=== PATIENT | male | born 1925 | race Caucasian/White ===

== ENCOUNTER → 2016-08-23 | Outpatient (CLI) | payer MEDICARE, OTHER ==
[2016-08-23 08:40] LABS: ALANINE AMINOTRANSFERASE 31 U/L (21-72); ALBUMIN 3.7 g/dL (3.5-5.0); ALKALINE PHOSPHATASE 69 U/L (38-126); ANION GAP 7 (5-19); ASPARTATE AMINO TRANSFERASE 27 U/L (17-59); BILIRUBIN,TOTAL 1.1 mg/dL (0.2-1.3); BLOOD UREA NITROGEN 24 mg/dL (7-20); CARBON DIOXIDE 32 mmol/L (22-30); CHLORIDE 104 mmol/L (98-107); CHOLESTEROL 92.83 mg/dL (0-200); CREATININE RESULT 0.92 mg/dL (0.52-1.25); Direct HDL 42 mg/dL (>40); GLUCOSE 95 mg/dL (75-110); POTASSIUM 4.2 mmol/L (3.6-5.0); SODIUM 142.5 mmol/L (137-145); TOTAL PROTEIN 6.2 g/dL (6.3-8.2); TRIGLYCERIDES 58 mg/dL (<150)
[2016-08-23 08:52] LABS: DIRECT LDL 38 mg/dL (<100)
== END ==
LOC: OD 07:49
PROVIDERS: ATTEND Internal Medicine
DX: I48.2 Chronic atrial fibrillation (principal); I50.33 Acute on chronic diastolic (congestive) heart failure; Z98.61 Coronary angioplasty status; I34.0 Nonrheumatic mitral (valve) insufficiency; E78.4 Other hyperlipidemia; I10 Essential (primary) hypertension; I35.1 Nonrheumatic aortic (valve) insufficiency; I36.1 Nonrheumatic tricuspid (valve) insufficiency; I47.2 Ventricular tachycardia; R00.1 Bradycardia, unspecified; I73.9 Peripheral vascular disease, unspecified; R01.1 Cardiac murmur, unspecified; M19.90 Unspecified osteoarthritis, unspecified site; R09.89 Other specified symptoms and signs involving the circulatory and respiratory systems; I25.10 Atherosclerotic heart disease of native coronary artery without angina pectoris; I95.1 Orthostatic hypotension; Z79.899 Other long term (current) drug therapy
CPT/HCPCS: 36415; 80053; 80061; 83880

== ENCOUNTER → 2016-09-24 | Outpatient (CLI) | payer MEDICARE, OTHER | LOC: OD 09:49 | PROVIDERS: ATTEND Urology | DX: R97.20 Elevated prostate specific antigen [PSA] (principal) | CPT/HCPCS: 36415; 84153 ==

== ENCOUNTER → 2016-11-15 | Outpatient (CLI) | payer MEDICARE, OTHER ==
[2016-11-15 10:00] LABS: ALANINE AMINOTRANSFERASE 27 U/L (21-72); ALBUMIN 3.7 g/dL (3.5-5.0); ALKALINE PHOSPHATASE 79 U/L (38-126); ANION GAP 11 (5-19); ASPARTATE AMINO TRANSFERASE 24 U/L (17-59); BILIRUBIN,DIRECT 0.3 mg/dL (0.0-0.4); BILIRUBIN,TOTAL 1.3 mg/dL (0.2-1.3); BLOOD UREA NITROGEN 26 mg/dL (7-20); CALCIUM 8.8 mg/dL (8.4-10.2); CARBON DIOXIDE 27 mmol/L (22-30); CHLORIDE 101 mmol/L (98-107); CREATININE RESULT 0.92 mg/dL (0.52-1.25); GLUCOSE 99 mg/dL (75-110); POTASSIUM 3.8 mmol/L (3.6-5.0); SODIUM 139.4 mmol/L (137-145); TOTAL PROTEIN 6.2 g/dL (6.3-8.2)
[2016-11-15 10:19] LABS: FREE T3 2.76 pg/mL (2.77-5.27)
[2016-11-15 10:23] LABS: BLOOD UREA NITROGEN 26 mg/dL (7-20); CREATININE RESULT 0.92 mg/dL (0.52-1.25)
[2016-11-15 10:24] LABS: ANION GAP 11 (5-19); CARBON DIOXIDE 27 mmol/L (22-30); CHLORIDE 101 mmol/L (98-107); POTASSIUM 3.8 mmol/L (3.6-5.0); SODIUM 139.4 mmol/L (137-145)
[2016-11-15 10:33] LABS: THYROID STIMULATING HORMONE 2.35 uIU/mL (0.47-4.68)
== END ==
LOC: OD 07:41
PROVIDERS: ATTEND Internal Medicine
DX: E03.9 Hypothyroidism, unspecified (principal); I25.10 Atherosclerotic heart disease of native coronary artery without angina pectoris
CPT/HCPCS: 36415; 80051; 80053; 82565; 84439; 84443; 84481; 84520

== ENCOUNTER 2017-02-03 18:50 | Emergency (ER) | payer MEDICARE, OTHER ==
--- NOTE | 2017-02-03 18:55 | ER Document Report ---
ED Cardiac - General Information source: Patient TRAVEL OUTSIDE OF THE U.[place]. IN LAST 30 DAYS: No <JIN BARROS - Last Filed: 02/03/17 21:09> <CECE KELLY - Last Filed: 02/03/17 23:01> - General Stated Complaint: CHEST PAIN Time Seen by Provider: 02/03/17 18:54 Notes: Patient is an 89 year old male who presents to the ED with complaints of dizziness that caused the patient to fall while he was at home injuring his right hip. EMS was called. Patient's pain is reported to be controlled as long as he has no movement. Patient was having runs of v-tach on the way to the ED and was feeling dizzy during those runs. 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 Patient states he has had similar symptoms a few times in the past. Patient is currently being treated for pneumonia . No other concerns or complaints at this time. Patient is on blood thinning medication. (JIN BARROS) - Related Data Allergies/Adverse Reactions: No Known Allergies Allergy (Verified 02/03/17 19:01) Past Medical History - General Information source: Patient - Social History Smoking Status: Unknown if Ever Smoked Family History: Reviewed & Not Pertinent, CAD, Other - Past Medical History Cardiac Medical History: Reports: Hx Atrial Fibrillation, Hx Congestive Heart Failure, Hx Coronary Artery Disease, Hx DVT, Hx Heart Attack, Hx Hypercholesterolemia, Hx Hypertension, Hx Pulmonary Embolism Pulmonary Medical History: Reports: Hx COPD Renal/ Medical History: Reports: Hx Kidney Stones GI Medical History: Reports: Hx Gastroesophageal Reflux Disease Musculoskeltal Medical History: Reports Hx Arthritis Psychiatric Medical History: Denies: Hx Bipolar Disorder, Hx Depression, Hx Schizoaffective Disorder Past Surgical History: Reports: Hx Appendectomy, Hx Cardiac Catheterization, Hx Cholecystectomy, Hx Coronary Stent - X2 in 2001, Hx Orthopedic Surgery - Bilateral knee replacements - Immunizations Hx Diphtheria, Pertussis, Tetanus Vaccination: Yes <JIN BARROS - Last Filed: 02/03/17 21:09> Review of Systems - Review of Systems Constitutional: No symptoms reported EENT: No symptoms reported Cardiovascular: See HPI, Palpitations, Dizziness Respiratory: No symptoms reported Gastrointestinal: No symptoms reported Genitourinary: No symptoms reported Male Genitourinary: No symptoms reported Musculoskeletal: See HPI, Joint pain - right hip Skin: No symptoms reported Hematologic/Lymphatic: No symptoms reported Neurological/Psychological: No symptoms reported <JIN BARROS - Last Filed: 02/03/17 21:09> Course - Laboratory Result Diagrams: 02/03/17 19:05 02/03/17 19:05 - Consults [facility] Transfer Line Time consulted: 20:23 Dr. Tamez Time consulted: 20:28 Dr. Núñez Time consulted: 20:26 <JIN BARROS - Last Filed: 02/03/17 21:09> - Laboratory Result Diagrams: 02/03/17 19:05 02/03/17 19:05 <CECE KELLY - Last Filed: 02/03/17 23:01> - Re-evaluation Re-evalutation: 02/03/17 22:50 Patient is an 89-year-old male who has had dizziness for the last 2 days. Patient had a fall at home. Was picked up by EMS, patient was having runs of V. tach per EMS. Rhythm strip unfortunately is not available. Patient has a proximal femur fracture that is displaced. Discussed with family. Patient would like to have surgery on his hip. Due to ventricular tachycardia, discussed with cardiology. Anesthesia here will not operate on this patient. This necessitates transfer patient. Patient was discussed with Dr. Tamez at [facility] to accept patient for transfer. Of note, there has not been any ventricular tachycardia here that I have seen. No acute findings on blood work except for equivocal troponin of 0.082. Patient has been splinted and attempted traction. Patient was discussed with family about his advanced directives. Patient and family have never had any discussion about advanced directives and he is to be a full code. When transport arrived, it was found that the patient had a DNR directive which the family did not know about. Patient apparently did not know about that either. It has just been revoked. Patient remains a full code at this time. Stable for transfer. (CECE KELLY) - Vital Signs Vital signs: Temp Pulse Resp BP Pulse Ox 99.7 F 87 27 H 128/69 H 94 02/03/17 21:46 02/03/17 18:50 02/03/17 21:46 02/03/17 21:46 02/03/17 21:46 - Laboratory Laboratory results interpreted by me: 02/03/17 02/03/17 02/03/17 19:05 19:05 19:05 RBC 3.87 L Hgb 12.1 L Hct 37.1 L RDW 17.2 H Plt Count 120 L Seg Neutrophils % 78.6 H PT 15.5 H Sodium 135.8 L Direct Bilirubin 0.5 H Creatine Kinase 28 L Albumin 3.3 L - Consults [facility] Transfer Line Reason for consultation: 02/03/17 20:23 Patient was discussed with transfer line, waiting for physician timber poisoner to return the call (JIN BARROS) Dr. Tamez Reason for consultation: 02/03/17 20:[address] Tamez, patient is accepted for transfer. (JIN BARROS) Dr. Núñez Reason for consultation: 02/03/17 20:26 Patient was discussed with Dr. Núñez who requested the EKG strips and patient be transferred (JIN BARROS) Critical Care Note - Critical Care Note Total time excluding time spent on procedures (mins): 90 - Evaluation and management of arrhythmia, management of femur fracture, coordination with specialist, coordination of transfer, counseling of patient and family <CECE KELLY - Last Filed: 02/03/17 23:01> Discharge <JIN BARROS - Last Filed: 02/03/17 21:09> <CECE KELLY - Last Filed: 02/03/17 23:01> - Discharge Clinical Impression: Ventricular tachycardia Femur fracture, right Qualifiers: Encounter type: initial encounter Femur location: shaft Fracture type: closed Fracture morphology: unspecified fracture morphology Qualified Code(s): S72.301A - Unspecified fracture of shaft of right femur, initial encounter for closed fracture Condition: Stable Disposition: [facility] Scribe Attestation: 02/03/17 23:01 I personally performed the services described in the documentation, reviewed and edited the documentation which was dictated to the scribe in my presence, and it accurately records my words and actions. (CECE KELLY) Scribe Documentation - Scribe Written by Scribe:: guicho Osorio, 02/03/2017, 1917 acting as scribe for :: Nena <JIN BARROS - Last Filed: 02/03/17 21:09>
[2017-02-03] MEDS ORDERED: AMIODARONE HCL INJ 150 MG/3 ML VIAL IV ONE (18:59)
[2017-02-03 19:25] LABS: VENOUS BLOOD BASE EXCESS 4.9 mmol/L; VENOUS BLOOD HCO3 31.2 mmol/L (20-32); VENOUS BLOOD PCO2 54.4 mmHg (35-63); VENOUS BLOOD PH 7.38 (7.30-7.42)
[2017-02-03 19:31] LABS: ABSOLUTE EOSINOPHILS # (AUTO) 0.1 10^3/uL (0.0-0.6); ABSOLUTE MONOCYTES (AUTO) 0.5 10^3/uL (0.1-1.4); ABSOLUTE NEUT (AUTO) 5.8 10^3/uL (1.7-8.2); BASOPHILS % (AUTO) 0.2 % (0-2); EOSINOPHILS % (AUTO) 1.1 % (0-6); HEMATOCRIT 37.1 % (37.9-51.0); HEMOGLOBIN 12.1 g/dL (13.5-17.0); HGB HCT DIFFERENCE -0.8; LYMPHOCYTES % (AUTO) 13.2 % (13-45); MEAN CORPUSCULAR HEMOGLOBIN 31.1 pg (27.0-33.4); MEAN CORPUSCULAR HGB CONC 32.5 g/dL (32.0-36.0); MEAN CORPUSCULAR VOLUME 96 fl (80-97); MONOCYTES % (AUTO) 6.9 % (3-13); RED BLOOD COUNT 3.87 10^6/uL (4.35-5.55); RED CELL DISTRIBUTION WIDTH 17.2 % (11.5-14.0); SEGMENTED NEUTROPHILS % (AUTO) 78.6 % (42-78); WHITE BLOOD COUNT 7.4 10^3/uL (4.0-10.5)
[2017-02-03 19:32] LABS: PROTHROMBIN TIME 15.5 SEC (11.4-15.4)
[2017-02-03 19:39] LABS: ALANINE AMINOTRANSFERASE 37 U/L (21-72); ALBUMIN 3.3 g/dL (3.5-5.0); ALKALINE PHOSPHATASE 105 U/L (38-126); ANION GAP 10 (5-19); ASPARTATE AMINO TRANSFERASE 24 U/L (17-59); BILIRUBIN,DIRECT 0.5 mg/dL (0.0-0.4); BILIRUBIN,TOTAL 1.3 mg/dL (0.2-1.3); BLOOD UREA NITROGEN 16 mg/dL (7-20); CALCIUM 8.5 mg/dL (8.4-10.2); CARBON DIOXIDE 27 mmol/L (22-30); CHLORIDE 99 mmol/L (98-107); CREATINE KINASE 28 U/L (55-170); CREATININE RESULT 0.73 mg/dL (0.52-1.25); GLUCOSE 94 mg/dL (75-110); SODIUM 135.8 mmol/L (137-145); TOTAL PROTEIN 6.5 g/dL (6.3-8.2)
--- NOTE | 2017-02-03 19:46 | RADIOLOGY REPORT (SQ) ---
EXAM DESCRIPTION: CHEST SINGLE VIEW COMPLETED DATE/TIME: 02/03/2017 7:17 pm REASON FOR STUDY: CP COMPARISON: 06/07/2016 EXAM PARAMETERS: NUMBER OF VIEWS: One view. TECHNIQUE: Single frontal radiographic view of the chest acquired. RADIATION DOSE: NA LIMITATIONS: None. FINDINGS: LUNGS AND PLEURA: Similar interstitial changes bilaterally with mild low lung volumes. No consolidation. Small right pleural effusion. MEDIASTINUM AND HILAR STRUCTURES: Stable. HEART AND VASCULAR STRUCTURES: Stable. BONES: No acute findings. HARDWARE: None in the chest. OTHER: No other significant finding. IMPRESSION: Similar interstitial changes bilaterally with mild low lung volumes. No consolidation. Small right pleural effusion. TECHNICAL DOCUMENTATION: JOB ID: [id number]
--- NOTE | 2017-02-03 19:48 | RADIOLOGY REPORT (SQ) ---
EXAM DESCRIPTION: PELVIS AP COMPLETED DATE/TIME: 02/03/2017 7:17 pm REASON FOR STUDY: fall, injury COMPARISON: None. NUMBER OF VIEWS: One view TECHNIQUE: AP Pelvis LIMITATIONS: None. FINDINGS: MINERALIZATION: Normal. HIPS: Proximal right femoral metaphyseal fracture which involves the lower trochanteric region, there is 3.9 cm of medial displacement as well as 6 cm of impaction. No hip joint Dislocation. No worriso me bone lesions. PELVIS AND SACRUM: No fracture identified. PUBIS AND ISCHIUM: No fracture identified. LOWER LUMBAR SPINE: No significant findings as visualized. SOFT TISSUES: No findings. OTHER: No other significant finding. IMPRESSION: Proximal right femoral metaphyseal fracture which involves the lower trochanteric region , there is 3.9 cm of medial displacement as well as 6 cm of impaction. TECHNICAL DOCUMENTATION: JOB ID: [id number] [employer]- All Rights Reserved
[2017-02-03 19:51] LABS: CREATINE KINASE MB 0.57 ng/mL (<4.55)
[2017-02-03 20:02] LABS: TROPONIN I 0.082 ng/mL
[2017-02-03] MEDS ORDERED: FENTANYL CITRATE INJ/PF 100 MCG/2 ML AMPUL IV ONE ×2 (20:48→23:00)
--- NOTE | 2017-02-03 21:07 | EKG REPORT ---
SEVERITY:- ABNORMAL ECG - ATRIAL FIBRILLATION, V-RATE 79-124 ABERRANT COMPLEX, POSSIBLY SUPRAVENTRICULAR BORDERLINE PROLONGED QT INTERVAL : Confirmed by: Ernie Zaman MD 03-Feb-2017 21:06:10
--- NOTE | 2017-02-03 21:40 | RADIOLOGY REPORT (SQ) ---
EXAM DESCRIPTION: CT HEAD WITHOUT COMPLETED DATE/TIME: 02/03/2017 9:19 pm REASON FOR STUDY: fall, dizziness COMPARISON: 07/21/2010 TECHNIQUE: Axial images acquired through the brain without intravenous contrast. Images reviewed wi th bone, brain and subdural windows. Images stored on PACS. All CT scanners at this facility use dose modulation, iterative reconstruction, and/or weight based d osing when appropriate to reduce radiation dose to as low as reasonably achievable (ALARA). [facility]: Dose Right [facility]: CareDose [facility]: Dose Right [facility]: Teradose 4D [facility]: Smart [employer] RADIATION DOSE: Up-to-date CT equipment and radiation dose reduction techniques were employed. CTDIv ol: 64.6 mGy. DLP: 1163 mGy-cm. mGy. LIMITATIONS: None. FINDINGS: VENTRICLES: Age-appropriate. CEREBRUM: No masses. No hemorrhage. No midline shift. Areas of low density in the white matter mos t likely due to chronic micro-vascular ischemic change. No evidence for acute infarction. CEREBELLUM: No masses. No hemorrhage. No alteration of density. No evidence for acute infarction. EXTRAAXIAL SPACES: Mild age-related involutional change. No fluid collections. No masses. ORBITS AND GLOBE: No intra- or extraconal masses. Normal contour of globe without masses. CALVARIUM: No fracture. PARANASAL SINUSES: Right maxillary sinus mucosal thickening. SOFT TISSUES: No mass or hematoma. OTHER: No other significant finding. IMPRESSION: MILD CHRONIC CHANGES OF ATROPHY AND MICROVASCULAR ISCHEMIA. No acute intracranial findi ngs. TECHNICAL DOCUMENTATION: JOB ID: [id number] Quality ID # [id number]: Final reports with documentation of one or more dose reduction techniques (e.g., Au tomated exposure control, adjustment of the mA and/or kV according to patient size, use of iterative reconstruction technique) 2010 [employer]- All Rights Reserved
[2017-02-03 22:01] VITALS: BP 128/69
--- NOTE | 2017-02-03 22:16 | RADIOLOGY REPORT (SQ) ---
EXAM DESCRIPTION: HIP RIGHT AP/LATERAL COMPLETED DATE/TIME: 02/03/2017 9:34 pm REASON FOR STUDY: post reduction portable COMPARISON: Earlier exam same date NUMBER OF VIEWS: Two views. TECHNIQUE: AP pelvis and additional frog-leg view of the right hip. LIMITATIONS: None. FINDINGS: Similar appearance of the proximal right femoral metaphyseal fracture. OTHER: No other significant finding. IMPRESSION: Similar appearance of the proximal right femoral metaphyseal fracture. TECHNICAL DOCUMENTATION: JOB ID: [id number] [employer]- All Rights Reserved
--- NOTE | 2017-02-03 23:13 | RADIOLOGY REPORT (SQ) ---
EXAM DESCRIPTION: HIP UNILATERAL-1 VIEW COMPLETED DATE/TIME: 02/03/2017 10:16 pm REASON FOR STUDY: R hip deformity COMPARISON: Earlier exam same date NUMBER OF VIEWS: One view. TECHNIQUE: AP view of the right hip. LIMITATIONS: None. FINDINGS: Again noted is the right proximal femoral metaphyseal fracture with 3.5 cm of medial displ acement, the impaction appears to have been reduced by traction device. OTHER: No other significant finding. IMPRESSION: Again noted is the right proximal femoral metaphyseal fracture with 3.5 cm of medial dis placement, the previously seen impaction appears to have been reduced by traction device. TECHNICAL DOCUMENTATION: JOB ID: [id number] [employer]- All Rights Reserved
[2017-02-04] MEDS: FENTANYL CITRATE INJ/PF 100 MCG/2 ML AMPUL ONE (00:01)
== END 2017-02-03 22:03 | disposition short-term general hospital (02) ==
LOC: ER 18:50
DX: S72.301A Unspecified fracture of shaft of right femur, initial encounter for closed fracture (principal); W19.XXXA Unspecified fall, initial encounter; Y92.009 Unspecified place in unspecified non-institutional (private) residence as the place of occurrence of the external cause; I47.2 Ventricular tachycardia; R42 Dizziness and giddiness; J18.9 Pneumonia, unspecified organism; I25.10 Atherosclerotic heart disease of native coronary artery without angina pectoris; I10 Essential (primary) hypertension; J44.9 Chronic obstructive pulmonary disease, unspecified; Z98.61 Coronary angioplasty status; Z79.01 Long term (current) use of anticoagulants; Z86.711 Personal history of pulmonary embolism; Z86.718 Personal history of other venous thrombosis and embolism
CPT/HCPCS: 93005; 96376; 99291; 99292; 96374; 36415; 87040; 82553; 82962; 82550; 85025; 85610; 80053; 84484; 82803; 83605; 73501; 71010; 73502; 72170; 70450; 93010; 29505; J3010

== ENCOUNTER 2017-03-09 08:43 | Inpatient (IN) | payer MEDICARE, OTHER ==
--- NOTE | 2017-03-09 09:32 | ER Document Report ---
ED Fall - General Chief Complaint: Fall Stated Complaint: FALL/BACK PAIN Time Seen by Provider: 03/09/17 09:32 TRAVEL OUTSIDE OF THE [place] IN LAST 30 DAYS: No - HPI Patient complains to provider of: fall Notes: 89-year-old male presents with a fall risk [facility]/rehabilitation center. Patient is 1 month postop from a right hip replacement. Patient is not supposed to be weightbearing on that hip. Patient got out of his bed this morning and could not could not stand secondary pain. Patient fell onto his side is endorsing pain in his right hip right ribs and lower back. Pain is 8/ 10 sharp in nature without radiation nothing is made the pain better or worse. Endorses he is having increasing weakness and productive cough of yellow sputum although he denies fever. Patient denies any dysuria diarrhea or abdominal pain. Tachypnea as well orthopnea. - Related data Allergies/Adverse Reactions: No Known Allergies Allergy (Verified 03/09/17 08:57) Home Medications: Current Home Medications Alfuzosin HCl [Uroxatral] 10 mg PO DAILY 03/09/17 [History] Digoxin [Lanoxin 0.25 mg Tablet] 0.25 mg PO DAILY 03/09/17 [History] Docusate Sodium 100 mg PO DAILY 03/09/17 [History] Ezetimibe 10 mg PO DAILY 03/09/17 [History] Levothyroxine Sodium [Synthroid 50 Mcg Tablet] 50 mcg PO DAILY 03/09/17 [History ] Naproxen 220 mg PO Q12H PRN 03/09/17 [History] Oxycodone HCl 10 mg PO Q6H PRN 03/09/17 [History] Psyllium Husk [Metamucil] 0.52 gm PO DAILY 03/09/17 [History] Spironolactone 25 mg PO DAILY 03/09/17 [History] Tramadol HCl [Ultram 50 mg Tablet] 50 mg PO BID PRN 03/09/17 [History] Venlafaxine HCl ER [Effexor Xr 37.5 mg Cap.sr] 37.5 mg PO DAILY 03/09/17 [ History] Vit A/Vit C/Vit E/Zinc/Copper [Preservision Areds Softgel] 1 each PO DAILY 03/09 [History] Past Medical History - Social History Smoking Status: Former Smoker Chew tobacco use (# tins/day): No Frequency of alcohol use: None Drug Abuse: None Family History: Reviewed & Not Pertinent, CAD, Other Patient has suicidal ideation: No Patient has homicidal ideation: No - Past Medical History Cardiac Medical History: Reports: Hx Atrial Fibrillation, Hx Congestive Heart Failure, Hx Coronary Artery Disease, Hx DVT, Hx Heart Attack, Hx Hypercholesterolemia, Hx Hypertension, Hx Pulmonary Embolism Pulmonary Medical History: Reports: Hx COPD Renal/ Medical History: Reports: Hx Kidney Stones. Denies: Hx Peritoneal Dialysis GI Medical History: Reports: Hx Gastroesophageal Reflux Disease Musculoskeltal Medical History: Reports Hx Arthritis Psychiatric Medical History: Denies: Hx Bipolar Disorder, Hx Depression, Hx Schizoaffective Disorder Past Surgical History: Reports: Hx Appendectomy, Hx Cardiac Catheterization, Hx Cholecystectomy, Hx Coronary Stent - X2 in 2001, Hx Orthopedic Surgery - Bilateral knee replacements - Immunizations Hx Diphtheria, Pertussis, Tetanus Vaccination: Yes Review of Systems - Review of Systems Constitutional: No symptoms reported, Weakness EENT: No symptoms reported Cardiovascular: No symptoms reported. denies: Chest pain, Palpitations, Heart racing Respiratory: Cough Gastrointestinal: No symptoms reported Genitourinary: No symptoms reported Male Genitourinary: No symptoms reported Musculoskeletal: Back pain, Joint pain Skin: No symptoms reported Hematologic/Lymphatic: No symptoms reported Neurological/Psychological: No symptoms reported Physical Exam - Vital signs Vitals: Temp Pulse Resp BP Pulse Ox 97.9 F 109 H 24 H 161/94 H 85 L 03/09/17 08:53 03/09/17 08:53 03/09/17 08:53 03/09/17 08:53 03/09/17 08:53 Interpretation: Normal - General General appearance: Appears well, Alert In distress: Mild - HEENT Head: Normocephalic, Atraumatic Eyes: Normal Pupils: PERRL - Respiratory Respiratory status: Respiratory distress Chest status: Nontender Breath sounds: Decreased air movement, Wheezing Chest palpation: Normal - Cardiovascular Rhythm: Regular Heart sounds: Normal auscultation Murmur: No - Abdominal Inspection: Normal Distension: No distension Bowel sounds: Normal Tenderness: Nontender Organomegaly: No organomegaly - Back Back: Normal, Tender, Other - tender l4 - Extremities General upper extremity: Normal inspection, Nontender, Normal color, Normal ROM , Normal temperature General lower extremity: Normal inspection, Nontender, Normal color, Normal ROM , Normal temperature, Normal weight bearing. No: Ananda's sign - Neurological Neuro grossly intact: Yes Cognition: Normal Orientation: AAOx4 [place] Coma Scale Eye Opening: Spontaneous Maggie Coma Scale Verbal: Oriented Maggie Coma Scale Motor: Obeys Commands [place] Coma Scale Total: 15 Speech: Normal Motor strength normal: LUE, RUE, LLE, RLE Sensory: Normal - Psychological Associated symptoms: Normal affect, Normal mood - Skin Skin Temperature: Warm Skin Moisture: Dry Skin Color: Normal Course - Re-evaluation Re-evalutation: 03/09/17 09:44 Elderly man presents from [facility] with fall. Patient has some right hip pain and back pain. General patient is also has some wheezing and a new oxygen demand. States that the fci he began having to use oxygen to maintain oxygen saturations approximately 2 weeks ago. Patient currently on 4 L nasal cannula oxygen saturations 85%. 03/09/17 11:51 Patient with lengthy history of CHF found to have very large pleural effusions on his left and small on the right. Happily patient's trauma scans were negative for his head neck and hip. Patient's extensive lab workup shows multiple abnormalities including his CHF. Patient required a great deal of oxygen at this time to above his baseline. Patient will be admitted to the hospital for further management diuresis started in the emergency room. At this time patient is satting well. - Vital Signs Vital signs: Temp Pulse Resp BP Pulse Ox 97.9 F 109 H 26 H 136/71 H 95 03/09/17 08:53 03/09/17 08:53 03/09/17 11:25 03/09/17 11:25 03/09/17 11:25 - Laboratory Result Diagrams: 03/09/17 09:16 03/09/17 09:16 Laboratory results interpreted by me: 03/09/17 03/09/17 03/09/17 09:16 09:16 09:16 RBC 3.70 L Hgb 12.2 L Hct 36.7 L MCV 99 H RDW 20.9 H Plt Count 135 L Seg Neutrophils % 85.3 H Lymphocytes % 10.0 L Carbonic Acid ABG pCO2 ABG pO2 ABG HCO3 ABG Total CO2 ABG O2 Saturation Sodium 135.5 L Carbon Dioxide 32 H Glucose 114 H Calcium 8.2 L NT-Pro-B Natriuret Pep 59227 H 03/09/17 11:17 RBC Hgb Hct MCV RDW Plt Count Seg Neutrophils % Lymphocytes % Carbonic Acid 1.60 H ABG pCO2 53.3 H ABG pO2 57.2 L ABG HCO3 30.1 H ABG Total CO2 31.7 H ABG O2 Saturation 88.5 L Sodium Carbon Dioxide Glucose Calcium NT-Pro-B Natriuret Pep - EKG Interpretation by Me Additional EKG results interpreted by me: 03/09/17 11:43 Paced rhythm atrial fib patient on Eliquis. Rate 96 bpm QTc 460, no ST elevations or depressions. Critical Care Note - Critical Care Note Total time excluding time spent on procedures (mins): 38 Comments: Critical care time exclusive of any procedures. This will include consultation and arranging transfer patient Discharge - Discharge Clinical Impression: Hypoxia Acute on chronic congestive heart failure Qualifiers: Congestive heart failure type: diastolic Qualified Code(s): I50.33 - Acute on chronic diastolic (congestive) heart failure Atrial fibrillation Qualifiers: Atrial fibrillation type: chronic Qualified Code(s): I48.2 - Chronic atrial fibrillation Respiratory failure Qualifiers: Chronicity: acute Respiratory failure complication: unspecified whether with hypoxia or hypercapnia Qualified Code(s): J96.00 - Acute respiratory failure, unspecified whether with hypoxia or hypercapnia Condition: Serious Disposition: ADMITTED INPATIENT Admitting Provider: Hospitalist Unit Admitted: IMCU Referrals: MARCIE URIAS MD [Primary Care Provider] - Follow up as needed
[2017-03-09] MEDS ORDERED: IPRATROPIUM/ALBUTEROL 0.5-2.5 MG/3 ML AMPUL NEB ONE (09:40)
[2017-03-09 09:54] LABS: ABSOLUTE LYMPHOCYTES (AUTO) 0.7 10^3/uL (0.5-4.7); ABSOLUTE MONOCYTES (AUTO) 0.3 10^3/uL (0.1-1.4); ABSOLUTE NEUT (AUTO) 5.9 10^3/uL (1.7-8.2); BASOPHILS % (AUTO) 0.4 % (0-2); EOSINOPHILS % (AUTO) 0.4 % (0-6); HEMATOCRIT 36.7 % (37.9-51.0); HEMOGLOBIN 12.2 g/dL (13.5-17.0); HGB HCT DIFFERENCE -0.1; MEAN CORPUSCULAR HGB CONC 33.3 g/dL (32.0-36.0); MEAN CORPUSCULAR VOLUME 99 fl (80-97); MONOCYTES % (AUTO) 3.9 % (3-13); RED CELL DISTRIBUTION WIDTH 20.9 % (11.5-14.0); SEGMENTED NEUTROPHILS % (AUTO) 85.3 % (42-78)
--- NOTE | 2017-03-09 09:55 | RADIOLOGY REPORT (SQ) ---
EXAM DESCRIPTION: RIBS LEFT W/PA CHEST COMPLETED DATE/TIME: 03/09/2017 9:37 am REASON FOR STUDY: bed3 s/p fall with severe left rib pain COMPARISON: None. TECHNIQUE: Frontal view of the chest and additional views of the left ribs acquired. NUMBER OF VIEWS: Four views LIMITATIONS: None. FINDINGS: FRONTAL CXR: No pneumothorax. No pleural effusion. Bilateral pleural effusions are ident ified with pulmonary vascular congestion and interstitial changes suggesting interstitial edema RIBS: No displaced rib fractures. No lytic or blastic bony lesions. OTHER: No other significant finding. IMPRESSION: NO PNEUMOTHORAX. NO DISPLACED RIB FRACTURES. Congestive failure pattern as noted above . COMMENT: SITE OF TRAUMA/COMPLAINT MARKED/STAMP COMPLETED: No TECHNICAL DOCUMENTATION: JOB ID: [id number] [employer]- All Rights Reserved
[2017-03-09 10:00] LABS: ANION GAP 6 (5-19); BLOOD UREA NITROGEN 14 mg/dL (7-20); CALCIUM 8.2 mg/dL (8.4-10.2); CARBON DIOXIDE 32 mmol/L (22-30); CHLORIDE 98 mmol/L (98-107); CREATININE RESULT 0.65 mg/dL (0.52-1.25); GLUCOSE 114 mg/dL (75-110); MAGNESIUM 1.7 mg/dL (1.6-2.3); POTASSIUM 4.8 mmol/L (3.6-5.0); SODIUM 135.5 mmol/L (137-145)
--- NOTE | 2017-03-09 11:12 | RADIOLOGY REPORT (SQ) ---
EXAM DESCRIPTION: CT HEAD WITHOUT COMPLETED DATE/TIME: 03/09/2017 10:57 am REASON FOR STUDY: fall COMPARISON: 02/03/2017 TECHNIQUE: Axial images acquired through the brain without intravenous contrast. Images reviewed wi th bone, brain and subdural windows. Images stored on PACS. All CT scanners at this facility use dose modulation, iterative reconstruction, and/or weight based d osing when appropriate to reduce radiation dose to as low as reasonably achievable (ALARA). [facility]: Dose Right [facility]: CareDose [facility]: Dose Right [facility]: Teradose 4D [facility]: [employer] RADIATION DOSE: Up-to-date CT equipment and radiation dose reduction techniques were employed. CTDIv ol: 64.6 mGy. DLP: 2172 mGy-cm. mGy. LIMITATIONS: None. FINDINGS: VENTRICLES: Prominent. CEREBRUM: No masses. No hemorrhage. No midline shift. Areas of low density in the white matter mos t likely due to chronic micro-vascular ischemic change. No evidence for acute infarction. CEREBELLUM: No masses. No hemorrhage. No alteration of density. No evidence for acute infarction. EXTRAAXIAL SPACES: Mild age-related involutional change. No fluid collections. No masses. ORBITS AND GLOBE: No intra- or extraconal masses. Normal contour of globe without masses. CALVARIUM: No fracture. PARANASAL SINUSES: Mucosal thickening is again identified in the right maxillary antra SOFT TISSUES: No mass or hematoma. OTHER: No other significant finding. IMPRESSION: MILD CHRONIC CHANGES OF ATROPHY AND MICROVASCULAR ISCHEMIA. NO ACUTE PROCESS. TECHNICAL DOCUMENTATION: JOB ID: [id number] Quality ID # [id number]: Final reports with documentation of one or more dose reduction techniques (e.g., Au tomated exposure control, adjustment of the mA and/or kV according to patient size, use of iterative reconstruction technique) 2010 [employer]- All Rights Reserved
--- NOTE | 2017-03-09 11:14 | RADIOLOGY REPORT (SQ) ---
EXAM DESCRIPTION: CT CERVICAL SPINE WITHOUT COMPLETED DATE/TIME: 03/09/2017 10:57 am REASON FOR STUDY: fall COMPARISON: None. TECHNIQUE: Axial images acquired through the cervical spine without intravenous contrast. Images re viewed with lung, soft tissue and bone windows. Reconstructed coronal and sagittal MPR images review ed. Images stored on PACS. All CT scanners at this facility use dose modulation, iterative reconstruction, and/or weight based d osing when appropriate to reduce radiation dose to as low as reasonably achievable (ALARA). [facility]: Dose Right [facility]: CareDose [facility]: Dose Right [facility]: Teradose 4D [facility]: Smart [employer] RADIATION DOSE: Up-to-date CT equipment and radiation dose reduction techniques were employed. CTDIv ol: 22.9 mGy. DLP: 475 mGy-cm. mGy. LIMITATIONS: None. FINDINGS: ALIGNMENT: Anatomic. MINERALIZATION: Normal. VERTEBRAL BODIES: No fractures or dislocation. DISCS: No significant disc space reduction is seen. Anterior osteophytic lipping is identified at mu ltiple levels FACETS, LATERAL MASSES, POSTERIOR ELEMENTS: No fractures. No dislocation. No acute findings. HARDWARE: None in the spine. VISUALIZED RIBS: No fractures. LUNG APICES AND SOFT TISSUES: No significant or acute findings. OTHER: No other significant finding. IMPRESSION: Degenerative changes without evidence for fracture. TECHNICAL DOCUMENTATION: JOB ID: [id number] Quality ID # [id number]: Final reports with documentation of one or more dose reduction techniques (e.g., Au tomated exposure control, adjustment of the mA and/or kV according to patient size, use of iterative reconstruction technique) 2010 [email or web address]- All Rights Reserved
--- NOTE | 2017-03-09 11:18 | RADIOLOGY REPORT (SQ) ---
EXAM DESCRIPTION: CT CHEST WITHOUT COMPLETED DATE/TIME: 03/09/2017 10:57 am REASON FOR STUDY: sob, cough COMPARISON: None. TECHNIQUE: CT scan performed of the chest without intravenous contrast. Images reviewed with lung, soft tissue and bone windows. Reconstructed coronal and sagittal MPR images reviewed. All images st ored on PACS. All CT scanners at this facility use dose modulation, iterative reconstruction, and/or weight based d osing when appropriate to reduce radiation dose to as low as reasonably achievable (ALARA). [facility]: Dose Right [facility]: CareDose [facility]: Dose Right [facility]: Teradose 4D [facility]: [employer] RADIATION DOSE: Up-to-date CT equipment and radiation dose reduction techniques were employed. CTDIv ol: 14.4 mGy. DLP: 545 mGy-cm. mGy. LIMITATIONS: No technical limitations. FINDINGS: LUNGS AND PLEURA: A large left pleural effusion and small right pleural effusions are iden tified. There is airspace consolidation in the lung bases left greater than right most consistent wi th atelectatic changes although I cannot exclude pneumonic consolidations. There is interstitial pro minence and mild ground-glass opacities in the remainder of the lung huertas most consistent with eduar a. HILAR AND MEDIASTINAL STRUCTURES: No identified masses or abnormal nodes. No obvious aneurysm. HEART AND VASCULAR STRUCTURES: No aneurysm. No pericardial effusion. UPPER ABDOMEN: No significant findings. Limited exam. THYROID AND OTHER SOFT TISSUES: No masses. No adenopathy. BONES: Bony structures are osteopenic with a slightly exaggerated thoracic kyphosis and degenerative changes in the thoracic spine HARDWARE: None in the chest. OTHER: No other significant findings. IMPRESSION: Congestive failure pattern as noted above. Other findings as noted above. TECHNICAL DOCUMENTATION: JOB ID: [id number] Quality ID # [id number]: Final reports with documentation of one or more dose reduction techniques (e.g., Au tomated exposure control, adjustment of the mA and/or kV according to patient size, use of iterative reconstruction technique) 2010 [employer]- All Rights Reserved
--- NOTE | 2017-03-09 11:20 | RADIOLOGY REPORT (SQ) ---
EXAM DESCRIPTION: HIP RIGHT AP/LATERAL COMPLETED DATE/TIME: 03/09/2017 11:05 am REASON FOR STUDY: fall COMPARISON: 02/03/2017 NUMBER OF VIEWS: Two views. TECHNIQUE: AP pelvis and additional frog-leg view of the right hip. LIMITATIONS: None. FINDINGS: MINERALIZATION: Normal. RIGHT HIP: Patient is status post right hip pinning of the previously described fracture of the proxi mal femur. Orthopedic nail and intramedullary ivy are identified in position. No definite acute fra cture is identified. LEFT HIP: No fracture or dislocation. No worrisome bone lesions. PUBIS AND ISCHIUM: No fracture. PELVIS: No fracture. SACRUM: No fracture or dislocation. No worrisome bone lesions. LOWER LUMBAR SPINE: No fracture or dislocation. No worrisome bone lesions. No significant disc disea se. SOFT TISSUES: No findings. OTHER: There is some bony deformity of the distal right femur presumably related to previous trauma. IMPRESSION: Status post right hip pinning. No acute changes are identified. TECHNICAL DOCUMENTATION: JOB ID: [id number] [employer] All Rights Reserved
--- NOTE | 2017-03-09 11:23 | RADIOLOGY REPORT (SQ) ---
EXAM DESCRIPTION: L SPINE WHOLE COMPLETED DATE/TIME: 03/09/2017 11:05 am REASON FOR STUDY: fall COMPARISON: None. NUMBER OF VIEWS: Five views including obliques. TECHNIQUE: AP, lateral, oblique, and sacral radiographic images acquired of the lumbar spine. LIMITATIONS: None. FINDINGS: MINERALIZATION: Normal. SEGMENTATION: Normal. No transitional anatomy. ALIGNMENT: Normal. VERTEBRAE: Maintained height. No fracture or worrisome bone lesion. DISCS: Multilevel disc space narrowing with osteophytes. POSTERIOR ELEMENTS: Pedicles and facets are intact. There appears to be unilateral pars defect at th e L3 level on the right. Facet arthropathy is present. HARDWARE: None in the spine. PARASPINAL SOFT TISSUES: Normal. PELVIS: Intact as visualized. No fractures or worrisome bone lesions. SI joints intact. OTHER: Vascular calcifications are identified in the abdominal aorta and I cannot exclude a small abd ominal aortic aneurysm. IMPRESSION: SPONDYLOSIS WITHOUT BONE LESION OR FRACTURE. Other findings as noted above TECHNICAL DOCUMENTATION: JOB ID: [id number] [employer]- All Rights Reserved
[2017-03-09 11:26] LABS: TROPONIN I 0.154 ng/mL
[2017-03-09 11:34] LABS: ARTERIAL BLOOD BASE EXCESS 3.7 mmol/L; ARTERIAL BLOOD O2 SATURATION 88.5 % (94-98)
[2017-03-09] MEDS ORDERED: FUROSEMIDE INJ/PF 40 MG/4 ML SDV IV ONE (11:42)
[2017-03-09] MEDS ORDERED: ACETAMINOPHEN 325 MG TABLET PO PRN (12:09)
[2017-03-09] MEDS ORDERED: MAGNESIUM HYDROXIDE SUSP 30 ML UDCUP PO PRN (12:09)
[2017-03-09] MEDS ORDERED: ONDANSETRON HCL INJ/PF 4 MG/2 ML SDV IV PRN (12:09)
[2017-03-09 12:15] LABS: APPEARANCE,URINE CLEAR; BILIRUBIN,URINE NEGATIVE (NEGATIVE); CALCIUM OXALATE CRYSTALS,URINE FEW /HPF; GLUCOSE, URINE NEGATIVE (NEGATIVE); KETONES,URINE TRACE mg/dL (NEGATIVE); LEUKOCYTE ESTERASE,URINE NEGATIVE (NEGATIVE); NITRITE,URINE NEGATIVE (NEGATIVE); PROTEIN,URINE NEGATIVE (NEGATIVE); URINE SPECIFIC GRAVITY 1.013
[2017-03-09 12:33] LABS: PROTHROMBIN TIME 16.4 SEC (11.4-15.4)
[2017-03-09 12:34] LABS: PARTIAL THROMBOPLASTIN TIME 40.3 SEC (23.5-35.8)
[2017-03-09] MEDS ORDERED: METOPROLOL TARTRATE 25 MG TABLET PO ONE ×2 (13:00→15:00)
[2017-03-09] MEDS ORDERED: NITROGLYCERIN 2.5 MG (0.1 MG/HR) PATCH.TD24 TD ONE (13:00)
[2017-03-09] MEDS ORDERED: ALBUTEROL SULFATE 0.083% NEB 2.5 MG/3 ML AMPUL NEB PRN (13:49)
--- NOTE | 2017-03-09 13:52 | PDOC H&P ---
History of Present Illness Admission Date/PCP: 03/09/17 11:57 MARCIE URIAS, Patient complains of: weakness and fall History of Present Illness: AMINATA ROSENBAUM is a 89 year old male currently rehab at [facility] after fall and broken femur 02/03/17 with surgical repair, presents to ED after another fall when trying to transition from bfast table to chair. He reports progressive weakness and shortness of breath since his ortho surgery but over the last 24 hours started feeling a heaviness in his left chest with sharp pains on deep inspiration and cough. He denies productive cough, wheezing, fevers/chills, CRONIN , vision changes, difficulty swallowing, unilateral weakness, slurred speech, numb/tingling. eval in ED shows hypoxia requiring 15L/min by NRB with acute heart failure and large left pleural effusion and pulmonary edema and mildly elevated troponin 0.154 but his troponins haven't been normal since 2014. he has chronic afib and his rate is barely controlled but he hasn't received his meds yet this morning. Review of the record shows last echo 2015 with grade 2 diastolic dysfxn, mod LVH and mod LAE without any significant valvular abnl's. we were asked to admit for further eval and management. Past Medical History Cardiac Medical History: Reports: Atrial Fibrillation, Congestive Heart Failure , Coronary Artery Disease, DVT, Myocardial Infarction, Hyperlipidema, Hypertension, Pulmonary Embolism Pulmonary Medical History: Reports: Chronic Obstructive Pulmonary Disease (COPD) GI Medical History: Reports: Gastroesophageal Reflux Disease Musculoskeltal Medical History: Reports: Arthritis Psychiatric Medical History: Denies: Bipolar Disorder, Depression, Schizoaffective Disorder Hematology: Denies: Anemia Past Surgical History Past Surgical History: Reports: Appendectomy, Cardiac Catheterization, Cholecystectomy, Coronary Stent - X2 in 2001, Orthopedic Surgery - Bilateral knee replacements Social History Information Source: Patient Smoking Status: Former Smoker Cigarettes Packs Per Day: 1 Number of Years Smokin Last Time Smoked: 47 years ago Frequency of Alcohol Use: Rare Hx Recreational Drug Use: No Hx Prescription Drug Abuse: No - Advance Directive Resuscitation Status: Full Code - confirmed by patient and son at the bedside Family History Family History: Reviewed & Not Pertinent, CAD, Other Parental Family History Reviewed: Yes Children Family History Reviewed: Yes Sibling(s) Family History Reviewed.: Yes Medication/Allergy Home Medications: Finasteride [Proscar 5 mg Tablet] 5 mg PO DAILY 09/02/13 Metoprolol Tartrate [Lopressor 25 mg Tablet] 12.5 mg PO DAILY 09/02/13 Nitroglycerin [Nitrostat 0.4 mg (1/150 Gr) Tabs 25/Bottle] 0.4 mg SL Q5MP PRN Omeprazole [Prilosec] 40 mg PO DAILY 09/02/13 Simvastatin [Zocor 80 mg Tablet] 80 mg PO QHS 09/02/13 Apixaban [Eliquis] 1 tab PO Q12 04/09/16 Cetirizine HCl [Zyrtec 10 mg Tablet] 10 mg PO DAILY 04/09/16 Dorzolamide HCl/Timolol Maleat [Dorzolamide-Timolol Eye Drops] 1 drop OS Q12 07/13 Alfuzosin HCl [Uroxatral] 10 mg PO DAILY 03/09/17 Digoxin [Lanoxin 0.25 mg Tablet] 0.25 mg PO DAILY 03/09/17 Docusate Sodium 100 mg PO Q12 03/09/17 Ezetimibe 10 mg PO DAILY 03/09/17 Levothyroxine Sodium [Synthroid 50 Mcg Tablet] 50 mcg PO DAILY 03/09/17 Naproxen 220 mg PO Q12HP PRN 03/09/17 Oxycodone HCl 10 mg PO Q6HP PRN 03/09/17 Psyllium Husk [Metamucil] 0.52 gm PO DAILY 03/09/17 Spironolactone 25 mg PO DAILY 03/09/17 Tramadol HCl [Ultram 50 mg Tablet] 50 mg PO Q12HP PRN 03/09/17 Venlafaxine HCl ER [Effexor Xr 37.5 mg Cap.sr] 37.5 mg PO DAILY 03/09/17 Vit A/Vit C/Vit E/Zinc/Copper [Preservision Areds Softgel] 1 each PO DAILY 03/09 Allergies/Adverse Reactions: No Known Allergies Allergy (Verified 03/09/17 08:57) Review of Systems All systems: reviewed and no additional remarkable complaints except as stated - all systems reviewed, see HPI, remaining systems negative Physical Exam Vital Signs: Temp Pulse Resp BP Pulse Ox 98.2 F 96 24 H 133/59 H 100 03/09/17 12:50 03/09/17 12:50 03/09/17 12:50 03/09/17 12:50 03/09/17 12:50 General appearance: PRESENT: no acute distress, well-developed, well-nourished Head exam: PRESENT: atraumatic, normocephalic Eye exam: PRESENT: EOMI. ABSENT: conjunctival injection, scleral icterus Mouth exam: PRESENT: moist Neck exam: PRESENT: JVD. ABSENT: carotid bruit, lymphadenopathy, tenderness, thyromegaly Respiratory exam: PRESENT: accessory muscle use, chest wall tenderness - along sternal border, crackles, decreased breath sounds - absent BSs at left base, rales, tachypnea Cardiovascular exam: PRESENT: irregular rhythm. ABSENT: systolic murmur - distant heart sounds Pulses: PRESENT: normal radial pulses, normal dorsalis pedis pul GI/Abdominal exam: PRESENT: normal bowel sounds, soft. ABSENT: tenderness Gentrourinary exam: ABSENT: scrotal swelling Extremities exam: PRESENT: +2 edema - R>L. ABSENT: calf tenderness Musculoskeletal exam: PRESENT: full ROM, tenderness - Rt lateral thigh has long surgical scar that is well approximated without erythema Neurological exam: PRESENT: alert, awake, oriented to person, oriented to place , oriented to time, oriented to situation Psychiatric exam: PRESENT: appropriate affect, normal mood Skin exam: PRESENT: warm - and moist but not weeping Results Laboratory Results: 03/09/17 09:16 03/09/17 09:16 MCV 99 fl (80-97) H 03/09/17 09:16 MCH 33.0 pg (27.0-33.4) 03/09/17 09:16 MCHC 33.3 g/dL (32.0-36.0) 03/09/17 09:16 RDW 20.9 % (11.5-14.0) H 03/09/17 09:16 Seg Neutrophils % 85.3 % (42-78) H 03/09/17 09:16 Lymphocytes % 10.0 % (13-45) L 03/09/17 09:16 Monocytes % 3.9 % (3-13) 03/09/17 09:16 Eosinophils % 0.4 % (0-6) 03/09/17 09:16 Basophils % 0.4 % (0-2) 03/09/17 09:16 Absolute Neutrophils 5.9 10^3/uL (1.7-8.2) 03/09/17 09:16 Absolute Lymphocytes 0.7 10^3/uL (0.5-4.7) 03/09/17 09:16 Absolute Monocytes 0.3 10^3/uL (0.1-1.4) 03/09/17 09:16 Absolute Eosinophils 0.0 10^3/uL (0.0-0.6) 03/09/17 09:16 Absolute Basophils 0.0 10^3/uL (0.0-0.2) 03/09/17 09:16 Carbonic Acid 1.60 mmol/L (1.05-1.35) H 03/09/17 11:17 HCO3/H2CO3 Ratio 18:1 03/09/17 11:17 ABG pH 7.37 (7.35-7.45) 03/09/17 11:17 ABG pCO2 53.3 mmHg (35-45) H 03/09/17 11:17 ABG pO2 57.2 mmHg (80-100) L 03/09/17 11:17 ABG HCO3 30.1 mmol/L (20-26) H 03/09/17 11:17 ABG O2 Saturation 88.5 % (94-98) L 03/09/17 11:17 ABG Base Excess 3.7 mmol/L 03/09/17 11:17 FiO2 15 LPM 03/09/17 11:17 Chloride 98 mmol/L (98-107) 03/09/17 09:16 Carbon Dioxide 32 mmol/L (22-30) H 03/09/17 09:16 Anion Gap 6 (5-19) 03/09/17 09:16 Est GFR ( Amer) > 60 (>60) 03/09/17 09:16 Est GFR (Non-Af Amer) > 60 (>60) 03/09/17 09:16 Glucose 114 mg/dL (75-110) H 03/09/17 09:16 Calcium 8.2 mg/dL (8.4-10.2) L 03/09/17 09:16 Magnesium 1.7 mg/dL (1.6-2.3) 03/09/17 09:16 Urine Color YELLOW 03/09/17 11:55 Urine Appearance CLEAR 03/09/17 11:55 Urine pH 5.0 (5.0-9.0) 03/09/17 11:55 Ur Specific [place] 1.013 03/09/17 11:55 Urine Protein NEGATIVE mg/dL (NEGATIVE) 03/09/17 11:55 Urine Glucose (UA) NEGATIVE mg/dL (NEGATIVE) 03/09/17 11:55 Urine Ketones TRACE mg/dL (NEGATIVE) H 03/09/17 11:55 Urine Blood NEGATIVE (NEGATIVE) 03/09/17 11:55 Urine Nitrite NEGATIVE (NEGATIVE) 03/09/17 11:55 Ur Leukocyte Esterase NEGATIVE (NEGATIVE) 03/09/17 11:55 Urine WBC (Auto) 2 /HPF 03/09/17 11:55 Urine RBC (Auto) 2 /HPF 03/09/17 11:55 03/09/17 09:16 Troponin I 0.154 NT-Pro-B Natriuret Pep 99532 H EKG Comments: afib with borderline rapid response Impressions: Ribs w/Chest X-Ray 03/09/17 00:00 IMPRESSION: NO PNEUMOTHORAX. NO DISPLACED RIB FRACTURES. Congestive failure pattern as noted above. Cervical Spine CT 03/09/17 09:38 IMPRESSION: Degenerative changes without evidence for fracture. Chest CT 03/09/17 09:38 IMPRESSION: Congestive failure pattern as noted above. Other findings as noted above. Head CT 03/09/17 09:38 IMPRESSION: MILD CHRONIC CHANGES OF ATROPHY AND MICROVASCULAR ISCHEMIA. NO ACUTE PROCESS. Hip/Pelvis X-Ray 03/09/17 09:38 IMPRESSION: Status post right hip pinning. No acute changes are identified. Lumbar Spine X-Ray 03/09/17 09:38 IMPRESSION: SPONDYLOSIS WITHOUT BONE LESION OR FRACTURE. Other findings as noted above Status: Image reviewed by me Assessment & Plan - Diagnosis (1) Pleural effusion Is this a current diagnosis for this admission?: YesPlan: attemp to diurese but may need thoracentesis, unfortunately he is on eliquis making the risk for bleeding outweigh the benefit at this point. (2) Acute on chronic diastolic (congestive) heart failure Is this a current diagnosis for this admission?: YesPlan: I suspect this is principle diagnosis and will focus much of our attention here with IV diuretics, campbell for strict I/O's, daily weights, fluid restrict, topical NTG, toprol, aldactone. trend BNP. cardio consult (3) Pneumonia Qualifiers: Pneumonia type: due to unspecified organism Laterality: left Lung location: unspecified part of lung Qualified Code(s): J18.9 - Pneumonia, unspecified organism Is this a current diagnosis for this admission?: YesPlan: difficult to say with certainty whether this is pathologic or not but he clearly has consolidation of this left lower lobe and scattered airspace in all remaining lungs. will treat empirically with cefepime and vanc for nosocomial pathogens while we try to diuresis off the fluid in his lungs. send blood cultures and sputum if he is able to expectorate an adequate sample. (4) Elevated troponin I level Is this a current diagnosis for this admission?: YesPlan: unclear significance but likely troponin leak due to stress of hypoxia and heart failure. trend and consult cardio for further recs (5) Acute respiratory failure with hypoxia Is this a current diagnosis for this admission?: YesPlan: as needed BiPAP and intubate for mechanical ventilation if he doesn't improve. attempt to diurese and start abx as noted above. (6) Atrial fibrillation Qualifiers: Atrial fibrillation type: chronic Qualified Code(s): I48.2 - Chronic atrial fibrillation (7) Chest pain in adult Is this a current diagnosis for this admission?: YesPlan: likely pleuritic due to large effusion; trend troponins, further recs per cardio consult (8) COPD (chronic obstructive pulmonary disease) Qualifiers: COPD type: unspecified COPD Qualified Code(s): J44.9 - Chronic obstructive pulmonary disease, unspecified Is this a current diagnosis for this admission?: Yes - Time Time Spent: Greater than 70 Minutes Medications reviewed and adjusted accordingly: Yes Anticipated discharge: SNF Within: within 72 hours - Inpatient Certification Based on my medical assessment, after consideration of the patient's comorbidities, presenting symptoms, or acuity I expect that the services needed warrant INPATIENT care.: Yes I certify that my determination is in accordance with my understanding of Medicare's requirements for reasonable and necessary INPATIENT services [42 CFR 412.3e].: Yes Medical Necessity: Significant Comorbidiites Make Outpatient Treatment Too Risky , Need Close Monitoring Due to Risk of Patient Decompensation, Need For Continuous Telemetry Monitoring, Need for IV Antibiotics, Risk of Complication if Not Cared For in Hospital
[2017-03-09] MEDS ORDERED: OXYCODONE HCL IR 5 MG TABLET PO PRN (13:58)
[2017-03-09] MEDS ORDERED: FUROSEMIDE INJ/PF 40 MG/4 ML SDV IV SCH (14:00)
[2017-03-09] MEDS ORDERED: VANCOMYCIN HCL 0 MG in DEXTROSE 5%-WATER 250 ML IV NR (14:00)
[2017-03-09] MEDS: ALBUTEROL SULFATE 0.083% NEB 2.5 MG/3 ML AMPUL NEB SCH ×2 (14:50→19:51)
[2017-03-09] MEDS ORDERED: FINASTERIDE 5 MG TABLET PO ONE (15:00)
[2017-03-09] MEDS ORDERED: LANSOPRAZOLE 30 MG TAB.RAP.DR PO ONE (15:00)
[2017-03-09] MEDS ORDERED: TAMSULOSIN HCL 0.4 MG CAP.SR.24H PO ONE (15:00)
[2017-03-09] MEDS ORDERED: SPIRONOLACTONE 25 MG TABLET PO ONE (15:00)
[2017-03-09] MEDS ORDERED: VENLAFAXINE HCL 37.5 MG CAP.SR.24H PO ONE (15:00)
[2017-03-09] MEDS ORDERED: LEVOTHYROXINE SODIUM 0.05 MG TABLET PO ONE (15:00)
[2017-03-09] MEDS ORDERED: PSYLLIUM SEED-SF 5.85 GM PACKET PO ONE ×2 (15:00)
[2017-03-09] MEDS ORDERED: DIGOXIN 0.25 MG TABLET PO ONE (15:00)
[2017-03-09] MEDS ORDERED: CEFEPIME 2 GM/D5W RTU 2 GM/50 ML RTUPB IV ONE (15:30)
[2017-03-09 16:02] LABS: CREATINE KINASE MB 3.49 ng/mL (<4.55)
[2017-03-09 16:07] LABS: TROPONIN I 0.193 ng/mL
--- NOTE | 2017-03-09 16:36 | EKG REPORT ---
SEVERITY:- ABNORMAL ECG - ATRIAL FIBRILLATION, V-RATE 71-119 PAIRED VENTRICULAR PREMATURE COMPLEXES INCOMPLETE LEFT BUNDLE BRANCH BLOCK PROBABLE INFERIOR INFARCT, AGE INDETERMINATE : Confirmed by: Susi Sin 09-Mar-2017 16:35:05
[2017-03-09] MEDS: TAMSULOSIN HCL 0.4 MG CAP.SR.24H PO SCH (17:36)
[2017-03-09] MEDS: VANCOMYCIN HCL 1,000 MG in DEXTROSE 5%-WATER 250 ML IV SCH (17:37)
[2017-03-09] MEDS: POTASSIUM CHLORIDE 10 MEQ TABLET.SA PO SCH (21:33)
[2017-03-09] MEDS: DOCUSATE SODIUM 100 MG CAPSULE PO SCH (21:34)
[2017-03-09] MEDS: APIXABAN 2.5 MG TABLET PO SCH (21:34)
[2017-03-09] MEDS: DORZOLAMIDE HCL 2%/TIMOLOL MALEAT 0.5% OPH SOLN 10 ML OS SCH (21:36)
[2017-03-09] MEDS: FUROSEMIDE INJ/PF 40 MG/4 ML SDV IV SCH (21:39)
[2017-03-09 21:48] LABS: CREATINE KINASE MB 3.13 ng/mL (<4.55)
[2017-03-09 21:55] LABS: TROPONIN I 0.201 ng/mL
[2017-03-09] MEDS ORDERED: METOPROLOL TARTRATE 25 MG TABLET PO SCH (22:00)
--- NOTE | 2017-03-09 23:53 | EKG REPORT ---
SEVERITY:- ABNORMAL ECG - ATRIAL FIBRILLATION, V-RATE 50-106 INCOMPLETE LEFT BUNDLE BRANCH BLOCK LVH WITH SECONDARY REPOLARIZATION ABNORMALITY PROBABLE INFERIOR INFARCT, AGE INDETERMINATE ANTERIOR INFARCT, AGE INDETERMINATE : Confirmed by: Susi Sin 09-Mar-2017 23:52:48
[2017-03-10 03:52] LABS: ABSOLUTE EOSINOPHILS # (AUTO) 0.1 10^3/uL (0.0-0.6); ABSOLUTE LYMPHOCYTES (AUTO) 0.6 10^3/uL (0.5-4.7); ABSOLUTE MONOCYTES (AUTO) 0.4 10^3/uL (0.1-1.4); ABSOLUTE NEUT (AUTO) 6.3 10^3/uL (1.7-8.2); BASOPHILS % (AUTO) 0.2 % (0-2); EOSINOPHILS % (AUTO) 0.8 % (0-6); HEMATOCRIT 32.1 % (37.9-51.0); HEMOGLOBIN 10.7 g/dL (13.5-17.0); LYMPHOCYTES % (AUTO) 8.3 % (13-45); MEAN CORPUSCULAR HEMOGLOBIN 32.8 pg (27.0-33.4); MEAN CORPUSCULAR HGB CONC 33.3 g/dL (32.0-36.0); MEAN CORPUSCULAR VOLUME 99 fl (80-97); MONOCYTES % (AUTO) 5.3 % (3-13); RED BLOOD COUNT 3.25 10^6/uL (4.35-5.55); RED CELL DISTRIBUTION WIDTH 20.7 % (11.5-14.0); SEGMENTED NEUTROPHILS % (AUTO) 85.4 % (42-78); WHITE BLOOD COUNT 7.4 10^3/uL (4.0-10.5)
[2017-03-10 04:02] LABS: ANION GAP 6 (5-19); BLOOD UREA NITROGEN 18 mg/dL (7-20); CALCIUM 8.3 mg/dL (8.4-10.2); CARBON DIOXIDE 32 mmol/L (22-30); CHLORIDE 97 mmol/L (98-107); CHOLESTEROL 57.32 mg/dL (0-200); CREATININE RESULT 0.72 mg/dL (0.52-1.25); Direct HDL 27 mg/dL (>40); GLUCOSE 83 mg/dL (75-110); MAGNESIUM 1.6 mg/dL (1.6-2.3); POTASSIUM 4.3 mmol/L (3.6-5.0); SODIUM 134.5 mmol/L (137-145); TRIGLYCERIDES 60 mg/dL (<150)
[2017-03-10 04:15] LABS: DIRECT LDL < 30 mg/dL (<100)
[2017-03-10 04:16] LABS: TROPONIN I 0.233 ng/mL
[2017-03-10] MEDS: CEFEPIME 2 GM/D5W RTU 2 GM/50 ML RTUPB IV SCH ×2 (05:23→21:41)
[2017-03-10] MEDS: VANCOMYCIN HCL 1,000 MG in DEXTROSE 5%-WATER 250 ML IV SCH ×2 (06:06→17:22)
[2017-03-10] MEDS: FUROSEMIDE INJ/PF 40 MG/4 ML SDV IV SCH ×3 (07:15→21:44)
[2017-03-10] MEDS: ALBUTEROL SULFATE 0.083% NEB 2.5 MG/3 ML AMPUL NEB SCH ×3 (08:12→19:42)
[2017-03-10] MEDS ORDERED: TAMSULOSIN HCL 0.4 MG CAP.SR.24H PO SCH (10:00)
[2017-03-10] MEDS ORDERED: (PENDING PHARMACY ID) (Omeprazole [Prilosec] 40 MG) PO SCH (10:00)
[2017-03-10] MEDS ORDERED: (PENDING PHARMACY ID) (Psyllium Husk [Metamucil] 0.52 GM) PO SCH (10:00)
[2017-03-10] MEDS ORDERED: NITROGLYCERIN 2.5 MG (0.1 MG/HR) PATCH.TD24 TD SCH (10:00)
[2017-03-10] MEDS ORDERED: METOPROLOL TARTRATE 25 MG TABLET PO SCH ×2 (10:00)
[2017-03-10] MEDS ORDERED: SPIRONOLACTONE 25 MG TABLET PO SCH (10:00)
[2017-03-10] MEDS: LEVOTHYROXINE SODIUM 0.05 MG TABLET PO SCH (10:30)
[2017-03-10] MEDS: FINASTERIDE 5 MG TABLET PO SCH (10:30)
[2017-03-10] MEDS: SPIRONOLACTONE 25 MG TABLET PO SCH (10:30)
[2017-03-10] MEDS: LANSOPRAZOLE 30 MG TAB.RAP.DR PO SCH (10:31)
[2017-03-10] MEDS: DIGOXIN 0.25 MG TABLET PO SCH (10:31)
[2017-03-10] MEDS: APIXABAN 2.5 MG TABLET PO SCH ×2 (10:31→21:43)
[2017-03-10] MEDS: DOCUSATE SODIUM 100 MG CAPSULE PO SCH ×2 (10:32→21:44)
[2017-03-10] MEDS: POTASSIUM CHLORIDE 10 MEQ TABLET.SA PO SCH ×2 (10:32→21:42)
[2017-03-10] MEDS: VENLAFAXINE HCL 37.5 MG CAP.SR.24H PO SCH (10:32)
[2017-03-10] MEDS: DORZOLAMIDE HCL 2%/TIMOLOL MALEAT 0.5% OPH SOLN 10 ML OS SCH ×2 (10:33→21:44)
[2017-03-10] MEDS: PSYLLIUM SEED-SF 5.85 GM PACKET PO SCH ×2 (10:33)
--- NOTE | 2017-03-10 11:08 | PDOC PROGRESS REPORT ---
Subjective Progress Note for:: 03/10/17 Subjective:: reason for visit: f/u heart failure, hypoxic resp failure hospital course: AMINATA ROSENBAUM is a 89 year old male currently rehab at [facility] after fall and broken femur 02/03/17 with surgical repair, presents to ED after another fall when trying to transition from bfast table to chair. He reports progressive weakness and shortness of breath since his ortho surgery but over the last 24 hours started feeling a heaviness in his left chest with sharp pains on deep inspiration and cough. He denies productive cough, wheezing , fevers/chills, CRONIN, vision changes, difficulty swallowing, unilateral weakness , slurred speech, numb/tingling. eval in ED shows hypoxia requiring 15L/min by NRB with acute heart failure and large left pleural effusion and pulmonary edema and mildly elevated troponin 0.154 but his troponins haven't been normal since 2013. he has chronic afib and his rate is barely controlled but he hasn't received his meds yet this morning. Review of the record shows last echo 2015 with grade 2 diastolic dysfxn, mod LVH and mod LAE without any significant valvular abnl's. we were asked to admit for further eval and management. Overnight he became even more short of air but fortunately responded to BiPAP and has since weaned off to 5L/min via NC. His BPs dropped and antiHTN's required holding parameters including diuretics for one dose which has delayed his improvement. ROS: he is still c/o sharp, stabbing, grabbing left chest pain on inspiration with asct'd heaviness in his chest otherwise he thinks he is breathing easier and in general feels better this morning; all systems reviewed, see above, remaining systems negative. Physical Exam Vital Signs: Temp Pulse Resp BP Pulse Ox 98.6 F 73 27 H 120/46 L 95 03/10/17 07:22 03/10/17 07:22 03/10/17 07:22 03/10/17 06:01 03/10/17 07:22 Intake & Output 03/09/17 03/10/17 03/11/17 06:59 06:59 06:59 Intake Total 689 Output Total 1275 Balance -586 Weight 75.8 kg General appearance: PRESENT: no acute distress, well-developed, well-nourished Head exam: PRESENT: atraumatic, normocephalic Eye exam: PRESENT: EOMI. ABSENT: conjunctival injection, scleral icterus Mouth exam: PRESENT: moist Neck exam: PRESENT: JVD. ABSENT: carotid bruit, lymphadenopathy, tenderness, thyromegaly Respiratory exam: PRESENT: crackles, decreased breath sounds - absent BSs at left base, rales, tachypnea Cardiovascular exam: PRESENT: irregular rhythm, afib on monitor. ABSENT: systolic murmur - distant heart sounds Pulses: PRESENT: normal radial pulses, normal dorsalis pedis pul GI/Abdominal exam: PRESENT: normal bowel sounds, soft. ABSENT: tenderness Gentrourinary exam: ABSENT: scrotal swelling Extremities exam: PRESENT: +2 edema - R>L. ABSENT: calf tenderness Musculoskeletal exam: PRESENT: full ROM, tenderness - Rt lateral thigh has long surgical scar that is well approximated without erythema Neurological exam: PRESENT: alert, awake, oriented to person, oriented to place , oriented to time, oriented to situation Psychiatric exam: PRESENT: appropriate affect, normal mood Skin exam: PRESENT: warm - and moist but not weeping Results Laboratory Results: 03/10/17 03:01 03/10/17 03:01 03/10/17 03/10/17 03:01 03:01 WBC 7.4 RBC 3.25 L Hgb 10.7 L Hct 32.1 L MCV 99 H MCH 32.8 MCHC 33.3 RDW 20.7 H Plt Count 96 L Seg Neutrophils % 85.4 H Lymphocytes % 8.3 L Monocytes % 5.3 Eosinophils % 0.8 Basophils % 0.2 Absolute Neutrophils 6.3 Absolute Lymphocytes 0.6 Absolute Monocytes 0.4 Absolute Eosinophils 0.1 Absolute Basophils 0.0 Sodium 134.5 L Potassium 4.3 Chloride 97 L Carbon Dioxide 32 H Anion Gap 6 BUN 18 Creatinine 0.72 Est GFR ( Amer) > 60 Est GFR (Non-Af Amer) > 60 Glucose 83 Calcium 8.3 L Magnesium 1.6 Triglycerides 60 Cholesterol 57.32 LDL Cholesterol Direct < 30 VLDL Cholesterol 12.0 HDL Cholesterol 27 L 03/09/17 03/09/17 03/09/17 15:17 15:17 21:14 Creatine Kinase 31 L 32 L CK-MB (CK-2) 3.49 Troponin I 0.193 NT-Pro-B Natriuret Pep 03/09/17 03/10/17 21:14 03:01 Creatine Kinase CK-MB (CK-2) 3.13 Troponin I 0.201 0.233 NT-Pro-B Natriuret Pep 39139 H Assessment & Plan - Diagnosis (1) Acute on chronic diastolic (congestive) heart failure Is this a current diagnosis for this admission?: YesPlan: I suspect this is principle diagnosis and will continue to focus much of our attention here with IV diuretics, campbell for strict I/O's, daily weights, fluid restrict; continue topical NTG, toprol, aldactone as his BP will allow. trend BNP. awaiting cardio consult (2) Pleural effusion Is this a current diagnosis for this admission?: YesPlan: attemp to diurese but ultimately may need thoracentesis, unfortunately he is on eliquis making the risk for bleeding outweigh the benefit at this point and that medication will need to be held 24hrs if decision made to pursue invasive intervention. (3) Pneumonia Qualifiers: Pneumonia type: due to unspecified organism Laterality: left Lung location: unspecified part of lung Qualified Code(s): J18.9 - Pneumonia, unspecified organism Is this a current diagnosis for this admission?: YesPlan: difficult to say with certainty whether this is pathologic or not but he clearly has consolidation of his left lower lobe and scattered airspace disease in all remaining lungs. continue treat empirically with cefepime and vanc for nosocomial pathogens while we try to diuresis off the fluid in his lungs. send blood cultures and sputum if he is able to expectorate an adequate sample. (4) Elevated troponin I level Is this a current diagnosis for this admission?: YesPlan: unclear significance but likely troponin leak due to stress of hypoxia and heart failure. trend and consult cardio for further recs (5) Acute respiratory failure with hypoxia Is this a current diagnosis for this admission?: YesPlan: improved but not back to baseline: as needed BiPAP and intubate for mechanical ventilation if he doesn't improve. attempt to diurese and start abx as noted above. (6) Atrial fibrillation Qualifiers: Atrial fibrillation type: chronic Qualified Code(s): I48.2 - Chronic atrial fibrillation Plan: stable; rate controlled at present and on anticoagulation. digoxin level is therapeutic (7) Chest pain in adult Is this a current diagnosis for this admission?: YesPlan: stable but not resolved; likely pleuritic due to large effusion; trend troponins, further recs per cardio consult (8) COPD (chronic obstructive pulmonary disease) Qualifiers: COPD type: unspecified COPD Qualified Code(s): J44.9 - Chronic obstructive pulmonary disease, unspecified Is this a current diagnosis for this admission?: Yes - Time Time Spent with patient: 35 or more minutes Medications reviewed and adjusted accordingly: Yes
[2017-03-10] MEDS: TAMSULOSIN HCL 0.4 MG CAP.SR.24H PO SCH (17:21)
[2017-03-10] MEDS: TRAMADOL HCL 50 MG TABLET PO PRN (21:43)
[2017-03-10] MEDS: METOPROLOL TARTRATE 25 MG TABLET PO SCH (21:53)
[2017-03-11] MEDS: CEFEPIME 2 GM/D5W RTU 2 GM/50 ML RTUPB IV SCH (06:12)
[2017-03-11] MEDS: FUROSEMIDE INJ/PF 40 MG/4 ML SDV IV SCH ×2 (06:14→18:37)
[2017-03-11] MEDS: VANCOMYCIN HCL 1,000 MG in DEXTROSE 5%-WATER 250 ML IV SCH (07:23)
[2017-03-11 07:42] LABS: ABSOLUTE EOSINOPHILS # (AUTO) 0.2 10^3/uL (0.0-0.6); ABSOLUTE LYMPHOCYTES (AUTO) 0.6 10^3/uL (0.5-4.7); ABSOLUTE MONOCYTES (AUTO) 0.5 10^3/uL (0.1-1.4); ABSOLUTE NEUT (AUTO) 5.4 10^3/uL (1.7-8.2); BASOPHILS % (AUTO) 0.2 % (0-2); EOSINOPHILS % (AUTO) 2.4 % (0-6); HEMATOCRIT 32.8 % (37.9-51.0); HEMOGLOBIN 11.1 g/dL (13.5-17.0); HGB HCT DIFFERENCE 0.5; MEAN CORPUSCULAR HEMOGLOBIN 32.8 pg (27.0-33.4); MEAN CORPUSCULAR HGB CONC 33.9 g/dL (32.0-36.0); MEAN CORPUSCULAR VOLUME 97 fl (80-97); MONOCYTES % (AUTO) 7.6 % (3-13); RED BLOOD COUNT 3.39 10^6/uL (4.35-5.55); RED CELL DISTRIBUTION WIDTH 20.3 % (11.5-14.0); SEGMENTED NEUTROPHILS % (AUTO) 80.8 % (42-78); WHITE BLOOD COUNT 6.7 10^3/uL (4.0-10.5)
[2017-03-11 07:55] LABS: BLOOD UREA NITROGEN 16 mg/dL (7-20); CHLORIDE 87 mmol/L (98-107); CREATININE RESULT 0.77 mg/dL (0.52-1.25); GLUCOSE 117 mg/dL (75-110); POTASSIUM 3.8 mmol/L (3.6-5.0); SODIUM 132.3 mmol/L (137-145)
[2017-03-11 08:05] LABS: TROPONIN I 0.188 ng/mL
[2017-03-11 08:07] LABS: CARBON DIOXIDE 42 mmol/L (22-30)
--- NOTE | 2017-03-11 08:15 | CONSULTATION REPORT E ---
Consultation Report NAME: AMINATA ROSENBAUM : 1925 AGE: 89Y DATE: 308 A TO: KIRSTIN ROSARIO M.D. REASON FOR CONSULTATION: Elevated troponin I and congestive heart failure, and atrial fibrillation with rapid ventricular response. Congestive heart failure with hypoxemia. HISTORY: The patient is an 89-year-old male who sustained a fracture about a month ago for which he had surgery in and is now having rehabilitation in [facility]. He has progressive weakness and shortness of breath since his orthopedic surgery and also had a fall. He was also short of breath. He was having dry cough without any sputum production. He has also been having heaviness in the left chest with also sharp pains, both of which increase with taking a deep breath. When he came in, the patient was in atrial fibrillation with rapid ventricular response and clearly in congestive heart failure with hypoxemia requiring oxygen of 50 L per minute by nonrebreather. He is now much improved with treatment. At present, he denies any chest pain or discomfort. There is no PND, there is orthopnea present, there is no leg edema. There is no TIA or CVA symptoms. There is no bleeding on other places. PAST MEDICAL HISTORY: History of chronic atrial fibrillation, history of congestive heart failure thought to be secondary to LV diastolic heart failure. He also has a history of coronary artery disease, remote history of MT, no recent anginal symptoms, although the patient complains of left-sided chest heaviness and sharp pains which both increase with breathing. Hence, clearly not anginal. He, also, when he came in, had congestive heart failure. He has a history of hypertension, dyslipidemia/hyperlipidemia, and history of mycoardial infarction. The patient has a past history of DVT and pulmonary embolism. He also has a history of COPD. He also has a history of GERD and arthritis. There is no history of diabetes mellitus or thyroid disease. The patient denies any history of chronic kidney disease. There is no history of TIA or CVA. There is no history of anxiety or depression. PAST SURGICAL HISTORY: Positive for appendectomy, cardiac catheterization, cholecystectomy, coronary stent x2 in 2001, orthopedic surgery, bilateral knee replacements. SOCIAL HISTORY: The patient is a smoker, quit smoking about 47 years ago. There is no history of ETOH abuse. The patient is a full code by his and son. FAMILY HISTORY: Negative for coronary artery disease. Father is ; he at the age of 65 with a stroke. ALLERGIES: The patient has no known allergies. MEDICATIONS: 1. Tylenol 650 mg p.o. q. 4 hours p.r.n. 2. Albuterol nebulizer treatment 2.5 mg respiratory treatment q. 6 hours while awake. 3. Eliquis 2.5 mg p.o. q. 12 hours 4. Cefepime 2 g/150 mL IV now. 5. He is on digoxin 0.25 mg p.o. daily 6. Colace 100 mg p.o. q. 12 hours. 7. He is on Cosopt 1 drop q. 12 hours. 8. He is on Proscar 5 mg p.o. daily. 9. He is on Lasix 40 mg IV q. 8 hours. 10. He is on Cefepime 2 g IV piggyback q. 12 hours. 11. He is on Prevacid 30 mg p.o. daily. 12. He is on levothyroxine 0.05 mg p.o. q. a.m. 13. He is on magnesium hydroxide 30 mL p.o. at bed time p.r.n. 14. He is on metoprolol tartrate 12.5 mg p.o. daily. 15. He is on nitroglycerin 1 tablet sublingual p.r.n. 16. He is on Nitro-Dur patch 0.1 mg per hour to the chest wall daily. 17. He is on Zofran 4 mg every q. 6 hours p.r.n. 18. He is on oxycodone 10 mg p.o. q. 6 hours p.r.n. 19. He is on potassium chloride 20 mg p.o. q. 12 hours. 20. He is on Metamucil one packet p.o. daily. 21. He is on spironolactone 25 mg p.o. daily. 22. He is on Tamsulosin 0.4 mg p.o. p.c. supper. 23. He is on tramadol 50 mg p.o. q. 12 hours. 24. He is on vancomycin 1 g IV piggyback q. 12 hours. 25. He is on Effexor 37.5 mg p.o. daily. REVIEW OF SYSTEMS: CONSTITUTIONAL: Generally denies any fevers, chills or rigors, complains of generalized fatigue and generalized weakness. And a history of falls. HEAD: Denies headaches or head injury. There is occasional dizziness. EYES: No . No history of hearing loss. No history of tinnitus. No history of recurrent urinary infections. NOSE: No history of hay fever. No history of nosebleeds. No history of nasal polyps. MOUTH: No altered taste sensation. No ulcers in the mouth. No bleeding from the gums. THROAT: No odynophagia or dysphagia. No recurrent sore throat. SKIN: There is an abrasion on the upper back. There is no history of skin cancer or psoriasis. No history of pruritus. No history of allergy or skin discoloration of skin. NECK: No swellings in the neck. No neck pain. No goitre. LUNGS: History of COPD present. There are some symptoms of dry cough and also symptoms suggestive of chest pains which increase with deep breathing. Past history of pulmonary embolism without any recurrence. No hemoptysis. No wheezing. No sputum production. No chest wall tenderness that the patient felt but there are no rib fractures. CARDIAC: History of cardiac atrial fibrillation, on anticoagulation. History of hypertension. History of dyslipidemia with a low HDL. History of [id number]-fe-[id number] diastolic heart failure at present. The patient denies any PND, orthopnea or leg edema, does have palpitations. There is no syncope. GI: History of GERD present. No history of GI bleed. No history of food intolerance. No history of jaundice. No history of abdominal pain. No history of sclerosis. No history of hepatitis. ENDOCRINE: History of hypothyroidism present on replacement. No history of diabetes mellitus. No history of polydipsia or polyuria. No history of heat or cold intolerance. No history of chronic kidney disease, and does have enlarged prostate controlled with medication. No history of chronic kidney disease. No history of hematuria, pyuria, dysuria. MUSCULOSKELETAL: History of arthritis present. No history of collagen vascular disease. 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 No history of headaches, migraines or seizures. PSYCHIATRIC: History of depression, well controlled with medication. No history of suicidal ideation. No history of homicidal ideation. VASCULAR: Past history of DVT present with no recurrence. No history of calf or buttock claudication. HEMATOLOGICAL: No history of bleeding diathesis, no history of clotting disorders. PHYSICAL EXAMINATION: The patient is afebrile with a temperature of 98.3 degrees Fahrenheit, pulse is 53 beats per minute, blood pressure is 120/46, respirations are 20 per minute, O2 sat 100% on 4 liters nasal cannula. Head is atraumatic, normocephalic. EYES: Pupils are equal, round, regular and reactive light and accommodation. Extraocular movements are normal. There is no conjunctival pallor. There is no scleral icterus. EARS: Tympanic membranes are intact. External auditory canals are clear. NOSE: There is no deviated nasal septum. There is no inflammation of the nasal mucous membrane. MOUTH: Mucous membranes of the mouth are moist. There is no ulcer. There is no bleeding from the gums. THROAT: There is no redness to oropharynx. There is no exudate. SKIN: There are no skin lesions. There is no petechial ecchymosis. There is no skin rashes. There is an abrasion in the upper back to the left of the midline. NECK: Supple. There is no JVD. CARDIAC: There is no bruits. There is no goitre. There is no lymphedema. Trachea is central. LUNGS: Absent breath sounds at the bases with on the left side there being bronchial breath sounds with scattered dry crackles present and also CHF. There is no chest wall tenderness. In the left chest there is diminished air entry around expiration, also there is hyperresonance on palpation except the area with dullness in the bases. There is absolute no other dullness on percussion. S1 and S2 heard. S1 is stable in intensity. There is no S3 gallop. There is no systolic murmur. In the left sternal border in the apex, there is no rub. ABDOMEN: Soft and nontender. There is no hepatosplenomegaly. Bowel sounds are well heard. There is no tender area or masses. EXTREMITIES: Femorals are diminished. There is no femoral bruits. Leg pulses are diminished. There is no pedal edema. There is no DVT or phlebitis. There is no calf tenderness. 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 PSYCHIATRIC: The patient's judgement and insight are intact. His affect is normal. The patient's 24-hour intake has been 689 mL, output of 1275 mL. The patient's chest x-ray shows evidence of congestive heart failure. There is no rib fracture. The patient's chest CT shows large left pleural effusion and a small right pleural effusion defined. The x-rays consolidation in the lung bases, the left greater than right, consistent with atelectasis, although pneumonic consolidations cannot be excluded. There is evidence of congestive heart failure. There is no pericardial effusion. The patient's hip and pelvis x-ray shows status post right hip no acute changes identified. The patient's head CT shows mild chronic changes of atrophy and . The patient's lumbar spine x-ray shows spondylosis without bone lesion or fracture. The patient's initial electrocardiogram shows atrial fibrillation with a ventricular response of 96 beats per minute. There is indefinite. 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 The patient's laboratory data shows sodium of 134.5, potassium 4.3, chloride 97, CO2 is 32. The patient's BUN is 18, creatinine 0.72, GFR is greater than 60, glucose of 83. The hemoglobin A1c is 4.6, calcium was 8.3 is 1.6. The patient's cardiac enzymes show a negative . The initial troponin I was 0.154 and subsequently went up to 0.193, 0.201 and 0.233. The patients NT-proBNP is 18,200. The patient's triglycerides are 60. His LDL cholesterol is less than 30. His HDL is 27. The patient's white count was 7400, hemoglobin 7.7, hematocrit is 32.1, platelet count is 96,000. The patient's ABGs done on the 03/09 showed pH of 7.37, pCO2 is 53.3, PO2 57.2, O2 sats are 88.5% on 15 liter per minute, oxygen by nonrebreather. IMPRESSION: 1. Elevated troponin I, no evidence of non-ST elevation MT, most likely secondary to hypoxemia and congestive heart failure and pneumonia. 2. Congestive heart failure with hypoxemia. 3. Atrial fibrillation with rapid ventricular response on admission, now controlled. The patient continues to be in chronic atrial fibrillation. 4. Bibasilar pneumonia. 5. Large left pleural effusion. 6. Vufge-ix-lcqshrd LV diastolic dysfunction. 7. Respiratory failure, seems to be acute with hypoxemia and hypercapnia. 8. CVA with history of MT many years ago, no anginal symptoms. 9. History of stents, need to find out what exact stent were placed. 10. Hypertension, blood pressure fairly well controlled. 11. Dyslipidemia. 12. History of pulmonary embolism. 13. History of DVT. 14. COPD. 15. GERD. RECOMMENDATION: Continue the patient on digoxin. Continue antibiotics. Continue Eliquis. Continue metoprolol, we will increase the patient's metoprolol to 12.5 mg p.o. q. 12 hours and increase as tolerated by heart rate and blood pressure. Also continue thyroid hormones replacement. Note that the patient was seen at 11 a.m., 40 minutes have been dedicated to the patient care. The patient's medications were reviewed and adjusted. Also discussed with the patient and patient's granddaughter the clinical findings of this admission including lab tests. We will check an echo in the a.m. I discussed with hospital strictly about the care of the patient. This case involves highly complex medical decision making in view of the patient's multiple comorbid conditions. FROM: ALE DUMONT M.D. Requesting Physician DICTATING PHYSICIAN: KIRSTIN ROSARIO M.D. [id number] PHY#: [id number] ID: [id number] JOB#: [id number] ACCT: [id number] cc:KIRSTIN ROSARIO M.D. >
[2017-03-11 08:16] LABS: ANION GAP 3 (5-19)
[2017-03-11] MEDS: ALBUTEROL SULFATE 0.083% NEB 2.5 MG/3 ML AMPUL NEB SCH ×3 (08:19→20:31)
[2017-03-11] MEDS: LEVOTHYROXINE SODIUM 0.05 MG TABLET PO SCH (08:22)
[2017-03-11] MEDS ORDERED: ONDANSETRON HCL INJ/PF 4 MG/2 ML SDV IV PRN (09:18)
[2017-03-11] MEDS ORDERED: MAGNESIUM HYDROXIDE SUSP 30 ML UDCUP PO PRN (09:19)
--- NOTE | 2017-03-11 09:21 | PDOC PROGRESS REPORT ---
Subjective Progress Note for:: 03/11/17 Subjective:: The patient appears to be slightly better. He denies any shortness of breath. He is still having rib cage pain on the left side. Physical Exam Vital Signs: Temp Pulse Resp BP Pulse Ox 97.7 F 67 20 107/48 L 100 03/11/17 08:00 03/11/17 08:00 03/11/17 08:00 03/11/17 08:00 03/11/17 08:00 Intake & Output 03/10/17 03/11/17 03/12/17 06:59 06:59 06:59 Intake Total 689 1328 Output Total 1275 7560 Balance -618 -8782 Weight 75.8 kg 75.6 kg General appearance: PRESENT: mild distress Head exam: PRESENT: normocephalic Eye exam: PRESENT: conjunctiva pink Neck exam: PRESENT: tenderness Respiratory exam: PRESENT: rales Cardiovascular exam: PRESENT: +S1, +S2 Pulses: PRESENT: +1 pedal pulses bilateral GI/Abdominal exam: PRESENT: normal bowel sounds, soft Extremities exam: PRESENT: tenderness Musculoskeletal exam: PRESENT: tenderness Neurological exam: PRESENT: alert, awake Results Laboratory Results: 03/11/17 07:15 03/11/17 07:15 03/11/17 03/11/17 07:15 07:15 WBC 6.7 RBC 3.39 L Hgb 11.1 L Hct 32.8 L MCV 97 MCH 32.8 MCHC 33.9 RDW 20.3 H Plt Count 101 L Seg Neutrophils % 80.8 H Lymphocytes % 9.0 L Monocytes % 7.6 Eosinophils % 2.4 Basophils % 0.2 Absolute Neutrophils 5.4 Absolute Lymphocytes 0.6 Absolute Monocytes 0.5 Absolute Eosinophils 0.2 Absolute Basophils 0.0 Sodium 132.3 L Potassium 3.8 Chloride 87 L Carbon Dioxide 42 H* Anion Gap 3 L BUN 16 Creatinine 0.77 Est GFR ( Amer) > 60 Est GFR (Non-Af Amer) > 60 Glucose 117 H Calcium 8.0 L 03/09/17 03/09/17 03/09/17 15:17 15:17 21:14 Creatine Kinase 31 L 32 L CK-MB (CK-2) 3.49 Troponin I 0.193 NT-Pro-B Natriuret Pep 03/09/17 03/10/17 03/11/17 21:14 03:01 07:15 Creatine Kinase CK-MB (CK-2) 3.13 Troponin I 0.201 0.233 0.188 NT-Pro-B Natriuret Pep 01843 H 88134 H Impressions: Ribs w/Chest X-Ray 03/09/17 00:00 IMPRESSION: NO PNEUMOTHORAX. NO DISPLACED RIB FRACTURES. Congestive failure pattern as noted above. Cervical Spine CT 03/09/17 09:38 IMPRESSION: Degenerative changes without evidence for fracture. Chest CT 03/09/17 09:38 IMPRESSION: Congestive failure pattern as noted above. Other findings as noted above. Head CT 03/09/17 09:38 IMPRESSION: MILD CHRONIC CHANGES OF ATROPHY AND MICROVASCULAR ISCHEMIA. NO ACUTE PROCESS. Hip/Pelvis X-Ray 03/09/17 09:38 IMPRESSION: Status post right hip pinning. No acute changes are identified. Lumbar Spine X-Ray 03/09/17 09:38 IMPRESSION: SPONDYLOSIS WITHOUT BONE LESION OR FRACTURE. Other findings as noted above Assessment & Plan - Diagnosis (1) Acute on chronic congestive heart failure Qualifiers: Congestive heart failure type: diastolic Qualified Code(s): I50.33 - Acute on chronic diastolic (congestive) heart failure Is this a current diagnosis for this admission?: YesPlan: We will continue strict KRISTIN's and diuretics. (2) Acute respiratory failure with hypoxia Is this a current diagnosis for this admission?: YesPlan: We will continue incentive spirometry diuretics and antibiotics (3) Chest pain in adult Is this a current diagnosis for this admission?: YesPlan: We will continue with pain management most probably chest contusion traumatic after a fall at the rehab (4) Atrial fibrillation Qualifiers: Atrial fibrillation type: chronic Qualified Code(s): I48.2 - Chronic atrial fibrillation Is this a current diagnosis for this admission?: YesPlan: Rate control with medication (5) Coronary artery disease Qualifiers: Coronary Disease-Associated Artery/Lesion type: [place] artery [place] vs. transplanted heart: sioux heart Associated angina: angina presence unspecified Qualified Code(s): I25.10 - Atherosclerotic heart disease of si[place] coronary artery without angina pectoris Is this a current diagnosis for this admission?: YesPlan: Stable awaiting echo and cardiology follow-up (6) COPD (chronic obstructive pulmonary disease) Qualifiers: COPD type: unspecified COPD Qualified Code(s): J44.9 - Chronic obstructive pulmonary disease, unspecified Is this a current diagnosis for this admission?: Yes (7) Pneumonia Qualifiers: Pneumonia type: due to unspecified organism Laterality: left Lung location: unspecified part of lung Qualified Code(s): J18.9 - Pneumonia, unspecified organism Is this a current diagnosis for this admission?: YesPlan: We will start Rocephin and Levaquin. The patient is being hospitalized from a [facility] rehab after a fall
[2017-03-11] MEDS: CEFTRIAXONE 1 GM/D5W RTU 50 ML IV SCH (10:20)
[2017-03-11] MEDS: DIGOXIN 0.25 MG TABLET PO SCH (10:21)
[2017-03-11] MEDS: LANSOPRAZOLE 30 MG TAB.RAP.DR PO SCH (10:22)
[2017-03-11] MEDS: DOCUSATE SODIUM 100 MG CAPSULE PO SCH ×2 (10:22→21:55)
[2017-03-11] MEDS: POTASSIUM CHLORIDE 10 MEQ TABLET.SA PO SCH ×2 (10:22→21:56)
[2017-03-11] MEDS: LEVOFLOXACIN 500 MG TABLET PO SCH (10:23)
[2017-03-11] MEDS: FINASTERIDE 5 MG TABLET PO SCH (10:23)
[2017-03-11] MEDS: APIXABAN 2.5 MG TABLET PO SCH ×2 (10:23→21:55)
[2017-03-11] MEDS: DORZOLAMIDE HCL 2%/TIMOLOL MALEAT 0.5% OPH SOLN 10 ML OS SCH ×2 (10:24→21:56)
[2017-03-11] MEDS: NITROGLYCERIN 2.5 MG (0.1 MG/HR) PATCH.TD24 TD SCH (10:25)
[2017-03-11] MEDS: VENLAFAXINE HCL 37.5 MG CAP.SR.24H PO SCH (10:25)
[2017-03-11] MEDS: SPIRONOLACTONE 25 MG TABLET PO SCH (10:27)
[2017-03-11] MEDS: METOPROLOL TARTRATE 25 MG TABLET PO SCH ×2 (10:27→22:12)
[2017-03-11] MEDS: PSYLLIUM SEED-SF 5.85 GM PACKET PO SCH ×2 (10:27)
--- NOTE | 2017-03-11 17:41 | XCELERA REPORT ---
[address] [address] Transthoracic Echocardiogram Report Name: AMINATA ROSENBAUM Age: 89 yrs Gender: Male : 1925 Patient Status: Inpatient Patient Location: [id number] Study Date: 03/11/2017 09:42 AM Height: 69 in Weight: 160 lb BSA: 1.9 m2 Procedure: A two-dimensional transthoracic echocardiogram with color flow and Doppler was performed. Images were not obtained from all of the standard acoustic windows due to the limited scope of the study. Reason For Study: CHF History: CHF. Ordering Physician: ALE DUMNOT Performed By: Silvia Trevizo Interpretation Summary The left ventricle is normal in size. Mild to moderate concentricLVH. LV EF is 55% Left ventricular systolic function is low normal. Doppler measurements suggest normal left ventricular diastolic function The left ventricular wall motion is normal. There is no thrombus. The left atrial size is normal. There is no evidence of mitral valve prolapse. There is no mitral valve stenosis. There is a mild amount of mitral regurgitation There is no aortic valve stenosis There is no LVOT obstruction. There is a mild amount of aortic regurgitation There is no tricuspid stenosis. There is a mild to moderate amount of tricuspid regurgitation There is moderate pulmonary hypertension by echo RVSP is 58 mm of Hg , with RA mean of 15. There is no pulmonic valvular stenosis. There is a moderate amount of pulmonic regurgitation There is no pericardial effusion. Large left pleural effusion. Images were not obtained from all of the standard acoustic windows due to the limited scope of the study. MMode/2D Measurements \T\ Calculations RVDd: 3.2 cm LVIDd: 4.0 cm FS: 30.5 % Ao root diam: 3.3 cm IVSd: 1.4 cm LVIDs: 2.7 cm EDV(Teich): 68.2 ml LVPWd: 1.4 cm ESV(Teich): 28.2 ml Ao root area: 8.7 cm2 EF(Teich): 58.6 % Doppler Measurements \T\ Calculations MV E max theresa: MV dec slope: Ao V2 max: AI max theresa: 102.7 cm/sec 101.9 cm/sec 382.0 cm/sec MV A max theresa: 628.2 cm/sec2 Ao max PG: AI max P.1 cm/sec MV dec time: 4.2 mmHg 58.4 mmHg MV E/A: 4.4 0.16 sec AI dec slope: 107.7 cm/sec2 AI P1/2t: 1039 msec LV V1 max PG: PA V2 max: PI end-d theresa: TR max theresa: 3.8 mmHg 87.9 cm/sec 150.2 cm/sec 310.8 cm/sec LV V1 max: PA max P.1 mmHg TR max P.9 cm/sec 38.9 mmHg Left Ventricle The left ventricle is normal in size. Mild to moderate concentricLVH. LV EF is 55%. Left ventricular systolic function is low normal. Doppler measurements suggest normal left ventricular diastolic function. The left ventricular wall motion is normal. There is no thrombus. Right Ventricle The right ventricle is grossly normal size. The right ventricle is not well visualized secondary to technical limitations. Atria The right atrium is normal. The left atrial size is normal. Mitral Valve There is mild mitral leaflet calcification. There is no evidence of mitral valve prolapse. There is no vegetation seen on the mitral valve. There is no mitral valve stenosis. There is a mild amount of mitral regurgitation. Aortic Valve The aortic valve is trileaflet. The aortic valve opens well. There is no aortic valvular vegetation. There is no aortic valve stenosis. There is no LVOT obstruction. There is a mild amount of aortic regurgitation. Tricuspid Valve There is no tricuspid stenosis. There is a mild to moderate amount of tricuspid regurgitation. There is moderate pulmonary hypertension by echo. RVSP is 58 mm of Hg , with RA mean of 15. Pulmonic Valve There is no pulmonic valvular stenosis. There is a moderate amount of pulmonic regurgitation. Great Vessels The aortic root is normal size. Effusions There is no pericardial effusion. Large left pleural effusion. : ALE DUMONT > Natalie Jj
[2017-03-11] MEDS: TAMSULOSIN HCL 0.4 MG CAP.SR.24H PO SCH (18:37)
[2017-03-11 20:43] LABS: MAGNESIUM 1.4 mg/dL (1.6-2.3)
[2017-03-11] MEDS: TRAMADOL HCL 50 MG TABLET PO PRN (21:55)
--- NOTE | 2017-03-11 22:27 | PROGRESS NOTE E ---
Progress Note NAME: AMINATA ROSENBAUM : 1925 AGE: 89Y DATE: 03/11/2017 ROOM: 308 SUBJECTIVE: The patient seems to be slightly confused and he continues to be short of breath with orthopnea. He states that he continues to have discomfort on the left side when he takes a deep breath. There is no clear-cut anginal symptoms. OBJECTIVE: GENERAL: On examination, the patient is of frail build and appears to be chronically ill. VITAL SIGNS: He is afebrile with a temperature of 97.4 degrees Fahrenheit. Pulse is 64 beats per minute, blood pressure is 106/48, respirations are 20 per minute and O2 saturations are 100% on 2L nasal cannula. HEAD: Atraumatic, normocephalic. EYES: Pupils are equal, round, regular, reactive to light and accommodation. Extraocular movements are normal. There is no conjunctival pallor. There is no scleral icterus. EARS: Tympanic membranes are intact. External auditory canals are clear. NOSE: There is no deviated nasal septum. There is no inflammation of the nasal mucous membranes. MOUTH: Mucous membranes of the mouth are moist. There are no ulcers. There is no bleeding from the gums. THROAT: There is no redness of the oropharynx. There are no exudates. NECK: Supple. There is no JVD. Carotids are equal. There is no bruit. There is no goiter. There is no lymphadenopathy. Trachea is central. LUNGS: Absent breath sounds in the bases, especially on the left side with bronchial breath sounds with scattered dry crackles present and also a few rales and CHF. There is no chest wall tenderness. In the left chest, there is diminished air entry and prolonged expiration with hyperresonance on percussion, except for area of dullness in the bases. HEART: S1, S2 is heard. S1 is of variable intensity. There is no S3 gallop. There is a systolic murmur in the left sternal border in the apex. There is no rub. ABDOMEN: Soft, nontender. There is no hepatosplenomegaly. Bowel sounds are well heard. There are no tenderness areas or masses. EXTREMITIES: Femorals are diminished. There are no femoral bruits. Leg pulses are diminished. There is no pedal edema. There is no DVT or cellulitis. There is no calf tenderness. CENTRAL NERVOUS SYSTEM: The patient is conscious, awake, slightly confused with no focal deficits. PSYCHIATRIC: The patient at present seems to be slightly confused. He is not agitated. The patient's affect is normal. The patient's left ventricle is normal in size. There is [id number] concentric LVH and the ejection fraction is 55%. Apparently the systolic function is low normal. There is no evidence of mitral valve prolapse. There is no *------*. There is a mild amount of mitral regurgitation. There is *------* stenosis. There is mild amount of aortic regurgitation. There is no tricuspid stenosis. There is mild amount of tricuspid regurgitation. There is moderate pulmonary hypertension by echocardiogram. The right ventricular systolic pressure is 58 mmHg with RA mean of 15. There is moderate amount of pulmonary regurgitation. There is no pericardial effusion. There is a large left pleural effusion. The patient's 24 hour intake reveals 1320 mL and output is 4900 mL. The patient's white count is 6700, hemoglobin 11.1, hematocrit is 32.8, platelet count 101,000. The patient's sodium 132, potassium 3.8, chloride 87, CO2 is 42. The patient's BUN is 16, creatinine 0.77. GFR is greater than 60. His glucose is 117. His calcium is 8.0. His NT-proBNP is 16,400. His troponin has come down to 0.188. IMPRESSION: 1. ELEVATED TROPONIN, NO EVIDENCE OF NON ST-ELEVATION NH, MOST LIKELY SECONDARY TO HYPOXEMIA, CONGESTIVE HEART FAILURE, AND PNEUMONIA. 2. CONGESTIVE HEART FAILURE WITH HYPOXEMIA, IMPROVING. 3. ATRIAL FIBRILLATION WITH RAPID VENTRICULAR RESPONSE ON ADMISSION, NOW CONTROLLED. THE PATIENT CONTINUES TO BE IN CHRONIC ATRIAL FIBRILLATION. 4. BIBASILAR PNEUMONIA. 5. LARGE LEFT PLEURAL EFFUSION. 6. [id number] LV DIASTOLIC DYSFUNCTION. 7. RESPIRATORY FAILURE, SEEMS TO BE ACUTE WITH HYPOXEMIA AND HYPERCAPNIA, IMPROVING. 8. HISTORY OF CAD WITH HISTORY OF NH MANY YEARS AGO, NO ANGINAL SYMPTOMS. 9. HISTORY OF STENTS. THE LOCATION IS NOT KNOWN. 10. HYPERTENSION, BLOOD PRESSURE IS LOW NORMAL. 11. DYSLIPIDEMIA. 12. HISTORY OF PULMONARY EMBOLISM. 13. HISTORY OF DVT. 14. COPD. 15. GERD. Continue the patient on digoxin. Continue antibiotics. Continue Eliquis. Continue metoprolol. Note that the patient's metoprolol has been increased to 12.5 mg p.o. q.12 h. Continue thyroid replacement. Note 30 minutes spent on the patient with more than 50% of the time spent on direct patient care. Medications were reviewed. Echocardiogram was discussed with the patient. Would strongly recommend that the patient have a left thoracentesis. Dr. Ballesteros will cover the patient. I discussed the case with other caregiving providers on the case. DICTATING PHYSICIAN: KIRSTIN ROSARIO M.D. [id number] ALIZA#: [id number] ID: [id number] JOB#: [id number] ACCT: [id number] cc: >
[2017-03-12 04:57] LABS: ABSOLUTE EOSINOPHILS # (AUTO) 0.1 10^3/uL (0.0-0.6); ABSOLUTE LYMPHOCYTES (AUTO) 0.7 10^3/uL (0.5-4.7); ABSOLUTE MONOCYTES (AUTO) 0.5 10^3/uL (0.1-1.4); ABSOLUTE NEUT (AUTO) 4.2 10^3/uL (1.7-8.2); BASOPHILS % (AUTO) 0.4 % (0-2); EOSINOPHILS % (AUTO) 2.2 % (0-6); HEMATOCRIT 31.1 % (37.9-51.0); HEMOGLOBIN 10.4 g/dL (13.5-17.0); HGB HCT DIFFERENCE 0.1; LYMPHOCYTES % (AUTO) 13.4 % (13-45); MEAN CORPUSCULAR HEMOGLOBIN 32.5 pg (27.0-33.4); MEAN CORPUSCULAR HGB CONC 33.3 g/dL (32.0-36.0); MEAN CORPUSCULAR VOLUME 98 fl (80-97); MONOCYTES % (AUTO) 9.2 % (3-13); RED BLOOD COUNT 3.19 10^6/uL (4.35-5.55); RED CELL DISTRIBUTION WIDTH 19.8 % (11.5-14.0); SEGMENTED NEUTROPHILS % (AUTO) 74.8 % (42-78); WHITE BLOOD COUNT 5.6 10^3/uL (4.0-10.5)
[2017-03-12 05:14] LABS: BLOOD UREA NITROGEN 16 mg/dL (7-20); CALCIUM 8.1 mg/dL (8.4-10.2); CHLORIDE 86 mmol/L (98-107); GLUCOSE 101 mg/dL (75-110); MAGNESIUM 1.4 mg/dL (1.6-2.3)
[2017-03-12 05:38] LABS: SODIUM 133.1 mmol/L (137-145)
[2017-03-12] MEDS: FUROSEMIDE INJ/PF 40 MG/4 ML SDV IV SCH ×2 (05:50→18:36)
[2017-03-12 05:52] LABS: ANION GAP 4 (5-19); CARBON DIOXIDE 43 mmol/L (22-30)
[2017-03-12] MEDS: ALBUTEROL SULFATE 0.083% NEB 2.5 MG/3 ML AMPUL NEB SCH ×3 (07:46→19:41)
[2017-03-12] MEDS: LEVOTHYROXINE SODIUM 0.05 MG TABLET PO SCH (08:53)
--- NOTE | 2017-03-12 10:46 | PDOC PROGRESS REPORT ---
Subjective Progress Note for:: 03/12/17 Subjective:: Patient seems to be doing better with gradual improvement. Pt is denying any chest arm or neck discomfort. Patient denying any PND, orthopnea. Patient denied any sustained palpitations, dizziness, syncope, near syncope. Patient denying any fever chills. Patient denying any other significant discomfort. Patient is maintaining atrial fibrillation rhythm with controlled ventricular response. Review of systems: Rest review of systems negative. Medications: Medications have been reviewed. Physical Exam Vital Signs: Temp Pulse Resp BP Pulse Ox 97.5 F 105 H 23 H 114/47 L 100 03/12/17 07:55 03/12/17 07:55 03/12/17 07:55 03/12/17 07:55 03/12/17 07:55 Intake & Output 03/11/17 03/12/17 03/13/17 06:59 06:59 06:59 Intake Total 1328 50 Output Total 4900 2350 Balance -3572 -2300 Weight 75.6 kg 75.9 kg Exam: GENERAL: well-nourished and in no acute distress. Alert and oriented x3 HEAD: Atraumatic, normocephalic. EYES: Pupils equal round and reactive to light, extraocular movements intact, sclera anicteric, conjunctiva are normal. ENT: TMs normal, nares patent, oropharynx clear without exudates. Moist mucous membranes. No oral ulcerations or bleeding gums noted NECK: supple without lymphadenopathy. Trachea is central. No cervical or axillary lymphadenopathy noted. Carotids are 2+, JVD WNL LUNGS: Respiration seems nonlabored, no significant accessory muscle action noted. Bibasilar fine crackles noted. Diminished breath sounds noted both bases left more than right. Dullness noted both bases left more than right. CHEST: Palpation of the chest wall shows no significant chest wall tenderness. No other significant abnormalities noted. HEART: [place] [employer], No PSH, 1/6 XOCHILT aortic area, 1/6 jane systolic murmur mitral area, no rubs, no gallops. ABDOMEN: Soft, no significant tenderness appreciated, normoactive bowel sounds. No guarding, no rebound. No rigidity noted . No masses appreciated. EXTREMITIES: Pedal pulses are 1-2+, no calf tenderness noted. No clubbing or cyanosis.trace to 1+ pedal edema noted NEUROLOGICAL: Focused neurological exam showed no significant neurologic deficit. Normal speech, no focal weakness appreciated. PSYCH: Normal mood, normal affect. Judgment and insight within normal limits. SKIN: No significant ecchymosis, rash, ulcerations or signs of pruritus noted. MUSCULOSKELETAL EXAM: No significant joint swelling noted. Results Laboratory Results: 03/12/17 04:31 03/12/17 04:31 03/11/17 03/12/17 03/12/17 20:15 04:31 04:31 WBC 5.6 RBC 3.19 L Hgb 10.4 L Hct 31.1 L MCV 98 H MCH 32.5 MCHC 33.3 RDW 19.8 H Plt Count 96 L Seg Neutrophils % 74.8 Lymphocytes % 13.4 Monocytes % 9.2 Eosinophils % 2.2 Basophils % 0.4 Absolute Neutrophils 4.2 Absolute Lymphocytes 0.7 Absolute Monocytes 0.5 Absolute Eosinophils 0.1 Absolute Basophils 0.0 Sodium 133.1 L Potassium 4.0 4.0 Chloride 86 L Carbon Dioxide 43 H* Anion Gap 4 L BUN 16 Creatinine 0.80 Est GFR ( Amer) > 60 Est GFR (Non-Af Amer) > 60 Glucose 101 Calcium 8.1 L Magnesium 1.4 L 1.4 L 03/09/17 03/09/17 03/09/17 15:17 15:17 21:14 Creatine Kinase 31 L 32 L CK-MB (CK-2) 3.49 Troponin I 0.193 NT-Pro-B Natriuret Pep 03/09/17 03/10/17 03/11/17 21:14 03:01 07:15 Creatine Kinase CK-MB (CK-2) 3.13 Troponin I 0.201 0.233 0.188 NT-Pro-B Natriuret Pep 91462 H 18461 H 03/12/17 04:31 Creatine Kinase CK-MB (CK-2) Troponin I NT-Pro-B Natriuret Pep 93234 H EKG Comments: Telemetry strips shows atrial fibrillation with controlled ventricular response Impressions: Ribs w/Chest X-Ray 03/09/17 00:00 IMPRESSION: NO PNEUMOTHORAX. NO DISPLACED RIB FRACTURES. Congestive failure pattern as noted above. Cervical Spine CT 03/09/17 09:38 IMPRESSION: Degenerative changes without evidence for fracture. Chest CT 03/09/17 09:38 IMPRESSION: Congestive failure pattern as noted above. Other findings as noted above. Head CT 03/09/17 09:38 IMPRESSION: MILD CHRONIC CHANGES OF ATROPHY AND MICROVASCULAR ISCHEMIA. NO ACUTE PROCESS. Hip/Pelvis X-Ray 03/09/17 09:38 IMPRESSION: Status post right hip pinning. No acute changes are identified. Lumbar Spine X-Ray 03/09/17 09:38 IMPRESSION: SPONDYLOSIS WITHOUT BONE LESION OR FRACTURE. Other findings as noted above Assessment & Plan - Diagnosis (1) Acute on chronic congestive heart failure Qualifiers: Congestive heart failure type: diastolic Qualified Code(s): I50.33 - Acute on chronic diastolic (congestive) heart failure Is this a current diagnosis for this admission?: Yes (2) Atrial fibrillation Qualifiers: Atrial fibrillation type: chronic Qualified Code(s): I48.2 - Chronic atrial fibrillation Is this a current diagnosis for this admission?: Yes (3) Elevated troponin I level Is this a current diagnosis for this admission?: Yes (4) Pleural effusion Is this a current diagnosis for this admission?: Yes (5) COPD (chronic obstructive pulmonary disease) Qualifiers: COPD type: unspecified COPD Qualified Code(s): J44.9 - Chronic obstructive pulmonary disease, unspecified Is this a current diagnosis for this admission?: Yes (6) Coronary artery disease Qualifiers: Coronary Disease-Associated Artery/Lesion type: [place] artery [place] vs. transplanted heart: [place] heart Associated angina: angina presence unspecified Qualified Code(s): I25.10 - Atherosclerotic heart disease of [place] coronary artery without angina pectoris Is this a current diagnosis for this admission?: Yes (7) Hypertension Qualifiers: Hypertension type: essential hypertension Qualified Code(s): I10 - Essential (primary) hypertension Is this a current diagnosis for this admission?: Yes - Notes Notes: Acute on chronic congestive heart failure: Continue baseline diuretic therapy. Optimize therapy for CHF gradually. Patient should continue with salt and fluid restriction. Atrial fibrillation: Chronic currently on rate control and chronic anticoagulation. Troponin I elevation: Most likely related to CHF, hypoxemia, atrial fibrillation with RVR. Do not feel patient will be a candidate for ischemia evaluation. Pleural effusion: Continue to monitor. If symptomatic dyspnea then may need to consider thoracentesis. COPD: Continue current management plans. Hypertension: Currently stable blood pressure. Avoid any hypotension or severe hypertension. - Time Time with patient: 15-25 minutes - CODE STATUS was discussed, patient remains full code. Surrogate decision-maker unchanged. Multiple medical problems were addressed. More than 50% of the time spent coordinating care, discussing management plans with involved caregivers. Management plans discussed with involved personnels. Medical decision making was of moderate to high complexity , patient's has multiple comorbidities.
[2017-03-12] MEDS: DORZOLAMIDE HCL 2%/TIMOLOL MALEAT 0.5% OPH SOLN 10 ML OS SCH ×2 (10:51→21:29)
[2017-03-12] MEDS: DOCUSATE SODIUM 100 MG CAPSULE PO SCH ×2 (10:52→21:28)
[2017-03-12] MEDS: MAGNESIUM OXIDE 400 MG TABLET PO SCH ×2 (10:52→18:35)
[2017-03-12] MEDS: VENLAFAXINE HCL 37.5 MG CAP.SR.24H PO SCH (10:53)
[2017-03-12] MEDS: LEVOFLOXACIN 500 MG TABLET PO SCH (10:53)
[2017-03-12] MEDS: POTASSIUM CHLORIDE 10 MEQ TABLET.SA PO SCH ×2 (10:54→21:28)
[2017-03-12] MEDS: FINASTERIDE 5 MG TABLET PO SCH (10:54)
[2017-03-12] MEDS: LANSOPRAZOLE 30 MG TAB.RAP.DR PO SCH (10:54)
[2017-03-12] MEDS: SPIRONOLACTONE 25 MG TABLET PO SCH (10:56)
[2017-03-12] MEDS: DIGOXIN 0.25 MG TABLET PO SCH (10:57)
[2017-03-12] MEDS: NITROGLYCERIN 2.5 MG (0.1 MG/HR) PATCH.TD24 TD SCH (10:57)
[2017-03-12] MEDS: CEFTRIAXONE 1 GM/D5W RTU 50 ML IV SCH (10:58)
[2017-03-12] MEDS: PSYLLIUM SEED-SF 5.85 GM PACKET PO SCH ×2 (10:59)
[2017-03-12] MEDS: APIXABAN 2.5 MG TABLET PO SCH ×2 (10:59→21:28)
[2017-03-12] MEDS: METOPROLOL TARTRATE 25 MG TABLET PO SCH ×2 (11:27→21:36)
--- NOTE | 2017-03-12 11:28 | PDOC PROGRESS REPORT ---
Subjective Progress Note for:: 03/12/17 Subjective:: The patient states to feel better. He is more alert. He is less short of breath. He had a significant amount of diureses. His ins and outs are -5 L Physical Exam Vital Signs: Temp Pulse Resp BP Pulse Ox 97.5 F 105 H 23 H 114/47 L 100 03/12/17 07:55 03/12/17 07:55 03/12/17 07:55 03/12/17 07:55 03/12/17 07:55 Intake & Output 03/11/17 03/12/17 03/13/17 06:59 06:59 06:59 Intake Total 1328 50 Output Total 4900 2350 Balance -3572 -2300 Weight 75.6 kg 75.9 kg General appearance: PRESENT: no acute distress Head exam: PRESENT: atraumatic Eye exam: PRESENT: conjunctiva pink Respiratory exam: PRESENT: crackles Cardiovascular exam: PRESENT: +S1, +S2 Pulses: PRESENT: +1 pedal pulses bilateral GI/Abdominal exam: PRESENT: normal bowel sounds, soft Extremities exam: PRESENT: tenderness Neurological exam: PRESENT: alert, awake Results Laboratory Results: 03/12/17 04:31 03/12/17 04:31 03/11/17 03/12/17 03/12/17 20:15 04:31 04:31 WBC 5.6 RBC 3.19 L Hgb 10.4 L Hct 31.1 L MCV 98 H MCH 32.5 MCHC 33.3 RDW 19.8 H Plt Count 96 L Seg Neutrophils % 74.8 Lymphocytes % 13.4 Monocytes % 9.2 Eosinophils % 2.2 Basophils % 0.4 Absolute Neutrophils 4.2 Absolute Lymphocytes 0.7 Absolute Monocytes 0.5 Absolute Eosinophils 0.1 Absolute Basophils 0.0 Sodium 133.1 L Potassium 4.0 4.0 Chloride 86 L Carbon Dioxide 43 H* Anion Gap 4 L BUN 16 Creatinine 0.80 Est GFR ( Amer) > 60 Est GFR (Non-Af Amer) > 60 Glucose 101 Calcium 8.1 L Magnesium 1.4 L 1.4 L 03/09/17 03/09/17 03/09/17 15:17 15:17 21:14 Creatine Kinase 31 L 32 L CK-MB (CK-2) 3.49 Troponin I 0.193 NT-Pro-B Natriuret Pep 03/09/17 03/10/17 03/11/17 21:14 03:01 07:15 Creatine Kinase CK-MB (CK-2) 3.13 Troponin I 0.201 0.233 0.188 NT-Pro-B Natriuret Pep 74579 H 55034 H 03/12/17 04:31 Creatine Kinase CK-MB (CK-2) Troponin I NT-Pro-B Natriuret Pep 75417 H Impressions: Ribs w/Chest X-Ray 03/09/17 00:00 IMPRESSION: NO PNEUMOTHORAX. NO DISPLACED RIB FRACTURES. Congestive failure pattern as noted above. Cervical Spine CT 03/09/17 09:38 IMPRESSION: Degenerative changes without evidence for fracture. Chest CT 03/09/17 09:38 IMPRESSION: Congestive failure pattern as noted above. Other findings as noted above. Head CT 03/09/17 09:38 IMPRESSION: MILD CHRONIC CHANGES OF ATROPHY AND MICROVASCULAR ISCHEMIA. NO ACUTE PROCESS. Hip/Pelvis X-Ray 03/09/17 09:38 IMPRESSION: Status post right hip pinning. No acute changes are identified. Lumbar Spine X-Ray 03/09/17 09:38 IMPRESSION: SPONDYLOSIS WITHOUT BONE LESION OR FRACTURE. Other findings as noted above Assessment & Plan - Diagnosis (1) Acute on chronic congestive heart failure Qualifiers: Congestive heart failure type: diastolic Qualified Code(s): I50.33 - Acute on chronic diastolic (congestive) heart failure Is this a current diagnosis for this admission?: YesPlan: We will continue strict KRISTIN's and diuretics. (2) Acute respiratory failure with hypoxia Is this a current diagnosis for this admission?: Yes (3) Chest pain in adult Is this a current diagnosis for this admission?: YesPlan: We will continue with pain management most probably chest contusion traumatic after a fall at the rehab (4) Atrial fibrillation Qualifiers: Atrial fibrillation type: chronic Qualified Code(s): I48.2 - Chronic atrial fibrillation Is this a current diagnosis for this admission?: YesPlan: Rate control with medication (5) Coronary artery disease Qualifiers: Coronary Disease-Associated Artery/Lesion type: [place] artery [place] vs. transplanted heart: [place] heart Associated angina: angina presence unspecified Qualified Code(s): I25.10 - Atherosclerotic heart disease of [place] coronary artery without angina pectoris Is this a current diagnosis for this admission?: YesPlan: Stable awaiting echo and cardiology follow-up (6) COPD (chronic obstructive pulmonary disease) Qualifiers: COPD type: unspecified COPD Qualified Code(s): J44.9 - Chronic obstructive pulmonary disease, unspecified Is this a current diagnosis for this admission?: YesPlan: Continue with nebulization treatments and incentive spirometry. Will repeat chest x-ray (7) Pneumonia Qualifiers: Pneumonia type: due to unspecified organism Laterality: left Lung location: unspecified part of lung Qualified Code(s): J18.9 - Pneumonia, unspecified organism Is this a current diagnosis for this admission?: Yes
[2017-03-12] MEDS: TAMSULOSIN HCL 0.4 MG CAP.SR.24H PO SCH (18:35)
[2017-03-12] MEDS: TRAMADOL HCL 50 MG TABLET PO PRN (21:28)
[2017-03-13] MEDS: FUROSEMIDE INJ/PF 40 MG/4 ML SDV IV SCH (05:46)
[2017-03-13 07:47] LABS: ABSOLUTE LYMPHOCYTES (AUTO) 0.8 10^3/uL (0.5-4.7); ABSOLUTE MONOCYTES (AUTO) 0.4 10^3/uL (0.1-1.4); ABSOLUTE NEUT (AUTO) 4.3 10^3/uL (1.7-8.2); BASOPHILS % (AUTO) 0.3 % (0-2); EOSINOPHILS % (AUTO) 0.6 % (0-6); HEMOGLOBIN 11.2 g/dL (13.5-17.0); HGB HCT DIFFERENCE 0.6; LYMPHOCYTES % (AUTO) 14.8 % (13-45); MEAN CORPUSCULAR HEMOGLOBIN 32.7 pg (27.0-33.4); MEAN CORPUSCULAR HGB CONC 33.8 g/dL (32.0-36.0); MEAN CORPUSCULAR VOLUME 97 fl (80-97); MONOCYTES % (AUTO) 7.9 % (3-13); RED BLOOD COUNT 3.41 10^6/uL (4.35-5.55); RED CELL DISTRIBUTION WIDTH 19.8 % (11.5-14.0); SEGMENTED NEUTROPHILS % (AUTO) 76.4 % (42-78); WHITE BLOOD COUNT 5.7 10^3/uL (4.0-10.5)
[2017-03-13] MEDS: LEVOTHYROXINE SODIUM 0.05 MG TABLET PO SCH (07:55)
[2017-03-13 07:58] LABS: CHLORIDE 83 mmol/L (98-107); POTASSIUM 4.2 mmol/L (3.6-5.0); SODIUM 130.4 mmol/L (137-145)
[2017-03-13] MEDS: ALBUTEROL SULFATE 0.083% NEB 2.5 MG/3 ML AMPUL NEB SCH ×3 (08:06→19:48)
[2017-03-13 08:28] LABS: BLOOD UREA NITROGEN 18 mg/dL (7-20); CALCIUM 8.2 mg/dL (8.4-10.2); CREATININE RESULT 0.81 mg/dL (0.52-1.25); GLUCOSE 106 mg/dL (75-110)
[2017-03-13 08:29] LABS: ANION GAP 3 (5-19); CARBON DIOXIDE 44 mmol/L (22-30); MAGNESIUM 1.5 mg/dL (1.6-2.3)
--- NOTE | 2017-03-13 08:45 | PDOC PROGRESS REPORT ---
Subjective Progress Note for:: 03/13/17 Subjective:: The patient appears to be slightly more confused this morning. He is very hard of hearing but does not wear his hearing aids. He has received some IV fluids this morning. Physical Exam Vital Signs: Temp Pulse Resp BP Pulse Ox 97.6 F 107 H 16 101/58 L 97 03/13/17 03:50 03/13/17 08:06 03/13/17 08:06 03/13/17 03:50 03/13/17 08:06 Intake & Output 03/12/17 03/13/17 03/14/17 06:59 06:59 06:59 Intake Total 50 618 Output Total 2350 2400 Balance -2300 -1782 Weight 75.9 kg 74 kg General appearance: PRESENT: mild distress Head exam: PRESENT: atraumatic Eye exam: PRESENT: conjunctiva pink Neck exam: ABSENT: JVD Respiratory exam: PRESENT: crackles Cardiovascular exam: PRESENT: irregular rhythm Pulses: PRESENT: +1 pedal pulses bilateral Vascular exam: PRESENT: pallor GI/Abdominal exam: PRESENT: soft Extremities exam: PRESENT: tenderness Musculoskeletal exam: PRESENT: tenderness Neurological exam: PRESENT: awake Psychiatric exam: PRESENT: anxious Results Laboratory Results: 03/13/17 04:16 03/13/17 04:16 Sodium 130.4 L Potassium 4.2 Chloride 83 L Carbon Dioxide 44 H* Anion Gap 3 L BUN 18 Creatinine 0.81 Est GFR ( Amer) > 60 Est GFR (Non-Af Amer) > 60 Glucose 106 Calcium 8.2 L Magnesium 1.5 L 03/09/17 03/09/17 03/09/17 15:17 15:17 21:14 Creatine Kinase 31 L 32 L CK-MB (CK-2) 3.49 Troponin I 0.193 NT-Pro-B Natriuret Pep 03/09/17 03/10/17 03/11/17 21:14 03:01 07:15 Creatine Kinase CK-MB (CK-2) 3.13 Troponin I 0.201 0.233 0.188 NT-Pro-B Natriuret Pep 16972 H 14910 H 03/12/17 04:31 Creatine Kinase CK-MB (CK-2) Troponin I NT-Pro-B Natriuret Pep 03238 H Impressions: Ribs w/Chest X-Ray 03/09/17 00:00 IMPRESSION: NO PNEUMOTHORAX. NO DISPLACED RIB FRACTURES. Congestive failure pattern as noted above. Cervical Spine CT 03/09/17 09:38 IMPRESSION: Degenerative changes without evidence for fracture. Chest CT 03/09/17 09:38 IMPRESSION: Congestive failure pattern as noted above. Other findings as noted above. Head CT 03/09/17 09:38 IMPRESSION: MILD CHRONIC CHANGES OF ATROPHY AND MICROVASCULAR ISCHEMIA. NO ACUTE PROCESS. Hip/Pelvis X-Ray 03/09/17 09:38 IMPRESSION: Status post right hip pinning. No acute changes are identified. Lumbar Spine X-Ray 03/09/17 09:38 IMPRESSION: SPONDYLOSIS WITHOUT BONE LESION OR FRACTURE. Other findings as noted above Assessment & Plan - Diagnosis (1) Acute on chronic congestive heart failure Qualifiers: Congestive heart failure type: diastolic Qualified Code(s): I50.33 - Acute on chronic diastolic (congestive) heart failure Is this a current diagnosis for this admission?: Yes Plan: Significant amount of diureses. Will reduce the amount of diuretics. (2) Acute respiratory failure with hypoxia Is this a current diagnosis for this admission?: Yes Plan: Improved with some diuresis and BiPAP use (3) Chest pain in adult Is this a current diagnosis for this admission?: Yes (4) Atrial fibrillation Qualifiers: Atrial fibrillation type: chronic Qualified Code(s): I48.2 - Chronic atrial fibrillation Is this a current diagnosis for this admission?: Yes Plan: Rate control with medication (5) Coronary artery disease Qualifiers: Coronary Disease-Associated Artery/Lesion type: [place] artery [place] vs. transplanted heart: [place] heart Associated angina: angina presence unspecified Qualified Code(s): I25.10 - Atherosclerotic heart disease of [place] coronary artery without angina pectoris Is this a current diagnosis for this admission?: Yes (6) COPD (chronic obstructive pulmonary disease) Qualifiers: COPD type: unspecified COPD Qualified Code(s): J44.9 - Chronic obstructive pulmonary disease, unspecified Is this a current diagnosis for this admission?: Yes (7) Pneumonia Qualifiers: Pneumonia type: due to unspecified organism Laterality: left Lung location: unspecified part of lung Qualified Code(s): J18.9 - Pneumonia, unspecified organism Is this a current diagnosis for this admission?: Yes Plan: Continue antibiotics
[2017-03-13] MEDS ORDERED: NA PHOS,M-B/NA PHOS,DI-BA (ADULT) 133 ML ENEMA PR ONE (09:00)
[2017-03-13] MEDS ORDERED: MAGNESIUM CITRATE 296 ML BOTTLE PO ONE (09:00)
[2017-03-13] MEDS: MAGNESIUM OXIDE 400 MG TABLET PO SCH ×2 (09:06→17:45)
[2017-03-13] MEDS: DIGOXIN 0.25 MG TABLET PO SCH (09:06)
[2017-03-13] MEDS: METOPROLOL TARTRATE 25 MG TABLET PO SCH ×2 (09:06→23:01)
[2017-03-13] MEDS: DOCUSATE SODIUM 100 MG CAPSULE PO SCH ×2 (09:09→23:01)
[2017-03-13] MEDS: LANSOPRAZOLE 30 MG TAB.RAP.DR PO SCH (09:09)
[2017-03-13] MEDS: SPIRONOLACTONE 25 MG TABLET PO SCH (09:09)
[2017-03-13] MEDS: CEFTRIAXONE 1 GM/D5W RTU 50 ML IV SCH (09:10)
--- NOTE | 2017-03-13 09:10 | RADIOLOGY REPORT (SQ) ---
EXAM DESCRIPTION: CHEST PA/LAT COMPLETED DATE/TIME: 03/13/2017 8:39 am REASON FOR STUDY: pleural effusion COMPARISON: Two-view chest 06/07/2016, 04/09/2016 AP chest 02/03/2017 CT chest 03/09/2017 EXAM PARAMETERS: NUMBER OF VIEWS: two views TECHNIQUE: Digital Frontal and Lateral radiographic views of the chest acquired. RADIATION DOSE: NA LIMITATIONS: none FINDINGS: LUNGS AND PLEURA: Right lung grossly clear. Stable increased interstitial markings in the right lung compared to previous studies. On the left, there is collapse and consolidation throughout the left lower lobe. Moderate left pleur al effusion left upper lobe. Increased interstitial markings. These findings are similar compared t o CT chest 03/09/2017. MEDIASTINUM AND HILAR STRUCTURES: No masses or contour abnormalities. HEART AND VASCULAR STRUCTURES: Heart normal size. No evidence for failure. BONES: No acute findings. HARDWARE: None in the chest. OTHER: No other significant finding. IMPRESSION: Left lower lobe collapse/consolidation with left pleural effusion, similar compared to . TECHNICAL DOCUMENTATION: JOB ID: [id number] [employer]- All Rights Reserved
[2017-03-13] MEDS: LEVOFLOXACIN 500 MG TABLET PO SCH (09:11)
[2017-03-13] MEDS: APIXABAN 2.5 MG TABLET PO SCH ×2 (09:11→22:57)
[2017-03-13] MEDS: FINASTERIDE 5 MG TABLET PO SCH (09:14)
[2017-03-13] MEDS ORDERED: FUROSEMIDE 40 MG TABLET PO SCH (10:00)
[2017-03-13] MEDS ORDERED: POTASSIUM CHLORIDE 10 MEQ TABLET.SA PO SCH (10:00)
[2017-03-13] MEDS: PSYLLIUM SEED-SF 5.85 GM PACKET PO SCH ×2 (10:01)
[2017-03-13] MEDS: VENLAFAXINE HCL 37.5 MG CAP.SR.24H PO SCH (10:02)
[2017-03-13] MEDS: NITROGLYCERIN 2.5 MG (0.1 MG/HR) PATCH.TD24 TD SCH (10:03)
[2017-03-13] MEDS: DORZOLAMIDE HCL 2%/TIMOLOL MALEAT 0.5% OPH SOLN 10 ML OS SCH ×2 (10:06→23:01)
[2017-03-13 13:11] LABS: ARTERIAL BLOOD BASE EXCESS 17.1 mmol/L; ARTERIAL BLOOD O2 SATURATION 97.6 % (94-98)
--- NOTE | 2017-03-13 15:36 | PDOC CONSULTATION ---
Consultation Consult Date: 03/13/17 Attending physician:: MARCIE URIAS Consult reason:: pleural effusion History of Present Illness Admission Date/PCP: 03/09/17 12:10 MARCIE URIAS, History of Present Illness: all information from chart as patient hard of hearing and poor historian;AMINATA ROSENBAUM is a 89 year old male currently rehab at [facility] after fall and broken femur 02/03/17 with surgical repair, presents to ED after another fall when trying to transition from bfast table to chair. He reports progressive weakness and shortness of breath since his ortho surgery but over the last 24 hours started feeling a heaviness in his left chest with sharp pains on deep inspiration and cough. He denies productive cough, wheezing, fevers/chills, CRONIN , vision changes, difficulty swallowing, unilateral weakness, slurred speech, numb/tingling. At the time of presentation he displayed hypoxia requiring 15L/min and left pleural effusion and pulmonary edema and mildly elevated troponin 0.154 but his troponins haven't been normal since 2013. he has chronic afib and his rate is barely controlled but he hasn't received his meds yet this morning. Past Medical History Cardiac Medical History: Reports: Atrial Fibrillation, Congestive Heart Failure , Coronary Artery Disease, DVT, Myocardial Infarction, Hyperlipidema, Hypertension, Pulmonary Embolism Pulmonary Medical History: Reports: Chronic Obstructive Pulmonary Disease (COPD) GI Medical History: Reports: Gastroesophageal Reflux Disease Musculoskeltal Medical History: Reports: Arthritis Psychiatric Medical History: Denies: Bipolar Disorder, Depression, Schizoaffective Disorder Hematology: Denies: Anemia Past Surgical History Past Surgical History: Reports: Appendectomy, Cardiac Catheterization, Cholecystectomy, Coronary Stent - X2 in 2001, Orthopedic Surgery - Bilateral knee replacements Social History Smoking Status: Former Smoker Cigarettes Packs Per Day: 1 Number of Years Smokin Last Time Smoked: 47 years ago Frequency of Alcohol Use: Rare Hx Recreational Drug Use: No Hx Prescription Drug Abuse: No - Advance Directive Resuscitation Status: Full Code - confirmed by patient and son at the bedside Family History Family History: Reviewed & Not Pertinent, CAD, Other Parental Family History Reviewed: No Children Family History Reviewed: No Sibling(s) Family History Reviewed.: No Medication/Allergy Home Medications: Finasteride [Proscar 5 mg Tablet] 5 mg PO DAILY 09/02/13 Metoprolol Tartrate [Lopressor 25 mg Tablet] 12.5 mg PO DAILY 09/02/13 Nitroglycerin [Nitrostat 0.4 mg (1/150 Gr) Tabs 25/Bottle] 0.4 mg SL Q5MP PRN Omeprazole [Prilosec] 40 mg PO DAILY 09/02/13 Simvastatin [Zocor 80 mg Tablet] 80 mg PO QHS 09/02/13 Apixaban [Eliquis] 1 tab PO Q12 04/09/16 Cetirizine HCl [Zyrtec 10 mg Tablet] 10 mg PO DAILY 04/09/16 Dorzolamide HCl/Timolol Maleat [Dorzolamide-Timolol Eye Drops] 1 drop OS Q12 07/13 Alfuzosin HCl [Uroxatral] 10 mg PO DAILY 03/09/17 Digoxin [Lanoxin 0.25 mg Tablet] 0.25 mg PO DAILY 03/09/17 Docusate Sodium 100 mg PO Q12 03/09/17 Ezetimibe 10 mg PO DAILY 03/09/17 Levothyroxine Sodium [Synthroid 50 Mcg Tablet] 50 mcg PO DAILY 03/09/17 Naproxen 220 mg PO Q12HP PRN 03/09/17 Oxycodone HCl 10 mg PO Q6HP PRN 03/09/17 Psyllium Husk [Metamucil] 0.52 gm PO DAILY 03/09/17 Spironolactone 25 mg PO DAILY 03/09/17 Tramadol HCl [Ultram 50 mg Tablet] 50 mg PO Q12HP PRN 03/09/17 Venlafaxine HCl ER [Effexor Xr 37.5 mg Cap.sr] 37.5 mg PO DAILY 03/09/17 Vit A/Vit C/Vit E/Zinc/Copper [Preservision Areds Softgel] 1 each PO DAILY 03/09 Allergies/Adverse Reactions: No Known Allergies Allergy (Verified 03/09/17 08:57) Review of Systems ROS unobtainable: Due to mental status Physical Exam Vital Signs: Temp Pulse Resp BP Pulse Ox 97.6 F 79 16 93/46 L 100 03/13/17 11:57 03/13/17 14:20 03/13/17 14:20 03/13/17 11:57 03/13/17 11:57 Intake & Output 03/12/17 03/13/17 03/14/17 06:59 06:59 06:59 Intake Total 50 836 Output Total 2350 3700 Balance -2300 -2864 Weight 75.9 kg 74 kg General appearance: PRESENT: no acute distress, disheveled, thin, well-developed Head exam: PRESENT: atraumatic, normocephalic Eye exam: PRESENT: conjunctiva pale, EOMI Mouth exam: PRESENT: dry mucosa, neck supple, tongue midline Teeth exam: PRESENT: poor dentation Neck exam: ABSENT: carotid bruit, JVD, lymphadenopathy, thyromegaly Respiratory exam: PRESENT: decreased breath sounds - Greater at the left base, prolonged expiratory phas, rales, rhonchi, symmetrical, unlabored Cardiovascular exam: PRESENT: irregular rhythm Pulses: PRESENT: normal radial pulses GI/Abdominal exam: PRESENT: normal bowel sounds, soft. ABSENT: distended, guarding, mass, organolmegaly, rebound, tenderness Rectal exam: PRESENT: deferred Gentrourinary exam: PRESENT: indwelling catheter Musculoskeletal exam: PRESENT: normal inspection Neurological exam: PRESENT: awake Skin exam: PRESENT: dry, warm Results Laboratory Results: 03/13/17 04:16 03/13/17 04:16 03/13/17 03/13/17 03/13/17 04:16 04:16 09:47 WBC 5.7 RBC 3.41 L Hgb 11.2 L Hct 33.0 L MCV 97 MCH 32.7 MCHC 33.8 RDW 19.8 H Plt Count 111 L Seg Neutrophils % 76.4 Lymphocytes % 14.8 Monocytes % 7.9 Eosinophils % 0.6 Basophils % 0.3 Absolute Neutrophils 4.3 Absolute Lymphocytes 0.8 Absolute Monocytes 0.4 Absolute Eosinophils 0.0 Absolute Basophils 0.0 Carbonic Acid 1.85 H HCO3/H2CO3 Ratio 23:1 ABG pH 7.47 H ABG pCO2 61.3 H ABG pO2 98.6 ABG HCO3 43.6 H ABG O2 Saturation 97.6 ABG Base Excess 17.1 FiO2 3LPM Sodium 130.4 L Potassium 4.2 Chloride 83 L Carbon Dioxide 44 H* Anion Gap 3 L BUN 18 Creatinine 0.81 Est GFR ( Amer) > 60 Est GFR (Non-Af Amer) > 60 Glucose 106 Calcium 8.2 L Magnesium 1.5 L 03/09/17 03/09/17 03/09/17 15:17 15:17 21:14 Creatine Kinase 31 L 32 L CK-MB (CK-2) 3.49 Troponin I 0.193 NT-Pro-B Natriuret Pep 03/09/17 03/10/17 03/11/17 21:14 03:01 07:15 Creatine Kinase CK-MB (CK-2) 3.13 Troponin I 0.201 0.233 0.188 NT-Pro-B Natriuret Pep 02160 H 23702 H 03/12/17 04:31 Creatine Kinase CK-MB (CK-2) Troponin I NT-Pro-B Natriuret Pep 14219 H Impressions: Ribs w/Chest X-Ray 03/09/17 00:00 IMPRESSION: NO PNEUMOTHORAX. NO DISPLACED RIB FRACTURES. Congestive failure pattern as noted above. Cervical Spine CT 03/09/17 09:38 IMPRESSION: Degenerative changes without evidence for fracture. Chest CT 03/09/17 09:38 IMPRESSION: Congestive failure pattern as noted above. Other findings as noted above. Head CT 03/09/17 09:38 IMPRESSION: MILD CHRONIC CHANGES OF ATROPHY AND MICROVASCULAR ISCHEMIA. NO ACUTE PROCESS. Hip/Pelvis X-Ray 03/09/17 09:38 IMPRESSION: Status post right hip pinning. No acute changes are identified. Lumbar Spine X-Ray 03/09/17 09:38 IMPRESSION: SPONDYLOSIS WITHOUT BONE LESION OR FRACTURE. Other findings as noted above Chest X-Ray 03/13/17 00:00 IMPRESSION: Left lower lobe collapse/consolidation with left pleural effusion, similar compared to 03/09/2017. Assessment & Plan - Diagnosis (1) Acute respiratory failure with hypoxia Is this a current diagnosis for this admission?: Yes Plan: Part due to pleural effusion also congestive heart failure (2) Atrial fibrillation Qualifiers: Atrial fibrillation type: chronic Qualified Code(s): I48.2 - Chronic atrial fibrillation Is this a current diagnosis for this admission?: Yes Plan: Ventricular response stable at this time (3) Pleural effusion Is this a current diagnosis for this admission?: Yes Plan: No leukocytosis no left shift no fever no purulent sputum all probability effusion is transudate if reviewed the patient's fragile condition will continue to observe this time
[2017-03-13] MEDS: CLINDAMYCIN 600 MG/D5W RTU 600 MG/50 ML RTUPB IV SCH (17:40)
[2017-03-13] MEDS: TAMSULOSIN HCL 0.4 MG CAP.SR.24H PO SCH (17:46)
[2017-03-13] MEDS ORDERED: NORMAL SALINE 1000 ML 500 ML IV PRN (20:52)
[2017-03-13 21:34] LABS: ARTERIAL BLOOD BASE EXCESS 17.2 mmol/L; ARTERIAL BLOOD O2 SATURATION 97.4 % (94-98)
[2017-03-13] MEDS ORDERED: NORMAL SALINE 1000 ML 1,000 ML IV ONE (22:26)
[2017-03-14] MEDS: CLINDAMYCIN 600 MG/D5W RTU 600 MG/50 ML RTUPB IV SCH ×3 (01:39→18:03)
[2017-03-14] MEDS: ALBUTEROL SULFATE 0.083% NEB 2.5 MG/3 ML AMPUL NEB SCH ×3 (08:14→20:30)
[2017-03-14] MEDS ORDERED: OXYCODONE HCL IR 5 MG TABLET PO PRN (08:28)
--- NOTE | 2017-03-14 08:41 | PDOC PROGRESS REPORT ---
Subjective Progress Note for:: 03/14/17 Subjective:: more awake. good BM Physical Exam Vital Signs: Temp Pulse Resp BP Pulse Ox 98.5 F 72 14 104/50 L 96 03/14/17 04:21 03/14/17 08:14 03/14/17 08:14 03/14/17 04:21 03/14/17 08:14 Intake & Output 03/13/17 03/14/17 03/15/17 06:59 06:59 06:59 Intake Total 836 1744 Output Total 3700 375 Balance -2864 1369 Weight 74 kg 73.2 kg General appearance: PRESENT: mild distress Head exam: PRESENT: atraumatic Eye exam: PRESENT: conjunctiva pink Neck exam: ABSENT: carotid bruit Respiratory exam: PRESENT: crackles, rhonchi Cardiovascular exam: PRESENT: irregular rhythm, +S1, +S2 Pulses: PRESENT: +1 pedal pulses bilateral GI/Abdominal exam: PRESENT: normal bowel sounds, soft Extremities exam: PRESENT: tenderness Musculoskeletal exam: PRESENT: tenderness Neurological exam: PRESENT: alert, awake Results Laboratory Results: 03/13/17 04:16 03/13/17 03/13/17 09:47 21:20 Carbonic Acid 1.85 H 1.72 H HCO3/H2CO3 Ratio 23:1 25:1 ABG pH 7.47 H 7.50 H ABG pCO2 61.3 H 57.2 H ABG pO2 98.6 92.0 ABG HCO3 43.6 H 43.1 H ABG O2 Saturation 97.6 97.4 ABG Base Excess 17.1 17.2 FiO2 3LPM 3L 03/09/17 03/09/17 03/09/17 15:17 15:17 21:14 Creatine Kinase 31 L 32 L CK-MB (CK-2) 3.49 Troponin I 0.193 NT-Pro-B Natriuret Pep 03/09/17 03/10/17 03/11/17 21:14 03:01 07:15 Creatine Kinase CK-MB (CK-2) 3.13 Troponin I 0.201 0.233 0.188 NT-Pro-B Natriuret Pep 49931 H 44893 H 03/12/17 04:31 Creatine Kinase CK-MB (CK-2) Troponin I NT-Pro-B Natriuret Pep 93279 H Impressions: Ribs w/Chest X-Ray 08/12/17 00:00 IMPRESSION: NO PNEUMOTHORAX. NO DISPLACED RIB FRACTURES. Congestive failure pattern as noted above. Cervical Spine CT 03/09/17 09:38 IMPRESSION: Degenerative changes without evidence for fracture. Chest CT 03/09/17 09:38 IMPRESSION: Congestive failure pattern as noted above. Other findings as noted above. Head CT 03/09/17 09:38 IMPRESSION: MILD CHRONIC CHANGES OF ATROPHY AND MICROVASCULAR ISCHEMIA. NO ACUTE PROCESS. Hip/Pelvis X-Ray 03/09/17 09:38 IMPRESSION: Status post right hip pinning. No acute changes are identified. Lumbar Spine X-Ray 03/09/17 09:38 IMPRESSION: SPONDYLOSIS WITHOUT BONE LESION OR FRACTURE. Other findings as noted above Chest X-Ray 03/13/17 00:00 IMPRESSION: Left lower lobe collapse/consolidation with left pleural effusion, similar compared to 03/09/2017. Assessment & Plan - Diagnosis (1) Acute on chronic congestive heart failure Qualifiers: Congestive heart failure type: diastolic Qualified Code(s): I50.33 - Acute on chronic diastolic (congestive) heart failure Is this a current diagnosis for this admission?: Yes Plan: Significant amount of diureses. Will reduce the amount of diuretics. (2) Acute respiratory failure with hypoxia Is this a current diagnosis for this admission?: Yes Plan: Improved with some diuresis and BiPAP use (3) Chest pain in adult Is this a current diagnosis for this admission?: Yes (4) Atrial fibrillation Qualifiers: Atrial fibrillation type: chronic Qualified Code(s): I48.2 - Chronic atrial fibrillation Is this a current diagnosis for this admission?: Yes Plan: Rate control with medication (5) Coronary artery disease Qualifiers: Coronary Disease-Associated Artery/Lesion type: [place] artery [place] vs. transplanted heart: [place] heart Associated angina: angina presence unspecified Qualified Code(s): I25.10 - Atherosclerotic heart disease of [place] coronary artery without angina pectoris Is this a current diagnosis for this admission?: Yes (6) COPD (chronic obstructive pulmonary disease) Qualifiers: COPD type: unspecified COPD Qualified Code(s): J44.9 - Chronic obstructive pulmonary disease, unspecified Is this a current diagnosis for this admission?: Yes Plan: Continue with nebulization treatments and incentive spirometry. Will repeat chest x-ray (7) Pneumonia Qualifiers: Pneumonia type: due to unspecified organism Laterality: left Lung location: unspecified part of lung Qualified Code(s): J18.9 - Pneumonia, unspecified organism Is this a current diagnosis for this admission?: Yes (10) Uncompensated respiratory acidosis Is this a current diagnosis for this admission?: Yes Plan: ivf
[2017-03-14 08:43] LABS: ALANINE AMINOTRANSFERASE 26 U/L (21-72); ALBUMIN 2.5 g/dL (3.5-5.0); ALKALINE PHOSPHATASE 109 U/L (38-126); ASPARTATE AMINO TRANSFERASE 28 U/L (17-59); BILIRUBIN,DIRECT 0.6 mg/dL (0.0-0.4); BILIRUBIN,TOTAL 1.2 mg/dL (0.2-1.3); BLOOD UREA NITROGEN 21 mg/dL (7-20); CALCIUM 8.3 mg/dL (8.4-10.2); CHLORIDE 86 mmol/L (98-107); GLUCOSE 93 mg/dL (75-110); POTASSIUM 4.1 mmol/L (3.6-5.0); SODIUM 131.3 mmol/L (137-145); TOTAL PROTEIN 5.4 g/dL (6.3-8.2)
[2017-03-14 08:45] LABS: ANION GAP 5 (5-19)
[2017-03-14 09:03] LABS: CARBON DIOXIDE 40 mmol/L (22-30)
[2017-03-14] MEDS: DORZOLAMIDE HCL 2%/TIMOLOL MALEAT 0.5% OPH SOLN 10 ML OS SCH ×2 (11:08→21:52)
[2017-03-14] MEDS: LEVOTHYROXINE SODIUM 0.05 MG TABLET PO SCH (11:09)
[2017-03-14] MEDS: LANSOPRAZOLE 30 MG TAB.RAP.DR PO SCH (11:09)
[2017-03-14] MEDS: FINASTERIDE 5 MG TABLET PO SCH (11:10)
[2017-03-14] MEDS: MAGNESIUM OXIDE 400 MG TABLET PO SCH ×2 (11:11→18:04)
[2017-03-14] MEDS: DIGOXIN 0.25 MG TABLET PO SCH (11:12)
[2017-03-14] MEDS: METOPROLOL TARTRATE 25 MG TABLET PO SCH ×2 (11:13→21:42)
[2017-03-14] MEDS: APIXABAN 2.5 MG TABLET PO SCH ×2 (11:18→21:42)
[2017-03-14] MEDS: DOCUSATE SODIUM 100 MG CAPSULE PO SCH ×2 (11:18→21:42)
[2017-03-14] MEDS: VENLAFAXINE HCL 37.5 MG CAP.SR.24H PO SCH (11:19)
[2017-03-14] MEDS: NITROGLYCERIN 2.5 MG (0.1 MG/HR) PATCH.TD24 TD SCH (11:20)
[2017-03-14] MEDS: CEFTRIAXONE 1 GM/D5W RTU 50 ML IV SCH (11:21)
--- NOTE | 2017-03-14 12:00 | PDOC PROGRESS REPORT ---
Subjective Progress Note for:: 03/13/17 Subjective:: Patient seems to be doing better with gradual improvement. Pt is denying any chest arm or neck discomfort. Patient denying any PND, orthopnea. Patient denied any sustained palpitations, dizziness, syncope, near syncope. Patient denying any fever chills. Patient denying any other significant discomfort. Patient is maintaining atrial fibrillation rhythm with controlled ventricular response. NSVT noted. Patient is hard of hearing and also been noted to be intermittently confused. Review of systems: Rest review of systems negative. Medications: Medications have been reviewed. Physical Exam Vital Signs: Temp Pulse Resp BP Pulse Ox 97.6 F 79 16 93/46 L 100 03/13/17 11:57 03/13/17 14:20 03/13/17 14:20 03/13/17 11:57 03/13/17 11:57 Intake & Output 03/12/17 03/13/17 03/14/17 06:59 06:59 06:59 Intake Total 50 836 Output Total 2350 3700 Balance -2300 -2864 Weight 75.9 kg 74 kg Exam: GENERAL: well-nourished and in no acute distress. Patient is alert and is very hard of hearing therefore difficult to assess orientation. HEAD: Atraumatic, normocephalic. EYES: Pupils equal round and reactive to light, extraocular movements intact, sclera anicteric, conjunctiva are normal. ENT: TMs normal, nares patent, oropharynx clear without exudates. Moist mucous membranes. No oral ulcerations or bleeding gums noted NECK: supple without lymphadenopathy or JVD. Trachea is central. No cervical or axillary lymphadenopathy noted. Carotids are 2+ LUNGS: Breath sounds bibasilar fine crackles at bases. Diminished breath sounds noted left base with mild dullness. CHEST: Palpation of chest wall shows no significant chest wall tenderness. HEART: [place] [employer], No PSH, 2/6 XOCHILT aortic area, 1/6 jane systolic murmur mitral area, rubs or gallops. ABDOMEN: Soft, no significant tenderness appreciated, normoactive bowel sounds. No guarding, no rebound. No rigidity noted . No masses appreciated. EXTREMITIES: Pedal pulses are 1-2+, no calf tenderness noted, Trace + pedal edema noted. No clubbing or cyanosis. NEUROLOGICAL: Patient is alert, not able to cooperate with the full neurological exam because of patient being hard of hearing and intermittently confused. PSYCH: Patient cannot participate in a full neurologic and psych exam because of the patient's current mental status SKIN: No significant ecchymosis, rash, ulcerations or signs of pruritus noted. MUSCULOSKELETAL EXAM: No significant joint swelling noted. Results Laboratory Results: 03/13/17 04:16 03/13/17 04:16 03/13/17 03/13/17 03/13/17 04:16 04:16 09:47 WBC 5.7 RBC 3.41 L Hgb 11.2 L Hct 33.0 L MCV 97 MCH 32.7 MCHC 33.8 RDW 19.8 H Plt Count 111 L Seg Neutrophils % 76.4 Lymphocytes % 14.8 Monocytes % 7.9 Eosinophils % 0.6 Basophils % 0.3 Absolute Neutrophils 4.3 Absolute Lymphocytes 0.8 Absolute Monocytes 0.4 Absolute Eosinophils 0.0 Absolute Basophils 0.0 Carbonic Acid 1.85 H HCO3/H2CO3 Ratio 23:1 ABG pH 7.47 H ABG pCO2 61.3 H ABG pO2 98.6 ABG HCO3 43.6 H ABG O2 Saturation 97.6 ABG Base Excess 17.1 FiO2 3LPM Sodium 130.4 L Potassium 4.2 Chloride 83 L Carbon Dioxide 44 H* Anion Gap 3 L BUN 18 Creatinine 0.81 Est GFR ( Amer) > 60 Est GFR (Non-Af Amer) > 60 Glucose 106 Calcium 8.2 L Magnesium 1.5 L 03/09/17 03/09/17 03/09/17 15:17 15:17 21:14 Creatine Kinase 31 L 32 L CK-MB (CK-2) 3.49 Troponin I 0.193 NT-Pro-B Natriuret Pep 03/09/17 03/10/17 03/11/17 21:14 03:01 07:15 Creatine Kinase CK-MB (CK-2) 3.13 Troponin I 0.201 0.233 0.188 NT-Pro-B Natriuret Pep 32700 H 26755 H 03/12/17 04:31 Creatine Kinase CK-MB (CK-2) Troponin I NT-Pro-B Natriuret Pep 80800 H Impressions: Ribs w/Chest X-Ray 03/09/17 00:00 IMPRESSION: NO PNEUMOTHORAX. NO DISPLACED RIB FRACTURES. Congestive failure pattern as noted above. Cervical Spine CT 03/09/17 09:38 IMPRESSION: Degenerative changes without evidence for fracture. Chest CT 03/09/17 09:38 IMPRESSION: Congestive failure pattern as noted above. Other findings as noted above. Head CT 03/09/17 09:38 IMPRESSION: MILD CHRONIC CHANGES OF ATROPHY AND MICROVASCULAR ISCHEMIA. NO ACUTE PROCESS. Hip/Pelvis X-Ray 03/09/17 09:38 IMPRESSION: Status post right hip pinning. No acute changes are identified. Lumbar Spine X-Ray 03/09/17 09:38 IMPRESSION: SPONDYLOSIS WITHOUT BONE LESION OR FRACTURE. Other findings as noted above Chest X-Ray 03/13/17 00:00 IMPRESSION: Left lower lobe collapse/consolidation with left pleural effusion, similar compared to 03/09/2017. Assessment & Plan - Diagnosis (1) Acute on chronic congestive heart failure Qualifiers: Congestive heart failure type: diastolic Qualified Code(s): I50.33 - Acute on chronic diastolic (congestive) heart failure Is this a current diagnosis for this admission?: Yes (2) Atrial fibrillation Qualifiers: Atrial fibrillation type: chronic Qualified Code(s): I48.2 - Chronic atrial fibrillation Is this a current diagnosis for this admission?: Yes (3) Elevated troponin I level Is this a current diagnosis for this admission?: Yes (4) Pleural effusion Is this a current diagnosis for this admission?: Yes (5) COPD (chronic obstructive pulmonary disease) Qualifiers: COPD type: unspecified COPD Qualified Code(s): J44.9 - Chronic obstructive pulmonary disease, unspecified Is this a current diagnosis for this admission?: Yes (6) Coronary artery disease Qualifiers: Coronary Disease-Associated Artery/Lesion type: [place] artery [place] vs. transplanted heart: [place] heart Associated angina: angina presence unspecified Qualified Code(s): I25.10 - Atherosclerotic heart disease of [place] coronary artery without angina pectoris Is this a current diagnosis for this admission?: Yes (7) Hypertension Qualifiers: Hypertension type: essential hypertension Qualified Code(s): I10 - Essential (primary) hypertension Is this a current diagnosis for this admission?: Yes - Notes Notes: Acute on chronic congestive heart failure: Continue baseline diuretic therapy. Optimize therapy for CHF gradually. Patient should continue with salt and fluid restriction. Patient seems to be approaching euvolemic status. Atrial fibrillation: Chronic currently on rate control and chronic anticoagulation. Troponin I elevation: Most likely related to CHF, hypoxemia, atrial fibrillation with RVR. Do not feel patient will be a candidate for ischemia evaluation. Pleural effusion: Continue to monitor. If symptomatic dyspnea then may need to consider thoracentesis. COPD: Continue current management plans. Hypertension: Currently stable blood pressure. Avoid any hypotension or severe hypertension. - Time Time with patient: 15-25 minutes - CODE STATUS : was discussed, patient remains DO NOT RESUSCITATE. Surrogate decision-maker unchanged. Multiple medical problems were addressed. More than 50% of the time spent coordinating care, discussing management plans with involved caregivers. Management plans discussed with involved personnels. Medical decision making was of moderate to high complexity, patient's has multiple comorbidities.
[2017-03-14] MEDS: PSYLLIUM SEED-SF 5.85 GM PACKET PO SCH ×2 (12:11)
--- NOTE | 2017-03-14 12:11 | PDOC PROGRESS REPORT ---
Subjective Progress Note for:: 03/14/17 Subjective:: Patient seems to be doing better with gradual improvement. Pt is denying any chest arm or neck discomfort. Patient denying any PND, orthopnea. Patient denied any sustained palpitations, dizziness, syncope, near syncope. Patient denying any fever chills. Patient denying any other significant discomfort. Patient is maintaining atrial fibrillation rhythm with controlled ventricular response. Patient noted to have low blood pressure for which she needed some IV fluids. Review of systems: This is a difficult to obtain because of patient being intermittently confused and severely hard of hearing Medications: Medications have been reviewed. Physical Exam Vital Signs: Temp Pulse Resp BP Pulse Ox 97.3 F 72 14 104/57 L 96 03/14/17 08:00 03/14/17 08:14 03/14/17 08:14 03/14/17 08:00 03/14/17 08:14 Intake & Output 03/13/17 03/14/17 03/15/17 06:59 06:59 06:59 Intake Total 836 1744 Output Total 3700 375 Balance -2864 1369 Weight 74 kg 73.2 kg Exam: GENERAL: well-nourished and in no acute distress. Patient is alert and is very hard of hearing therefore difficult to assess orientation. HEAD: Atraumatic, normocephalic. EYES: Pupils equal round and reactive to light, extraocular movements intact, sclera anicteric, conjunctiva are normal. ENT: TMs normal, nares patent, oropharynx clear without exudates. Moist mucous membranes. No oral ulcerations or bleeding gums noted NECK: supple without lymphadenopathy or JVD. Trachea is central. No cervical or axillary lymphadenopathy noted. Carotids are 2+ LUNGS: Breath sounds bibasilar fine crackles at bases. Diminished breath sounds noted left base with mild dullness. CHEST: Palpation of chest wall shows no significant chest wall tenderness. HEART: [place] [employer], No PSH, 2/6 XOCHILT aortic area, 1/6 jane systolic murmur mitral area, rubs or gallops. ABDOMEN: Soft, no significant tenderness appreciated, normoactive bowel sounds. No guarding, no rebound. No rigidity noted . No masses appreciated. EXTREMITIES: Pedal pulses are 1-2+, no calf tenderness noted, Trace + pedal edema noted. No clubbing or cyanosis. NEUROLOGICAL: Patient is alert, not able to cooperate with the full neurological exam because of patient being hard of hearing and intermittently confused. PSYCH: Patient cannot participate in a full neurologic and psych exam because of the patient's current mental status SKIN: No significant ecchymosis, rash, ulcerations or signs of pruritus noted. MUSCULOSKELETAL EXAM: No significant joint swelling noted. Results Laboratory Results: 03/13/17 04:16 03/14/17 07:55 03/13/17 03/13/17 03/14/17 09:47 21:20 07:55 Carbonic Acid 1.85 H 1.72 H HCO3/H2CO3 Ratio 23:1 25:1 ABG pH 7.47 H 7.50 H ABG pCO2 61.3 H 57.2 H ABG pO2 98.6 92.0 ABG HCO3 43.6 H 43.1 H ABG O2 Saturation 97.6 97.4 ABG Base Excess 17.1 17.2 FiO2 3LPM 3L Sodium 131.3 L Potassium 4.1 Chloride 86 L Carbon Dioxide 40 H* Anion Gap 5 BUN 21 H Creatinine 0.70 Est GFR ( Amer) > 60 Est GFR (Non-Af Amer) > 60 Glucose 93 Calcium 8.3 L Total Bilirubin 1.2 AST 28 ALT 26 Alkaline Phosphatase 109 Total Protein 5.4 L Albumin 2.5 L 03/09/17 03/09/17 03/09/17 15:17 15:17 21:14 Creatine Kinase 31 L 32 L CK-MB (CK-2) 3.49 Troponin I 0.193 NT-Pro-B Natriuret Pep 03/09/17 03/10/17 03/11/17 21:14 03:01 07:15 Creatine Kinase CK-MB (CK-2) 3.13 Troponin I 0.201 0.233 0.188 NT-Pro-B Natriuret Pep 54505 H 35949 H 03/12/17 04:31 Creatine Kinase CK-MB (CK-2) Troponin I NT-Pro-B Natriuret Pep 94202 H Impressions: Ribs w/Chest X-Ray 03/09/17 00:00 IMPRESSION: NO PNEUMOTHORAX. NO DISPLACED RIB FRACTURES. Congestive failure pattern as noted above. Cervical Spine CT 03/09/17 09:38 IMPRESSION: Degenerative changes without evidence for fracture. Chest CT 03/09/17 09:38 IMPRESSION: Congestive failure pattern as noted above. Other findings as noted above. Head CT 03/09/17 09:38 IMPRESSION: MILD CHRONIC CHANGES OF ATROPHY AND MICROVASCULAR ISCHEMIA. NO ACUTE PROCESS. Hip/Pelvis X-Ray 03/09/17 09:38 IMPRESSION: Status post right hip pinning. No acute changes are identified. Lumbar Spine X-Ray 03/09/17 09:38 IMPRESSION: SPONDYLOSIS WITHOUT BONE LESION OR FRACTURE. Other findings as noted above Chest X-Ray 03/13/17 00:00 IMPRESSION: Left lower lobe collapse/consolidation with left pleural effusion, similar compared to 03/09/2017. Assessment & Plan - Diagnosis (1) Acute on chronic congestive heart failure Qualifiers: Congestive heart failure type: diastolic Qualified Code(s): I50.33 - Acute on chronic diastolic (congestive) heart failure Is this a current diagnosis for this admission?: Yes (2) Atrial fibrillation Qualifiers: Atrial fibrillation type: chronic Qualified Code(s): I48.2 - Chronic atrial fibrillation Is this a current diagnosis for this admission?: Yes (3) Elevated troponin I level Is this a current diagnosis for this admission?: Yes (4) Pleural effusion Is this a current diagnosis for this admission?: Yes (5) COPD (chronic obstructive pulmonary disease) Qualifiers: COPD type: unspecified COPD Qualified Code(s): J44.9 - Chronic obstructive pulmonary disease, unspecified Is this a current diagnosis for this admission?: Yes (6) Coronary artery disease Qualifiers: Coronary Disease-Associated Artery/Lesion type: [place] artery [place] vs. transplanted heart: [place] heart Associated angina: angina presence unspecified Qualified Code(s): I25.10 - Atherosclerotic heart disease of [place] coronary artery without angina pectoris Is this a current diagnosis for this admission?: Yes (7) Hypertension Qualifiers: Hypertension type: essential hypertension Qualified Code(s): I10 - Essential (primary) hypertension Is this a current diagnosis for this admission?: Yes - Notes Notes: Acute on chronic congestive heart failure: Currently euvolemic by exam. Diuretics stopped because of hypotension. Optimize therapy for CHF gradually. Patient should continue with salt and fluid restriction. We will consider restarting Lasix at a low dose.. Atrial fibrillation: Chronic currently on rate control and chronic anticoagulation. Troponin I elevation: Most likely related to CHF, hypoxemia, atrial fibrillation with RVR. Do not feel patient will be a candidate for ischemia evaluation. Pleural effusion: Continue to monitor. If symptomatic dyspnea then may need to consider thoracentesis. Currently patient without any significant symptoms and is noted to be comfortable laying flat in bed. COPD: Continue current management plans. Hypertension: Currently stable blood pressure. Avoid any hypotension or severe hypertension. Patient did have an episode of hypotension which responded to IV fluids. - Time Time with patient: 15-25 minutes - CODE STATUS : was discussed, patient remains DO NOT RESUSCITATE. Surrogate decision-maker unchanged. Multiple medical problems were addressed. More than 50% of the time spent coordinating care, discussing management plans with involved caregivers. Management plans discussed with involved personnels. Medical decision making was of moderate to high complexity, patient's has multiple comorbidities.
--- NOTE | 2017-03-14 13:49 | PDOC PROGRESS REPORT ---
Subjective Progress Note for:: 03/14/17 Subjective:: awake,pleasant Physical Exam Vital Signs: Temp Pulse Resp BP Pulse Ox 97.3 F 97 22 H 110/60 98 03/14/17 11:32 03/14/17 11:32 03/14/17 11:32 03/14/17 11:32 03/14/17 11:32 Intake & Output 03/13/17 03/14/17 03/15/17 06:59 06:59 06:59 Intake Total 836 1744 0 Output Total 3700 375 100 Balance -2864 1369 -100 Weight 74 kg 73.2 kg General appearance: PRESENT: no acute distress, disheveled, thin, well-developed Head exam: PRESENT: atraumatic, normocephalic Eye exam: PRESENT: conjunctiva pale, EOMI Mouth exam: PRESENT: dry mucosa, neck supple, tongue midline Neck exam: PRESENT: carotid bruit Respiratory exam: PRESENT: crackles, decreased breath sounds, prolonged expiratory phas, rhonchi, symmetrical, unlabored Cardiovascular exam: PRESENT: irregular rhythm, tachycardia. ABSENT: bradycardia Pulses: PRESENT: normal radial pulses GI/Abdominal exam: PRESENT: normal bowel sounds, soft. ABSENT: distended, guarding, mass, organolmegaly, rebound, tenderness Rectal exam: PRESENT: deferred Gentrourinary exam: PRESENT: indwelling catheter Musculoskeletal exam: PRESENT: normal inspection Neurological exam: PRESENT: awake Skin exam: PRESENT: dry, warm Results Laboratory Results: 03/13/17 04:16 03/14/17 07:55 03/13/17 03/14/17 21:20 07:55 Carbonic Acid 1.72 H HCO3/H2CO3 Ratio 25:1 ABG pH 7.50 H ABG pCO2 57.2 H ABG pO2 92.0 ABG HCO3 43.1 H ABG O2 Saturation 97.4 ABG Base Excess 17.2 FiO2 3L Sodium 131.3 L Potassium 4.1 Chloride 86 L Carbon Dioxide 40 H* Anion Gap 5 BUN 21 H Creatinine 0.70 Est GFR ( Amer) > 60 Est GFR (Non-Af Amer) > 60 Glucose 93 Calcium 8.3 L Total Bilirubin 1.2 AST 28 ALT 26 Alkaline Phosphatase 109 Total Protein 5.4 L Albumin 2.5 L 03/09/17 03/09/17 03/09/17 15:17 15:17 21:14 Creatine Kinase 31 L 32 L CK-MB (CK-2) 3.49 Troponin I 0.193 NT-Pro-B Natriuret Pep 03/09/17 03/10/17 03/11/17 21:14 03:01 07:15 Creatine Kinase CK-MB (CK-2) 3.13 Troponin I 0.201 0.233 0.188 NT-Pro-B Natriuret Pep 76958 H 21450 H 03/12/17 04:31 Creatine Kinase CK-MB (CK-2) Troponin I NT-Pro-B Natriuret Pep 96607 H Impressions: Ribs w/Chest X-Ray 03/09/17 00:00 IMPRESSION: NO PNEUMOTHORAX. NO DISPLACED RIB FRACTURES. Congestive failure pattern as noted above. Cervical Spine CT 03/09/17 09:38 IMPRESSION: Degenerative changes without evidence for fracture. Chest CT 03/09/17 09:38 IMPRESSION: Congestive failure pattern as noted above. Other findings as noted above. Head CT 03/09/17 09:38 IMPRESSION: MILD CHRONIC CHANGES OF ATROPHY AND MICROVASCULAR ISCHEMIA. NO ACUTE PROCESS. Hip/Pelvis X-Ray 03/09/17 09:38 IMPRESSION: Status post right hip pinning. No acute changes are identified. Lumbar Spine X-Ray 03/09/17 09:38 IMPRESSION: SPONDYLOSIS WITHOUT BONE LESION OR FRACTURE. Other findings as noted above Chest X-Ray 03/13/17 00:00 IMPRESSION: Left lower lobe collapse/consolidation with left pleural effusion, similar compared to 03/09/2017. Assessment & Plan - Diagnosis (1) Acute respiratory failure with hypoxia Is this a current diagnosis for this admission?: Yes (2) Atrial fibrillation Qualifiers: Atrial fibrillation type: chronic Qualified Code(s): I48.2 - Chronic atrial fibrillation Is this a current diagnosis for this admission?: Yes (3) Pleural effusion Is this a current diagnosis for this admission?: Yes
[2017-03-14] MEDS: TAMSULOSIN HCL 0.4 MG CAP.SR.24H PO SCH (18:04)
[2017-03-15] MEDS: CLINDAMYCIN 600 MG/D5W RTU 600 MG/50 ML RTUPB IV SCH ×3 (01:58→18:01)
[2017-03-15 05:21] LABS: ALANINE AMINOTRANSFERASE 26 U/L (21-72); ALBUMIN 2.4 g/dL (3.5-5.0); ALKALINE PHOSPHATASE 109 U/L (38-126); ASPARTATE AMINO TRANSFERASE 25 U/L (17-59); BILIRUBIN,DIRECT 0.6 mg/dL (0.0-0.4); BILIRUBIN,TOTAL 1.2 mg/dL (0.2-1.3); BLOOD UREA NITROGEN 21 mg/dL (7-20); CALCIUM 8.2 mg/dL (8.4-10.2); CHLORIDE 86 mmol/L (98-107); CREATININE RESULT 0.82 mg/dL (0.52-1.25); GLUCOSE 87 mg/dL (75-110); POTASSIUM 3.7 mmol/L (3.6-5.0); SODIUM 129.5 mmol/L (137-145); TOTAL PROTEIN 5.1 g/dL (6.3-8.2)
[2017-03-15 05:46] LABS: ANION GAP 3 (5-19)
[2017-03-15 05:50] LABS: CARBON DIOXIDE 41 mmol/L (22-30)
[2017-03-15] MEDS: ALBUTEROL SULFATE 0.083% NEB 2.5 MG/3 ML AMPUL NEB SCH ×3 (07:58→19:41)
[2017-03-15] MEDS: LEVOTHYROXINE SODIUM 0.05 MG TABLET PO SCH (08:00)
[2017-03-15] MEDS: DOCUSATE SODIUM 100 MG CAPSULE PO SCH ×2 (09:16→22:09)
[2017-03-15] MEDS: FINASTERIDE 5 MG TABLET PO SCH (09:16)
[2017-03-15] MEDS: MAGNESIUM OXIDE 400 MG TABLET PO SCH ×2 (09:16→18:02)
[2017-03-15] MEDS: LANSOPRAZOLE 30 MG TAB.RAP.DR PO SCH (09:16)
[2017-03-15] MEDS: CEFTRIAXONE 1 GM/D5W RTU 50 ML IV SCH (09:17)
[2017-03-15] MEDS: VENLAFAXINE HCL 37.5 MG CAP.SR.24H PO SCH (09:19)
[2017-03-15] MEDS: DORZOLAMIDE HCL 2%/TIMOLOL MALEAT 0.5% OPH SOLN 10 ML OS SCH ×2 (09:19→22:13)
[2017-03-15] MEDS: PSYLLIUM SEED-SF 5.85 GM PACKET PO SCH ×2 (09:19)
[2017-03-15] MEDS: DIGOXIN 0.25 MG TABLET PO SCH (09:20)
[2017-03-15] MEDS: METOPROLOL TARTRATE 25 MG TABLET PO SCH ×2 (09:20→22:13)
[2017-03-15] MEDS: NITROGLYCERIN 2.5 MG (0.1 MG/HR) PATCH.TD24 TD SCH (09:20)
[2017-03-15] MEDS ORDERED: NORMAL SALINE 1000 ML 1,000 ML IV PRN (09:46)
--- NOTE | 2017-03-15 09:53 | PDOC PROGRESS REPORT ---
Subjective Progress Note for:: 03/15/17 Subjective:: The patient appears to be slightly more lethargic but arousable this morning. He has recently received a neb treatment. Not eating well. Discussed with nursing staff about the need to improve p.o. intake. Franco need to get the patient out of bed and into a recliner. The physical therapy does not believe that the patient is safe enough to stand up. Physical Exam Vital Signs: Temp Pulse Resp BP Pulse Ox 97.5 F 78 16 121/41 L 95 03/15/17 07:54 03/15/17 07:58 03/15/17 07:58 03/15/17 07:54 03/15/17 07:58 Intake & Output 03/14/17 03/15/17 03/16/17 06:59 06:59 06:59 Intake Total 1744 270 Output Total 375 950 Balance 1369 -680 Weight 73.2 kg 73.6 kg General appearance: PRESENT: mild distress Head exam: PRESENT: atraumatic Neck exam: ABSENT: carotid bruit Respiratory exam: PRESENT: crackles, rhonchi Cardiovascular exam: PRESENT: irregular rhythm, +S1, +S2 Pulses: PRESENT: +1 pedal pulses bilateral GI/Abdominal exam: PRESENT: normal bowel sounds, soft Extremities exam: PRESENT: tenderness Musculoskeletal exam: PRESENT: tenderness Neurological exam: PRESENT: awake Psychiatric exam: PRESENT: flat affect Results Laboratory Results: 03/13/17 04:16 03/15/17 04:31 03/15/17 04:31 Sodium 129.5 L Potassium 3.7 Chloride 86 L Carbon Dioxide 41 H* Anion Gap 3 L BUN 21 H Creatinine 0.82 Est GFR ( Amer) > 60 Est GFR (Non-Af Amer) > 60 Glucose 87 Calcium 8.2 L Magnesium 2.0 Total Bilirubin 1.2 AST 25 ALT 26 Alkaline Phosphatase 109 Total Protein 5.1 L Albumin 2.4 L 03/09/17 15:17 Blood Blood Culture - Final NO GROWTH IN 5 DAYS 03/09/17 14:15 Blood Blood Culture - Final NO GROWTH IN 5 DAYS 03/09/17 03/09/17 03/09/17 15:17 15:17 21:14 Creatine Kinase 31 L 32 L CK-MB (CK-2) 3.49 Troponin I 0.193 NT-Pro-B Natriuret Pep 0803/10/17 03/11/17 21:14 03:01 07:15 Creatine Kinase CK-MB (CK-2) 3.13 Troponin I 0.201 0.233 0.188 NT-Pro-B Natriuret Pep 06729 H 86421 H 03/12/17 04:31 Creatine Kinase CK-MB (CK-2) Troponin I NT-Pro-B Natriuret Pep 16627 H Impressions: Ribs w/Chest X-Ray 03/09/17 00:00 IMPRESSION: NO PNEUMOTHORAX. NO DISPLACED RIB FRACTURES. Congestive failure pattern as noted above. Cervical Spine CT 03/09/17 09:38 IMPRESSION: Degenerative changes without evidence for fracture. Chest CT 03/09/17 09:38 IMPRESSION: Congestive failure pattern as noted above. Other findings as noted above. Head CT 03/09/17 09:38 IMPRESSION: MILD CHRONIC CHANGES OF ATROPHY AND MICROVASCULAR ISCHEMIA. NO ACUTE PROCESS. Hip/Pelvis X-Ray 03/09/17 09:38 IMPRESSION: Status post right hip pinning. No acute changes are identified. Lumbar Spine X-Ray 03/09/17 09:38 IMPRESSION: SPONDYLOSIS WITHOUT BONE LESION OR FRACTURE. Other findings as noted above Chest X-Ray 03/13/17 00:00 IMPRESSION: Left lower lobe collapse/consolidation with left pleural effusion, similar compared to 03/09/2017. Assessment & Plan - Diagnosis (1) Acute on chronic congestive heart failure Qualifiers: Congestive heart failure type: diastolic Qualified Code(s): I50.33 - Acute on chronic diastolic (congestive) heart failure Is this a current diagnosis for this admission?: Yes Plan: Difficulty diuresing patient because of hypotension and acidosis. We will continue gentle hydration and diuretics. (2) Acute respiratory failure with hypoxia Is this a current diagnosis for this admission?: Yes Plan: Improved with supplementation of O2 and some diureses (3) Chest pain in adult Is this a current diagnosis for this admission?: Yes (4) Atrial fibrillation Qualifiers: Atrial fibrillation type: chronic Qualified Code(s): I48.2 - Chronic atrial fibrillation Is this a current diagnosis for this admission?: Yes Plan: Rate control with medication (5) Coronary artery disease Qualifiers: Coronary Disease-Associated Artery/Lesion type: [place] artery [place] vs. transplanted heart: [place] heart Associated angina: angina presence unspecified Qualified Code(s): I25.10 - Atherosclerotic heart disease of [place] coronary artery without angina pectoris Is this a current diagnosis for this admission?: Yes (6) COPD (chronic obstructive pulmonary disease) Qualifiers: COPD type: unspecified COPD Qualified Code(s): J44.9 - Chronic obstructive pulmonary disease, unspecified Is this a current diagnosis for this admission?: Yes (7) Pneumonia Qualifiers: Pneumonia type: due to unspecified organism Laterality: left Lung location: unspecified part of lung Qualified Code(s): J18.9 - Pneumonia, unspecified organism Is this a current diagnosis for this admission?: Yes Plan: We will continue with double coverage of antibiotics for possible hospital- acquired versus aspiration (10) Uncompensated respiratory acidosis Is this a current diagnosis for this admission?: Yes Plan: ivf
[2017-03-15] MEDS: APIXABAN 2.5 MG TABLET PO SCH ×2 (10:00→22:06)
--- NOTE | 2017-03-15 10:05 | RADIOLOGY REPORT (SQ) ---
EXAM DESCRIPTION: CHEST PA/LAT COMPLETED DATE/TIME: 03/15/2017 9:47 am REASON FOR STUDY: pneumonia COMPARISON: Two-view chest 03/13/2017, AP chest 03/09/2017, 02/03/2017 CT chest 03/09/2017 EXAM PARAMETERS: NUMBER OF VIEWS: two views TECHNIQUE: Digital Frontal and Lateral radiographic views of the chest acquired. RADIATION DOSE: NA LIMITATIONS: none FINDINGS: LUNGS AND PLEURA: There is collapse and consolidation of the left lower lobe with adjacent pleural effusion. These findings are new compared to 02/03/2017, similar compared to 03/09/2017 and . Remainder of the lungs bilaterally demonstrate low volumes with increased interstitial markings from pulmonary fibrosis. No right pleural effusion. No right or left pneumothorax. MEDIASTINUM AND HILAR STRUCTURES: No masses or contour abnormalities. HEART AND VASCULAR STRUCTURES: Heart normal size. No evidence for failure. BONES: No acute findings. Stable T5 and T8 compression deformities HARDWARE: None in the chest. OTHER: No other significant finding. IMPRESSION: Persistent collapse and consolidation in the left lower lobe with left pleural effusion. TECHNICAL DOCUMENTATION: JOB ID: [id number] [employer]- All Rights Reserved
[2017-03-15] MEDS: TAMSULOSIN HCL 0.4 MG CAP.SR.24H PO SCH (18:02)
[2017-03-16] MEDS: CLINDAMYCIN 600 MG/D5W RTU 600 MG/50 ML RTUPB IV SCH ×3 (02:15→18:09)
[2017-03-16 06:20] LABS: BLOOD UREA NITROGEN 25 mg/dL (7-20); CARBON DIOXIDE 39 mmol/L (22-30); CREATININE RESULT 0.82 mg/dL (0.52-1.25); GLUCOSE 99 mg/dL (75-110); POTASSIUM 3.5 mmol/L (3.6-5.0)
[2017-03-16 06:22] LABS: ABSOLUTE LYMPHOCYTES (AUTO) 0.4 10^3/uL (0.5-4.7); ABSOLUTE MONOCYTES (AUTO) 0.2 10^3/uL (0.1-1.4); ABSOLUTE NEUT (AUTO) 4.2 10^3/uL (1.7-8.2); BASOPHILS % (AUTO) 0.3 % (0-2); EOSINOPHILS % (AUTO) 0.3 % (0-6); HEMATOCRIT 33.4 % (37.9-51.0); HEMOGLOBIN 11.3 g/dL (13.5-17.0); HGB HCT DIFFERENCE 0.5; LYMPHOCYTES % (AUTO) 7.9 % (13-45); MEAN CORPUSCULAR HEMOGLOBIN 32.8 pg (27.0-33.4); MEAN CORPUSCULAR HGB CONC 33.8 g/dL (32.0-36.0); MEAN CORPUSCULAR VOLUME 97 fl (80-97); MONOCYTES % (AUTO) 4.3 % (3-13); RED BLOOD COUNT 3.44 10^6/uL (4.35-5.55); RED CELL DISTRIBUTION WIDTH 19.8 % (11.5-14.0); SEGMENTED NEUTROPHILS % (AUTO) 87.2 % (42-78); WHITE BLOOD COUNT 4.9 10^3/uL (4.0-10.5)
[2017-03-16 06:28] LABS: CHLORIDE 88 mmol/L (98-107); SODIUM 129.4 mmol/L (137-145)
[2017-03-16 06:35] LABS: ANION GAP 2 (5-19)
[2017-03-16] MEDS: ALBUTEROL SULFATE 0.083% NEB 2.5 MG/3 ML AMPUL NEB SCH ×3 (08:09→20:31)
[2017-03-16] MEDS: POTASSIUM CHLORIDE 10 MEQ TABLET.SA PO SCH ×2 (09:54→22:04)
[2017-03-16] MEDS: LANSOPRAZOLE 30 MG TAB.RAP.DR PO SCH (09:55)
[2017-03-16] MEDS: MAGNESIUM OXIDE 400 MG TABLET PO SCH ×2 (09:55→18:09)
[2017-03-16] MEDS: APIXABAN 2.5 MG TABLET PO SCH ×2 (09:56→22:06)
[2017-03-16] MEDS: FINASTERIDE 5 MG TABLET PO SCH (09:56)
[2017-03-16] MEDS: CEFTRIAXONE 1 GM/D5W RTU 50 ML IV SCH (09:57)
[2017-03-16] MEDS: DOCUSATE SODIUM 100 MG CAPSULE PO SCH ×2 (09:57→22:06)
[2017-03-16] MEDS: DORZOLAMIDE HCL 2%/TIMOLOL MALEAT 0.5% OPH SOLN 10 ML OS SCH ×2 (09:58→22:10)
[2017-03-16] MEDS: NITROGLYCERIN 2.5 MG (0.1 MG/HR) PATCH.TD24 TD SCH (10:01)
[2017-03-16] MEDS: VENLAFAXINE HCL 37.5 MG CAP.SR.24H PO SCH (10:01)
[2017-03-16] MEDS: METOPROLOL TARTRATE 25 MG TABLET PO SCH ×2 (10:12→22:12)
[2017-03-16] MEDS: PSYLLIUM SEED-SF 5.85 GM PACKET PO SCH ×2 (10:12)
[2017-03-16] MEDS: DIGOXIN 0.25 MG TABLET PO SCH (10:14)
--- NOTE | 2017-03-16 11:42 | PDOC PROGRESS REPORT ---
Subjective Progress Note for:: 03/15/17 Subjective:: Patient seems to be doing better with gradual improvement. Pt is denying any chest arm or neck discomfort. Patient denying any PND, orthopnea. Patient denied any sustained palpitations, dizziness, syncope, near syncope. Patient denying any fever chills. Patient denying any other significant discomfort. Patient is maintaining atrial fibrillation rhythm with controlled ventricular response. Review of systems: Rest review of systems negative. Medications: Medications have been reviewed. Physical Exam Vital Signs: Temp Pulse Resp BP Pulse Ox 97.6 F 66 20 111/53 L 100 03/15/17 11:37 03/15/17 11:37 03/15/17 11:37 03/15/17 11:37 03/15/17 11:37 Intake & Output 03/14/17 03/15/17 03/16/17 06:59 06:59 06:59 Intake Total 1744 270 0 Output Total 375 950 150 Balance 1369 -680 -150 Weight 73.2 kg 73.6 kg Exam: GENERAL: well-nourished and in no acute distress. Patient is very hard of hearing but seems alert and oriented HEAD: Atraumatic, normocephalic. EYES: Pupils equal round and reactive to light, extraocular movements intact, sclera anicteric, conjunctiva are normal. ENT: TMs normal, nares patent, oropharynx clear without exudates. Moist mucous membranes. No oral ulcerations or bleeding gums noted. Patient is very hard of hearing. NECK: supple without lymphadenopathy. Trachea is central. No cervical or axillary lymphadenopathy noted. Carotids are 2+, JVD WNL LUNGS: Respiration seems nonlabored, no significant accessory muscle action noted. Breath sounds clear to auscultation bilaterally and equal noted. No wheezes rales or rhonchi noted. No significant dullness noted on percussion. CHEST: Palpation of the chest wall shows no significant chest wall tenderness. No other significant abnormalities noted. HEART: [employer]ER, No PSH, 1/6 XOCHILT aortic area, 1/6 jane systolic murmur mitral area, no rubs, no gallops. ABDOMEN: Soft, no significant tenderness appreciated, normoactive bowel sounds. No guarding, no rebound. No rigidity noted . No masses appreciated. EXTREMITIES: Pedal pulses are 1-2+, no calf tenderness noted. No clubbing or cyanosis.trace pedal edema noted NEUROLOGICAL: Focused neurological exam showed no significant neurologic deficit. Normal speech, no focal weakness appreciated. PSYCH: Normal mood, normal affect. Judgment and insight within normal limits. SKIN: No significant ecchymosis, rash, ulcerations or signs of pruritus noted. MUSCULOSKELETAL EXAM: No significant joint swelling noted. Results Laboratory Results: 03/13/17 04:16 03/15/17 04:31 03/15/17 04:31 Sodium 129.5 L Potassium 3.7 Chloride 86 L Carbon Dioxide 41 H* Anion Gap 3 L BUN 21 H Creatinine 0.82 Est GFR ( Amer) > 60 Est GFR (Non-Af Amer) > 60 Glucose 87 Calcium 8.2 L Magnesium 2.0 Total Bilirubin 1.2 AST 25 ALT 26 Alkaline Phosphatase 109 Total Protein 5.1 L Albumin 2.4 L 03/09/17 15:17 Blood Blood Culture - Final NO GROWTH IN 5 DAYS 03/09/17 14:15 Blood Blood Culture - Final NO GROWTH IN 5 DAYS 03/09/17 03/09/17 03/09/17 15:17 15:17 21:14 Creatine Kinase 31 L 32 L CK-MB (CK-2) 3.49 Troponin I 0.193 NT-Pro-B Natriuret Pep 03/09/17 03/10/17 03/11/17 21:14 03:01 07:15 Creatine Kinase CK-MB (CK-2) 3.13 Troponin I 0.201 0.233 0.188 NT-Pro-B Natriuret Pep 43213 H 93950 H 03/12/17 04:31 Creatine Kinase CK-MB (CK-2) Troponin I NT-Pro-B Natriuret Pep 25066 H EKG Comments: Atrial fibrillation with controlled ventricular response. Impressions: Ribs w/Chest X-Ray 03/09/17 00:00 IMPRESSION: NO PNEUMOTHORAX. NO DISPLACED RIB FRACTURES. Congestive failure pattern as noted above. Cervical Spine CT 03/09/17 09:38 IMPRESSION: Degenerative changes without evidence for fracture. Chest CT 03/09/17 09:38 IMPRESSION: Congestive failure pattern as noted above. Other findings as noted above. Head CT 03/09/17 09:38 IMPRESSION: MILD CHRONIC CHANGES OF ATROPHY AND MICROVASCULAR ISCHEMIA. NO ACUTE PROCESS. Hip/Pelvis X-Ray 03/09/17 09:38 IMPRESSION: Status post right hip pinning. No acute changes are identified. Lumbar Spine X-Ray 03/09/17 09:38 IMPRESSION: SPONDYLOSIS WITHOUT BONE LESION OR FRACTURE. Other findings as noted above Chest X-Ray 03/15/17 00:00 IMPRESSION: Persistent collapse and consolidation in the left lower lobe with left pleural effusion. Assessment & Plan - Diagnosis (1) Acute on chronic congestive heart failure Qualifiers: Congestive heart failure type: diastolic Qualified Code(s): I50.33 - Acute on chronic diastolic (congestive) heart failure Is this a current diagnosis for this admission?: Yes (2) Atrial fibrillation Qualifiers: Atrial fibrillation type: chronic Qualified Code(s): I48.2 - Chronic atrial fibrillation Is this a current diagnosis for this admission?: Yes (3) Elevated troponin I level Is this a current diagnosis for this admission?: Yes (4) Pleural effusion Is this a current diagnosis for this admission?: Yes (5) COPD (chronic obstructive pulmonary disease) Qualifiers: COPD type: unspecified COPD Qualified Code(s): J44.9 - Chronic obstructive pulmonary disease, unspecified Is this a current diagnosis for this admission?: Yes (6) Coronary artery disease Qualifiers: Coronary Disease-Associated Artery/Lesion type: [place] artery [place] vs. transplanted heart: [place] heart Associated angina: angina presence unspecified Qualified Code(s): I25.10 - Atherosclerotic heart disease of [place] coronary artery without angina pectoris Is this a current diagnosis for this admission?: Yes (7) Hypertension Qualifiers: Hypertension type: essential hypertension Qualified Code(s): I10 - Essential (primary) hypertension Is this a current diagnosis for this admission?: Yes - Notes Notes: Acute on chronic congestive heart failure: Currently euvolemic by exam. Diuretics stopped because of hypotension. Patient now being slowly hydrated. Observe for any recurrence of CHF. Atrial fibrillation: Chronic currently on rate control and chronic anticoagulation. Troponin I elevation: Most likely related to CHF, hypoxemia, atrial fibrillation with RVR. Do not feel patient will be a candidate for ischemia evaluation. Pleural effusion: Continue to monitor. If symptomatic dyspnea then may need to consider thoracentesis. Currently patient without any significant symptoms and is noted to be comfortable laying flat in bed. Continue to follow patient with periodic chest x-ray. COPD: Continue current management plans. Hypertension: Currently stable blood pressure. Avoid any hypotension or severe hypertension. - Time Time with patient: 15-25 minutes - CODE STATUS : was discussed, patient remains DO NOT RESUSCITATE. Surrogate decision-maker unchanged. Multiple medical problems were addressed. More than 50% of the time spent coordinating care, discussing management plans with involved caregivers. Management plans discussed with involved personnels. Medical decision making was of moderate to high complexity, patient's has multiple comorbidities. Medications reviewed and adjusted accordingly: Yes
--- NOTE | 2017-03-16 11:44 | PDOC PROGRESS REPORT ---
Subjective Progress Note for:: 03/16/17 Subjective:: Patient seems to be doing better with gradual improvement. Pt is denying any chest arm or neck discomfort. Patient is very hard of hearing but denied any complaints. Patient denying any PND, orthopnea. Patient denied any sustained palpitations, dizziness, syncope, near syncope. Patient denying any fever chills. Patient denying any other significant discomfort. Patient is maintaining atrial fibrillation rhythm with controlled ventricular response. Review of systems: Rest review of systems negative. Medications: Medications have been reviewed. Physical Exam Vital Signs: Temp Pulse Resp BP Pulse Ox 97.8 F 68 16 97/45 L 96 03/16/17 07:34 03/16/17 08:11 03/16/17 08:11 03/16/17 07:34 03/16/17 08:11 Intake & Output 03/15/17 03/16/17 03/17/17 06:59 06:59 06:59 Intake Total 270 1500 Output Total 950 525 Balance -680 975 Weight 73.6 kg 76.2 kg Exam: GENERAL: well-nourished and in no acute distress. Alert and oriented x2 HEAD: Atraumatic, normocephalic. EYES: Pupils equal round and reactive to light, extraocular movements intact, sclera anicteric, conjunctiva are normal. Patient very hard of hearing. ENT: TMs normal, nares patent, oropharynx clear without exudates. Moist mucous membranes. No oral ulcerations or bleeding gums noted NECK: supple without lymphadenopathy. Trachea is central. No cervical or axillary lymphadenopathy noted. Carotids are 2+, JVD WNL LUNGS: Respiration seems nonlabored, no significant accessory muscle action noted. Breath sounds clear to auscultation bilaterally and equal noted. No wheezes rales or rhonchi noted. No significant dullness noted on percussion. CHEST: Palpation of the chest wall shows no significant chest wall tenderness. No other significant abnormalities noted. HEART: [place] IMPORT COORDINATOR, No PSH, 1/6 XOCHILT aortic area, 1/6 jane systolic murmur mitral area, no rubs, no gallops. ABDOMEN: Soft, no significant tenderness appreciated, normoactive bowel sounds. No guarding, no rebound. No rigidity noted . No masses appreciated. EXTREMITIES: Pedal pulses are 1-2+, no calf tenderness noted. No clubbing or cyanosis.trace to 1+ pedal edema noted NEUROLOGICAL: Focused neurological exam showed no significant neurologic deficit. Normal speech, no focal weakness appreciated. PSYCH: Normal mood, normal affect. Judgment and insight not assessed today. SKIN: No significant ecchymosis, rash, ulcerations or signs of pruritus noted. MUSCULOSKELETAL EXAM: No significant joint swelling noted. Results Laboratory Results: 03/16/17 05:50 03/16/17 05:50 03/16/17 03/16/17 03/16/17 05:50 05:50 05:50 WBC 4.9 RBC 3.44 L Hgb 11.3 L Hct 33.4 L MCV 97 MCH 32.8 MCHC 33.8 RDW 19.8 H Plt Count 115 L Seg Neutrophils % 87.2 H Lymphocytes % 7.9 L Monocytes % 4.3 Eosinophils % 0.3 Basophils % 0.3 Absolute Neutrophils 4.2 Absolute Lymphocytes 0.4 L Absolute Monocytes 0.2 Absolute Eosinophils 0.0 Absolute Basophils 0.0 Sodium 129.4 L Potassium 3.5 L Chloride 88 L Carbon Dioxide 39 H Anion Gap 2 L BUN 25 H Creatinine 0.82 Est GFR ( Amer) > 60 Est GFR (Non-Af Amer) > 60 Glucose 99 Calcium 8.0 L TSH 3.60 03/09/17 03/09/17 03/09/17 15:17 15:17 21:14 Creatine Kinase 31 L 32 L CK-MB (CK-2) 3.49 Troponin I 0.193 NT-Pro-B Natriuret Pep 03/09/17 03/10/17 03/11/17 21:14 03:01 07:15 Creatine Kinase CK-MB (CK-2) 3.13 Troponin I 0.201 0.233 0.188 NT-Pro-B Natriuret Pep 69572 H 01261 H 03/12/17 04:31 Creatine Kinase CK-MB (CK-2) Troponin I NT-Pro-B Natriuret Pep 45519 H EKG Comments: atrial fibrillation with controlled ventricular response Impressions: Ribs w/Chest X-Ray 03/09/17 00:00 IMPRESSION: NO PNEUMOTHORAX. NO DISPLACED RIB FRACTURES. Congestive failure pattern as noted above. Cervical Spine CT 03/09/17 09:38 IMPRESSION: Degenerative changes without evidence for fracture. Chest CT 03/09/17 09:38 IMPRESSION: Congestive failure pattern as noted above. Other findings as noted above. Head CT 03/09/17 09:38 IMPRESSION: MILD CHRONIC CHANGES OF ATROPHY AND MICROVASCULAR ISCHEMIA. NO ACUTE PROCESS. Hip/Pelvis X-Ray 03/09/17 09:38 IMPRESSION: Status post right hip pinning. No acute changes are identified. Lumbar Spine X-Ray 03/09/17 09:38 IMPRESSION: SPONDYLOSIS WITHOUT BONE LESION OR FRACTURE. Other findings as noted above Chest X-Ray 03/15/17 00:00 IMPRESSION: Persistent collapse and consolidation in the left lower lobe with left pleural effusion. Assessment & Plan - Diagnosis (1) Acute on chronic congestive heart failure Qualifiers: Congestive heart failure type: diastolic Qualified Code(s): I50.33 - Acute on chronic diastolic (congestive) heart failure Is this a current diagnosis for this admission?: Yes (2) Atrial fibrillation Qualifiers: Atrial fibrillation type: chronic Qualified Code(s): I48.2 - Chronic atrial fibrillation Is this a current diagnosis for this admission?: Yes (3) Elevated troponin I level Is this a current diagnosis for this admission?: Yes (4) Pleural effusion Is this a current diagnosis for this admission?: Yes (5) COPD (chronic obstructive pulmonary disease) Qualifiers: COPD type: unspecified COPD Qualified Code(s): J44.9 - Chronic obstructive pulmonary disease, unspecified Is this a current diagnosis for this admission?: Yes (6) Coronary artery disease Qualifiers: Coronary Disease-Associated Artery/Lesion type: [place] artery [place] vs. transplanted heart: [place] heart Associated angina: angina presence unspecified Qualified Code(s): I25.10 - Atherosclerotic heart disease of [place] coronary artery without angina pectoris Is this a current diagnosis for this admission?: Yes (7) Hypertension Qualifiers: Hypertension type: essential hypertension Qualified Code(s): I10 - Essential (primary) hypertension Is this a current diagnosis for this admission?: Yes - Notes Notes: Acute on chronic congestive heart failure: Currently euvolemic by exam. Diuretics stopped because of hypotension. Patient now being slowly hydrated. Observe for any recurrence of CHF. Will repeat a chest x-ray tomorrow. Chest x -ray results from yesterday reviewed. It showed left-sided pleural effusion, left lower lobe consolidation and mild vascular congestion. Atrial fibrillation: Chronic currently on rate control and chronic anticoagulation. Troponin I elevation: Most likely related to CHF, hypoxemia, atrial fibrillation with RVR. Do not feel patient will be a candidate for ischemia evaluation. Pleural effusion: Continue to monitor. If symptomatic dyspnea then may need to consider thoracentesis. Currently patient without any significant symptoms and is noted to be comfortable laying flat in bed. Continue to follow patient with periodic chest x-ray. COPD: Continue current management plans. Hypertension: Currently stable blood pressure. Avoid any hypotension or severe hypertension. - Time Time with patient: 15-25 minutes - CODE STATUS : was discussed, patient remains DO NOT RESUSCITATE. Surrogate decision-maker unchanged. Multiple medical problems were addressed. More than 50% of the time spent coordinating care, discussing management plans with involved caregivers. Management plans discussed with involved personnels. Medical decision making was of moderate to high complexity, patient's has multiple comorbidities.
--- NOTE | 2017-03-16 11:51 | PDOC PROGRESS REPORT ---
Subjective Progress Note for:: 03/16/17 Subjective:: Patient is confused but denies any complaints. Physical Exam Vital Signs: Temp Pulse Resp BP Pulse Ox 97.8 F 68 16 97/45 L 96 03/16/17 07:34 03/16/17 08:11 03/16/17 08:11 03/16/17 07:34 03/16/17 08:11 Intake & Output 03/15/17 03/16/17 03/17/17 06:59 06:59 06:59 Intake Total 270 1500 Output Total 950 525 Balance -680 975 Weight 73.6 kg 76.2 kg General appearance: PRESENT: no acute distress Eye exam: PRESENT: conjunctiva pink. ABSENT: scleral icterus Ear exam: PRESENT: normal external ear exam Mouth exam: PRESENT: moist, tongue midline Neck exam: ABSENT: JVD Respiratory exam: PRESENT: decreased breath sounds. ABSENT: rales, rhonchi, wheezes Cardiovascular exam: PRESENT: irregular rhythm. ABSENT: diastolic murmur, rubs , systolic murmur GI/Abdominal exam: PRESENT: normal bowel sounds, soft. ABSENT: distended, guarding, mass, organolmegaly, rebound, tenderness Extremities exam: ABSENT: calf tenderness, clubbing, pedal edema Neurological exam: PRESENT: oriented to person. ABSENT: oriented to place, oriented to time, oriented to situation, motor sensory deficit Psychiatric exam: PRESENT: flat affect Skin exam: PRESENT: dry, intact, warm. ABSENT: cyanosis, rash Results Laboratory Results: 03/16/17 05:50 03/16/17 05:50 03/16/17 03/16/17 03/16/17 05:50 05:50 05:50 WBC 4.9 RBC 3.44 L Hgb 11.3 L Hct 33.4 L MCV 97 MCH 32.8 MCHC 33.8 RDW 19.8 H Plt Count 115 L Seg Neutrophils % 87.2 H Lymphocytes % 7.9 L Monocytes % 4.3 Eosinophils % 0.3 Basophils % 0.3 Absolute Neutrophils 4.2 Absolute Lymphocytes 0.4 L Absolute Monocytes 0.2 Absolute Eosinophils 0.0 Absolute Basophils 0.0 Sodium 129.4 L Potassium 3.5 L Chloride 88 L Carbon Dioxide 39 H Anion Gap 2 L BUN 25 H Creatinine 0.82 Est GFR ( Amer) > 60 Est GFR (Non-Af Amer) > 60 Glucose 99 Calcium 8.0 L TSH 3.60 03/09/17 03/09/17 03/09/17 15:17 15:17 21:14 Creatine Kinase 31 L 32 L CK-MB (CK-2) 3.49 Troponin I 0.193 NT-Pro-B Natriuret Pep 03/09/17 03/10/17 03/11/17 21:14 03:01 07:15 Creatine Kinase CK-MB (CK-2) 3.13 Troponin I 0.201 0.233 0.188 NT-Pro-B Natriuret Pep 62378 H 20349 H 03/12/17 04:31 Creatine Kinase CK-MB (CK-2) Troponin I NT-Pro-B Natriuret Pep 53186 H Impressions: Ribs w/Chest X-Ray 03/09/17 00:00 IMPRESSION: NO PNEUMOTHORAX. NO DISPLACED RIB FRACTURES. Congestive failure pattern as noted above. Cervical Spine CT 03/09/17 09:38 IMPRESSION: Degenerative changes without evidence for fracture. Chest CT 03/09/17 09:38 IMPRESSION: Congestive failure pattern as noted above. Other findings as noted above. Head CT 03/09/17 09:38 IMPRESSION: MILD CHRONIC CHANGES OF ATROPHY AND MICROVASCULAR ISCHEMIA. NO ACUTE PROCESS. Hip/Pelvis X-Ray 03/09/17 09:38 IMPRESSION: Status post right hip pinning. No acute changes are identified. Lumbar Spine X-Ray 03/09/17 09:38 IMPRESSION: SPONDYLOSIS WITHOUT BONE LESION OR FRACTURE. Other findings as noted above Chest X-Ray 03/15/17 00:00 IMPRESSION: Persistent collapse and consolidation in the left lower lobe with left pleural effusion. Assessment & Plan - Diagnosis (1) Acute respiratory failure with hypoxia Is this a current diagnosis for this admission?: Yes Plan: Most likely secondary to both congestive heart failure as well as the pneumonia. (2) Acute on chronic diastolic (congestive) heart failure Is this a current diagnosis for this admission?: Yes Plan: Patient's volume overload has resolved. (3) Pneumonia Qualifiers: Pneumonia type: due to unspecified organism Laterality: left Lung location: unspecified part of lung Qualified Code(s): J18.9 - Pneumonia, unspecified organism Is this a current diagnosis for this admission?: Yes Plan: Continue with Rocephin. (4) Atrial fibrillation Qualifiers: Atrial fibrillation type: chronic Qualified Code(s): I48.2 - Chronic atrial fibrillation Is this a current diagnosis for this admission?: Yes Plan: Patient is rate controlled. Patient is on Eliquis and metoprolol. (5) Hypertension Qualifiers: Hypertension type: essential hypertension Qualified Code(s): I10 - Essential (primary) hypertension Is this a current diagnosis for this admission?: Yes Plan: Patient's blood pressures on the low end of normal. (6) COPD (chronic obstructive pulmonary disease) Qualifiers: COPD type: unspecified COPD Qualified Code(s): J44.9 - Chronic obstructive pulmonary disease, unspecified Is this a current diagnosis for this admission?: Yes (7) Coronary artery disease Qualifiers: Coronary Disease-Associated Artery/Lesion type: [place] artery [place] vs. transplanted heart: [place] heart Associated angina: angina presence unspecified Qualified Code(s): I25.10 - Atherosclerotic heart disease of [place] coronary artery without angina pectoris Is this a current diagnosis for this admission?: Yes Plan: Denies any chest pain. (8) Hyperlipidemia Qualifiers: Hyperlipidemia type: unspecified Qualified Code(s): E78.5 - Hyperlipidemia , unspecified Is this a current diagnosis for this admission?: Yes (9) Hypothyroidism Is this a current diagnosis for this admission?: Yes Plan: Continue with Synthroid. - Time Time Spent with patient: 25-34 minutes - Inpatient Certification Medical Necessity: Need for IV Antibiotics
[2017-03-16] MEDS: LEVOTHYROXINE SODIUM 0.05 MG TABLET PO SCH (12:16)
[2017-03-16] MEDS: TAMSULOSIN HCL 0.4 MG CAP.SR.24H PO SCH (18:10)
[2017-03-17] MEDS: CLINDAMYCIN 600 MG/D5W RTU 600 MG/50 ML RTUPB IV SCH ×3 (01:18→17:27)
[2017-03-17 05:16] LABS: BLOOD UREA NITROGEN 24 mg/dL (7-20); CALCIUM 7.8 mg/dL (8.4-10.2); CARBON DIOXIDE 36 mmol/L (22-30); CHLORIDE 90 mmol/L (98-107); CREATININE RESULT 0.72 mg/dL (0.52-1.25); GLUCOSE 97 mg/dL (75-110); POTASSIUM 3.8 mmol/L (3.6-5.0)
[2017-03-17 05:27] LABS: ABSOLUTE LYMPHOCYTES (AUTO) 0.6 10^3/uL (0.5-4.7); ABSOLUTE MONOCYTES (AUTO) 0.3 10^3/uL (0.1-1.4); ABSOLUTE NEUT (AUTO) 3.2 10^3/uL (1.7-8.2); BASOPHILS % (AUTO) 0.5 % (0-2); EOSINOPHILS % (AUTO) 0.7 % (0-6); HEMATOCRIT 31.3 % (37.9-51.0); HEMOGLOBIN 10.6 g/dL (13.5-17.0); HGB HCT DIFFERENCE 0.5; LYMPHOCYTES % (AUTO) 14.9 % (13-45); MEAN CORPUSCULAR HEMOGLOBIN 32.7 pg (27.0-33.4); MEAN CORPUSCULAR HGB CONC 33.9 g/dL (32.0-36.0); MEAN CORPUSCULAR VOLUME 97 fl (80-97); MONOCYTES % (AUTO) 7.9 % (3-13); RED BLOOD COUNT 3.24 10^6/uL (4.35-5.55); RED CELL DISTRIBUTION WIDTH 20.4 % (11.5-14.0); SODIUM 128.6 mmol/L (137-145); WHITE BLOOD COUNT 4.3 10^3/uL (4.0-10.5)
[2017-03-17 05:30] LABS: ANION GAP 3 (5-19)
--- NOTE | 2017-03-17 07:48 | RADIOLOGY REPORT (SQ) ---
EXAM DESCRIPTION: CHEST SINGLE VIEW COMPLETED DATE/TIME: 03/17/2017 7:36 am REASON FOR STUDY: Repeat r/t PNA, L Pleural Effusion COMPARISON: Chest x-ray 03/15/2017. EXAM PARAMETERS: NUMBER OF VIEWS: One view. TECHNIQUE: Single frontal radiographic view of the chest acquired. RADIATION DOSE: NA LIMITATIONS: None. FINDINGS: LUNGS AND PLEURA: Small left pleural effusion with airspace opacity at the left lung base. Persistent bilateral increased interstitial markings, may represent chronic change. No pneumothora x. MEDIASTINUM AND HILAR STRUCTURES: No masses. Contour normal. HEART AND VASCULAR STRUCTURES: The heart is upper normal limit in size. No overt vascular congestion . BONES: Degenerative changes in the spine. HARDWARE: None in the chest. IMPRESSION: Small left pleural effusion with left basilar airspace opacity, may represent atelectasi s or pneumonia. TECHNICAL DOCUMENTATION: JOB ID: [id number]
[2017-03-17] MEDS: ALBUTEROL SULFATE 0.083% NEB 2.5 MG/3 ML AMPUL NEB SCH ×3 (07:53→20:06)
[2017-03-17] MEDS: LEVOTHYROXINE SODIUM 0.05 MG TABLET PO SCH (07:59)
--- NOTE | 2017-03-17 09:04 | PDOC PROGRESS REPORT ---
Subjective Progress Note for:: 03/17/17 Subjective:: Patient is confused but denies any complaints. Physical Exam Vital Signs: Temp Pulse Resp BP Pulse Ox 97.6 F 53 L 22 H 115/77 100 03/17/17 08:10 03/17/17 08:10 03/17/17 08:10 03/17/17 08:10 03/17/17 08:10 Intake & Output 03/16/17 03/17/17 03/18/17 06:59 06:59 06:59 Intake Total 1500 2026 Output Total 525 650 Balance 975 1376 Weight 76.2 kg 78.4 kg General appearance: PRESENT: no acute distress Eye exam: PRESENT: conjunctiva pink. ABSENT: scleral icterus Mouth exam: PRESENT: moist, tongue midline Neck exam: ABSENT: JVD Respiratory exam: PRESENT: clear to auscultation mary. ABSENT: rales, rhonchi, wheezes Cardiovascular exam: PRESENT: RRR. ABSENT: diastolic murmur, rubs, systolic murmur GI/Abdominal exam: PRESENT: normal bowel sounds, soft. ABSENT: distended, guarding, mass, organolmegaly, rebound, tenderness Extremities exam: ABSENT: calf tenderness, clubbing, pedal edema Neurological exam: PRESENT: awake, oriented to person, oriented to place. ABSENT: oriented to time, oriented to situation, motor sensory deficit Psychiatric exam: PRESENT: flat affect Skin exam: PRESENT: dry, intact, warm. ABSENT: cyanosis, rash Results Laboratory Results: 03/17/17 04:13 03/17/17 04:13 03/17/17 03/17/17 04:13 04:13 WBC 4.3 RBC 3.24 L Hgb 10.6 L Hct 31.3 L MCV 97 MCH 32.7 MCHC 33.9 RDW 20.4 H Plt Count 107 L Seg Neutrophils % 76.0 Lymphocytes % 14.9 Monocytes % 7.9 Eosinophils % 0.7 Basophils % 0.5 Absolute Neutrophils 3.2 Absolute Lymphocytes 0.6 Absolute Monocytes 0.3 Absolute Eosinophils 0.0 Absolute Basophils 0.0 Sodium 128.6 L Potassium 3.8 Chloride 90 L Carbon Dioxide 36 H Anion Gap 3 L BUN 24 H Creatinine 0.72 Est GFR ( Amer) > 60 Est GFR (Non-Af Amer) > 60 Glucose 97 Calcium 7.8 L 03/09/17 03/09/17 03/09/17 15:17 15:17 21:14 Creatine Kinase 31 L 32 L CK-MB (CK-2) 3.49 Troponin I 0.193 NT-Pro-B Natriuret Pep 03/09/17 03/10/17 03/11/17 21:14 03:01 07:15 Creatine Kinase CK-MB (CK-2) 3.13 Troponin I 0.201 0.233 0.188 NT-Pro-B Natriuret Pep 09001 H 30927 H 03/12/17 04:31 Creatine Kinase CK-MB (CK-2) Troponin I NT-Pro-B Natriuret Pep 77491 H Impressions: Ribs w/Chest X-Ray 03/09/17 00:00 IMPRESSION: NO PNEUMOTHORAX. NO DISPLACED RIB FRACTURES. Congestive failure pattern as noted above. Cervical Spine CT 03/09/17 09:38 IMPRESSION: Degenerative changes without evidence for fracture. Chest CT 03/09/17 09:38 IMPRESSION: Congestive failure pattern as noted above. Other findings as noted above. Head CT 03/09/17 09:38 IMPRESSION: MILD CHRONIC CHANGES OF ATROPHY AND MICROVASCULAR ISCHEMIA. NO ACUTE PROCESS. Hip/Pelvis X-Ray 03/09/17 09:38 IMPRESSION: Status post right hip pinning. No acute changes are identified. Lumbar Spine X-Ray 03/09/17 09:38 IMPRESSION: SPONDYLOSIS WITHOUT BONE LESION OR FRACTURE. Other findings as noted above Chest X-Ray 03/17/17 06:00 IMPRESSION: Small left pleural effusion with left basilar airspace opacity, may represent atelectasis or pneumonia. Assessment & Plan - Diagnosis (1) Acute respiratory failure with hypoxia Is this a current diagnosis for this admission?: Yes Plan: Most likely secondary to both congestive heart failure as well as the pneumonia. (2) Acute on chronic diastolic (congestive) heart failure Is this a current diagnosis for this admission?: Yes Plan: Patient's volume overload has resolved. (3) Pneumonia Qualifiers: Pneumonia type: due to unspecified organism Laterality: left Lung location: unspecified part of lung Qualified Code(s): J18.9 - Pneumonia, unspecified organism Is this a current diagnosis for this admission?: Yes Plan: Continue with Rocephin and clindamycin. (4) Atrial fibrillation Qualifiers: Atrial fibrillation type: chronic Qualified Code(s): I48.2 - Chronic atrial fibrillation Is this a current diagnosis for this admission?: Yes Plan: Patient is rate controlled. Patient is on Eliquis and metoprolol. (5) Hypertension Qualifiers: Hypertension type: essential hypertension Qualified Code(s): I10 - Essential (primary) hypertension Is this a current diagnosis for this admission?: Yes Plan: Patient's blood pressures on the low end of normal. (6) COPD (chronic obstructive pulmonary disease) Qualifiers: COPD type: unspecified COPD Qualified Code(s): J44.9 - Chronic obstructive pulmonary disease, unspecified Is this a current diagnosis for this admission?: Yes (7) Coronary artery disease Qualifiers: Coronary Disease-Associated Artery/Lesion type: [place] artery [place] vs. transplanted heart: [place] heart Associated angina: angina presence unspecified Qualified Code(s): I25.10 - Atherosclerotic heart disease of [place] coronary artery without angina pectoris Is this a current diagnosis for this admission?: Yes Plan: Denies any chest pain. (8) Hyperlipidemia Qualifiers: Hyperlipidemia type: unspecified Qualified Code(s): E78.5 - Hyperlipidemia , unspecified Is this a current diagnosis for this admission?: Yes (9) Hypothyroidism Is this a current diagnosis for this admission?: Yes Plan: Continue with Synthroid. - Time Time Spent with patient: 25-34 minutes - Inpatient Certification Medical Necessity: Need for IV Antibiotics
[2017-03-17] MEDS: METOPROLOL TARTRATE 25 MG TABLET PO SCH ×2 (09:29→21:29)
[2017-03-17] MEDS: APIXABAN 2.5 MG TABLET PO SCH ×2 (09:29→21:27)
[2017-03-17] MEDS: DIGOXIN 0.25 MG TABLET PO SCH (09:33)
[2017-03-17] MEDS: FINASTERIDE 5 MG TABLET PO SCH (09:33)
[2017-03-17] MEDS: POTASSIUM CHLORIDE 10 MEQ TABLET.SA PO SCH ×2 (09:35→21:27)
[2017-03-17] MEDS: LANSOPRAZOLE 30 MG TAB.RAP.DR PO SCH (09:35)
[2017-03-17] MEDS: MAGNESIUM OXIDE 400 MG TABLET PO SCH ×2 (09:35→17:27)
[2017-03-17] MEDS: DOCUSATE SODIUM 100 MG CAPSULE PO SCH ×2 (09:35→21:27)
[2017-03-17] MEDS: VENLAFAXINE HCL 37.5 MG CAP.SR.24H PO SCH (09:36)
[2017-03-17] MEDS: DORZOLAMIDE HCL 2%/TIMOLOL MALEAT 0.5% OPH SOLN 10 ML OS SCH ×2 (09:37→21:27)
[2017-03-17] MEDS: NITROGLYCERIN 2.5 MG (0.1 MG/HR) PATCH.TD24 TD SCH (09:37)
[2017-03-17] MEDS: PSYLLIUM SEED-SF 5.85 GM PACKET PO SCH ×2 (09:37)
--- NOTE | 2017-03-17 11:43 | PDOC PROGRESS REPORT ---
Subjective Progress Note for:: 03/17/17 Subjective:: Patient seems to be doing better with gradual improvement. Pt is denying any chest arm or neck discomfort. Patient is very hard of hearing but denied any complaints. Patient denying any PND, orthopnea. Patient denied any sustained palpitations, dizziness, syncope, near syncope. Patient denying any fever chills. Patient denying any other significant discomfort. Patient has been noted to be intermittently confused by the nurses. Patient is maintaining atrial fibrillation rhythm with controlled ventricular response, intermittent slow heartbeat noted. Chest x-ray reveals persistent left pleural effusion Review of systems: Rest review of systems negative. Medications: Medications have been reviewed. Physical Exam Vital Signs: Temp Pulse Resp BP Pulse Ox 97.6 F 53 L 22 H 115/77 100 03/17/17 08:10 03/17/17 08:10 03/17/17 08:10 03/17/17 08:10 03/17/17 08:10 Intake & Output 03/16/17 03/17/17 03/18/17 06:59 06:59 06:59 Intake Total 1500 2026 Output Total 525 650 Balance 975 1376 Weight 76.2 kg 78.4 kg Exam: GENERAL: well-nourished and in no acute distress. Patient is alert but orientation not checked today. HEAD: Atraumatic, normocephalic. EYES: Pupils equal round and reactive to light, extraocular movements intact, sclera anicteric, conjunctiva are normal. ENT: TMs normal, nares patent, oropharynx clear without exudates. Moist mucous membranes. No oral ulcerations or bleeding gums noted NECK: supple without lymphadenopathy or JVD. Trachea is central. No cervical or axillary lymphadenopathy noted. Carotids are 2+ LUNGS: Breath sounds bibasilar fine crackles at bases. Minimal left basal dullness noted. No wheezing noted CHEST: Palpation of chest wall shows no significant chest wall tenderness. HEART: [place] [employer], No PSH, 2/6 XOCHILT aortic area, 1/6 jane systolic murmur mitral area, rubs or gallops. ABDOMEN: Soft, no significant tenderness appreciated, normoactive bowel sounds. No guarding, no rebound. No rigidity noted . No masses appreciated. EXTREMITIES: Pedal pulses are 1-2+, no calf tenderness noted, Trace + pedal edema noted. No clubbing or cyanosis. NEUROLOGICAL: Patient is alert and is noted to move all 4 extremities. He is able to respond and talk if spoken to very loudly. No facial asymmetry noted. PSYCH: Patient unable to participate in a psych exam. SKIN: No significant ecchymosis, rash, ulcerations or signs of pruritus noted. MUSCULOSKELETAL EXAM: No significant joint swelling noted. Results Laboratory Results: 03/17/17 04:13 03/17/17 04:13 03/17/17 03/17/17 04:13 04:13 WBC 4.3 RBC 3.24 L Hgb 10.6 L Hct 31.3 L MCV 97 MCH 32.7 MCHC 33.9 RDW 20.4 H Plt Count 107 L Seg Neutrophils % 76.0 Lymphocytes % 14.9 Monocytes % 7.9 Eosinophils % 0.7 Basophils % 0.5 Absolute Neutrophils 3.2 Absolute Lymphocytes 0.6 Absolute Monocytes 0.3 Absolute Eosinophils 0.0 Absolute Basophils 0.0 Sodium 128.6 L Potassium 3.8 Chloride 90 L Carbon Dioxide 36 H Anion Gap 3 L BUN 24 H Creatinine 0.72 Est GFR ( Amer) > 60 Est GFR (Non-Af Amer) > 60 Glucose 97 Calcium 7.8 L 03/09/17 03/09/17 03/09/17 15:17 15:17 21:14 Creatine Kinase 31 L 32 L CK-MB (CK-2) 3.49 Troponin I 0.193 NT-Pro-B Natriuret Pep 03/09/17 03/10/17 03/11/17 21:14 03:01 07:15 Creatine Kinase CK-MB (CK-2) 3.13 Troponin I 0.201 0.233 0.188 NT-Pro-B Natriuret Pep 81178 H 21071 H 03/12/17 04:31 Creatine Kinase CK-MB (CK-2) Troponin I NT-Pro-B Natriuret Pep 27507 H Impressions: Ribs w/Chest X-Ray 03/09/17 00:00 IMPRESSION: NO PNEUMOTHORAX. NO DISPLACED RIB FRACTURES. Congestive failure pattern as noted above. Cervical Spine CT 03/09/17 09:38 IMPRESSION: Degenerative changes without evidence for fracture. Chest CT 03/09/17 09:38 IMPRESSION: Congestive failure pattern as noted above. Other findings as noted above. Head CT 03/09/17 09:38 IMPRESSION: MILD CHRONIC CHANGES OF ATROPHY AND MICROVASCULAR ISCHEMIA. NO ACUTE PROCESS. Hip/Pelvis X-Ray 03/09/17 09:38 IMPRESSION: Status post right hip pinning. No acute changes are identified. Lumbar Spine X-Ray 03/09/17 09:38 IMPRESSION: SPONDYLOSIS WITHOUT BONE LESION OR FRACTURE. Other findings as noted above Chest X-Ray 03/17/17 06:00 IMPRESSION: Small left pleural effusion with left basilar airspace opacity, may represent atelectasis or pneumonia. Status: Image reviewed by mn - Chest x-ray reviewed. Left pleural effusion noted. Assessment & Plan - Diagnosis (1) Acute on chronic congestive heart failure Qualifiers: Congestive heart failure type: diastolic Qualified Code(s): I50.33 - Acute on chronic diastolic (congestive) heart failure Is this a current diagnosis for this admission?: Yes (2) Atrial fibrillation Qualifiers: Atrial fibrillation type: chronic Qualified Code(s): I48.2 - Chronic atrial fibrillation Is this a current diagnosis for this admission?: Yes (3) Elevated troponin I level Is this a current diagnosis for this admission?: Yes (4) Pleural effusion Is this a current diagnosis for this admission?: Yes (5) COPD (chronic obstructive pulmonary disease) Qualifiers: COPD type: unspecified COPD Qualified Code(s): J44.9 - Chronic obstructive pulmonary disease, unspecified Is this a current diagnosis for this admission?: Yes (6) Coronary artery disease Qualifiers: Coronary Disease-Associated Artery/Lesion type: [place] artery [place] vs. transplanted heart: [place] heart Associated angina: angina presence unspecified Qualified Code(s): I25.10 - Atherosclerotic heart disease of [place] coronary artery without angina pectoris Is this a current diagnosis for this admission?: Yes (7) Hypertension Qualifiers: Hypertension type: essential hypertension Qualified Code(s): I10 - Essential (primary) hypertension Is this a current diagnosis for this admission?: Yes - Notes Notes: Acute on chronic congestive heart failure: Currently euvolemic by exam. Diuretics stopped because of hypotension. Recommend stopping IV fluids today. Observe for any recurrence of CHF. Chest x-ray shows some pulmonary venous congestion. It showed left-sided pleural effusion, left lower lobe consolidation and mild vascular congestion. Atrial fibrillation: Chronic currently on rate control and chronic anticoagulation. Rate has been intermittently on the low side therefore digoxin was discontinued. Continue with beta-javan therapy. Troponin I elevation: Most likely related to CHF, hypoxemia, atrial fibrillation with RVR. Do not feel patient will be a candidate for ischemia evaluation. Pleural effusion: Continue to monitor. If symptomatic dyspnea then may need to consider thoracentesis. Currently patient without any significant symptoms and is noted to be comfortable laying flat in bed. Continue to follow patient with periodic chest x-ray. COPD: Continue current management plans. Hypertension: Currently stable blood pressure. Avoid any hypotension or severe hypertension. - Time Time with patient: 15-25 minutes - CODE STATUS : was discussed, patient remains DO NOT RESUSCITATE. Multiple medical problems were addressed. More than 50% of the time spent coordinating care, discussing management plans with involved caregivers. Management plans discussed with involved personnels. Medical decision making was of moderate to high complexity, patient's has multiple comorbidities. Dr. Jj similar to follow from tomorrow. Medications reviewed and adjusted accordingly: Yes
[2017-03-17] MEDS: CEFTRIAXONE 1 GM/D5W RTU 50 ML IV SCH (12:08)
[2017-03-17] MEDS: TAMSULOSIN HCL 0.4 MG CAP.SR.24H PO SCH (17:27)
[2017-03-18] MEDS: CLINDAMYCIN 600 MG/D5W RTU 600 MG/50 ML RTUPB IV SCH (02:28)
[2017-03-18 04:22] LABS: ABSOLUTE EOSINOPHILS # (AUTO) 0.1 10^3/uL (0.0-0.6); ABSOLUTE LYMPHOCYTES (AUTO) 0.7 10^3/uL (0.5-4.7); ABSOLUTE MONOCYTES (AUTO) 0.3 10^3/uL (0.1-1.4); ABSOLUTE NEUT (AUTO) 3.5 10^3/uL (1.7-8.2); BASOPHILS % (AUTO) 0.3 % (0-2); EOSINOPHILS % (AUTO) 1.3 % (0-6); HEMATOCRIT 31.9 % (37.9-51.0); HEMOGLOBIN 10.9 g/dL (13.5-17.0); HGB HCT DIFFERENCE 0.8; LYMPHOCYTES % (AUTO) 14.4 % (13-45); MEAN CORPUSCULAR HEMOGLOBIN 32.8 pg (27.0-33.4); MEAN CORPUSCULAR HGB CONC 34.1 g/dL (32.0-36.0); MEAN CORPUSCULAR VOLUME 96 fl (80-97); MONOCYTES % (AUTO) 7.7 % (3-13); RED BLOOD COUNT 3.33 10^6/uL (4.35-5.55); SEGMENTED NEUTROPHILS % (AUTO) 76.3 % (42-78); WHITE BLOOD COUNT 4.6 10^3/uL (4.0-10.5)
[2017-03-18 04:35] LABS: BLOOD UREA NITROGEN 17 mg/dL (7-20); CALCIUM 8.3 mg/dL (8.4-10.2); CARBON DIOXIDE 36 mmol/L (22-30); CHLORIDE 92 mmol/L (98-107); CREATININE RESULT 0.75 mg/dL (0.52-1.25); GLUCOSE 94 mg/dL (75-110)
[2017-03-18 04:46] LABS: SODIUM 128.5 mmol/L (137-145)
[2017-03-18 04:49] LABS: ANION GAP 1 (5-19); POTASSIUM 5.1 mmol/L (3.6-5.0)
[2017-03-18] MEDS: ALBUTEROL SULFATE 0.083% NEB 2.5 MG/3 ML AMPUL NEB SCH ×3 (07:41→19:36)
[2017-03-18] MEDS: LEVOTHYROXINE SODIUM 0.05 MG TABLET PO SCH (08:15)
--- NOTE | 2017-03-18 08:41 | EKG REPORT ---
SEVERITY:- ABNORMAL ECG - ATRIAL FIBRILLATION, V-RATE 47-91 PROBABLE LVH WITH SECONDARY REPOL ABNRM PROBABLE INFERIOR INFARCT, AGE INDETERMINATE ANTERIOR Q WAVES, POSSIBLY DUE TO LVH : Confirmed by: Susi Sin 18-Mar-2017 08:41:11
[2017-03-18] MEDS: METOPROLOL TARTRATE 25 MG TABLET PO SCH ×2 (10:54→22:20)
[2017-03-18] MEDS: DOCUSATE SODIUM 100 MG CAPSULE PO SCH ×2 (10:55→22:15)
[2017-03-18] MEDS: APIXABAN 2.5 MG TABLET PO SCH ×2 (10:55→22:14)
[2017-03-18] MEDS: LANSOPRAZOLE 30 MG TAB.RAP.DR PO SCH (10:56)
[2017-03-18] MEDS: FINASTERIDE 5 MG TABLET PO SCH (10:56)
[2017-03-18] MEDS: MAGNESIUM OXIDE 400 MG TABLET PO SCH ×2 (10:57→18:45)
[2017-03-18] MEDS: PSYLLIUM SEED-SF 5.85 GM PACKET PO SCH ×2 (10:59)
[2017-03-18] MEDS: VENLAFAXINE HCL 37.5 MG CAP.SR.24H PO SCH (10:59)
[2017-03-18] MEDS: DORZOLAMIDE HCL 2%/TIMOLOL MALEAT 0.5% OPH SOLN 10 ML OS SCH ×2 (11:03→22:16)
[2017-03-18] MEDS: CLINDAMYCIN HCL 150 MG CAPSULE PO SCH ×2 (15:22→22:14)
--- NOTE | 2017-03-18 16:51 | PDOC PROGRESS REPORT ---
Subjective Progress Note for:: 03/18/17 Subjective:: The patient is more awake and alert this morning. She denies any complaints. His breathing has improved. He has not been out of bed yet. Discussed the need to get out of bed to chair. Physical Exam Vital Signs: Temp Pulse Resp BP Pulse Ox 97.5 F 55 L 14 122/57 L 100 03/18/17 11:42 03/18/17 14:00 03/18/17 13:50 03/18/17 11:42 03/18/17 13:50 Intake & Output 03/17/17 03/18/17 03/19/17 06:59 06:59 06:59 Intake Total 2026 760 342 Output Total 650 800 200 Balance 1376 -40 142 Weight 78.4 kg 78.5 kg General appearance: PRESENT: no acute distress Head exam: PRESENT: atraumatic Eye exam: PRESENT: conjunctiva pink Neck exam: ABSENT: JVD Respiratory exam: PRESENT: rhonchi Cardiovascular exam: PRESENT: irregular rhythm, +S1, +S2 Pulses: PRESENT: +1 pedal pulses bilateral GI/Abdominal exam: PRESENT: normal bowel sounds, soft Extremities exam: PRESENT: tenderness Musculoskeletal exam: PRESENT: tenderness Neurological exam: PRESENT: alert, awake Results Laboratory Results: 03/18/17 03:48 03/18/17 03:48 03/18/17 03/18/17 03:48 03:48 WBC 4.6 RBC 3.33 L Hgb 10.9 L Hct 31.9 L MCV 96 MCH 32.8 MCHC 34.1 RDW 20.0 H Plt Count 115 L Seg Neutrophils % 76.3 Lymphocytes % 14.4 Monocytes % 7.7 Eosinophils % 1.3 Basophils % 0.3 Absolute Neutrophils 3.5 Absolute Lymphocytes 0.7 Absolute Monocytes 0.3 Absolute Eosinophils 0.1 Absolute Basophils 0.0 Sodium 128.5 L Potassium 5.1 H D Chloride 92 L Carbon Dioxide 36 H Anion Gap 1 L BUN 17 Creatinine 0.75 Est GFR ( Amer) > 60 Est GFR (Non-Af Amer) > 60 Glucose 94 Calcium 8.3 L 03/09/17 03/09/17 03/09/17 15:17 15:17 21:14 Creatine Kinase 31 L 32 L CK-MB (CK-2) 3.49 Troponin I 0.193 NT-Pro-B Natriuret Pep 03/09/17 03/10/17 03/11/17 21:14 03:01 07:15 Creatine Kinase CK-MB (CK-2) 3.13 Troponin I 0.201 0.233 0.188 NT-Pro-B Natriuret Pep 64109 H 41187 H 03/12/17 04:31 Creatine Kinase CK-MB (CK-2) Troponin I NT-Pro-B Natriuret Pep 84437 H Impressions: Ribs w/Chest X-Ray 03/09/17 00:00 IMPRESSION: NO PNEUMOTHORAX. NO DISPLACED RIB FRACTURES. Congestive failure pattern as noted above. Cervical Spine CT 03/09/17 09:38 IMPRESSION: Degenerative changes without evidence for fracture. Chest CT 03/09/17 09:38 IMPRESSION: Congestive failure pattern as noted above. Other findings as noted above. Head CT 03/09/17 09:38 IMPRESSION: MILD CHRONIC CHANGES OF ATROPHY AND MICROVASCULAR ISCHEMIA. NO ACUTE PROCESS. Hip/Pelvis X-Ray 03/09/17 09:38 IMPRESSION: Status post right hip pinning. No acute changes are identified. Lumbar Spine X-Ray 03/09/17 09:38 IMPRESSION: SPONDYLOSIS WITHOUT BONE LESION OR FRACTURE. Other findings as noted above Chest X-Ray 03/17/17 06:00 IMPRESSION: Small left pleural effusion with left basilar airspace opacity, may represent atelectasis or pneumonia. Assessment & Plan - Diagnosis (1) Acute on chronic congestive heart failure Qualifiers: Congestive heart failure type: diastolic Qualified Code(s): I50.33 - Acute on chronic diastolic (congestive) heart failure Is this a current diagnosis for this admission?: Yes Plan: Improving (2) Acute respiratory failure with hypoxia Is this a current diagnosis for this admission?: Yes Plan: Much improved with some diureses and O2 (3) Chest pain in adult Is this a current diagnosis for this admission?: Yes (4) Atrial fibrillation Qualifiers: Atrial fibrillation type: chronic Qualified Code(s): I48.2 - Chronic atrial fibrillation Is this a current diagnosis for this admission?: Yes (5) Coronary artery disease Qualifiers: Coronary Disease-Associated Artery/Lesion type: [place] artery [place] vs. transplanted heart: [place] heart Associated angina: angina presence unspecified Qualified Code(s): I25.10 - Atherosclerotic heart disease of [place] coronary artery without angina pectoris Is this a current diagnosis for this admission?: Yes (6) COPD (chronic obstructive pulmonary disease) Qualifiers: COPD type: unspecified COPD Qualified Code(s): J44.9 - Chronic obstructive pulmonary disease, unspecified Is this a current diagnosis for this admission?: Yes (7) Pneumonia Qualifiers: Pneumonia type: due to unspecified organism Laterality: left Lung location: unspecified part of lung Qualified Code(s): J18.9 - Pneumonia, unspecified organism Is this a current diagnosis for this admission?: Yes Plan: Slight improvement on chest x-ray will continue with antibiotics (10) Uncompensated respiratory acidosis Is this a current diagnosis for this admission?: Yes Plan: Improved with rehydration
--- NOTE | 2017-03-18 17:23 | PDOC CONSULTATION ---
History of Present Illness Admission Date/PCP: 03/09/17 12:10 MARCIE URIAS, History of Present Illness: all information from chart as patient hard of hearing and poor historian;AMINATA ROSENBAUM is a 89 year old male currently rehab at [facility] after fall and broken femur 02/03/17 with surgical repair, presents to ED after another fall when trying to transition from bfast table to chair. Patient has been partial weightbearing since the time of injury. Denies any increased pain since his most recent fall. Denies numbness or tingling. Denies fever chills or sweats. Current pain 4/10. Past Medical History Cardiac Medical History: Reports: Atrial Fibrillation, Congestive Heart Failure , Coronary Artery Disease, DVT, Myocardial Infarction, Hyperlipidema, Hypertension, Pulmonary Embolism Pulmonary Medical History: Reports: Chronic Obstructive Pulmonary Disease (COPD) GI Medical History: Reports: Gastroesophageal Reflux Disease Musculoskeltal Medical History: Reports: Arthritis Psychiatric Medical History: Denies: Bipolar Disorder, Depression, Schizoaffective Disorder Hematology: Denies: Anemia Past Surgical History Past Surgical History: Reports: Appendectomy, Cardiac Catheterization, Cholecystectomy, Coronary Stent - X2 in 2001, Orthopedic Surgery - Bilateral knee replacements Social History Smoking Status: Former Smoker Cigarettes Packs Per Day: 1 Number of Years Smokin Last Time Smoked: 47 years ago Frequency of Alcohol Use: Rare Hx Recreational Drug Use: No Hx Prescription Drug Abuse: No - Advance Directive Resuscitation Status: Full Code - confirmed by patient and son at the bedside Family History Family History: Reviewed & Not Pertinent, CAD, Other Parental Family History Reviewed: No Children Family History Reviewed: No Sibling(s) Family History Reviewed.: No Medication/Allergy Home Medications: Finasteride [Proscar 5 mg Tablet] 5 mg PO DAILY 09/02/13 Metoprolol Tartrate [Lopressor 25 mg Tablet] 12.5 mg PO DAILY 09/02/13 Nitroglycerin [Nitrostat 0.4 mg (1/150 Gr) Tabs 25/Bottle] 0.4 mg SL Q5MP PRN Omeprazole [Prilosec] 40 mg PO DAILY 09/02/13 Simvastatin [Zocor 80 mg Tablet] 80 mg PO QHS 09/02/13 Apixaban [Eliquis] 1 tab PO Q12 04/09/16 Cetirizine HCl [Zyrtec 10 mg Tablet] 10 mg PO DAILY 04/09/16 Dorzolamide HCl/Timolol Maleat [Dorzolamide-Timolol Eye Drops] 1 drop OS Q12 07/13 Alfuzosin HCl [Uroxatral] 10 mg PO DAILY 03/09/17 Digoxin [Lanoxin 0.25 mg Tablet] 0.25 mg PO DAILY 03/09/17 Docusate Sodium 100 mg PO Q12 03/09/17 Ezetimibe 10 mg PO DAILY 03/09/17 Levothyroxine Sodium [Synthroid 50 Mcg Tablet] 50 mcg PO DAILY 03/09/17 Naproxen 220 mg PO Q12HP PRN 03/09/17 Oxycodone HCl 10 mg PO Q6HP PRN 03/09/17 Psyllium Husk [Metamucil] 0.52 gm PO DAILY 03/09/17 Spironolactone 25 mg PO DAILY 03/09/17 Tramadol HCl [Ultram 50 mg Tablet] 50 mg PO Q12HP PRN 03/09/17 Venlafaxine HCl ER [Effexor Xr 37.5 mg Cap.sr] 37.5 mg PO DAILY 03/09/17 Vit A/Vit C/Vit E/Zinc/Copper [Preservision Areds Softgel] 1 each PO DAILY 03/09 Allergies/Adverse Reactions: No Known Allergies Allergy (Verified 03/09/17 08:57) Review of Systems ROS unobtainable: Other - Difficult to obtain full review of systems secondary to patient's mental status and poor hearing. Constitutional: ABSENT: chills, fever(s), headache(s), weight gain, weight loss Eyes: ABSENT: visual disturbances Ears: ABSENT: hearing changes Cardiovascular: ABSENT: chest pain, dyspnea on exertion, edema, orthropnea, palpitations Respiratory: ABSENT: cough, hemoptysis Gastrointestinal: ABSENT: abdominal pain, constipation, diarrhea, hematemesis, hematochezia, nausea, vomiting Genitourinary: ABSENT: dysuria, hematuria Integumentary: ABSENT: rash, wounds Neurological: ABSENT: abnormal gait, abnormal speech, confusion, dizziness, focal weakness, syncope Psychiatric: ABSENT: anxiety, depression, homidical ideation, suicidal ideation Endocrine: ABSENT: cold intolerance, heat intolerance, menstrual abnormalities, polydipsia, polyuria Hematologic/Lymphatic: ABSENT: easy bleeding, easy bruising, lymphadenopathy Physical Exam Vital Signs: Temp Pulse Resp BP Pulse Ox 97.5 F 55 L 14 122/57 L 100 03/18/17 11:42 03/18/17 14:00 03/18/17 13:50 03/18/17 11:42 03/18/17 13:50 Intake & Output 03/17/17 03/18/17 03/19/17 06:59 06:59 06:59 Intake Total 202 760 342 Output Total 650 800 200 Balance 1376 -40 142 Weight 78.4 kg 78.5 kg General appearance: PRESENT: no acute distress, cooperative Head exam: PRESENT: atraumatic, normocephalic Eye exam: PRESENT: EOMI Ear exam: PRESENT: other - poor hearing Mouth exam: PRESENT: dry mucosa Neck exam: PRESENT: full ROM Respiratory exam: PRESENT: unlabored Cardiovascular exam: PRESENT: RRR. ABSENT: diastolic murmur, rubs, systolic murmur Pulses: PRESENT: normal dorsalis pedis pul Vascular exam: PRESENT: normal capillary refill GI/Abdominal exam: PRESENT: normal bowel sounds, soft. ABSENT: distended, guarding, mass, organolmegaly, rebound, tenderness Rectal exam: PRESENT: deferred Musculoskeletal exam: PRESENT: other - Right hip: Surgical incisions healed no evidence of erythema or drainage. No crepitus with hip range of motion. Does demonstrate slight external rotation compared to the left nonoperative hip. Intact plantar flexion/dorsiflexion. Minimal swelling of the thigh. No calf tenderness. Neurological exam: PRESENT: alert, altered, awake, oriented to person, oriented to situation Psychiatric exam: PRESENT: appropriate affect Skin exam: PRESENT: dry Results Laboratory Results: 03/18/17 03:48 03/18/17 03:48 03/18/17 03/18/17 03:48 03:48 WBC 4.6 RBC 3.33 L Hgb 10.9 L Hct 31.9 L MCV 96 MCH 32.8 MCHC 34.1 RDW 20.0 H Plt Count 115 L Seg Neutrophils % 76.3 Lymphocytes % 14.4 Monocytes % 7.7 Eosinophils % 1.3 Basophils % 0.3 Absolute Neutrophils 3.5 Absolute Lymphocytes 0.7 Absolute Monocytes 0.3 Absolute Eosinophils 0.1 Absolute Basophils 0.0 Sodium 128.5 L Potassium 5.1 H D Chloride 92 L Carbon Dioxide 36 H Anion Gap 1 L BUN 17 Creatinine 0.75 Est GFR ( Amer) > 60 Est GFR (Non-Af Amer) > 60 Glucose 94 Calcium 8.3 L 03/09/17 03/09/17 03/09/17 15:17 15:17 21:14 Creatine Kinase 31 L 32 L CK-MB (CK-2) 3.49 Troponin I 0.193 NT-Pro-B Natriuret Pep 03/09/17 03/10/17 03/11/17 21:14 03:01 07:15 Creatine Kinase CK-MB (CK-2) 3.13 Troponin I 0.201 0.233 0.188 NT-Pro-B Natriuret Pep 40707 H 97398 H 03/12/17 04:31 Creatine Kinase CK-MB (CK-2) Troponin I NT-Pro-B Natriuret Pep 96257 H Impressions: Ribs w/Chest X-Ray 03/09/17 00:00 IMPRESSION: NO PNEUMOTHORAX. NO DISPLACED RIB FRACTURES. Congestive failure pattern as noted above. Cervical Spine CT 03/09/17 09:38 IMPRESSION: Degenerative changes without evidence for fracture. Chest CT 03/09/17 09:38 IMPRESSION: Congestive failure pattern as noted above. Other findings as noted above. Head CT 03/09/17 09:38 IMPRESSION: MILD CHRONIC CHANGES OF ATROPHY AND MICROVASCULAR ISCHEMIA. NO ACUTE PROCESS. Hip/Pelvis X-Ray 03/09/17 09:38 IMPRESSION: Status post right hip pinning. No acute changes are identified. Lumbar Spine X-Ray 03/09/17 09:38 IMPRESSION: SPONDYLOSIS WITHOUT BONE LESION OR FRACTURE. Other findings as noted above Chest X-Ray 03/17/17 06:00 IMPRESSION: Small left pleural effusion with left basilar airspace opacity, may represent atelectasis or pneumonia. Assessment & Plan - Diagnosis (1) Fracture, intertrochanteric, right femur Qualifiers: Encounter type: initial encounter Fracture type: closed Fracture alignment: displaced Qualified Code(s): S72.141A - Displaced intertrochanteric fracture of right femur, initial encounter for closed fracture Is this a current diagnosis for this admission?: Yes Plan: I have reviewed patient's radiographs demonstrate intertrochanteric right hip fracture fixed with intramedullary nailing and hardware removal. There is no evidence of intra-articular screw penetration or cut out. Patient surgery was done in outside facility given the fact he is currently touchdown weightbearing I have recommended maintaining touchdown weightbearing until he follows up with the orthopedist who performed the surgery
[2017-03-18] MEDS: TAMSULOSIN HCL 0.4 MG CAP.SR.24H PO SCH (18:44)
[2017-03-19 05:01] LABS: BLOOD UREA NITROGEN 13 mg/dL (7-20); CALCIUM 8.4 mg/dL (8.4-10.2); CHLORIDE 91 mmol/L (98-107); CREATININE RESULT 0.61 mg/dL (0.52-1.25); GLUCOSE 91 mg/dL (75-110); POTASSIUM 4.5 mmol/L (3.6-5.0); SODIUM 126.9 mmol/L (137-145)
[2017-03-19 05:10] LABS: CARBON DIOXIDE 35 mmol/L (22-30)
[2017-03-19 05:14] LABS: ANION GAP 1 (5-19)
[2017-03-19] MEDS: CLINDAMYCIN HCL 150 MG CAPSULE PO SCH ×3 (05:48→21:50)
[2017-03-19] MEDS: LEVOTHYROXINE SODIUM 0.05 MG TABLET PO SCH (08:00)
[2017-03-19] MEDS: ALBUTEROL SULFATE 0.083% NEB 2.5 MG/3 ML AMPUL NEB SCH ×3 (08:03→20:20)
[2017-03-19] MEDS: NORMAL SALINE 1000 ML 1,000 ML IV PRN (08:06)
--- NOTE | 2017-03-19 08:22 | PDOC PROGRESS REPORT ---
Subjective Progress Note for:: 03/19/17 Subjective:: The patient appears to be slightly more confused this morning. He denies any pain. He was seen by the orthopedic with a recommendation of no weightbearing. The retained staple in the right hip surgical site was removed. Discussed with the nursing about the need to be out of bed to chair and Delgado removal. Physical Exam Vital Signs: Temp Pulse Resp BP Pulse Ox 97.7 F 57 L 18 129/80 H 100 03/19/17 07:18 03/19/17 07:18 03/19/17 07:18 03/19/17 07:18 03/19/17 07:18 Intake & Output 03/18/17 03/19/17 03/20/17 06:59 06:59 06:59 Intake Total 760 1094 Output Total 800 675 Balance -40 419 Weight 78.5 kg 75 kg General appearance: PRESENT: no acute distress Head exam: PRESENT: atraumatic Eye exam: PRESENT: conjunctiva pink Neck exam: ABSENT: JVD Respiratory exam: PRESENT: rhonchi Cardiovascular exam: PRESENT: irregular rhythm, +S1, +S2 GI/Abdominal exam: PRESENT: normal bowel sounds, soft Extremities exam: PRESENT: tenderness Musculoskeletal exam: PRESENT: tenderness. ABSENT: ambulatory Neurological exam: PRESENT: alert, awake Results Laboratory Results: 03/18/17 03:48 03/19/17 04:08 03/19/17 04:08 Sodium 126.9 L Potassium 4.5 Chloride 91 L Carbon Dioxide 35 H Anion Gap 1 L BUN 13 Creatinine 0.61 Est GFR ( Amer) > 60 Est GFR (Non-Af Amer) > 60 Glucose 91 Calcium 8.4 03/09/17 03/09/17 03/09/17 15:17 15:17 21:14 Creatine Kinase 31 L 32 L CK-MB (CK-2) 3.49 Troponin I 0.193 NT-Pro-B Natriuret Pep 03/09/17 03/10/17 03/11/17 21:14 03:01 07:15 Creatine Kinase CK-MB (CK-2) 3.13 Troponin I 0.201 0.233 0.188 NT-Pro-B Natriuret Pep 40425 H 08615 H 03/12/17 04:31 Creatine Kinase CK-MB (CK-2) Troponin I NT-Pro-B Natriuret Pep 07576 H Impressions: Ribs w/Chest X-Ray 03/09/17 00:00 IMPRESSION: NO PNEUMOTHORAX. NO DISPLACED RIB FRACTURES. Congestive failure pattern as noted above. Cervical Spine CT 03/09/17 09:38 IMPRESSION: Degenerative changes without evidence for fracture. Chest CT 03/09/17 09:38 IMPRESSION: Congestive failure pattern as noted above. Other findings as noted above. Head CT 03/09/17 09:38 IMPRESSION: MILD CHRONIC CHANGES OF ATROPHY AND MICROVASCULAR ISCHEMIA. NO ACUTE PROCESS. Hip/Pelvis X-Ray 03/09/17 09:38 IMPRESSION: Status post right hip pinning. No acute changes are identified. Lumbar Spine X-Ray 03/09/17 09:38 IMPRESSION: SPONDYLOSIS WITHOUT BONE LESION OR FRACTURE. Other findings as noted above Chest X-Ray 03/17/17 06:00 IMPRESSION: Small left pleural effusion with left basilar airspace opacity, may represent atelectasis or pneumonia. Assessment & Plan - Diagnosis (1) Acute on chronic congestive heart failure Qualifiers: Congestive heart failure type: diastolic Qualified Code(s): I50.33 - Acute on chronic diastolic (congestive) heart failure Is this a current diagnosis for this admission?: Yes (2) Acute respiratory failure with hypoxia Is this a current diagnosis for this admission?: Yes (3) Chest pain in adult Is this a current diagnosis for this admission?: Yes (4) Atrial fibrillation Qualifiers: Atrial fibrillation type: chronic Qualified Code(s): I48.2 - Chronic atrial fibrillation Is this a current diagnosis for this admission?: Yes Plan: Rate control with medication (5) Coronary artery disease Qualifiers: Coronary Disease-Associated Artery/Lesion type: [place] artery [place] vs. transplanted heart: [place] heart Associated angina: angina presence unspecified Qualified Code(s): I25.10 - Atherosclerotic heart disease of [place] coronary artery without angina pectoris Is this a current diagnosis for this admission?: Yes (6) COPD (chronic obstructive pulmonary disease) Qualifiers: COPD type: unspecified COPD Qualified Code(s): J44.9 - Chronic obstructive pulmonary disease, unspecified Is this a current diagnosis for this admission?: Yes (7) Pneumonia Qualifiers: Pneumonia type: due to unspecified organism Laterality: left Lung location: unspecified part of lung Qualified Code(s): J18.9 - Pneumonia, unspecified organism Is this a current diagnosis for this admission?: Yes Plan: Improving (10) Uncompensated respiratory acidosis Is this a current diagnosis for this admission?: Yes Plan: Improved with rehydration (11) Hyponatremia Is this a current diagnosis for this admission?: Yes Plan: We will supplement with some normal saline and fluid restriction. (12) Fracture, intertrochanteric, right femur Qualifiers: Encounter type: initial encounter Fracture type: closed Fracture alignment: displaced Qualified Code(s): S72.141A - Displaced intertrochanteric fracture of right femur, initial encounter for closed fracture Is this a current diagnosis for this admission?: Yes Plan: Orthopedic consultation appreciated. Will continue with no weightbearing just a range of motion and start working on the rehab.
--- NOTE | 2017-03-19 09:48 | RADIOLOGY REPORT (SQ) ---
EXAM DESCRIPTION: CHEST PA/LAT COMPLETED DATE/TIME: 03/19/2017 9:12 am REASON FOR STUDY: chf COMPARISON: 03/17/2017 EXAM PARAMETERS: NUMBER OF VIEWS: two views TECHNIQUE: Digital Frontal and Lateral radiographic views of the chest acquired. RADIATION DOSE: NA LIMITATIONS: none FINDINGS: LUNGS AND PLEURA: Persistent opacities left greater than right with left effusion. MEDIASTINUM AND HILAR STRUCTURES: No masses or contour abnormalities. HEART AND VASCULAR STRUCTURES: Heart enlarged with vascular congestion. BONES: Generalized osteopenia. Thoracic compression fractures seen on CT. HARDWARE: None in the chest. OTHER: No other significant finding. IMPRESSION: Persistent congestive failure pattern with left effusion and basilar opacities. TECHNICAL DOCUMENTATION: JOB ID: [id number] [email or web address]- All Rights Reserved
[2017-03-19] MEDS: MAGNESIUM OXIDE 400 MG TABLET PO SCH ×2 (10:02→17:28)
[2017-03-19] MEDS: FINASTERIDE 5 MG TABLET PO SCH (10:03)
[2017-03-19] MEDS: METOPROLOL TARTRATE 25 MG TABLET PO SCH ×2 (10:03→21:51)
[2017-03-19] MEDS: DOCUSATE SODIUM 100 MG CAPSULE PO SCH ×2 (10:03→21:50)
[2017-03-19] MEDS: LANSOPRAZOLE 30 MG TAB.RAP.DR PO SCH (10:04)
[2017-03-19] MEDS: VENLAFAXINE HCL 37.5 MG CAP.SR.24H PO SCH (10:05)
[2017-03-19] MEDS: PSYLLIUM SEED-SF 5.85 GM PACKET PO SCH ×2 (10:05)
[2017-03-19] MEDS: DORZOLAMIDE HCL 2%/TIMOLOL MALEAT 0.5% OPH SOLN 10 ML OS SCH ×2 (10:05→21:51)
[2017-03-19] MEDS: APIXABAN 2.5 MG TABLET PO SCH ×2 (10:05→21:50)
[2017-03-19] MEDS: TAMSULOSIN HCL 0.4 MG CAP.SR.24H PO SCH (17:28)
[2017-03-20] MEDS: NORMAL SALINE 1000 ML 1,000 ML IV PRN (03:43)
[2017-03-20 05:15] LABS: ANION GAP 6 (5-19); BLOOD UREA NITROGEN 11 mg/dL (7-20); CARBON DIOXIDE 30 mmol/L (22-30); CHLORIDE 91 mmol/L (98-107); CREATININE RESULT 0.52 mg/dL (0.52-1.25); GLUCOSE 83 mg/dL (75-110); POTASSIUM 4.4 mmol/L (3.6-5.0); SODIUM 127.3 mmol/L (137-145)
[2017-03-20] MEDS: CLINDAMYCIN HCL 150 MG CAPSULE PO SCH ×3 (06:41→21:33)
[2017-03-20] MEDS: LEVOTHYROXINE SODIUM 0.05 MG TABLET PO SCH (07:44)
[2017-03-20] MEDS: ALBUTEROL SULFATE 0.083% NEB 2.5 MG/3 ML AMPUL NEB SCH ×3 (08:00→19:32)
--- NOTE | 2017-03-20 08:26 | PDOC PROGRESS REPORT ---
Subjective Progress Note for:: 03/20/17 Subjective:: The patient still having difficulty getting out of bed. According to the nursing staff and physical therapy he is still not safe. They had difficulty getting him out of bed and into a recliner but he was able to sit at the side of the bed and have his meal. Physical Exam Vital Signs: Temp Pulse Resp BP Pulse Ox 97.4 F 72 24 H 145/69 H 99 03/20/17 06:14 03/20/17 07:00 03/20/17 06:14 03/20/17 06:14 03/20/17 06:14 Intake & Output 03/19/17 03/20/17 03/21/17 06:59 06:59 06:59 Intake Total 1094 1657 Output Total 675 850 Balance 419 807 Weight 75 kg 78.1 kg General appearance: PRESENT: mild distress Head exam: PRESENT: atraumatic Mouth exam: PRESENT: dry mucosa Neck exam: PRESENT: carotid bruit. ABSENT: JVD Respiratory exam: PRESENT: rhonchi Cardiovascular exam: PRESENT: irregular rhythm, +S1, +S2 Pulses: PRESENT: +1 pedal pulses bilateral GI/Abdominal exam: PRESENT: normal bowel sounds, soft Extremities exam: PRESENT: tenderness Musculoskeletal exam: PRESENT: tenderness Neurological exam: PRESENT: awake Psychiatric exam: PRESENT: anxious Results Laboratory Results: 03/18/17 03:48 03/20/17 04:00 03/20/17 03/20/17 04:00 04:00 Sodium 127.3 L Potassium 4.4 Chloride 91 L Carbon Dioxide 30 Anion Gap 6 BUN 11 Creatinine 0.52 Est GFR ( Amer) > 60 Est GFR (Non-Af Amer) > 60 Glucose 83 Calcium 8.0 L TSH 4.20 03/09/17 03/09/17 03/09/17 15:17 15:17 21:14 Creatine Kinase 31 L 32 L CK-MB (CK-2) 3.49 Troponin I 0.193 NT-Pro-B Natriuret Pep 03/09/17 03/10/17 03/11/17 21:14 03:01 07:15 Creatine Kinase CK-MB (CK-2) 3.13 Troponin I 0.201 0.233 0.188 NT-Pro-B Natriuret Pep 20109 H 45601 H 03/12/17 04:31 Creatine Kinase CK-MB (CK-2) Troponin I NT-Pro-B Natriuret Pep 66622 H Impressions: Ribs w/Chest X-Ray 03/09/17 00:00 IMPRESSION: NO PNEUMOTHORAX. NO DISPLACED RIB FRACTURES. Congestive failure pattern as noted above. Cervical Spine CT 03/09/17 09:38 IMPRESSION: Degenerative changes without evidence for fracture. Chest CT 03/09/17 09:38 IMPRESSION: Congestive failure pattern as noted above. Other findings as noted above. Head CT 03/09/17 09:38 IMPRESSION: MILD CHRONIC CHANGES OF ATROPHY AND MICROVASCULAR ISCHEMIA. NO ACUTE PROCESS. Hip/Pelvis X-Ray 03/09/17 09:38 IMPRESSION: Status post right hip pinning. No acute changes are identified. Lumbar Spine X-Ray 03/09/17 09:38 IMPRESSION: SPONDYLOSIS WITHOUT BONE LESION OR FRACTURE. Other findings as noted above Chest X-Ray 03/19/17 00:00 IMPRESSION: Persistent congestive failure pattern with left effusion and basilar opacities. Assessment & Plan - Diagnosis (1) Acute on chronic congestive heart failure Qualifiers: Congestive heart failure type: diastolic Qualified Code(s): I50.33 - Acute on chronic diastolic (congestive) heart failure Is this a current diagnosis for this admission?: Yes Plan: Improving with fluid restriction and diuresis (2) Acute respiratory failure with hypoxia Is this a current diagnosis for this admission?: Yes (3) Chest pain in adult Is this a current diagnosis for this admission?: Yes (4) Atrial fibrillation Qualifiers: Atrial fibrillation type: chronic Qualified Code(s): I48.2 - Chronic atrial fibrillation Is this a current diagnosis for this admission?: Yes Plan: Rate control with medication (5) Coronary artery disease Qualifiers: Coronary Disease-Associated Artery/Lesion type: [place] artery [place] vs. transplanted heart: [place] heart Associated angina: angina presence unspecified Qualified Code(s): I25.10 - Atherosclerotic heart disease of [place] coronary artery without angina pectoris Is this a current diagnosis for this admission?: Yes (6) COPD (chronic obstructive pulmonary disease) Qualifiers: COPD type: unspecified COPD Qualified Code(s): J44.9 - Chronic obstructive pulmonary disease, unspecified Is this a current diagnosis for this admission?: Yes (7) Pneumonia Qualifiers: Pneumonia type: due to unspecified organism Laterality: left Lung location: unspecified part of lung Qualified Code(s): J18.9 - Pneumonia, unspecified organism Is this a current diagnosis for this admission?: Yes Plan: Improving with IV antibiotics. Will repeat chest x-ray (10) Uncompensated respiratory acidosis Is this a current diagnosis for this admission?: Yes (11) Hyponatremia Is this a current diagnosis for this admission?: Yes Plan: Improving with IV fluids and fluid restriction (12) Fracture, intertrochanteric, right femur Qualifiers: Encounter type: initial encounter Fracture type: closed Fracture alignment: displaced Qualified Code(s): S72.141A - Displaced intertrochanteric fracture of right femur, initial encounter for closed fracture Is this a current diagnosis for this admission?: Yes Plan: Status post right hip surgery. According to orthopedics no weightbearing. The patient is not safe to stand up or transfer. We will continue physical therapy
--- NOTE | 2017-03-20 09:46 | RADIOLOGY REPORT (SQ) ---
EXAM DESCRIPTION: CHEST PA/LAT COMPLETED DATE/TIME: 03/20/2017 9:14 am REASON FOR STUDY: pneumonia COMPARISON: Two-view chest 11/29/2008, 03/13/2017, 03/15/2017 CT chest 03/09/2017 EXAM PARAMETERS: NUMBER OF VIEWS: two views TECHNIQUE: Digital Frontal and Lateral radiographic views of the chest acquired. RADIATION DOSE: NA LIMITATIONS: none FINDINGS: LUNGS AND PLEURA: Persistent left lower lobe collapse and consolidation with trace left pl eural fluid. Remainder of the lungs demonstrate mild pulmonary vascular prominence, with bandlike scarring or atel ectasis in the periphery of the right lung. No right pleural effusion. No right or left pneumothora x. MEDIASTINUM AND HILAR STRUCTURES: No masses or contour abnormalities. HEART AND VASCULAR STRUCTURES: Stable mild cardiomegaly BONES: No acute findings. HARDWARE: None in the chest. OTHER: No other significant finding. IMPRESSION: No change in left lower lobe collapse and consolidation, no change in left-sided pleural effusion compared to 03/09/2017, 03/13/2017, 03/15/2017. TECHNICAL DOCUMENTATION: JOB ID: [id number] [employer]- All Rights Reserved
[2017-03-20] MEDS ORDERED: FUROSEMIDE 20 MG TABLET PO SCH (10:00)
[2017-03-20] MEDS: PSYLLIUM SEED-SF 5.85 GM PACKET PO SCH ×2 (10:48)
[2017-03-20] MEDS: DOCUSATE SODIUM 100 MG CAPSULE PO SCH ×2 (10:48→21:33)
[2017-03-20] MEDS: METOPROLOL TARTRATE 25 MG TABLET PO SCH ×2 (10:48→21:33)
[2017-03-20] MEDS: VENLAFAXINE HCL 37.5 MG CAP.SR.24H PO SCH (10:48)
[2017-03-20] MEDS: FINASTERIDE 5 MG TABLET PO SCH (10:49)
[2017-03-20] MEDS: DORZOLAMIDE HCL 2%/TIMOLOL MALEAT 0.5% OPH SOLN 10 ML OS SCH ×2 (10:50→21:34)
[2017-03-20] MEDS: MAGNESIUM OXIDE 400 MG TABLET PO SCH ×2 (10:50→17:27)
[2017-03-20] MEDS: LANSOPRAZOLE 30 MG TAB.RAP.DR PO SCH (10:50)
[2017-03-20] MEDS: APIXABAN 2.5 MG TABLET PO SCH (10:50)
[2017-03-20] MEDS: TAMSULOSIN HCL 0.4 MG CAP.SR.24H PO SCH (17:27)
[2017-03-20] MEDS: ENOXAPARIN SODIUM INJ 80 MG/0.8 ML DISP.SYRIN SUBCUT SCH (21:33)
[2017-03-20] MEDS ORDERED: LORAZEPAM INJ 2 MG/1 ML VIAL IV ONE (22:00)
[2017-03-21] MEDS: NORMAL SALINE 1000 ML 1,000 ML IV PRN ×2 (01:40→18:00)
[2017-03-21] MEDS ORDERED: LORAZEPAM INJ 2 MG/1 ML VIAL ONE (02:44)
[2017-03-21 04:47] LABS: ABSOLUTE LYMPHOCYTES (AUTO) 0.7 10^3/uL (0.5-4.7); ABSOLUTE MONOCYTES (AUTO) 0.4 10^3/uL (0.1-1.4); ABSOLUTE NEUT (AUTO) 4.1 10^3/uL (1.7-8.2); BASOPHILS % (AUTO) 0.3 % (0-2); EOSINOPHILS % (AUTO) 0.9 % (0-6); HEMATOCRIT 33.4 % (37.9-51.0); HEMOGLOBIN 11.4 g/dL (13.5-17.0); HGB HCT DIFFERENCE 0.8; LYMPHOCYTES % (AUTO) 13.3 % (13-45); MEAN CORPUSCULAR HGB CONC 34.2 g/dL (32.0-36.0); MEAN CORPUSCULAR VOLUME 96 fl (80-97); MONOCYTES % (AUTO) 8.4 % (3-13); RED BLOOD COUNT 3.46 10^6/uL (4.35-5.55); SEGMENTED NEUTROPHILS % (AUTO) 77.1 % (42-78); WHITE BLOOD COUNT 5.4 10^3/uL (4.0-10.5)
[2017-03-21 05:07] LABS: BLOOD UREA NITROGEN 10 mg/dL (7-20); CALCIUM 8.3 mg/dL (8.4-10.2); CARBON DIOXIDE 32 mmol/L (22-30); CHLORIDE 92 mmol/L (98-107); CREATININE RESULT 0.57 mg/dL (0.52-1.25); GLUCOSE 89 mg/dL (75-110); POTASSIUM 4.3 mmol/L (3.6-5.0)
[2017-03-21 05:26] LABS: SODIUM 125.8 mmol/L (137-145)
[2017-03-21 05:31] LABS: ANION GAP 2 (5-19)
[2017-03-21] MEDS: CLINDAMYCIN HCL 150 MG CAPSULE PO SCH ×3 (06:33→21:17)
[2017-03-21] MEDS: ALBUTEROL SULFATE 0.083% NEB 2.5 MG/3 ML AMPUL NEB SCH ×3 (07:51→19:42)
--- NOTE | 2017-03-21 08:31 | PDOC PROGRESS REPORT ---
Subjective Progress Note for:: 03/21/17 Subjective:: The patient states to feel relatively better. Discussed with the patient and his son the need for thoracenteses because of non -resolving lung fluid collection. Physical Exam Vital Signs: Temp Pulse Resp BP Pulse Ox 97.5 F 72 14 120/75 93 03/21/17 00:47 03/21/17 07:51 03/21/17 07:51 03/21/17 00:47 03/21/17 07:51 Intake & Output 03/20/17 03/21/17 03/22/17 06:59 06:59 06:59 Intake Total 1657 1096 Output Total 850 200 Balance 807 896 Weight 78.1 kg General appearance: PRESENT: mild distress Head exam: PRESENT: atraumatic Neck exam: ABSENT: JVD Respiratory exam: PRESENT: crackles, rhonchi Cardiovascular exam: PRESENT: irregular rhythm, +S1, +S2 Pulses: PRESENT: +1 pedal pulses bilateral GI/Abdominal exam: PRESENT: normal bowel sounds, soft Extremities exam: PRESENT: tenderness Musculoskeletal exam: PRESENT: tenderness Neurological exam: PRESENT: awake Psychiatric exam: PRESENT: anxious, flat affect Results Laboratory Results: 03/21/17 03:58 03/21/17 03:58 03/21/17 03/21/17 03:58 03:58 WBC 5.4 RBC 3.46 L Hgb 11.4 L Hct 33.4 L MCV 96 MCH 33.0 MCHC 34.2 RDW 20.0 H Plt Count 143 L Seg Neutrophils % 77.1 Lymphocytes % 13.3 Monocytes % 8.4 Eosinophils % 0.9 Basophils % 0.3 Absolute Neutrophils 4.1 Absolute Lymphocytes 0.7 Absolute Monocytes 0.4 Absolute Eosinophils 0.0 Absolute Basophils 0.0 Sodium 125.8 L Potassium 4.3 Chloride 92 L Carbon Dioxide 32 H Anion Gap 2 L BUN 10 Creatinine 0.57 Est GFR ( Amer) > 60 Est GFR (Non-Af Amer) > 60 Glucose 89 Calcium 8.3 L 03/09/17 03/09/17 03/09/17 15:17 15:17 21:14 Creatine Kinase 31 L 32 L CK-MB (CK-2) 3.49 Troponin I 0.193 NT-Pro-B Natriuret Pep 03/09/17 03/10/17 03/11/17 21:14 03:01 07:15 Creatine Kinase CK-MB (CK-2) 3.13 Troponin I 0.201 0.233 0.188 NT-Pro-B Natriuret Pep 84758 H 39687 H 03/12/17 04:31 Creatine Kinase CK-MB (CK-2) Troponin I NT-Pro-B Natriuret Pep 47297 H Impressions: Ribs w/Chest X-Ray 03/09/17 00:00 IMPRESSION: NO PNEUMOTHORAX. NO DISPLACED RIB FRACTURES. Congestive failure pattern as noted above. Cervical Spine CT 03/09/17 09:38 IMPRESSION: Degenerative changes without evidence for fracture. Chest CT 03/09/17 09:38 IMPRESSION: Congestive failure pattern as noted above. Other findings as noted above. Head CT 03/09/17 09:38 IMPRESSION: MILD CHRONIC CHANGES OF ATROPHY AND MICROVASCULAR ISCHEMIA. NO ACUTE PROCESS. Hip/Pelvis X-Ray 03/09/17 09:38 IMPRESSION: Status post right hip pinning. No acute changes are identified. Lumbar Spine X-Ray 03/09/17 09:38 IMPRESSION: SPONDYLOSIS WITHOUT BONE LESION OR FRACTURE. Other findings as noted above Chest X-Ray 03/20/17 00:00 IMPRESSION: No change in left lower lobe collapse and consolidation, no change in left-sided pleural effusion compared to 03/09/2017, 03/13/2017, 03/15/2017. Assessment & Plan - Diagnosis (1) Acute on chronic congestive heart failure Qualifiers: Congestive heart failure type: diastolic Qualified Code(s): I50.33 - Acute on chronic diastolic (congestive) heart failure Is this a current diagnosis for this admission?: Yes (2) Acute respiratory failure with hypoxia Is this a current diagnosis for this admission?: Yes (3) Chest pain in adult Is this a current diagnosis for this admission?: Yes (4) Atrial fibrillation Qualifiers: Atrial fibrillation type: chronic Qualified Code(s): I48.2 - Chronic atrial fibrillation Is this a current diagnosis for this admission?: Yes Plan: Because of the scheduled procedure will have to stop Eliquis and use Lovenox as a bridge (5) Coronary artery disease Qualifiers: Coronary Disease-Associated Artery/Lesion type: [place] artery [place] vs. transplanted heart: [place] heart Associated angina: angina presence unspecified Qualified Code(s): I25.10 - Atherosclerotic heart disease of [place] coronary artery without angina pectoris Is this a current diagnosis for this admission?: Yes (6) COPD (chronic obstructive pulmonary disease) Qualifiers: COPD type: unspecified COPD Qualified Code(s): J44.9 - Chronic obstructive pulmonary disease, unspecified Is this a current diagnosis for this admission?: Yes (7) Pneumonia Qualifiers: Pneumonia type: due to unspecified organism Laterality: left Lung location: unspecified part of lung Qualified Code(s): J18.9 - Pneumonia, unspecified organism Is this a current diagnosis for this admission?: Yes Plan: The lung consolidation is not responding to antibiotics or diureses. We will obtain a thoracenteses after stopping the Eliquis for 48 hours (9) Compensated respiratory acidosis Plan: Improved with IV hydration and stopping several medications (10) Uncompensated respiratory acidosis Is this a current diagnosis for this admission?: Yes (11) Hyponatremia Is this a current diagnosis for this admission?: Yes Plan: Worsening hyponatremia. We will stop the diuretics and antidepressants. We will place on fluid restriction. The possibility of SIADH has been considered because of lung mass. (12) Fracture, intertrochanteric, right femur Qualifiers: Encounter type: initial encounter Fracture type: closed Fracture alignment: displaced Qualified Code(s): S72.141A - Displaced intertrochanteric fracture of right femur, initial encounter for closed fracture Is this a current diagnosis for this admission?: Yes Plan: Continue physical therapy minimal weightbearing as recommended by the orthopedics
[2017-03-21] MEDS: LEVOTHYROXINE SODIUM 0.05 MG TABLET PO SCH (08:38)
[2017-03-21] MEDS: DOCUSATE SODIUM 100 MG CAPSULE PO SCH ×2 (09:40→21:17)
[2017-03-21] MEDS: LANSOPRAZOLE 30 MG TAB.RAP.DR PO SCH (09:40)
[2017-03-21] MEDS: FINASTERIDE 5 MG TABLET PO SCH (09:40)
[2017-03-21] MEDS: MAGNESIUM OXIDE 400 MG TABLET PO SCH ×2 (09:41→17:56)
[2017-03-21] MEDS: METOPROLOL TARTRATE 25 MG TABLET PO SCH ×2 (09:44→21:17)
[2017-03-21] MEDS: PSYLLIUM SEED-SF 5.85 GM PACKET PO SCH ×2 (09:46)
[2017-03-21] MEDS: DORZOLAMIDE HCL 2%/TIMOLOL MALEAT 0.5% OPH SOLN 10 ML OS SCH ×2 (09:48→21:19)
[2017-03-21] MEDS: ENOXAPARIN SODIUM INJ 80 MG/0.8 ML DISP.SYRIN SUBCUT SCH (10:42)
[2017-03-21] MEDS: TAMSULOSIN HCL 0.4 MG CAP.SR.24H PO SCH (17:56)
[2017-03-21] MEDS: OLANZAPINE 2.5 MG TABLET PO SCH (21:17)
[2017-03-22 05:40] LABS: PROTHROMBIN TIME 14.5 SEC (11.4-15.4)
[2017-03-22 05:41] LABS: PARTIAL THROMBOPLASTIN TIME 41.4 SEC (23.5-35.8)
[2017-03-22 05:58] LABS: BLOOD UREA NITROGEN 8 mg/dL (7-20); CALCIUM 8.9 mg/dL (8.4-10.2); CREATININE RESULT 0.56 mg/dL (0.52-1.25); GLUCOSE 88 mg/dL (75-110); POTASSIUM 4.8 mmol/L (3.6-5.0)
[2017-03-22] MEDS: CLINDAMYCIN HCL 150 MG CAPSULE PO SCH ×3 (06:01→20:50)
[2017-03-22 06:12] LABS: CARBON DIOXIDE 35 mmol/L (22-30); CHLORIDE 97 mmol/L (98-107); SODIUM 133.3 mmol/L (137-145)
[2017-03-22 06:16] LABS: ANION GAP 1 (5-19)
[2017-03-22] MEDS: NORMAL SALINE 1000 ML 1,000 ML IV PRN (07:18)
[2017-03-22] MEDS: ALBUTEROL SULFATE 0.083% NEB 2.5 MG/3 ML AMPUL NEB SCH ×3 (07:30→19:50)
[2017-03-22] MEDS: LEVOTHYROXINE SODIUM 0.05 MG TABLET PO SCH (07:48)
--- NOTE | 2017-03-22 11:56 | RADIOLOGY REPORT (SQ) ---
EXAM DESCRIPTION: CHEST SINGLE VIEW COMPLETED DATE/TIME: 03/22/2017 11:41 am REASON FOR STUDY: S/P LT THORACENTESIS COMPARISON: 03/20/2017 NUMBER OF VIEWS: One view. TECHNIQUE: Single frontal radiographic image of the chest acquired. LIMITATIONS: None. FINDINGS: LUNGS AND PLEURA: Improved aeration in the left lung. No pneumothorax. Right lung is unc hanged. MEDIASTINUM AND HEART: Stable heart size and mediastinal structures. BONY STRUCTURES: No acute findings. HARDWARE: None. OTHER: No other significant finding. IMPRESSION: Improved aeration left lung status post thoracentesis. No pneumothorax. TECHNICAL DOCUMENTATION: JOB ID: [id number]
[2017-03-22] MEDS: DOCUSATE SODIUM 100 MG CAPSULE PO SCH ×2 (11:58→20:50)
[2017-03-22] MEDS: MAGNESIUM OXIDE 400 MG TABLET PO SCH ×2 (11:58→18:03)
[2017-03-22] MEDS: FINASTERIDE 5 MG TABLET PO SCH (11:58)
[2017-03-22] MEDS: LANSOPRAZOLE 30 MG TAB.RAP.DR PO SCH (11:59)
[2017-03-22] MEDS: DORZOLAMIDE HCL 2%/TIMOLOL MALEAT 0.5% OPH SOLN 10 ML OS SCH ×2 (11:59→20:52)
[2017-03-22] MEDS: PSYLLIUM SEED-SF 5.85 GM PACKET PO SCH ×2 (12:00)
--- NOTE | 2017-03-22 12:04 | RADIOLOGY REPORT (SQ) ---
EXAM DESCRIPTION: U/S THORACENTESIS WITH IMAGING COMPLETED DATE/TIME: 03/22/2017 11:32 am REASON FOR STUDY: L lower lobe consalidation COMPARISON: None. LIMITATIONS: None. PROCEDURE: Procedure, risks, benefit, and alternative explained to patient who then gave written con sent. The posterior left chest wall was marked using ultrasound guidance. A time-out was called for correct marking verification. Chest prepped and draped using sterile technique. Local anesthesia ac hieved using for ml of 1% lidocaine injection. A 6fr Safe-T- Centesis set was introduced into the le ft pleural space. Fluid was aspirated. The catheter was removed and the entry site was covered with sterile bandage. No immediate complications noted. Images acquired during the procedure were stored on PACS. FINDINGS: ENTRY SITE: Posterior left chest. FLUID VOLUME: 1 L FLUID ANALYSIS: Straw OTHER: Fluid sent to the lab for testing. IMPRESSION: SUCCESSFUL THORACENTESIS USING ULTRASOUND GUIDANCE. COMMENT: Patient medication list reviewed: Yes- Quality ID# [id number]:Eligible professional attests to doc umenting in the medical record they obtained, updated, or reviewed the patient's current medications. Quality ID #[id number]: Final reports for procedures using fluoroscopy that document radiation exposure cathryn jacqueline, or exposure time and number of fluorographic images (if radiation exposure indices are not avail able) TECHNICAL DOCUMENTATION: JOB ID: [id number] [employer]- All Rights Reserved
[2017-03-22 12:19] LABS: FLUID APPEARANCE SLIGHTLY HAZY; FLUID RBC AVERAGE 113.5; FLUID RBC DILUENT USED NONE USED; FLUID RBC DILUTION FACTOR 1; FLUID RBC SIDE 1 114; FLUID RBC SIDE 2 113; FLUID TYPE PLEURAL; TOTAL RBC SQUARES COUNTED FLD 100
--- NOTE | 2017-03-22 14:54 | RADIOLOGY REPORT (SQ) ---
EXAM DESCRIPTION: CHEST SINGLE VIEW COMPLETED DATE/TIME: 03/22/2017 2:08 pm REASON FOR STUDY: 2 HOURS S/P LT THORACENTESIS COMPARISON: 03/22/2017 EXAM PARAMETERS: NUMBER OF VIEWS: One view. TECHNIQUE: Single frontal radiographic view of the chest acquired. RADIATION DOSE: NA LIMITATIONS: None. FINDINGS: LUNGS AND PLEURA: No evidence of pneumothorax. Stable moderate chronic interstitial robison es with differential including chronic interstitial changes, pulmonary edema and pneumonia. No signi ficant effusion. MEDIASTINUM AND HILAR STRUCTURES: No masses. Contour normal. HEART AND VASCULAR STRUCTURES: Mild cardiomegaly and mild vascular congestion. BONES: No acute findings. HARDWARE: None in the chest. OTHER: No other significant finding. IMPRESSION: 1. No significant change in the appearance of lungs. No evidence of pneumothorax. TECHNICAL DOCUMENTATION: JOB ID: [id number]
[2017-03-22] MEDS: METOPROLOL TARTRATE 25 MG TABLET PO SCH ×2 (15:08→20:49)
--- NOTE | 2017-03-22 16:04 | PDOC PROGRESS REPORT ---
Subjective Progress Note for:: 03/22/17 Subjective:: Patient is seen on morning rounds. His and son are at bedside. He apparently did not sleep at all last night. His son notes he has increasing dementia and hallucinations at bedtime. He is scheduled for thoracentesis of the left chest later today by interventional radiology. Patient admits to being short of breath with minimal exertion. He admits to nonproductive cough. He denies any chest pain. Denies any fever or chills. Denies nausea, vomiting or abdominal pain. Remaining review of systems is negative. Physical Exam Vital Signs: Temp Pulse Resp BP Pulse Ox 97.7 F 82 20 132/60 H 95 03/22/17 12:14 03/22/17 13:49 03/22/17 13:49 03/22/17 12:14 03/22/17 13:49 Intake & Output 03/21/17 03/22/17 03/23/17 06:59 06:59 06:59 Intake Total 1096 120 358 Output Total 200 400 150 Balance 896 -280 208 Weight 74.4 kg 77.8 kg General appearance: PRESENT: no acute distress, thin, well-developed, well- nourished Head exam: PRESENT: atraumatic, normocephalic Eye exam: PRESENT: conjunctiva pink, EOMI, PERRLA. ABSENT: scleral icterus Ear exam: PRESENT: normal external ear exam Mouth exam: PRESENT: moist, tongue midline Neck exam: PRESENT: JVD Respiratory exam: PRESENT: crackles - left base > right, decreased breath sounds , unlabored Cardiovascular exam: PRESENT: +S1, +S2, systolic murmur Pulses: PRESENT: normal carotid pulses, normal radial pulses Vascular exam: PRESENT: normal capillary refill GI/Abdominal exam: PRESENT: normal bowel sounds, soft. ABSENT: distended, guarding, mass, organolmegaly, rebound, tenderness Rectal exam: PRESENT: deferred Extremities exam: PRESENT: tenderness. ABSENT: calf tenderness, clubbing, pedal edema Musculoskeletal exam: PRESENT: tenderness - right lower extremity Neurological exam: PRESENT: alert, altered, oriented to person, CN II-XII grossly intact Psychiatric exam: PRESENT: flat affect Focused psych exam: PRESENT: other - fatigued Skin exam: PRESENT: dry, intact, warm. ABSENT: cyanosis, rash Results Laboratory Results: 03/21/17 03:58 03/22/17 04:51 03/22/17 03/22/17 04:51 11:12 Sodium 133.3 L Potassium 4.8 Chloride 97 L Carbon Dioxide 35 H Anion Gap 1 L BUN 8 Creatinine 0.56 Est GFR ( Amer) > 60 Est GFR (Non-Af Amer) > 60 Glucose 88 Calcium 8.9 Fluid Type PLEURAL Fluid Source Fluid Color YELLOW Fluid Appearance SLIGHTLY HAZY Fluid Viscosity LIQUID Fluid WBC 233 Fluid RBC 283 03/09/17 03/09/17 03/09/17 15:17 15:17 21:14 Creatine Kinase 31 L 32 L CK-MB (CK-2) 3.49 Troponin I 0.193 NT-Pro-B Natriuret Pep 03/09/17 03/10/17 03/11/17 21:14 03:01 07:15 Creatine Kinase CK-MB (CK-2) 3.13 Troponin I 0.201 0.233 0.188 NT-Pro-B Natriuret Pep 43462 H 60099 H 03/12/17 04:31 Creatine Kinase CK-MB (CK-2) Troponin I NT-Pro-B Natriuret Pep 41870 H Impressions: Ribs w/Chest X-Ray 03/09/17 00:00 IMPRESSION: NO PNEUMOTHORAX. NO DISPLACED RIB FRACTURES. Congestive failure pattern as noted above. Cervical Spine CT 03/09/17 09:38 IMPRESSION: Degenerative changes without evidence for fracture. Chest CT 03/09/17 09:38 IMPRESSION: Congestive failure pattern as noted above. Other findings as noted above. Head CT 03/09/17 09:38 IMPRESSION: MILD CHRONIC CHANGES OF ATROPHY AND MICROVASCULAR ISCHEMIA. NO ACUTE PROCESS. Hip/Pelvis X-Ray 03/09/17 09:38 IMPRESSION: Status post right hip pinning. No acute changes are identified. Lumbar Spine X-Ray 03/09/17 09:38 IMPRESSION: SPONDYLOSIS WITHOUT BONE LESION OR FRACTURE. Other findings as noted above Chest X-Ray 03/22/17 00:00 IMPRESSION: 1. No significant change in the appearance of lungs. No evidence of pneumothorax. Thoracentesis Ultrasound 03/22/17 00:00 IMPRESSION: SUCCESSFUL THORACENTESIS USING ULTRASOUND GUIDANCE. Assessment & Plan - Diagnosis (1) Acute on chronic congestive heart failure Qualifiers: Congestive heart failure type: diastolic Qualified Code(s): I50.33 - Acute on chronic diastolic (congestive) heart failure Is this a current diagnosis for this admission?: Yes (2) Acute respiratory failure with hypoxia Is this a current diagnosis for this admission?: Yes Plan: Thoracentesis for evacuation of left moderate pleural effusion (3) Atrial fibrillation Qualifiers: Atrial fibrillation type: chronic Qualified Code(s): I48.2 - Chronic atrial fibrillation Is this a current diagnosis for this admission?: Yes (4) Fracture, intertrochanteric, right femur Qualifiers: Encounter type: initial encounter Fracture type: closed Fracture alignment: displaced Qualified Code(s): S72.141A - Displaced intertrochanteric fracture of right femur, initial encounter for closed fracture Is this a current diagnosis for this admission?: Yes (5) Hypertension Qualifiers: Hypertension type: essential hypertension Qualified Code(s): I10 - Essential (primary) hypertension Is this a current diagnosis for this admission?: Yes (6) Hyponatremia Is this a current diagnosis for this admission?: Yes Plan: Slightly improved today. Secondary to heart failure (7) Hypothyroidism Is this a current diagnosis for this admission?: Yes (8) Coronary artery disease Qualifiers: Coronary Disease-Associated Artery/Lesion type: [place] artery [place] vs. transplanted heart: [place] heart Associated angina: angina presence unspecified Qualified Code(s): I25.10 - Atherosclerotic heart disease of [place] coronary artery without angina pectoris Is this a current diagnosis for this admission?: Yes - Time Time Spent with patient: 25-34 minutes Critical Time spent with patient: 15-24 minutes Medications reviewed and adjusted accordingly: Yes
[2017-03-22] MEDS: TAMSULOSIN HCL 0.4 MG CAP.SR.24H PO SCH (18:03)
[2017-03-22] MEDS: RISPERIDONE 1 MG TABLET PO SCH (20:49)
[2017-03-22] MEDS: OLANZAPINE 2.5 MG TABLET PO SCH (20:50)
[2017-03-23] MEDS: NORMAL SALINE 1000 ML 1,000 ML IV PRN ×2 (02:24→16:48)
[2017-03-23] MEDS: CLINDAMYCIN HCL 150 MG CAPSULE PO SCH ×3 (06:54→21:47)
[2017-03-23] MEDS: ALBUTEROL SULFATE 0.083% NEB 2.5 MG/3 ML AMPUL NEB SCH ×3 (07:54→19:48)
[2017-03-23] MEDS: DORZOLAMIDE HCL 2%/TIMOLOL MALEAT 0.5% OPH SOLN 10 ML OS SCH ×2 (11:29→21:48)
[2017-03-23] MEDS: MAGNESIUM OXIDE 400 MG TABLET PO SCH ×2 (11:30→17:55)
[2017-03-23] MEDS: PSYLLIUM SEED-SF 5.85 GM PACKET PO SCH ×2 (11:30)
[2017-03-23] MEDS: FINASTERIDE 5 MG TABLET PO SCH (11:30)
[2017-03-23] MEDS: LANSOPRAZOLE 30 MG TAB.RAP.DR PO SCH (11:30)
[2017-03-23] MEDS: DOCUSATE SODIUM 100 MG CAPSULE PO SCH ×2 (11:31→21:47)
[2017-03-23] MEDS: METOPROLOL TARTRATE 25 MG TABLET PO SCH ×2 (11:31→21:47)
[2017-03-23] MEDS: LEVOTHYROXINE SODIUM 0.05 MG TABLET PO SCH (11:31)
--- NOTE | 2017-03-23 14:18 | PDOC PROGRESS REPORT ---
Subjective Progress Note for:: 03/23/17 Subjective:: Patient is seen on morning rounds. He is soundly sleeping. He is arousable but drowsy. Nursing reports he did not sleep at all again last night. Unable to complete review of systems due to mentation. He did tolerated the left thoracentesis yesterday and had approximately one liter of pleural fluid removed with results pending. No family presently at bedside Physical Exam Vital Signs: Temp Pulse Resp BP Pulse Ox 97.6 F 131 H 18 149/80 H 99 03/23/17 11:19 03/23/17 11:19 03/23/17 11:19 03/23/17 11:19 03/23/17 11:19 Intake & Output 03/22/17 03/23/17 03/24/17 06:59 06:59 06:59 Intake Total 120 2858 0 Output Total 400 450 Balance -280 2408 0 Weight 77.8 kg 70.8 kg General appearance: PRESENT: no acute distress, thin, well-developed Head exam: PRESENT: atraumatic, normocephalic Eye exam: PRESENT: conjunctiva pale Ear exam: PRESENT: normal external ear exam Mouth exam: PRESENT: moist, tongue midline Neck exam: ABSENT: carotid bruit, JVD, lymphadenopathy, thyromegaly Respiratory exam: PRESENT: crackles - right base, decreased breath sounds, unlabored Cardiovascular exam: PRESENT: RRR. ABSENT: diastolic murmur, rubs, systolic murmur Pulses: PRESENT: normal dorsalis pedis pul Vascular exam: PRESENT: normal capillary refill GI/Abdominal exam: PRESENT: normal bowel sounds, soft. ABSENT: distended, guarding, mass, organolmegaly, rebound, tenderness Rectal exam: PRESENT: deferred Extremities exam: PRESENT: full ROM. ABSENT: calf tenderness, clubbing, pedal edema Neurological exam: PRESENT: alert, altered, CN II-XII grossly intact. ABSENT: motor sensory deficit Psychiatric exam: PRESENT: flat affect, other. ABSENT: homicidal ideation, suicidal ideation Skin exam: PRESENT: dry, intact, warm. ABSENT: cyanosis, rash Results Laboratory Results: 03/21/17 03:58 03/22/17 04:51 03/22/17 11:12 Fluid Glucose 98 Fluid Total Protein 1.2 Fluid LDH 50 03/09/17 03/09/17 03/09/17 15:17 15:17 21:14 Creatine Kinase 31 L 32 L CK-MB (CK-2) 3.49 Troponin I 0.193 NT-Pro-B Natriuret Pep 03/09/17 03/10/17 03/11/17 21:14 03:01 07:15 Creatine Kinase CK-MB (CK-2) 3.13 Troponin I 0.201 0.233 0.188 NT-Pro-B Natriuret Pep 33826 H 81930 H 03/12/17 04:31 Creatine Kinase CK-MB (CK-2) Troponin I NT-Pro-B Natriuret Pep 00430 H Impressions: Ribs w/Chest X-Ray 03/09/17 00:00 IMPRESSION: NO PNEUMOTHORAX. NO DISPLACED RIB FRACTURES. Congestive failure pattern as noted above. Cervical Spine CT 03/09/17 09:38 IMPRESSION: Degenerative changes without evidence for fracture. Chest CT 03/09/17 09:38 IMPRESSION: Congestive failure pattern as noted above. Other findings as noted above. Head CT 03/09/17 09:38 IMPRESSION: MILD CHRONIC CHANGES OF ATROPHY AND MICROVASCULAR ISCHEMIA. NO ACUTE PROCESS. Hip/Pelvis X-Ray 03/09/17 09:38 IMPRESSION: Status post right hip pinning. No acute changes are identified. Lumbar Spine X-Ray 03/09/17 09:38 IMPRESSION: SPONDYLOSIS WITHOUT BONE LESION OR FRACTURE. Other findings as noted above Chest X-Ray 03/22/17 00:00 IMPRESSION: 1. No significant change in the appearance of lungs. No evidence of pneumothorax. Thoracentesis Ultrasound 03/22/17 00:00 IMPRESSION: SUCCESSFUL THORACENTESIS USING ULTRASOUND GUIDANCE. Assessment & Plan - Diagnosis (1) Acute on chronic congestive heart failure Qualifiers: Congestive heart failure type: diastolic Qualified Code(s): I50.33 - Acute on chronic diastolic (congestive) heart failure Is this a current diagnosis for this admission?: Yes Plan: Patient appears euvolemic. Chest xray post thoracentesis is improved (2) Acute respiratory failure with hypoxia Is this a current diagnosis for this admission?: Yes Plan: Thoracentesis for evacuation of left moderate pleural effusion (3) Atrial fibrillation Qualifiers: Atrial fibrillation type: chronic Qualified Code(s): I48.2 - Chronic atrial fibrillation Is this a current diagnosis for this admission?: Yes (4) Fracture, intertrochanteric, right femur Qualifiers: Encounter type: initial encounter Fracture type: closed Fracture alignment: displaced Qualified Code(s): S72.141A - Displaced intertrochanteric fracture of right femur, initial encounter for closed fracture Is this a current diagnosis for this admission?: Yes (5) Hypertension Qualifiers: Hypertension type: essential hypertension Qualified Code(s): I10 - Essential (primary) hypertension Is this a current diagnosis for this admission?: Yes (6) Hyponatremia Is this a current diagnosis for this admission?: Yes Plan: Slightly improved today. Secondary to heart failure (7) Hypothyroidism Is this a current diagnosis for this admission?: Yes (8) Coronary artery disease Qualifiers: Coronary Disease-Associated Artery/Lesion type: [place] artery [place] vs. transplanted heart: [place] heart Associated angina: angina presence unspecified Qualified Code(s): I25.10 - Atherosclerotic heart disease of [place] coronary artery without angina pectoris Is this a current diagnosis for this admission?: Yes (9) Dyslipidemia Is this a current diagnosis for this admission?: Yes - Time Time Spent with patient: 25-34 minutes Medications reviewed and adjusted accordingly: Yes Anticipated discharge: SNF Within: within 48 hours
[2017-03-23] MEDS: TAMSULOSIN HCL 0.4 MG CAP.SR.24H PO SCH (17:55)
[2017-03-23] MEDS: OLANZAPINE 2.5 MG TABLET PO SCH (21:48)
[2017-03-23] MEDS: RISPERIDONE 1 MG TABLET PO SCH (21:48)
--- NOTE | 2017-03-24 04:51 | PDOC PROGRESS REPORT ---
Subjective Progress Note for:: 03/20/17 Subjective:: Patient seems to be doing better with gradual improvement. Pt is denying any chest arm or neck discomfort. Patient is very hard of hearing but denied any complaints. Patient denying any PND, orthopnea. Patient denied any sustained palpitations, dizziness, syncope, near syncope. Patient denying any fever chills. Patient denying any other significant discomfort. Patient has been noted to be intermittently confused by the nurses. Patient noted to be working with the physical therapy. He has a very difficult time weightbearing. Patient just very debilitated. Patient is maintaining atrial fibrillation rhythm with controlled ventricular response, intermittent slow heartbeat noted. Chest x-ray reveals persistent left pleural effusion Review of systems: Rest review of systems negative. Medications: Medications have been reviewed. Physical Exam Vital Signs: Temp Pulse Resp BP Pulse Ox 97.2 F 60 18 128/62 H 98 03/20/17 15:03 03/20/17 19:34 03/20/17 19:34 03/20/17 15:03 03/20/17 19:34 Intake & Output 03/19/17 03/20/17 03/21/17 06:59 06:59 06:59 Intake Total 1094 1657 996 Output Total 675 850 0 Balance 419 807 996 Weight 75 kg 78.1 kg Exam: GENERAL: debilitated but in no acute distress. Patient is alert and Seems oriented. HEAD: Atraumatic, normocephalic. EYES: Pupils equal round and reactive to light, extraocular movements intact, sclera anicteric, conjunctiva are normal. ENT: TMs normal, nares patent, oropharynx clear without exudates. Moist mucous membranes. No oral ulcerations or bleeding gums noted NECK: supple without lymphadenopathy or JVD. Trachea is central. No cervical or axillary lymphadenopathy noted. Carotids are 2+ LUNGS: Breath sounds bibasilar fine crackles at bases. Minimal left basal dullness noted. No wheezing noted CHEST: Palpation of chest wall shows no significant chest wall tenderness. 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 ABDOMEN: Soft, no significant tenderness appreciated, normoactive bowel sounds. No guarding, no rebound. No rigidity noted . No masses appreciated. EXTREMITIES: Pedal pulses are 1-2+, no calf tenderness noted, Trace + pedal edema noted. No clubbing or cyanosis. NEUROLOGICAL: Patient is alert and is noted to move all 4 extremities. He is able to respond and talk if spoken to very loudly. No facial asymmetry noted. PSYCH: Patient unable to participate in a psych exam. SKIN: No significant ecchymosis, rash, ulcerations or signs of pruritus noted. MUSCULOSKELETAL EXAM: No significant joint swelling noted. Results Laboratory Results: 03/18/17 03:48 03/20/17 04:00 03/20/17 03/20/17 04:00 04:00 Sodium 127.3 L Potassium 4.4 Chloride 91 L Carbon Dioxide 30 Anion Gap 6 BUN 11 Creatinine 0.52 Est GFR ( Amer) > 60 Est GFR (Non-Af Amer) > 60 Glucose 83 Calcium 8.0 L TSH 4.20 03/09/17 03/09/17 03/09/17 15:17 15:17 21:14 Creatine Kinase 31 L 32 L CK-MB (CK-2) 3.49 Troponin I 0.193 NT-Pro-B Natriuret Pep 03/09/17 03/10/17 03/11/17 21:14 03:01 07:15 Creatine Kinase CK-MB (CK-2) 3.13 Troponin I 0.201 0.233 0.188 NT-Pro-B Natriuret Pep 94818 H 91333 H 03/12/17 04:31 Creatine Kinase CK-MB (CK-2) Troponin I NT-Pro-B Natriuret Pep 60339 H Impressions: Ribs w/Chest X-Ray 03/09/17 00:00 IMPRESSION: NO PNEUMOTHORAX. NO DISPLACED RIB FRACTURES. Congestive failure pattern as noted above. Cervical Spine CT 03/09/17 09:38 IMPRESSION: Degenerative changes without evidence for fracture. Chest CT 03/09/17 09:38 IMPRESSION: Congestive failure pattern as noted above. Other findings as noted above. Head CT 03/09/17 09:38 IMPRESSION: MILD CHRONIC CHANGES OF ATROPHY AND MICROVASCULAR ISCHEMIA. NO ACUTE PROCESS. Hip/Pelvis X-Ray 03/09/17 09:38 IMPRESSION: Status post right hip pinning. No acute changes are identified. Lumbar Spine X-Ray 03/09/17 09:38 IMPRESSION: SPONDYLOSIS WITHOUT BONE LESION OR FRACTURE. Other findings as noted above Chest X-Ray 03/20/17 00:00 IMPRESSION: No change in left lower lobe collapse and consolidation, no change in left-sided pleural effusion compared to 03/09/2017, 03/13/2017, 03/15/2017. Assessment & Plan - Diagnosis (1) Acute on chronic congestive heart failure Qualifiers: Congestive heart failure type: diastolic Qualified Code(s): I50.33 - Acute on chronic diastolic (congestive) heart failure Is this a current diagnosis for this admission?: Yes (2) Atrial fibrillation Qualifiers: Atrial fibrillation type: chronic Qualified Code(s): I48.2 - Chronic atrial fibrillation Is this a current diagnosis for this admission?: Yes (3) Elevated troponin I level Is this a current diagnosis for this admission?: Yes (4) Pleural effusion Is this a current diagnosis for this admission?: Yes (5) COPD (chronic obstructive pulmonary disease) Qualifiers: COPD type: unspecified COPD Qualified Code(s): J44.9 - Chronic obstructive pulmonary disease, unspecified Is this a current diagnosis for this admission?: Yes (6) Coronary artery disease Qualifiers: Coronary Disease-Associated Artery/Lesion type: [place] artery [place] vs. transplanted heart: [place] heart Associated angina: angina presence unspecified Qualified Code(s): I25.10 - Atherosclerotic heart disease of [place] coronary artery without angina pectoris Is this a current diagnosis for this admission?: Yes (7) Hypertension Qualifiers: Hypertension type: essential hypertension Qualified Code(s): I10 - Essential (primary) hypertension Is this a current diagnosis for this admission?: Yes - Notes Notes: Acute on chronic congestive heart failure: Patient is improved. Will sign off since patient has been stable for last several days. Atrial fibrillation: Heart rate is well controlled. Continue with chronic anticoagulation. Elevated troponin I: Secondary to supply demand mismatch. No ischemia workup planned. Pleural effusion: Currently stable. Agreed that paracentesis may be needed if it gets worse. COPD: Currently is stable continue with bronchodilator therapy. Coronary artery disease: Currently stable continue with current management plans. Hypertension: Blood pressure is well controlled. Will sign off. Please reconsult if needed.. - Time Time with patient: 15-25 minutes - CODE STATUS was discussed, patient remains DNR. Surrogate decision-maker unchanged. Multiple medical problems were addressed. More than 50% of the time spent coordinating care, discussing management plans with involved caregivers. Management plans discussed with involved personnels. Medical decision making was of moderate to high complexity , patient's has multiple comorbidities.
--- NOTE | 2017-03-24 04:53 | PDOC PROGRESS REPORT ---
Subjective Progress Note for:: 03/19/17 Subjective:: Patient seems to be doing better with gradual improvement. Pt is denying any chest arm or neck discomfort. Patient is very hard of hearing but denied any complaints. Patient denying any PND, orthopnea. Patient denied any sustained palpitations, dizziness, syncope, near syncope. Patient denying any fever chills. Patient denying any other significant discomfort. Patient has been noted to be intermittently confused by the nurses. Patient is maintaining atrial fibrillation rhythm with controlled ventricular response, intermittent slow heartbeat noted. Chest x-ray reveals persistent left pleural effusion Review of systems: Rest review of systems negative. Medications: Medications have been reviewed. Physical Exam Vital Signs: Temp Pulse Resp BP Pulse Ox 97.6 F 52 L 18 113/69 100 03/19/17 15:46 03/19/17 15:46 03/19/17 15:46 03/19/17 15:46 03/19/17 15:46 Intake & Output 03/18/17 03/19/17 03/20/17 06:59 06:59 06:59 Intake Total 760 1094 957 Output Total 800 675 350 Balance -40 419 607 Weight 78.5 kg 75 kg Exam: GENERAL: debilitated but in no acute distress. Patient is alert but orientation not checked today. HEAD: Atraumatic, normocephalic. EYES: Pupils equal round and reactive to light, extraocular movements intact, sclera anicteric, conjunctiva are normal. ENT: TMs normal, nares patent, oropharynx clear without exudates. Moist mucous membranes. No oral ulcerations or bleeding gums noted NECK: supple without lymphadenopathy or JVD. Trachea is central. No cervical or axillary lymphadenopathy noted. Carotids are 2+ LUNGS: Breath sounds bibasilar fine crackles at bases. Minimal left basal dullness noted. No wheezing noted CHEST: Palpation of chest wall shows no significant chest wall tenderness. 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 ABDOMEN: Soft, no significant tenderness appreciated, normoactive bowel sounds. No guarding, no rebound. No rigidity noted . No masses appreciated. EXTREMITIES: Pedal pulses are 1-2+, no calf tenderness noted, Trace + pedal edema noted. No clubbing or cyanosis. NEUROLOGICAL: Patient is alert and is noted to move all 4 extremities. He is able to respond and talk if spoken to very loudly. No facial asymmetry noted. PSYCH: Patient unable to participate in a psych exam. SKIN: No significant ecchymosis, rash, ulcerations or signs of pruritus noted. MUSCULOSKELETAL EXAM: No significant joint swelling noted. Results Laboratory Results: 03/18/17 03:48 03/19/17 04:08 03/19/17 04:08 Sodium 126.9 L Potassium 4.5 Chloride 91 L Carbon Dioxide 35 H Anion Gap 1 L BUN 13 Creatinine 0.61 Est GFR ( Amer) > 60 Est GFR (Non-Af Amer) > 60 Glucose 91 Calcium 8.4 03/09/17 03/09/17 03/09/17 15:17 15:17 21:14 Creatine Kinase 31 L 32 L CK-MB (CK-2) 3.49 Troponin I 0.193 NT-Pro-B Natriuret Pep 03/09/17 03/10/17 03/11/17 21:14 03:01 07:15 Creatine Kinase CK-MB (CK-2) 3.13 Troponin I 0.201 0.233 0.188 NT-Pro-B Natriuret Pep 18069 H 46707 H 03/12/17 04:31 Creatine Kinase CK-MB (CK-2) Troponin I NT-Pro-B Natriuret Pep 25268 H Impressions: Ribs w/Chest X-Ray 03/09/17 00:00 IMPRESSION: NO PNEUMOTHORAX. NO DISPLACED RIB FRACTURES. Congestive failure pattern as noted above. Cervical Spine CT 03/09/17 09:38 IMPRESSION: Degenerative changes without evidence for fracture. Chest CT 03/09/17 09:38 IMPRESSION: Congestive failure pattern as noted above. Other findings as noted above. Head CT 03/09/17 09:38 IMPRESSION: MILD CHRONIC CHANGES OF ATROPHY AND MICROVASCULAR ISCHEMIA. NO ACUTE PROCESS. Hip/Pelvis X-Ray 03/09/17 09:38 IMPRESSION: Status post right hip pinning. No acute changes are identified. Lumbar Spine X-Ray 03/09/17 09:38 IMPRESSION: SPONDYLOSIS WITHOUT BONE LESION OR FRACTURE. Other findings as noted above Chest X-Ray 03/19/17 00:00 IMPRESSION: Persistent congestive failure pattern with left effusion and basilar opacities. Assessment & Plan - Diagnosis (1) Acute on chronic congestive heart failure Qualifiers: Congestive heart failure type: diastolic Qualified Code(s): I50.33 - Acute on chronic diastolic (congestive) heart failure Is this a current diagnosis for this admission?: Yes (2) Atrial fibrillation Qualifiers: Atrial fibrillation type: chronic Qualified Code(s): I48.2 - Chronic atrial fibrillation Is this a current diagnosis for this admission?: Yes (3) Elevated troponin I level Is this a current diagnosis for this admission?: Yes (4) Pleural effusion Is this a current diagnosis for this admission?: Yes (5) COPD (chronic obstructive pulmonary disease) Qualifiers: COPD type: unspecified COPD Qualified Code(s): J44.9 - Chronic obstructive pulmonary disease, unspecified Is this a current diagnosis for this admission?: Yes (6) Coronary artery disease Qualifiers: Coronary Disease-Associated Artery/Lesion type: [place] artery [place] vs. transplanted heart: [place] heart Associated angina: angina presence unspecified Qualified Code(s): I25.10 - Atherosclerotic heart disease of [place] coronary artery without angina pectoris Is this a current diagnosis for this admission?: Yes (7) Hypertension Qualifiers: Hypertension type: essential hypertension Qualified Code(s): I10 - Essential (primary) hypertension Is this a current diagnosis for this admission?: Yes - Notes Notes: cute on chronic congestive heart failure: Patient is improved. Will sign off since patient has been stable for last several days. Atrial fibrillation: Heart rate is well controlled. Continue with chronic anticoagulation. Elevated troponin I: Secondary to supply demand mismatch. No ischemia workup planned. Pleural effusion: Currently stable. Agreed that paracentesis may be needed if it gets worse. COPD: Currently is stable continue with bronchodilator therapy. Coronary artery disease: Currently stable continue with current management plans. Hypertension: Blood pressure is well controlled. Will continue to follow since patient may need thoracentesis.. - Time Time with patient: 15-25 minutes
[2017-03-24 05:21] LABS: ABSOLUTE EOSINOPHILS # (AUTO) 0.1 10^3/uL (0.0-0.6); ABSOLUTE LYMPHOCYTES (AUTO) 0.8 10^3/uL (0.5-4.7); ABSOLUTE MONOCYTES (AUTO) 0.5 10^3/uL (0.1-1.4); BASOPHILS % (AUTO) 0.4 % (0-2); HEMATOCRIT 31.7 % (37.9-51.0); HEMOGLOBIN 10.7 g/dL (13.5-17.0); HGB HCT DIFFERENCE 0.4; LYMPHOCYTES % (AUTO) 14.4 % (13-45); MEAN CORPUSCULAR HEMOGLOBIN 32.8 pg (27.0-33.4); MEAN CORPUSCULAR HGB CONC 33.7 g/dL (32.0-36.0); MEAN CORPUSCULAR VOLUME 97 fl (80-97); MONOCYTES % (AUTO) 8.7 % (3-13); RED BLOOD COUNT 3.26 10^6/uL (4.35-5.55); RED CELL DISTRIBUTION WIDTH 20.3 % (11.5-14.0); SEGMENTED NEUTROPHILS % (AUTO) 75.5 % (42-78); WHITE BLOOD COUNT 5.3 10^3/uL (4.0-10.5)
[2017-03-24 05:39] LABS: ANION GAP 5 (5-19); BLOOD UREA NITROGEN 11 mg/dL (7-20); CALCIUM 8.2 mg/dL (8.4-10.2); CARBON DIOXIDE 31 mmol/L (22-30); CHLORIDE 101 mmol/L (98-107); CREATININE RESULT 0.58 mg/dL (0.52-1.25); GLUCOSE 100 mg/dL (75-110); MAGNESIUM 1.9 mg/dL (1.6-2.3); SODIUM 136.5 mmol/L (137-145)
[2017-03-24] MEDS: CLINDAMYCIN HCL 150 MG CAPSULE PO SCH ×3 (05:41→21:34)
[2017-03-24] MEDS: ALBUTEROL SULFATE 0.083% NEB 2.5 MG/3 ML AMPUL NEB SCH ×3 (07:54→19:51)
--- NOTE | 2017-03-24 09:00 | PDOC PROGRESS REPORT ---
Subjective Progress Note for:: 03/24/17 Subjective:: Patient is seen on morning rounds. He is awake, alert and disoriented to place and time. Nursing reports he did sleep some last night. Unable to complete review of systems due to mentation. He appears in no acute distress. No family presently at bedside Physical Exam Vital Signs: Temp Pulse Resp BP Pulse Ox 97.9 F 76 18 150/72 H 100 03/24/17 07:17 03/24/17 07:17 03/24/17 07:17 03/24/17 07:17 03/24/17 07:17 Intake & Output 03/23/17 03/24/17 03/25/17 06:59 06:59 06:59 Intake Total 2858 1775 Output Total 450 550 Balance 2408 1225 Weight 70.8 kg 76 kg General appearance: PRESENT: no acute distress, thin, well-developed, well- nourished Head exam: PRESENT: atraumatic, normocephalic Eye exam: PRESENT: conjunctiva pale Ear exam: PRESENT: normal external ear exam Mouth exam: PRESENT: moist, tongue midline Neck exam: ABSENT: carotid bruit, JVD, lymphadenopathy, thyromegaly Respiratory exam: PRESENT: clear to auscultation mary, decreased breath sounds, symmetrical, unlabored Cardiovascular exam: PRESENT: RRR. ABSENT: diastolic murmur, rubs, systolic murmur Pulses: PRESENT: normal [place] pedis pul Vascular exam: PRESENT: normal capillary refill GI/Abdominal exam: PRESENT: normal bowel sounds, soft. ABSENT: distended, guarding, mass, organolmegaly, rebound, tenderness Rectal exam: PRESENT: deferred Extremities exam: PRESENT: full ROM, other - trace pedal edema bilaterally Musculoskeletal exam: PRESENT: full ROM, normal inspection Neurological exam: PRESENT: alert, altered, oriented to person, CN II-XII grossly intact Psychiatric exam: PRESENT: flat affect Skin exam: PRESENT: dry, intact, warm. ABSENT: cyanosis, rash Results Laboratory Results: 03/24/17 04:16 03/24/17 04:16 03/22/17 03/24/17 03/24/17 11:12 04:16 04:16 WBC 5.3 RBC 3.26 L Hgb 10.7 L Hct 31.7 L MCV 97 MCH 32.8 MCHC 33.7 RDW 20.3 H Plt Count 134 L Seg Neutrophils % 75.5 Lymphocytes % 14.4 Monocytes % 8.7 Eosinophils % 1.0 Basophils % 0.4 Absolute Neutrophils 4.0 Absolute Lymphocytes 0.8 Absolute Monocytes 0.5 Absolute Eosinophils 0.1 Absolute Basophils 0.0 Sodium 136.5 L Potassium 4.0 Chloride 101 Carbon Dioxide 31 H Anion Gap 5 BUN 11 Creatinine 0.58 Est GFR ( Amer) > 60 Est GFR (Non-Af Amer) > 60 Glucose 100 Calcium 8.2 L Magnesium 1.9 Fluid Glucose 98 Fluid Total Protein 1.2 Fluid LDH 50 03/09/17 03/09/17 03/09/17 15:17 15:17 21:14 Creatine Kinase 31 L 32 L CK-MB (CK-2) 3.49 Troponin I 0.193 NT-Pro-B Natriuret Pep 03/09/17 03/10/17 03/11/17 21:14 03:01 07:15 Creatine Kinase CK-MB (CK-2) 3.13 Troponin I 0.201 0.233 0.188 NT-Pro-B Natriuret Pep 28535 H 02836 H 03/12/17 04:31 Creatine Kinase CK-MB (CK-2) Troponin I NT-Pro-B Natriuret Pep 52195 H Impressions: Ribs w/Chest X-Ray 03/09/17 00:00 IMPRESSION: NO PNEUMOTHORAX. NO DISPLACED RIB FRACTURES. Congestive failure pattern as noted above. Cervical Spine CT 03/09/17 09:38 IMPRESSION: Degenerative changes without evidence for fracture. Chest CT 03/09/17 09:38 IMPRESSION: Congestive failure pattern as noted above. Other findings as noted above. Head CT 03/09/17 09:38 IMPRESSION: MILD CHRONIC CHANGES OF ATROPHY AND MICROVASCULAR ISCHEMIA. NO ACUTE PROCESS. Hip/Pelvis X-Ray 03/09/17 09:38 IMPRESSION: Status post right hip pinning. No acute changes are identified. Lumbar Spine X-Ray 03/09/17 09:38 IMPRESSION: SPONDYLOSIS WITHOUT BONE LESION OR FRACTURE. Other findings as noted above Chest X-Ray 03/22/17 00:00 IMPRESSION: 1. No significant change in the appearance of lungs. No evidence of pneumothorax. Thoracentesis Ultrasound 03/22/17 00:00 IMPRESSION: SUCCESSFUL THORACENTESIS USING ULTRASOUND GUIDANCE. Assessment & Plan - Diagnosis (1) Acute on chronic congestive heart failure Qualifiers: Congestive heart failure type: diastolic Qualified Code(s): I50.33 - Acute on chronic diastolic (congestive) heart failure Is this a current diagnosis for this admission?: Yes Plan: Patient appears euvolemic. Chest xray post thoracentesis shows some improvement. Sodium is now low normal. Will stop IV hydration today (2) Acute respiratory failure with hypoxia Is this a current diagnosis for this admission?: Yes Plan: Oxygen at 1l/min via n/c with adequate O2 saturations (3) Atrial fibrillation Qualifiers: Atrial fibrillation type: chronic Qualified Code(s): I48.2 - Chronic atrial fibrillation Is this a current diagnosis for this admission?: Yes (4) Fracture, intertrochanteric, right femur Qualifiers: Encounter type: initial encounter Fracture type: closed Fracture alignment: displaced Qualified Code(s): S72.141A - Displaced intertrochanteric fracture of right femur, initial encounter for closed fracture Is this a current diagnosis for this admission?: Yes Plan: Continue PT (5) Hypertension Qualifiers: Hypertension type: essential hypertension Qualified Code(s): I10 - Essential (primary) hypertension Is this a current diagnosis for this admission?: Yes Plan: Normotensive on current medications and dosages (6) Hyponatremia Is this a current diagnosis for this admission?: Yes Plan: Low normal today. Will d/c IV fluid and observe. Nursing reminded to frequently offer oral hydration (7) Hypothyroidism Is this a current diagnosis for this admission?: Yes Plan: Continue levoxyl (8) Coronary artery disease Qualifiers: Coronary Disease-Associated Artery/Lesion type: [place] artery [place] vs. transplanted heart: [place] heart Associated angina: angina presence unspecified Qualified Code(s): I25.10 - Atherosclerotic heart disease of [place] coronary artery without angina pectoris Is this a current diagnosis for this admission?: Yes (9) Dyslipidemia Is this a current diagnosis for this admission?: Yes Plan: Continue statin - Time Time Spent with patient: 25-34 minutes Critical Time spent with patient: 15-24 minutes Medications reviewed and adjusted accordingly: Yes Anticipated discharge: SNF
[2017-03-24] MEDS: LEVOTHYROXINE SODIUM 0.05 MG TABLET PO SCH (10:44)
[2017-03-24] MEDS: MAGNESIUM OXIDE 400 MG TABLET PO SCH ×2 (10:44→17:09)
[2017-03-24] MEDS: FINASTERIDE 5 MG TABLET PO SCH (10:44)
[2017-03-24] MEDS: LANSOPRAZOLE 30 MG TAB.RAP.DR PO SCH (10:44)
[2017-03-24] MEDS: METOPROLOL TARTRATE 25 MG TABLET PO SCH ×2 (10:44→21:34)
[2017-03-24] MEDS: DOCUSATE SODIUM 100 MG CAPSULE PO SCH ×2 (10:44→21:33)
[2017-03-24] MEDS: PSYLLIUM SEED-SF 5.85 GM PACKET PO SCH ×2 (10:45)
[2017-03-24] MEDS: DORZOLAMIDE HCL 2%/TIMOLOL MALEAT 0.5% OPH SOLN 10 ML OS SCH ×2 (10:45→21:36)
[2017-03-24] MEDS: TAMSULOSIN HCL 0.4 MG CAP.SR.24H PO SCH (17:09)
[2017-03-24] MEDS: OLANZAPINE 2.5 MG TABLET PO SCH (21:33)
[2017-03-24] MEDS: RISPERIDONE 1 MG TABLET PO SCH (21:34)
[2017-03-25] MEDS: CLINDAMYCIN HCL 150 MG CAPSULE PO SCH (05:34)
[2017-03-25] MEDS: LEVOTHYROXINE SODIUM 0.05 MG TABLET PO SCH (08:16)
[2017-03-25] MEDS: ALBUTEROL SULFATE 0.083% NEB 2.5 MG/3 ML AMPUL NEB SCH ×3 (08:27→20:26)
[2017-03-25] MEDS ORDERED: APIXABAN 2.5 MG TABLET PO ONE (08:30)
--- NOTE | 2017-03-25 08:37 | PDOC PROGRESS REPORT ---
Subjective Progress Note for:: 03/25/17 Physical Exam Vital Signs: Temp Pulse Resp BP Pulse Ox 98.3 F 78 16 116/62 100 03/25/17 03:19 03/25/17 03:19 03/25/17 03:19 03/25/17 03:19 03/25/17 03:19 Intake & Output 03/24/17 03/25/17 03/26/17 06:59 06:59 06:59 Intake Total 1775 105 Output Total 550 Balance 1225 105 Weight 76 kg 75.4 kg Results Laboratory Results: 03/24/17 04:16 03/24/17 04:16 03/09/17 03/09/17 03/09/17 15:17 15:17 21:14 Creatine Kinase 31 L 32 L CK-MB (CK-2) 3.49 Troponin I 0.193 NT-Pro-B Natriuret Pep 03/09/17 03/10/17 03/11/17 21:14 03:01 07:15 Creatine Kinase CK-MB (CK-2) 3.13 Troponin I 0.201 0.233 0.188 NT-Pro-B Natriuret Pep 62581 H 98152 H 03/12/17 04:31 Creatine Kinase CK-MB (CK-2) Troponin I NT-Pro-B Natriuret Pep 56172 H Impressions: Ribs w/Chest X-Ray 03/09/17 00:00 IMPRESSION: NO PNEUMOTHORAX. NO DISPLACED RIB FRACTURES. Congestive failure pattern as noted above. Cervical Spine CT 03/09/17 09:38 IMPRESSION: Degenerative changes without evidence for fracture. Chest CT 03/09/17 09:38 IMPRESSION: Congestive failure pattern as noted above. Other findings as noted above. Head CT 03/09/17 09:38 IMPRESSION: MILD CHRONIC CHANGES OF ATROPHY AND MICROVASCULAR ISCHEMIA. NO ACUTE PROCESS. Hip/Pelvis X-Ray 03/09/17 09:38 IMPRESSION: Status post right hip pinning. No acute changes are identified. Lumbar Spine X-Ray 03/09/17 09:38 IMPRESSION: SPONDYLOSIS WITHOUT BONE LESION OR FRACTURE. Other findings as noted above Chest X-Ray 03/22/17 00:00 IMPRESSION: 1. No significant change in the appearance of lungs. No evidence of pneumothorax. Thoracentesis Ultrasound 03/22/17 00:00 IMPRESSION: SUCCESSFUL THORACENTESIS USING ULTRASOUND GUIDANCE. Assessment & Plan - Diagnosis (1) Acute on chronic congestive heart failure Qualifiers: Congestive heart failure type: diastolic Qualified Code(s): I50.33 - Acute on chronic diastolic (congestive) heart failure Is this a current diagnosis for this admission?: Yes (2) Acute respiratory failure with hypoxia Is this a current diagnosis for this admission?: Yes (3) Chest pain in adult Is this a current diagnosis for this admission?: Yes (4) Atrial fibrillation Qualifiers: Atrial fibrillation type: chronic Qualified Code(s): I48.2 - Chronic atrial fibrillation Is this a current diagnosis for this admission?: Yes (5) Coronary artery disease Qualifiers: Coronary Disease-Associated Artery/Lesion type: [place] artery [place] vs. transplanted heart: [place] heart Associated angina: angina presence unspecified Qualified Code(s): I25.10 - Atherosclerotic heart disease of [place] coronary artery without angina pectoris Is this a current diagnosis for this admission?: Yes (6) COPD (chronic obstructive pulmonary disease) Qualifiers: COPD type: unspecified COPD Qualified Code(s): J44.9 - Chronic obstructive pulmonary disease, unspecified Is this a current diagnosis for this admission?: Yes (7) Pneumonia Qualifiers: Pneumonia type: due to unspecified organism Laterality: left Lung location: unspecified part of lung Qualified Code(s): J18.9 - Pneumonia, unspecified organism Is this a current diagnosis for this admission?: Yes (10) Uncompensated respiratory acidosis Is this a current diagnosis for this admission?: Yes (11) Hyponatremia Is this a current diagnosis for this admission?: Yes (12) Fracture, intertrochanteric, right femur Qualifiers: Encounter type: initial encounter Fracture type: closed Fracture alignment: displaced Qualified Code(s): S72.141A - Displaced intertrochanteric fracture of right femur, initial encounter for closed fracture Is this a current diagnosis for this admission?: Yes
--- NOTE | 2017-03-25 08:40 | PDOC PROGRESS REPORT ---
Subjective Progress Note for:: 03/25/17 Subjective:: The patient states to feel much better. He is much more awake and alert this morning. He is wondering when she is going back to the rehab. Discussed the need to readjust his medications and DC his IV. We will continue with physical therapy. Physical Exam Vital Signs: Temp Pulse Resp BP Pulse Ox 98.3 F 78 16 116/62 100 03/25/17 03:19 03/25/17 03:19 03/25/17 03:19 03/25/17 03:19 03/25/17 03:19 Intake & Output 03/24/17 03/25/17 03/26/17 06:59 06:59 06:59 Intake Total 1775 105 Output Total 550 Balance 1225 105 Weight 76 kg 75.4 kg General appearance: PRESENT: mild distress Head exam: PRESENT: atraumatic Eye exam: PRESENT: conjunctiva pink Neck exam: ABSENT: carotid bruit Respiratory exam: PRESENT: rhonchi Cardiovascular exam: PRESENT: irregular rhythm, +S2 Pulses: PRESENT: +1 pedal pulses bilateral Vascular exam: PRESENT: normal capillary refill GI/Abdominal exam: PRESENT: normal bowel sounds, soft Extremities exam: PRESENT: tenderness Musculoskeletal exam: PRESENT: tenderness Neurological exam: PRESENT: alert, awake Results Laboratory Results: 03/24/17 04:16 03/24/17 04:16 03/09/17 03/09/17 03/09/17 15:17 15:17 21:14 Creatine Kinase 31 L 32 L CK-MB (CK-2) 3.49 Troponin I 0.193 NT-Pro-B Natriuret Pep 03/09/17 03/10/17 03/11/17 21:14 03:01 07:15 Creatine Kinase CK-MB (CK-2) 3.13 Troponin I 0.201 0.233 0.188 NT-Pro-B Natriuret Pep 90605 H 54517 H 03/12/17 04:31 Creatine Kinase CK-MB (CK-2) Troponin I NT-Pro-B Natriuret Pep 36492 H Impressions: Ribs w/Chest X-Ray 03/09/17 00:00 IMPRESSION: NO PNEUMOTHORAX. NO DISPLACED RIB FRACTURES. Congestive failure pattern as noted above. Cervical Spine CT 03/09/17 09:38 IMPRESSION: Degenerative changes without evidence for fracture. Chest CT 03/09/17 09:38 IMPRESSION: Congestive failure pattern as noted above. Other findings as noted above. Head CT 03/09/17 09:38 IMPRESSION: MILD CHRONIC CHANGES OF ATROPHY AND MICROVASCULAR ISCHEMIA. NO ACUTE PROCESS. Hip/Pelvis X-Ray 03/09/17 09:38 IMPRESSION: Status post right hip pinning. No acute changes are identified. Lumbar Spine X-Ray 03/09/17 09:38 IMPRESSION: SPONDYLOSIS WITHOUT BONE LESION OR FRACTURE. Other findings as noted above Chest X-Ray 03/22/17 00:00 IMPRESSION: 1. No significant change in the appearance of lungs. No evidence of pneumothorax. Thoracentesis Ultrasound 03/22/17 00:00 IMPRESSION: SUCCESSFUL THORACENTESIS USING ULTRASOUND GUIDANCE. Assessment & Plan - Diagnosis (1) Acute on chronic congestive heart failure Qualifiers: Congestive heart failure type: diastolic Qualified Code(s): I50.33 - Acute on chronic diastolic (congestive) heart failure Is this a current diagnosis for this admission?: Yes (2) Acute respiratory failure with hypoxia Is this a current diagnosis for this admission?: Yes (3) Chest pain in adult Is this a current diagnosis for this admission?: Yes (4) Atrial fibrillation Qualifiers: Atrial fibrillation type: chronic Qualified Code(s): I48.2 - Chronic atrial fibrillation Is this a current diagnosis for this admission?: Yes Plan: We will restart Eliquis (5) Coronary artery disease Qualifiers: Coronary Disease-Associated Artery/Lesion type: [place] artery [place] vs. transplanted heart: [place] heart Associated angina: angina presence unspecified Qualified Code(s): I25.10 - Atherosclerotic heart disease of [place] coronary artery without angina pectoris Is this a current diagnosis for this admission?: Yes Plan: Stable awaiting echo and cardiology follow-up (6) COPD (chronic obstructive pulmonary disease) Qualifiers: COPD type: unspecified COPD Qualified Code(s): J44.9 - Chronic obstructive pulmonary disease, unspecified Is this a current diagnosis for this admission?: Yes (7) Pneumonia Qualifiers: Pneumonia type: due to unspecified organism Laterality: left Lung location: unspecified part of lung Qualified Code(s): J18.9 - Pneumonia, unspecified organism Is this a current diagnosis for this admission?: Yes Plan: Status post thoracenteses. Will recheck chest x-ray (9) Compensated respiratory acidosis Plan: Improved with hydration (10) Uncompensated respiratory acidosis Is this a current diagnosis for this admission?: Yes (11) Hyponatremia Is this a current diagnosis for this admission?: Yes Plan: Resolved. We will stop IV fluids and DC IV (12) Fracture, intertrochanteric, right femur Qualifiers: Encounter type: initial encounter Fracture type: closed Fracture alignment: displaced Qualified Code(s): S72.141A - Displaced intertrochanteric fracture of right femur, initial encounter for closed fracture Is this a current diagnosis for this admission?: Yes Plan: Continue physical therapy and consider transferring back to the rehab
--- NOTE | 2017-03-25 10:19 | RADIOLOGY REPORT (SQ) ---
EXAM DESCRIPTION: CHEST PA/LAT COMPLETED DATE/TIME: 03/25/2017 8:51 am REASON FOR STUDY: pleural effusion COMPARISON: 03/20/2017 EXAM PARAMETERS: NUMBER OF VIEWS: two views TECHNIQUE: Digital Frontal and Lateral radiographic views of the chest acquired. RADIATION DOSE: NA LIMITATIONS: none FINDINGS: LUNGS AND PLEURA: Small pleural effusions are present. There does appear to be some impro vement on the left side. Once again there is considerable opacification behind the left heart. Ther e is ill-defined opacification in the right upper lobe adjacent to the fissure in the suprahilar [place] on. MEDIASTINUM AND HILAR STRUCTURES: No masses or contour abnormalities. HEART AND VASCULAR STRUCTURES: Heart normal size. No evidence for failure. BONES: No acute findings. HARDWARE: None in the chest. OTHER: No other significant finding. IMPRESSION: 1. Pleural effusions. There appears to be some improvement on the left. 2. Left lower lobe atelectasis or consolidation. 3. Minimal airspace disease in the medial right lung. TECHNICAL DOCUMENTATION: JOB ID: [id number] [employer]- All Rights Reserved
[2017-03-25] MEDS: METOPROLOL TARTRATE 25 MG TABLET PO SCH ×2 (12:14→21:39)
[2017-03-25] MEDS: LANSOPRAZOLE 30 MG TAB.RAP.DR PO SCH (12:16)
[2017-03-25] MEDS: DOCUSATE SODIUM 100 MG CAPSULE PO SCH ×2 (12:16→21:39)
[2017-03-25] MEDS: FINASTERIDE 5 MG TABLET PO SCH (12:16)
[2017-03-25] MEDS: MAGNESIUM OXIDE 400 MG TABLET PO SCH ×2 (12:16→17:36)
[2017-03-25] MEDS: DORZOLAMIDE HCL 2%/TIMOLOL MALEAT 0.5% OPH SOLN 10 ML OS SCH (12:17)
[2017-03-25] MEDS: PSYLLIUM SEED-SF 5.85 GM PACKET PO SCH ×2 (12:17)
--- NOTE | 2017-03-25 14:52 | PDOC PROGRESS REPORT ---
Subjective Progress Note for:: 03/25/17 Subjective:: when can I go home?? Physical Exam Vital Signs: Temp Pulse Resp BP Pulse Ox 97.5 F 78 16 116/57 L 99 03/25/17 12:05 03/25/17 14:10 03/25/17 14:10 03/25/17 12:05 03/25/17 12:05 Intake & Output 03/24/17 03/25/17 03/26/17 06:59 06:59 06:59 Intake Total 1775 105 356 Output Total 550 Balance 1225 105 356 Weight 76 kg 75.4 kg General appearance: PRESENT: no acute distress, cooperative, disheveled, hard of hearing, thin Head exam: PRESENT: atraumatic, normocephalic Eye exam: PRESENT: conjunctiva pale Mouth exam: PRESENT: dry mucosa, neck supple, tongue midline Respiratory exam: PRESENT: decreased breath sounds, prolonged expiratory phas, rales, rhonchi, symmetrical, unlabored Cardiovascular exam: PRESENT: irregular rhythm Pulses: PRESENT: normal radial pulses GI/Abdominal exam: PRESENT: normal bowel sounds, soft. ABSENT: distended, guarding, mass, organolmegaly, rebound, tenderness Rectal exam: PRESENT: deferred Musculoskeletal exam: PRESENT: normal inspection Neurological exam: PRESENT: awake Skin exam: PRESENT: dry, warm Results Laboratory Results: 03/24/17 04:16 03/24/17 04:16 03/09/17 03/09/17 03/09/17 15:17 15:17 21:14 Creatine Kinase 31 L 32 L CK-MB (CK-2) 3.49 Troponin I 0.193 NT-Pro-B Natriuret Pep 03/09/17 03/10/17 03/11/17 21:14 03:01 07:15 Creatine Kinase CK-MB (CK-2) 3.13 Troponin I 0.201 0.233 0.188 NT-Pro-B Natriuret Pep 45858 H 49063 H 03/12/17 04:31 Creatine Kinase CK-MB (CK-2) Troponin I NT-Pro-B Natriuret Pep 62087 H Impressions: Ribs w/Chest X-Ray 03/09/17 00:00 IMPRESSION: NO PNEUMOTHORAX. NO DISPLACED RIB FRACTURES. Congestive failure pattern as noted above. Cervical Spine CT 03/09/17 09:38 IMPRESSION: Degenerative changes without evidence for fracture. Chest CT 03/09/17 09:38 IMPRESSION: Congestive failure pattern as noted above. Other findings as noted above. Head CT 03/09/17 09:38 IMPRESSION: MILD CHRONIC CHANGES OF ATROPHY AND MICROVASCULAR ISCHEMIA. NO ACUTE PROCESS. Hip/Pelvis X-Ray 03/09/17 09:38 IMPRESSION: Status post right hip pinning. No acute changes are identified. Lumbar Spine X-Ray 03/09/17 09:38 IMPRESSION: SPONDYLOSIS WITHOUT BONE LESION OR FRACTURE. Other findings as noted above Thoracentesis Ultrasound 03/22/17 00:00 IMPRESSION: SUCCESSFUL THORACENTESIS USING ULTRASOUND GUIDANCE. Chest X-Ray 03/25/17 00:00 IMPRESSION: 1. Pleural effusions. There appears to be some improvement on the left. 2. Left lower lobe atelectasis or consolidation. 3. Minimal airspace disease in the medial right lung. Assessment & Plan - Diagnosis (1) Acute respiratory failure with hypoxia Is this a current diagnosis for this admission?: Yes Plan: stable (2) Atrial fibrillation Qualifiers: Atrial fibrillation type: chronic Qualified Code(s): I48.2 - Chronic atrial fibrillation Is this a current diagnosis for this admission?: Yes Plan: stable at this time (3) Pleural effusion Is this a current diagnosis for this admission?: Yes Plan: s/p l thoracentesis noticeable improvement on cxr
[2017-03-25] MEDS: TAMSULOSIN HCL 0.4 MG CAP.SR.24H PO SCH (17:37)
[2017-03-25] MEDS: APIXABAN 2.5 MG TABLET PO SCH (17:37)
[2017-03-25] MEDS: RISPERIDONE 1 MG TABLET PO SCH (21:39)
[2017-03-26] MEDS: DORZOLAMIDE HCL 2%/TIMOLOL MALEAT 0.5% OPH SOLN 10 ML OS SCH ×2 (00:02→13:08)
[2017-03-26] MEDS: ALBUTEROL SULFATE 0.083% NEB 2.5 MG/3 ML AMPUL NEB SCH (08:06)
--- NOTE | 2017-03-26 08:29 | PDOC DISCHARGE SUMMARY ---
General - Admit/Disc Date/PCP Admission Date/Primary Care Provider: 03/09/17 12:10 MARCIE URIAS, Discharge Date: 03/26/17 - Discharge Diagnosis (1) Acute on chronic congestive heart failure Is this a current diagnosis for this admission?: Yes (2) Acute respiratory failure with hypoxia Is this a current diagnosis for this admission?: Yes (3) Chest pain in adult Is this a current diagnosis for this admission?: Yes (4) Atrial fibrillation Is this a current diagnosis for this admission?: Yes Summary: Right controlled with beta-javan and presently on Eliquis (5) Coronary artery disease Is this a current diagnosis for this admission?: Yes Summary: Stable continue current treatment. The medications have been readjusted. Follow-up with cardiology upon discharge (6) COPD (chronic obstructive pulmonary disease) Is this a current diagnosis for this admission?: Yes Summary: Stable continue current treatment (7) Pneumonia Is this a current diagnosis for this admission?: Yes Summary: Resolved and completed course of antibiotics. Status post thoracentesis cultures are negative so far. (10) Uncompensated respiratory acidosis Is this a current diagnosis for this admission?: Yes Summary: Resolved with adjustments in medications and rehydration (11) Hyponatremia Is this a current diagnosis for this admission?: Yes Summary: Resolved with stopping the diuretics and rehydration (12) Fracture, intertrochanteric, right femur Is this a current diagnosis for this admission?: Yes Summary: We will continue no weightbearing as recommended by orthopedic until seen by the orthopedic in [place]. (13) Dementia Summary: Some episodes of psychosis at night will continue with Risperdal. - Additional Information Resuscitation Status: Full Code - confirmed by patient and son at the bedside Discharge Diet: Cardiac Discharge Activity: Activity As Tolerated, Supervised Activity Home Medications: Finasteride [Proscar 5 mg Tablet] 5 mg PO DAILY 09/02/13 Nitroglycerin [Nitrostat 0.4 mg (1/150 Gr) Tabs 25/Bottle] 0.4 mg SL Q5MP PRN Simvastatin [Zocor 80 mg Tablet] 80 mg PO QHS 09/02/13 Apixaban [Eliquis] 1 tab PO Q12 04/09/16 Dorzolamide HCl/Timolol Maleat [Dorzolamide-Timolol Eye Drops] 1 drop OS Q12 07/13 Docusate Sodium 100 mg PO Q12 03/09/17 Ezetimibe 10 mg PO DAILY 03/09/17 Levothyroxine Sodium [Synthroid 0.05 mg Tablet] 50 mcg PO DAILY 03/09/17 Psyllium Husk [Metamucil] 0.52 gm PO DAILY 03/09/17 Tramadol HCl [Ultram 50 mg Tablet] 50 mg PO Q12HP PRN 03/09/17 Vit A/Vit C/Vit E/Zinc/Copper [Preservision Areds Softgel] 1 each PO DAILY 03/09 Acetaminophen [Tylenol 325 mg Tablet] 650 mg PO Q4HP PRN tablet 03/26/17 Albuterol Sulfate [Ventolin 0.083% Neb 2.5 mg/3 mL Ampul] 2.5 mg NEB [id number] vial.neb 03/26/17 Apixaban [Eliquis 2.5 mg Tablet] 2.5 mg PO BID tablet 03/26/17 Lansoprazole [Prevacid 30 mg Odt Tablet] 30 mg PO DAILY tab.rap.dr 03/26/17 Magnesium Hydroxide [Milk of Magnesia 30 ml Udcup] 30 ml PO HSP PRN udc Magnesium Oxide [Mag-Ox 400 mg Tablet] 400 mg PO BID tablet 03/26/17 Metoprolol Tartrate [Lopressor 25 mg Tablet] 6.25 mg PO Q12 tablet 03/26/17 Oxycodone HCl 5 mg PO Q6HP PRN #0 03/26/17 Risperidone [Risperdal 1 mg Tablet] 1 mg PO QHS tablet 03/26/17 Tamsulosin HCl [Flomax 0.4 mg Cap.sr] 0.4 mg PO PCSUPPER cap.sr.24h 03/26/17 History of Present Illness History of Present Illness: AMINATA ROSENBAUM is a 89 year old male Hospital Course Hospital Course: The patient was admitted after a an accidental fall at the rehab. He was supposed to be no weightbearing but apparently stood up on his own and decided to go to the bathroom. No fractures were noted. Upon arrival to the emergency room the patient was found to be in acute respiratory distress with uncompensated respiratory acidosis and metabolic alkalosis. He was diuresed because of congestive heart failure which have made he is alkalosis worse. Several medications have been tried without much success. Once the diuretics have been stopped and patient was rehydrated his CO2 has decreased to normal range. He has developed a hyponatremia. Discussed the possibility of SIADH because of consolidation on the lung. After several days of IV antibiotics there was no change on his chest x-ray. The patient underwent thoracentesis with removal of 1 L of fluid. His symptomatology has improved his white count has remained stable he remained afebrile after several more days of antibiotics the patient continued to improve. His chest x-ray showed some improvement. The antibiotics have been stopped the IV was removed the Delgado was removed and patient was ready for discharge back to the rehab. Physical Exam Vital Signs: Temp Pulse Resp BP Pulse Ox 98.4 F 74 18 120/66 97 03/25/17 23:35 03/26/17 08:07 03/26/17 08:07 03/25/17 23:35 03/26/17 08:07 Intake & Output 03/25/17 03/26/17 03/27/17 06:59 06:59 06:59 Intake Total 105 1252 Output Total 500 Balance 105 752 Weight 75.4 kg 72.6 kg General appearance: PRESENT: no acute distress Head exam: PRESENT: atraumatic Eye exam: PRESENT: conjunctiva pink Neck exam: ABSENT: carotid bruit Respiratory exam: PRESENT: rhonchi Cardiovascular exam: PRESENT: irregular rhythm, +S1, +S2 Pulses: PRESENT: +1 pedal pulses bilateral GI/Abdominal exam: PRESENT: normal bowel sounds, soft Extremities exam: PRESENT: tenderness, other Musculoskeletal exam: PRESENT: tenderness, other Neurological exam: PRESENT: alert, awake Results Laboratory Results: 03/24/17 04:16 03/24/17 04:16 03/22/17 11:12 Pleural Fluid Gram Stain - Final 03/22/17 11:12 Pleural Fluid Body Fluid Culture - Final NO AEROBIC OR ANAEROBIC ORGANISMS RECOVERED 03/22/17 11:12 Pleural Fluid AFB Smear Concentration - Final 03/22/17 11:12 Pleural Fluid Acid Fast Bacilli Smear - Final 03/22/17 11:12 Pleural Fluid Fungal Smear - Final 03/22/17 11:12 Pleural Fluid Fungal Smear - Final 03/09/17 03/09/17 03/09/17 15:17 15:17 21:14 Creatine Kinase 31 L 32 L CK-MB (CK-2) 3.49 Troponin I 0.193 NT-Pro-B Natriuret Pep 03/09/17 03/10/17 03/11/17 21:14 03:01 07:15 Creatine Kinase CK-MB (CK-2) 3.13 Troponin I 0.201 0.233 0.188 NT-Pro-B Natriuret Pep 06688 H 40656 H 03/12/17 04:31 Creatine Kinase CK-MB (CK-2) Troponin I NT-Pro-B Natriuret Pep 65524 H Impressions: Ribs w/Chest X-Ray 03/09/17 00:00 IMPRESSION: NO PNEUMOTHORAX. NO DISPLACED RIB FRACTURES. Congestive failure pattern as noted above. Cervical Spine CT 03/09/17 09:38 IMPRESSION: Degenerative changes without evidence for fracture. Chest CT 03/09/17 09:38 IMPRESSION: Congestive failure pattern as noted above. Other findings as noted above. Head CT 03/09/17 09:38 IMPRESSION: MILD CHRONIC CHANGES OF ATROPHY AND MICROVASCULAR ISCHEMIA. NO ACUTE PROCESS. Hip/Pelvis X-Ray 03/09/17 09:38 IMPRESSION: Status post right hip pinning. No acute changes are identified. Lumbar Spine X-Ray 03/09/17 09:38 IMPRESSION: SPONDYLOSIS WITHOUT BONE LESION OR FRACTURE. Other findings as noted above Thoracentesis Ultrasound 03/22/17 00:00 IMPRESSION: SUCCESSFUL THORACENTESIS USING ULTRASOUND GUIDANCE. Chest X-Ray 03/25/17 00:00 IMPRESSION: 1. Pleural effusions. There appears to be some improvement on the left. 2. Left lower lobe atelectasis or consolidation. 3. Minimal airspace disease in the medial right lung. Plan Discharge Plan: Discharge back to the rehab. Team to physical therapy twice a day. Contact the orthopedic that performed surgical repair of the fractured hip in [place] for any further instructions.
[2017-03-26] MEDS: PSYLLIUM SEED-SF 5.85 GM PACKET PO SCH ×2 (09:34)
[2017-03-26] MEDS: DOCUSATE SODIUM 100 MG CAPSULE PO SCH (09:34)
[2017-03-26] MEDS: LANSOPRAZOLE 30 MG TAB.RAP.DR PO SCH (09:35)
[2017-03-26] MEDS: MAGNESIUM OXIDE 400 MG TABLET PO SCH (09:35)
[2017-03-26] MEDS: FINASTERIDE 5 MG TABLET PO SCH (09:35)
[2017-03-26] MEDS: APIXABAN 2.5 MG TABLET PO SCH (09:35)
[2017-03-26] MEDS: METOPROLOL TARTRATE 25 MG TABLET PO SCH (09:36)
[2017-03-26 12:03] VITALS: BP 116/53
[2017-03-26] MEDS: LEVOTHYROXINE SODIUM 0.05 MG TABLET PO SCH (13:08)
== END 2017-03-26 13:46 | DRG 291 ==
LOC: ER 08:43 → EH 11:57 → UNDOADMIN 11:57 → 3W 12:10 → EH 12:46 → 3W 12:46 → 3N 03-10 16:15
PROVIDERS: ADMIT Internal Medicine; ATTEND Internal Medicine
PROC: 0W9B3ZX Drainage of Left Pleural Cavity, Percutaneous Approach, Diagnostic (ICD-10-PCS; principal; 2017-03-22)
PROC: BB4BZZZ Ultrasonography of Pleura (ICD-10-PCS; 2017-03-22)
DX: I11.0 Hypertensive heart disease with heart failure (principal); J18.9 Pneumonia, unspecified organism; J96.01 Acute respiratory failure with hypoxia; J91.8 Pleural effusion in other conditions classified elsewhere; E87.1 Hypo-osmolality and hyponatremia; E87.2 Acidosis; I50.33 Acute on chronic diastolic (congestive) heart failure; Z66 Do not resuscitate; I95.9 Hypotension, unspecified; I48.2 Chronic atrial fibrillation; S72.141D Displaced intertrochanteric fracture of right femur, subsequent encounter for closed fracture with routine healing; I25.10 Atherosclerotic heart disease of native coronary artery without angina pectoris; E78.5 Hyperlipidemia, unspecified; E03.9 Hypothyroidism, unspecified; J44.9 Chronic obstructive pulmonary disease, unspecified; K21.9 Gastro-esophageal reflux disease without esophagitis; M54.5 Low back pain; M25.551 Pain in right hip; R07.81 Pleurodynia; H91.90 Unspecified hearing loss, unspecified ear; F03.90 Unspecified dementia, unspecified severity, without behavioral disturbance, psychotic disturbance, mood disturbance, and anxiety; R79.89 Other specified abnormal findings of blood chemistry; Z96.653 Presence of artificial knee joint, bilateral; Z79.01 Long term (current) use of anticoagulants; I25.2 Old myocardial infarction; Z86.718 Personal history of other venous thrombosis and embolism; Z86.711 Personal history of pulmonary embolism; Z95.5 Presence of coronary angioplasty implant and graft; Z87.891 Personal history of nicotine dependence
CPT/HCPCS: 32555; 36415; 36600; 70450; 71010; 71020; 71250; 72110; 72125; 80048; 80053; 80061; 80162; 80202; 81001; 82550; 82553; 82803; 82945; 83036; 83615; 83735; 83880; 84132; 84157; 84443; 84484; 85025; 85610; 85730; 87015; 87040; 87070; 87075; 87101; 87116; 87205; 87206; 89050; 93005; 93010; 93306; 94640; 94660; 94799; 96374; 99291; G8978-GP; G8979-GP; J0692; J0696; J1650; J1940; J2060; J2405; J3370; J3490; J7030; J7060; J7620

== ENCOUNTER 2017-03-31 07:03 | Emergency (ER) | payer MEDICARE, OTHER ==
--- NOTE | 2017-03-31 07:23 | ER Document Report ---
ED Fall - General Chief Complaint: Fall Stated Complaint: FALL,HIP PAIN Time Seen by Provider: 03/31/17 07:11 Mode of Arrival: Medic Information source: Patient, Transfer Record Notes: Patient states that he attempted to get up this morning and his foot slipped out from under him causing him to fall. Patient complains of right thigh tenderness. TRAVEL OUTSIDE OF THE [place] IN LAST 30 DAYS: No - HPI Occurred: This morning Where: [facility] Context: Slipped Associated symptoms: Other - r thigh pain Location of injury/pain: Thigh Quality of pain: Achy Pain Level: 1 - Related data Allergies/Adverse Reactions: No Known Allergies Allergy (Verified 03/09/17 08:57) Past Medical History - General Information source: Patient, Transfer Record - Social History Smoking Status: Never Smoker Frequency of alcohol use: None Drug Abuse: None Lives with: [facility] Family History: Reviewed & Not Pertinent, CAD, Other Patient has suicidal ideation: No Patient has homicidal ideation: No - Past Medical History Cardiac Medical History: Reports: Hx Atrial Fibrillation, Hx Congestive Heart Failure, Hx Coronary Artery Disease, Hx DVT, Hx Heart Attack, Hx Hypercholesterolemia, Hx Hypertension, Hx Pulmonary Embolism Pulmonary Medical History: Reports: Hx COPD Renal/ Medical History: Reports: Hx Kidney Stones. Denies: Hx Peritoneal Dialysis GI Medical History: Reports: Hx Gastroesophageal Reflux Disease Musculoskeltal Medical History: Reports Hx Arthritis Psychiatric Medical History: Denies: Hx Bipolar Disorder, Hx Depression, Hx Schizoaffective Disorder Past Surgical History: Reports: Hx Appendectomy, Hx Cardiac Catheterization, Hx Cholecystectomy, Hx Coronary Stent - X2 in 2001, Hx Orthopedic Surgery - Bilateral knee replacements - Immunizations Hx Diphtheria, Pertussis, Tetanus Vaccination: Yes Review of Systems - Review of Systems Constitutional: No symptoms reported EENT: No symptoms reported Cardiovascular: No symptoms reported Respiratory: No symptoms reported Gastrointestinal: No symptoms reported. denies: Nausea, Vomiting Genitourinary: No symptoms reported Male Genitourinary: No symptoms reported Musculoskeletal: Muscle pain - right thigh pain Skin: No symptoms reported Hematologic/Lymphatic: No symptoms reported Neurological/Psychological: No symptoms reported Physical Exam - Vital signs Vitals: Temp Pulse Resp BP Pulse Ox 98.2 F 81 19 111/53 L 96 03/31/17 07:12 03/31/17 07:12 03/31/17 07:12 03/31/17 07:12 03/31/17 07:12 - General General appearance: Appears well, Alert In distress: None - HEENT Head: Normocephalic, Atraumatic Eyes: Normal Neck: Normal, Supple. No: Lymphadenopathy - Respiratory Respiratory status: No respiratory distress Chest status: Nontender Breath sounds: Normal. No: Rales, Rhonchi, Stridor, Wheezing Chest palpation: Normal - Cardiovascular Rhythm: Regular Heart sounds: S1 appreciated, S2 appreciated Murmur: No - Back Back: Normal, Nontender. No: Vertebra tenderness - Extremities General upper extremity: Normal inspection, Normal ROM General lower extremity: Tender - right femur Hip: Normal, Nontender Thigh: Tender, Ecchymosis - r medial thigh Ankle: Normal, Nontender Foot: Edema - Neurological Neuro grossly intact: Yes Cognition: Normal [place] Coma Scale Eye Opening: Spontaneous [place] Coma Scale Verbal: Oriented [place] Coma Scale Motor: Obeys Commands [place] Coma Scale Total: 15 - Psychological Associated symptoms: Normal affect, Normal mood - Skin Skin Temperature: Warm Skin Moisture: Dry Skin Color: Normal Course - Vital Signs Vital signs: Temp Pulse Resp BP Pulse Ox 98.2 F 80 18 119/51 L 96 03/31/17 08:54 03/31/17 09:14 03/31/17 09:14 03/31/17 09:14 03/31/17 09:14 - Diagnostic Test Radiology reviewed: Image reviewed, Reports reviewed Discharge - Discharge Clinical Impression: Fall Qualifiers: Encounter type: initial encounter Qualified Code(s): W19.XXXA - Unspecified fall, initial encounter Contusion of leg Qualifiers: Encounter type: initial encounter Laterality: right Qualified Code(s): S80.11XA - Contusion of right lower leg, initial encounter Condition: Stable Disposition: HOME, SELF-CARE Instructions: Contusion ([facility]) Additional Instructions: Return immediately for any new or worsening symptoms Followup with your primary care provider, call tomorrow to make a followup appointment Take your pain medication that you have prescribed as directed Referrals: DEBBY WADSWORTH MD [Primary Care Provider] - Follow up as needed
--- NOTE | 2017-03-31 08:33 | RADIOLOGY REPORT (SQ) ---
EXAM DESCRIPTION: FEMUR RIGHT COMPLETED DATE/TIME: 03/31/2017 8:11 am REASON FOR STUDY: fall COMPARISON: 03/09/2017 postoperative radiographs. 02/03/2017 preoperative radiographs. NUMBER OF VIEWS: Two views, 4 images of the right femur. LIMITATIONS: None. FINDINGS: Status post open reduction internal fixation of proximal femur fracture, apparently perfor med in January or February. No evidence of change in alignment of fragments at the fracture site. Old di stal right femoral fracture also noted once again. Limiting osteopenia. OTHER: No other significant finding. IMPRESSION: Previous open reduction internal fixation of right proximal femur fracture, similar appe arance compared to mid February postoperative study. No new fracture detected. TECHNICAL DOCUMENTATION: JOB ID: [id number]
--- NOTE | 2017-03-31 08:34 | RADIOLOGY REPORT (SQ) ---
EXAM DESCRIPTION: PELVIS AP COMPLETED DATE/TIME: 03/31/2017 8:11 am REASON FOR STUDY: right hip pain COMPARISON: 03/09/2017. FINDINGS: One view pelvis: Osteopenia. Spondylosis. No pelvic or left hip fracture evident. No ch alesia in right hip fracture post internal fixation. 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 IMPRESSION: 1. No acute pelvic or hip fracture. Unchanged appearance of the right hip, status post open reduction internal fixation of fracture. Limiting osteopenia. TECHNICAL DOCUMENTATION: JOB ID: [id number]
[2017-03-31 09:15] VITALS: BP 119/51
== END 2017-03-31 09:48 | disposition home or self-care (01) ==
LOC: ER 07:03
DX: S70.11XA Contusion of right thigh, initial encounter (principal); W01.0XXA Fall on same level from slipping, tripping and stumbling without subsequent striking against object, initial encounter; Y92.129 Unspecified place in nursing home as the place of occurrence of the external cause; R60.0 Localized edema; I25.10 Atherosclerotic heart disease of native coronary artery without angina pectoris; I25.2 Old myocardial infarction; I10 Essential (primary) hypertension; J44.9 Chronic obstructive pulmonary disease, unspecified; Z86.718 Personal history of other venous thrombosis and embolism; Z86.711 Personal history of pulmonary embolism; Z95.5 Presence of coronary angioplasty implant and graft
CPT/HCPCS: 72170; 99284

== ENCOUNTER 2017-04-14 10:29 | Inpatient (IN) | payer MEDICARE, OTHER ==
--- NOTE | 2017-04-14 11:00 | ER Document Report ---
ED General - General Chief Complaint: Respiratory Arrest Stated Complaint: RESPIRATORY DISTRESS Time Seen by Provider: 04/14/17 10:39 Mode of Arrival: Medic Information source: Emergency Med Personnel Cannot obtain history due to: Altered mental status Notes: 89-year-old male history of congestive heart failure left-sided pleural effusions presents in cardiac arrest from care facility. It is noted that patient was found unresponsive in asystole chest compressions were performed for approximately 5 minutes and patient was found by EMS to have a pulse. On arrival to the emergency department patient is being bagged but not responding to stimuli TRAVEL OUTSIDE OF THE [place] IN LAST 30 DAYS: No - HPI Onset: Just prior to arrival Onset/Duration: Sudden Quality of pain: No pain Severity: Severe Pain Level: Denies Associated symptoms: Weakness Exacerbated by: Denies Relieved by: Denies Similar symptoms previously: Yes Recently seen / treated by doctor: Yes - Related Data Allergies/Adverse Reactions: No Known Allergies Allergy (Verified 04/14/17 10:48) Past Medical History - Social History Smoking Status: Never Smoker Cigarette use (# per day): No Chew tobacco use (# tins/day): No Smoking Education Provided: No Family History: Reviewed & Not Pertinent, CAD, Other - Past Medical History Cardiac Medical History: Reports: Hx Atrial Fibrillation, Hx Congestive Heart Failure, Hx Coronary Artery Disease, Hx DVT, Hx Heart Attack, Hx Hypercholesterolemia, Hx Hypertension, Hx Pulmonary Embolism Pulmonary Medical History: Reports: Hx COPD Renal/ Medical History: Reports: Hx Kidney Stones. Denies: Hx Peritoneal Dialysis GI Medical History: Reports: Hx Gastroesophageal Reflux Disease Musculoskeltal Medical History: Reports Hx Arthritis Psychiatric Medical History: Denies: Hx Bipolar Disorder, Hx Depression, Hx Schizoaffective Disorder Past Surgical History: Reports: Hx Appendectomy, Hx Cardiac Catheterization, Hx Cholecystectomy, Hx Coronary Stent - X2 in 2001, Hx Orthopedic Surgery - Bilateral knee replacements - Immunizations Hx Diphtheria, Pertussis, Tetanus Vaccination: Yes Review of Systems - Review of Systems Notes: PHYSICAL EXAMINATION: GENERAL: Initial GCS of 3 HEAD: Atraumatic, normocephalic. EYES: Pupils equal round and reactive to light, extraocular movements intact, sclera anicteric, conjunctiva are normal. ENT: Nares patent, oropharynx clear without exudates. Moist mucous membranes. NECK: Normal range of motion, supple without lymphadenopathy LUNGS: Very coarse breath sounds on the left HEART: Tachycardic ABDOMEN: Soft, nontender, nondistended abdomen. No guarding, no rebound. No masses appreciated. Musculoskeletal: Normal range of motion, no pitting or edema. No cyanosis. NEUROLOGICAL: Improvement of GCS to 8 SKIN: Bruising of the thigh -: Yes ROS unobtainable due to patient's medical condition Physical Exam - Vital signs Vitals: BP 124/75 04/14/17 10:29 Course - Re-evaluation Re-evalutation: 04/14/17 10:59 pt at this time is sititng up on 2 L nc satting 95% responding wit mumbles to some questions but following commands 04/14/17 11:16 Patient was noted to have descended immediately down 66, I backed him back up to 98%, patient placed on BiPAP 04/14/17 11:38 X-ray is consistent with left-sided pleural effusion He is currently on BiPAP hypercapnea is noted Juan J Mcdaniel MD has been paged for admission 04/14/17 11:51 Dr [facility] admitted ot dr curtis 04/14/17 12:08 On arrival to the emergency department patient had return of circulation, given his depressed respiratory status I had a very long conversation with family and they requested DNR status. Therefore patient was not intubated however I did give the patient Narcan which after approximately 2-3 minutes did improve his symptoms, EMS did note care facility stated that he was receiving narcotics. Patient was then placed on nasal cannula and did well for approximately 20 minutes but then became quite hypoxic again. Imaging labwork a result at this point which noted hypercapnia secondary to probable large effusion congestive heart failure which I believe is causing his altered mental status. - Vital Signs Vital signs: Temp Pulse Resp BP Pulse Ox 19 124/70 97 04/14/17 11:31 04/14/17 11:31 04/14/17 11:31 - Laboratory Result Diagrams: 04/14/17 11:20 04/14/17 10:35 Laboratory results interpreted by me: 04/14/17 04/14/17 04/14/17 10:35 10:35 11:20 RBC 3.75 L Hgb 12.4 L MCV 103 H D RDW 20.3 H Seg Neutrophils % 80.5 H Lymphocytes % 11.5 L VBG pH 7.10 L* VBG pCO2 132.0 H* VBG HCO3 39.7 H Carbon Dioxide 32 H BUN 41 H Creatinine 1.56 H Est GFR ( Amer) 51 L Est GFR (Non-Af Amer) 42 L Glucose 117 H Direct Bilirubin 0.7 H AST 180 H ALT 165 H Alkaline Phosphatase 146 H Creatine Kinase < 20 L Total Protein 6.1 L Albumin 3.3 L - Diagnostic Test Radiology reviewed: Image reviewed, Reports reviewed - Report given to patient' s family - EKG Interpretation by Me EKG shows normal: [place], Intervals, QRS Complexes Rhythm: A.Fib Critical Care Note - Critical Care Note Total time excluding time spent on procedures (mins): 45 Comments: 45 minutes of critical care time spent in direct contact evaluating and reevaluating the patient, treating symptoms, reviewing labs and studies and speaking with family and consultants excluding any procedures Discharge - Discharge Clinical Impression: Acute on chronic diastolic (congestive) heart failure, Pleural effusion, Respiratory acidosis, Asystole, DNR (do not resuscitate), DNI (do not intubate) Respiratory failure Qualifiers: Chronicity: acute on chronic Respiratory failure complication: hypercapnia Qualified Code(s): J96.22 - Acute and chronic respiratory failure with hypercapnia Acute on chronic congestive heart failure Qualifiers: Congestive heart failure type: diastolic Qualified Code(s): I50.33 - Acute on chronic diastolic (congestive) heart failure Pneumonia Qualifiers: Pneumonia type: due to unspecified organism Laterality: left Lung location: upper lobe of lung Qualified Code(s): J18.1 - Lobar pneumonia, unspecified organism Atrial fibrillation Qualifiers: Atrial fibrillation type: chronic Qualified Code(s): I48.2 - Chronic atrial fibrillation Condition: Critical Disposition: ADMITTED INPATIENT Admitting Provider: Hospitalist Unit Admitted: ICU
[2017-04-14 11:01] LABS: VENOUS BLOOD BASE EXCESS 5.8 mmol/L; VENOUS BLOOD HCO3 39.7 mmol/L (20-32)
--- NOTE | 2017-04-14 11:10 | RADIOLOGY REPORT (SQ) ---
EXAM DESCRIPTION: CHEST SINGLE VIEW COMPLETED DATE/TIME: 04/14/2017 10:58 am REASON FOR STUDY: unresponsive post arrest COMPARISON: 03/25/2017. EXAM PARAMETERS: NUMBER OF VIEWS: One view. TECHNIQUE: Single frontal radiographic view of the chest acquired. RADIATION DOSE: NA LIMITATIONS: None. FINDINGS: LUNGS AND PLEURA: Airspace disease throughout the left lung with left pleural effusion. MEDIASTINUM AND HILAR STRUCTURES: No masses. Contour normal. HEART AND VASCULAR STRUCTURES: Cardiomegaly. BONES: No acute findings. HARDWARE: Clips in the upper abdomen. OTHER: No other significant finding. IMPRESSION: CARDIOMEGALY. AIRSPACE DISEASE IN THE LEFT LUNG WITH LEFT PLEURAL EFFUSION. DIFFERENTI AL INCLUDES PNEUMONIA OR ASYMMETRIC PULMONARY EDEMA. TECHNICAL DOCUMENTATION: JOB ID: [id number]
[2017-04-14 11:12] LABS: ALANINE AMINOTRANSFERASE 165 U/L (21-72); ALBUMIN 3.3 g/dL (3.5-5.0); ALKALINE PHOSPHATASE 146 U/L (38-126); ANION GAP 10 (5-19); ASPARTATE AMINO TRANSFERASE 180 U/L (17-59); BILIRUBIN,DIRECT 0.7 mg/dL (0.0-0.4); BILIRUBIN,TOTAL 0.9 mg/dL (0.2-1.3); BLOOD UREA NITROGEN 41 mg/dL (7-20); CARBON DIOXIDE 32 mmol/L (22-30); CHLORIDE 100 mmol/L (98-107); CREATININE RESULT 1.56 mg/dL (0.52-1.25); GLUCOSE 117 mg/dL (75-110); POTASSIUM 4.7 mmol/L (3.6-5.0); SODIUM 142.1 mmol/L (137-145); TOTAL PROTEIN 6.1 g/dL (6.3-8.2); VENOUS BLOOD PH 7.1 (7.30-7.42)
[2017-04-14 11:13] LABS: CREATINE KINASE < 20 U/L (55-170)
[2017-04-14 11:23] LABS: CREATINE KINASE MB 2.75 ng/mL (<4.55)
[2017-04-14 11:27] LABS: TROPONIN I 0.46 ng/mL
[2017-04-14 11:30] LABS: ABSOLUTE LYMPHOCYTES (AUTO) 0.5 10^3/uL (0.5-4.7); ABSOLUTE MONOCYTES (AUTO) 0.4 10^3/uL (0.1-1.4); ABSOLUTE NEUT (AUTO) 3.7 10^3/uL (1.7-8.2); BASOPHILS % (AUTO) 0.2 % (0-2); HEMATOCRIT 38.5 % (37.9-51.0); HEMOGLOBIN 12.4 g/dL (13.5-17.0); HGB HCT DIFFERENCE -1.3; LYMPHOCYTES % (AUTO) 11.5 % (13-45); MEAN CORPUSCULAR HEMOGLOBIN 33.1 pg (27.0-33.4); MEAN CORPUSCULAR HGB CONC 32.3 g/dL (32.0-36.0); MONOCYTES % (AUTO) 7.8 % (3-13); RED BLOOD COUNT 3.75 10^6/uL (4.35-5.55); RED CELL DISTRIBUTION WIDTH 20.3 % (11.5-14.0); SEGMENTED NEUTROPHILS % (AUTO) 80.5 % (42-78); WHITE BLOOD COUNT 4.6 10^3/uL (4.0-10.5)
[2017-04-14] MEDS ORDERED: CEFTRIAXONE 1 GM/D5W RTU 1 GM/50 ML RTUPB IV ONE (11:33)
[2017-04-14 11:34] LABS: MEAN CORPUSCULAR VOLUME 103 fl (80-97)
[2017-04-14] MEDS ORDERED: ONDANSETRON HCL INJ/PF 4 MG/2 ML SDV IV PRN (12:18)
[2017-04-14] MEDS ORDERED: ACETAMINOPHEN 325 MG TABLET PO PRN (12:18)
[2017-04-14 12:34] LABS: PROTHROMBIN TIME 17.6 SEC (11.4-15.4)
[2017-04-14] MEDS ORDERED: LEVOTHYROXINE SODIUM INJ/PF 0.5 MG SDV IV ONE (12:58)
[2017-04-14] MEDS ORDERED: IPRATROPIUM/ALBUTEROL 0.5-2.5 MG/3 ML AMPUL NEB ONE (14:30)
[2017-04-14] MEDS ORDERED: ENOXAPARIN SODIUM INJ 30 MG/0.3 ML DISP.SYRIN SUBCUT ONE (15:00)
--- NOTE | 2017-04-14 15:03 | HISTORY AND PHYSICAL E ---
History and Physical NAME: AMINATA ROSENBAUM : 1925 AGE: 89Y ADMITTED: 04/14/2017 ROOM: ED50 CHIEF COMPLAINT: The patient brought because he was unresponsive and had cardiopulmonary arrest. HISTORY OF PRESENT ILLNESS: The patient is an 89-year-old male who has multiple medical problems including congestive heart failure with ejection fraction of 55 and he has mild diastolic heart failure, atrial fibrillation, coronary artery disease, history of DVT, ID, hyperlipidemia, hypertension, pulmonary embolism, COPD, and he also had left thoracentesis last admission. He was recently discharged to rehab. Today he was at rehab and the patient's daughter was visiting him and she found him unresponsive. She called the nurse and the nurse did CPR and they called the ambulance and the patient had CPR and was placed on oxygen and he bagged. The patient is DNR and when he came to the emergency room, his pH is 7.1 and PCO2 is 132 and he was placed on BiPAP. He is very confused and not responding. His other labs showed white blood count 4.6 and his potassium is 4.7. REVIEW OF SYSTEMS: Difficult to obtain, obtainable. PAST MEDICAL HISTORY: 1. Congestive heart failure. 2. History of left pleural effusion status post thoracentesis. 3. Chronic hypoxic respiratory failure, hypercapnic. 4. Atrial fibrillation. 5. Coronary artery disease. 6. COPD. 7. History of pneumonia. 8. Chronic hyponatremia. 9. Fracture intertrochanteric right femur. 10. Dementia. PAST SURGICAL HISTORY: 1. Right trochanteric fracture. 2. Appendectomy. 3. Cardiac catheterization. 4. Cholecystectomy. 5. Stent placement in 2001. 6. Bilateral knee replacement. FAMILY HISTORY: Coronary artery disease. SOCIAL HISTORY: The patient is a former smoker. He has kids; he has a son. Now he is at rehab, the patient. HOME MEDICATIONS: Last time he was discharged on: 1. Simvastatin 80 mg daily. 2. Eliquis 1 mg p.o. b.i.d. 3. Dorzolamide drops. 4. Zetia 10 mg daily. 5. Colace. 6. Levothyroxine 0.05 mg daily. 7. Tramadol. 8. Tylenol. 9. Eliquis 2.5 mg twice a day. 10. Prevacid. 11. Magnesium oxide. 12. Metoprolol. 13. Oxycodone. 14. Risperdal. 15. Flomax. ALLERGIES: No known drug allergies. PHYSICAL EXAMINATION: GENERAL: The patient is lying in bed, not in distress. VITAL SIGNS: Temperature is afebrile. Heart rate 89, blood pressure 104/57, heart rate 72, saturation 98%. HEENT: Normocephalic, atraumatic. Pupils are equal, round and reactive to light bilaterally. Extraocular movements are intact. No headache or dizziness. Ears: Tympanic membranes intact bilaterally. No discharge from the ear, no discharge from the nose. NECK: Supple, no increased JVD, no thyromegaly, no lymphadenopathy. CARDIOVASCULAR: Normal S1,S2. Irregular rate and rhythm. No murmur, no gallop. CARDIOVASCULAR: Normal S1,S2. Regular rate and rhythm. No murmur, no gallop. RESPIRATORY: Decreased air entry bilaterally. GASTROINTESTINAL: Soft. MUSCULOSKELETAL: No edema. NEUROLOGIC: Awake and alert. SKIN: No rash. DIAGNOSTIC DATA: Labs: White blood count 12.6, hemoglobin 12.4. ABG: pH 7.1, PCO2 132, sodium 142, potassium 4.7, troponin is 0.4, AST is elevated at 180, ALT 165, alkaline phosphatase 146. ASSESSMENT: 1. Status post cardiopulmonary arrest. 2. Respiratory failure secondary to chronic obstructive pulmonary disease. 3. Large left pleural effusion. 4. Mild diastolic heart failure. 5. Dementia. 6. Hypothyroidism. 7. Chronic obstructive pulmonary disease. 8. Atrial fibrillation, rate controlled. PLAN: 1. Admit the patient to [facility]. 2. The patient is DNR. 3. He is not responding, will hold oral medications and will change some of them to IV. 4. We will put him on BiPAP and consult Pulmonary in the morning. 5. We will order ultrasound-guided thoracentesis. 6. Labs tomorrow morning. 7. Code status: DNR/DNI. DICTATING PHYSICIAN: JAZMINE LEE M.D. [id number] PHY#: [id number] ID: [id number] JOB#: [id number] ACCT: [id number] cc:JAZMINE LEE M.D. >
[2017-04-14] MEDS ORDERED: LEVOTHYROXINE SODIUM INJ/PF 0.1 MG SDV IV ONE (16:00)
[2017-04-14 17:09] LABS: ARTERIAL BLOOD BASE EXCESS 2.8 mmol/L; ARTERIAL BLOOD O2 SATURATION 94.4 % (94-98)
[2017-04-14] MEDS: METOPROLOL TARTRATE PF/INJ 5 MG/5 ML SDV IV SCH (19:32)
[2017-04-14] MEDS: FAMOTIDINE INJ/PF 20 MG/2 ML SDV IV SCH (21:01)
[2017-04-14] MEDS ORDERED: ZOLPIDEM TARTRATE 5 MG TABLET PO SCH (22:00)
[2017-04-14] MEDS ORDERED: FAMOTIDINE INJ/PF 20 MG/2 ML SDV IV SCH (22:00)
--- NOTE | 2017-04-14 23:31 | EKG REPORT ---
SEVERITY:- ABNORMAL ECG - ATRIAL FIBRILLATION LVH WITH SECONDARY REPOLARIZATION ABNORMALITY PROBABLE INFERIOR INFARCT, OLD ANTERIOR Q WAVES, POSSIBLY DUE TO LVH : Confirmed by: Susi Sin 14-Apr-2017 23:31:16
[2017-04-15] MEDS ORDERED: NORMAL SALINE 1000 ML 1,000 ML IV PRN ×2 (00:40→00:41)
[2017-04-15] MEDS ORDERED: NORMAL SALINE 500 ML IV PRN (01:57)
[2017-04-15 05:42] LABS: ABSOLUTE LYMPHOCYTES (AUTO) 0.9 10^3/uL (0.5-4.7); ABSOLUTE MONOCYTES (AUTO) 0.6 10^3/uL (0.1-1.4); ABSOLUTE NEUT (AUTO) 6.5 10^3/uL (1.7-8.2); BASOPHILS % (AUTO) 0.1 % (0-2); HEMATOCRIT 36.1 % (37.9-51.0); HEMOGLOBIN 11.8 g/dL (13.5-17.0); HGB HCT DIFFERENCE -0.7; LYMPHOCYTES % (AUTO) 10.7 % (13-45); MEAN CORPUSCULAR HEMOGLOBIN 34.2 pg (27.0-33.4); MEAN CORPUSCULAR HGB CONC 32.7 g/dL (32.0-36.0); MEAN CORPUSCULAR VOLUME 105 fl (80-97); RED BLOOD COUNT 3.45 10^6/uL (4.35-5.55); RED CELL DISTRIBUTION WIDTH 20.7 % (11.5-14.0); SEGMENTED NEUTROPHILS % (AUTO) 81.2 % (42-78)
[2017-04-15 06:04] LABS: ANION GAP 8 (5-19); BLOOD UREA NITROGEN 48 mg/dL (7-20); CALCIUM 8.4 mg/dL (8.4-10.2); CARBON DIOXIDE 32 mmol/L (22-30); CHLORIDE 103 mmol/L (98-107); CREATININE RESULT 1.51 mg/dL (0.52-1.25); GLUCOSE 89 mg/dL (75-110); MAGNESIUM 2.3 mg/dL (1.6-2.3); PHOSPHORUS 7.6 mg/dL (2.5-4.5); SODIUM 143.3 mmol/L (137-145)
[2017-04-15 06:06] LABS: POTASSIUM 4.6 mmol/L (3.6-5.0)
[2017-04-15 06:39] LABS: ARTERIAL BLOOD BASE EXCESS 0.6 mmol/L; ARTERIAL BLOOD O2 SATURATION 97.8 % (94-98)
[2017-04-15] MEDS ORDERED: ENOXAPARIN SODIUM INJ 30 MG/0.3 ML DISP.SYRIN SUBCUT SCH (10:00)
[2017-04-15] MEDS ORDERED: LEVOTHYROXINE SODIUM INJ/PF 0.5 MG SDV IV ONE (10:00)
[2017-04-15] MEDS: FAMOTIDINE INJ/PF 20 MG/2 ML SDV IV SCH ×2 (10:25→21:16)
[2017-04-15] MEDS: METOPROLOL TARTRATE PF/INJ 5 MG/5 ML SDV IV SCH ×2 (10:25→18:08)
[2017-04-15] MEDS: LEVOTHYROXINE SODIUM INJ/PF 0.1 MG SDV IV SCH (10:26)
[2017-04-15 10:47] LABS: TOTAL PROTEIN 5.1 g/dL (6.3-8.2)
[2017-04-15] MEDS ORDERED: DEXTROSE 50%-WATER 25 GM/50 ML DISP.SYRIN IV PRN ×2 (11:10)
[2017-04-15] MEDS ORDERED: DEXTROSE 40% GEL 15 GM TUBE PO PRN ×2 (11:10)
[2017-04-15] MEDS ORDERED: GLUCAGON,HUMAN RECOMB 1 MG INJ SUBCUT PRN (11:10)
--- NOTE | 2017-04-15 11:17 | PDOC PROGRESS REPORT ---
Subjective Progress Note for:: 04/15/17 Subjective:: Nursing states that pt is confused. Nursing states that pt is scheduled for thoracentesis. 3 attempts to call family but no answer. One hour later family was in room who state that pt was well until he fell at home and had surgery on his hip. Pt's son states that his father was the one who took care of his mother. Son states that he had problems with fluid on his lungs during last admission. Pt's Son states that his daughter which is the patient's granddaughter [facility]. Son states that the [facility] never discussed code status with family. Son states that pt is DNR but they do want us to do what we can to make him better. Pt in agreement with thoracentesis. Physical Exam Vital Signs: Temp Pulse Resp BP Pulse Ox 97.9 F 110 H 27 H 133/93 H 94 04/15/17 08:01 04/15/17 08:01 04/15/17 08:01 04/15/17 08:01 04/15/17 08:01 Intake & Output 04/14/17 04/15/17 04/16/17 06:59 06:59 06:59 Intake Total 1500 Balance 1500 Weight 75.3 kg General appearance: PRESENT: other - Appears stated age, + bipap in place family present at bedside, + pt not able to follow commands Head exam: PRESENT: atraumatic, normocephalic Eye exam: PRESENT: other - eyes closed Mouth exam: PRESENT: moist, tongue midline Neck exam: ABSENT: carotid bruit, JVD, lymphadenopathy, thyromegaly Respiratory exam: PRESENT: other - Diminished breath sound on left side, fair airmovement upper lobes. Cardiovascular exam: PRESENT: irregular rhythm, tachycardia Pulses: PRESENT: normal dorsalis pedis pul Vascular exam: PRESENT: normal capillary refill GI/Abdominal exam: PRESENT: normal bowel sounds, soft. ABSENT: distended, guarding, mass, organolmegaly, rebound, tenderness Rectal exam: PRESENT: deferred Extremities exam: PRESENT: full ROM. ABSENT: calf tenderness, clubbing, pedal edema Neurological exam: PRESENT: other - sleeping, difficult to awake. Family states that pt opened his eyes Skin exam: PRESENT: dry, warm. ABSENT: cyanosis, rash Results Laboratory Results: 04/15/17 04:49 04/14/17 04/15/17 04/15/17 16:54 04:49 04:49 WBC 8.0 RBC 3.45 L Hgb 11.8 L Hct 36.1 L MCV 105 H MCH 34.2 H MCHC 32.7 RDW 20.7 H Plt Count 120 L Seg Neutrophils % 81.2 H Lymphocytes % 10.7 L Monocytes % 8.0 Eosinophils % 0.0 Basophils % 0.1 Absolute Neutrophils 6.5 Absolute Lymphocytes 0.9 Absolute Monocytes 0.6 Absolute Eosinophils 0.0 Absolute Basophils 0.0 Carbonic Acid 2.72 H HCO3/H2CO3 Ratio 12:1 ABG pH 7.19 L* ABG pCO2 90.5 H* ABG pO2 90.8 ABG HCO3 33.7 H ABG O2 Saturation 94.4 ABG Base Excess 2.8 FiO2 80% Sodium 143.3 Potassium 4.6 Chloride 103 Carbon Dioxide 32 H Anion Gap 8 BUN 48 H Creatinine 1.51 H Est GFR ( Amer) 53 L Est GFR (Non-Af Amer) 44 L Glucose 89 Calcium 8.4 Phosphorus 7.6 H Magnesium 2.3 04/15/17 06:20 WBC RBC Hgb Hct MCV MCH MCHC RDW Plt Count Seg Neutrophils % Lymphocytes % Monocytes % Eosinophils % Basophils % Absolute Neutrophils Absolute Lymphocytes Absolute Monocytes Absolute Eosinophils Absolute Basophils Carbonic Acid 2.57 H HCO3/H2CO3 Ratio 12:1 ABG pH 7.18 L* ABG pCO2 85.4 H* ABG pO2 134.8 H ABG HCO3 31.1 H ABG O2 Saturation 97.8 ABG Base Excess 0.6 FiO2 80% Sodium Potassium Chloride Carbon Dioxide Anion Gap BUN Creatinine Est GFR ( Amer) Est GFR (Non-Af Amer) Glucose Calcium Phosphorus Magnesium 04/14/17 04/14/17 04/15/17 13:10 19:10 01:10 Troponin I 0.459 0.539 0.608 NT-Pro-B Natriuret Pep 04/15/17 04:49 Troponin I NT-Pro-B Natriuret Pep 79007 H Impressions: Chest X-Ray 04/14/17 10:41 IMPRESSION: CARDIOMEGALY. AIRSPACE DISEASE IN THE LEFT LUNG WITH LEFT PLEURAL EFFUSION. DIFFERENTIAL INCLUDES PNEUMONIA OR ASYMMETRIC PULMONARY EDEMA. Assessment & Plan - Diagnosis (1) Acute on chronic respiratory failure with hypoxia and hypercapnia Is this a current diagnosis for this admission?: Yes Plan: Secondary to Acute on Chronic Diastolic CHF, Left Pleural Effusion, and COPD: Pt currently on BIPAP. Pt scheduled to have thoracentesis today. Pulmonary following pt. Pulmonary has order pleural fluid study. (2) Recurrent left pleural effusion Is this a current diagnosis for this admission?: Yes Plan: Most likely secondary to Poorly controlled rate control and Diastolic CHF: Pt scheduled for thoracentesis today. Pt currently on BIPAP. (3) Acute metabolic encephalopathy Is this a current diagnosis for this admission?: Yes Plan: Secondary to CO2 Narcosis: Will continue BIPAP. (4) CO2 narcosis Is this a current diagnosis for this admission?: Yes Plan: Will continue BIPAP (5) Hyponatremia Is this a current diagnosis for this admission?: Yes Plan: Resolved. (6) Acute on chronic diastolic (congestive) heart failure Is this a current diagnosis for this admission?: Yes Plan: Pt scheduled for thoracentesis. Pt has been hypotensive over the night and given additional fluid. Pt's 2 D Echo demonstrated EF 55 and moderate hypertension. (7) Atrial fibrillation Qualifiers: Atrial fibrillation type: chronic Qualified Code(s): I48.2 - Chronic atrial fibrillation Is this a current diagnosis for this admission?: Yes Plan: Metoprolol ordered currently. Will make additional changes today. (8) COPD (chronic obstructive pulmonary disease) Qualifiers: Emphysema type: unspecified Is this a current diagnosis for this admission?: Yes Plan: Pt currently appears to have problems with CHF. (9) Hypertension Qualifiers: Hypertension type: unspecified Qualified Code(s): I10 - Essential (primary ) hypertension Is this a current diagnosis for this admission?: Yes Plan: Pt currently hypotensive. Will continue to monitor. (10) Hyperlipidemia Qualifiers: Hyperlipidemia type: unspecified Qualified Code(s): E78.5 - Hyperlipidemia , unspecified Is this a current diagnosis for this admission?: Yes Plan: Statin held due to mental status (11) Dementia Is this a current diagnosis for this admission?: Yes Plan: Supportive care. (12) Fracture, intertrochanteric, right femur Qualifiers: Encounter type: initial encounter Fracture type: closed Fracture alignment: displaced Qualified Code(s): S72.141A - Displaced intertrochanteric fracture of right femur, initial encounter for closed fracture Is this a current diagnosis for this admission?: Yes Plan: S/P Pinning of Right Femur: Supportive care. (13) DNR (do not resuscitate) Is this a current diagnosis for this admission?: Yes Plan: Family request DNR for now. - Time Time Spent with patient: 25-34 minutes - Spoke to Nursing, Dr. Pires, and Family.
--- NOTE | 2017-04-15 12:40 | RADIOLOGY REPORT (SQ) ---
EXAM DESCRIPTION: CHEST SINGLE VIEW COMPLETED DATE/TIME: 04/15/2017 12:31 pm REASON FOR STUDY: thoracentisis COMPARISON: 04/14/2017 EXAM PARAMETERS: NUMBER OF VIEWS: One view. TECHNIQUE: Single frontal radiographic view of the chest acquired. RADIATION DOSE: NA LIMITATIONS: None. FINDINGS: LUNGS AND PLEURA: Chronic interstitial lung changes are present. There is marked opacific ation right mid to lower lung. Right pleural effusion is suggested. Left side is clear. MEDIASTINUM AND HILAR STRUCTURES: No masses. Contour normal. HEART AND VASCULAR STRUCTURES: The with mild pulmonary vascular congestion. BONES: No acute findings. HARDWARE: None in the chest. OTHER: No other significant finding. IMPRESSION: There is marked opacification in the right lung suggestive of airspace disease and likel y pleural effusion. There is interval clearing the left lung. Cardiomegaly is present. TECHNICAL DOCUMENTATION: JOB ID: [id number]
--- NOTE | 2017-04-15 13:07 | PDOC CONSULTATION ---
Consultation Consult Date: 04/15/17 Attending physician:: JAZMINE LEE Consult reason:: R Pleural effusion/acute resp failure History of Present Illness Admission Date/PCP: 04/14/17 12:18 MARCIE URIAS, History of Present Illness: AMINATA ROSENBAUM is a 89 year old male resident of [facility] was found unresponsive and resuscitated despite the fact he had a history of being a DNR.His DNR was reinstituted at this institution he was placed on BiPAP after being found to have a profound respiratory acidosis and a large right pleural effusion. He is currently somnolent but not tachypneic on BiPAP and high flow oxygen.He is currently confused and extremely lethargic and no family members are at the bedside. Past Medical History Cardiac Medical History: Reports: Atrial Fibrillation, Congestive Heart Failure , Coronary Artery Disease, DVT, Myocardial Infarction, Hyperlipidema, Hypertension, Pulmonary Embolism Pulmonary Medical History: Reports: Chronic Obstructive Pulmonary Disease (COPD) GI Medical History: Reports: Gastroesophageal Reflux Disease Musculoskeltal Medical History: Reports: Arthritis Psychiatric Medical History: Denies: Bipolar Disorder, Depression, Schizoaffective Disorder Hematology: Denies: Anemia Past Surgical History Past Surgical History: Reports: Appendectomy, Cardiac Catheterization, Cholecystectomy, Coronary Stent - X2 in 2001, Orthopedic Surgery - Bilateral knee replacements Social History Information Source: [facility] Records Lives with: Spouse/Significant other Smoking Status: Smoker,Current Status Unk Passive smoke exposure as: Both Frequency of Alcohol Use: Rare Hx Recreational Drug Use: No Hx Prescription Drug Abuse: No - Advance Directive Resuscitation Status: Do Not Resuscitate Family History Family History: Reviewed & Not Pertinent, CAD, Other Parental Family History Reviewed: No Children Family History Reviewed: No Sibling(s) Family History Reviewed.: No Medication/Allergy Home Medications: Acetaminophen [Tylenol 325 mg Tablet] 650 mg PO Q4HP PRN 04/14/17 Albuterol Sulfate [Ventolin 0.083% Neb 2.5 mg/3 mL Ampul] 2.5 mg NEB RTQ6 Apixaban [Eliquis 2.5 mg Tablet] 2.5 mg PO Q12 04/14/17 Docusate Sodium [Colace 100 mg Capsule] 100 mg PO Q12 04/14/17 Dorzolamide HCl/Timolol Maleat [Cosopt Oph Soln 10 ml] 1 drop OS Q12 04/14/17 Ezetimibe [Zetia 10 mg Tablet] 10 mg PO DAILY 04/14/17 Finasteride [Proscar 5 mg Tablet] 5 mg PO DAILY 04/14/17 Lansoprazole [Prevacid 30 mg Odt Tablet] 30 mg PO DAILY 04/14/17 Levothyroxine Sodium [Synthroid 0.05 mg Tablet] 50 mcg PO DAILY 04/14/17 Magnesium Hydroxide [Milk of Magnesia 30 ml Udcup] 30 ml PO HSP PRN 04/14/17 Metoprolol Tartrate [Lopressor 25 mg Tablet] 6.25 mg PO Q12 04/14/17 Nitroglycerin [Nitrostat 0.4 mg (1/150 Gr) Tabs 25/Bottle] 1 tab SL Q5MP PRN Oxycodone HCl [Oxy-Ir 5 mg Tablet] 5 mg PO Q6HP PRN 04/14/17 Psyllium Husk [Metamucil] 0.52 gm PO DAILY 04/14/17 Risperidone [Risperdal 1 mg Tablet] 1 mg PO QHS 04/14/17 Simvastatin [Zocor 80 mg Tablet] 80 mg PO QHS 04/14/17 Tamsulosin HCl [Flomax 0.4 mg Cap.sr] 0.4 mg PO ACSUPPER 04/14/17 Tramadol HCl [Ultram 50 mg Tablet] 50 mg PO Q12HP PRN 04/14/17 Vit A/Vit C/Vit E/Zinc/Copper [Preservision Areds Softgel] 1 cap PO DAILY Allergies/Adverse Reactions: No Known Allergies Allergy (Verified 04/14/17 10:48) Review of Systems ROS unobtainable: Due to mental status Physical Exam Vital Signs: Temp Pulse Resp BP Pulse Ox 97.9 F 110 H 27 H 133/93 H 94 04/15/17 08:01 04/15/17 08:01 04/15/17 08:01 04/15/17 08:01 04/15/17 08:01 Intake & Output 04/14/17 04/15/17 04/16/17 06:59 06:59 06:59 Intake Total 1500 Balance 1500 Weight 75.3 kg General appearance: PRESENT: disheveled, mild distress, obese, well-developed Head exam: PRESENT: atraumatic, normocephalic Eye exam: PRESENT: conjunctiva pale, EOMI Mouth exam: PRESENT: dry mucosa, neck supple, tongue midline Neck exam: ABSENT: carotid bruit, JVD, lymphadenopathy, thyromegaly Respiratory exam: PRESENT: decreased breath sounds - Breath sounds much more decreased on the right than the left.He has some egophony at the right base, prolonged expiratory phas, rales, rhonchi. ABSENT: stridor, tachypnea, unlabored Cardiovascular exam: PRESENT: RRR, +S1, +S2 Pulses: PRESENT: normal radial pulses GI/Abdominal exam: PRESENT: normal bowel sounds, soft. ABSENT: distended, guarding, mass, organolmegaly, rebound, tenderness Rectal exam: PRESENT: deferred Gentrourinary exam: PRESENT: indwelling catheter Extremities exam: PRESENT: +1 edema Neurological exam: PRESENT: awake Skin exam: PRESENT: dry, warm Results Laboratory Results: 04/15/17 04:49 04/15/17 04:49 04/14/17 04/15/17 04/15/17 16:54 04:49 04:49 WBC 8.0 RBC 3.45 L Hgb 11.8 L Hct 36.1 L MCV 105 H MCH 34.2 H MCHC 32.7 RDW 20.7 H Plt Count 120 L Seg Neutrophils % 81.2 H Lymphocytes % 10.7 L Monocytes % 8.0 Eosinophils % 0.0 Basophils % 0.1 Absolute Neutrophils 6.5 Absolute Lymphocytes 0.9 Absolute Monocytes 0.6 Absolute Eosinophils 0.0 Absolute Basophils 0.0 Carbonic Acid 2.72 H HCO3/H2CO3 Ratio 12:1 ABG pH 7.19 L* ABG pCO2 90.5 H* ABG pO2 90.8 ABG HCO3 33.7 H ABG O2 Saturation 94.4 ABG Base Excess 2.8 FiO2 80% Sodium 143.3 Potassium 4.6 Chloride 103 Carbon Dioxide 32 H Anion Gap 8 BUN 48 H Creatinine 1.51 H Est GFR ( Amer) 53 L Est GFR (Non-Af Amer) 44 L Glucose 89 Calcium 8.4 Phosphorus 7.6 H Magnesium 2.3 04/15/17 06:20 WBC RBC Hgb Hct MCV MCH MCHC RDW Plt Count Seg Neutrophils % Lymphocytes % Monocytes % Eosinophils % Basophils % Absolute Neutrophils Absolute Lymphocytes Absolute Monocytes Absolute Eosinophils Absolute Basophils Carbonic Acid 2.57 H HCO3/H2CO3 Ratio 12:1 ABG pH 7.18 L* ABG pCO2 85.4 H* ABG pO2 134.8 H ABG HCO3 31.1 H ABG O2 Saturation 97.8 ABG Base Excess 0.6 FiO2 80% Sodium Potassium Chloride Carbon Dioxide Anion Gap BUN Creatinine Est GFR ( Amer) Est GFR (Non-Af Amer) Glucose Calcium Phosphorus Magnesium 04/14/17 04/14/17 04/15/17 13:10 19:10 01:10 Troponin I 0.459 0.539 0.608 NT-Pro-B Natriuret Pep 04/15/17 04:49 Troponin I NT-Pro-B Natriuret Pep [id number] H Impressions: Chest X-Ray 04/14/17 10:41 IMPRESSION: CARDIOMEGALY. AIRSPACE DISEASE IN THE LEFT LUNG WITH LEFT PLEURAL EFFUSION. DIFFERENTIAL INCLUDES PNEUMONIA OR ASYMMETRIC PULMONARY EDEMA. Assessment & Plan - Diagnosis (1) Asystole Is this a current diagnosis for this admission?: Yes Plan: SP code stable at this time (2) Pleural effusion Is this a current diagnosis for this admission?: Yes Plan: Large right-sided pleural effusion less patient is made comfort care thoracentesis should be initiated (3) Acute respiratory failure with hypoxia Is this a current diagnosis for this admission?: Yes Plan: Optimize BiPAP/AVAP (4) COPD (chronic obstructive pulmonary disease) Qualifiers: Is this a current diagnosis for this admission?: Yes Plan: bronchodilator therapy as tolerated - Plan Summary Plan Summary: status not well defined at this time
[2017-04-15 13:41] LABS: FLUID APPEARANCE CLEAR; FLUID RBC AVERAGE 212.5; FLUID RBC DILUENT USED NONE USED; FLUID RBC DILUTION FACTOR 1; FLUID RBC SIDE 1 212; FLUID RBC SIDE 2 213; FLUID TYPE PLEURAL
[2017-04-15 13:42] LABS: TOTAL RBC SQUARES COUNTED FLD 200
[2017-04-15 14:15] LABS: ARTERIAL BLOOD BASE EXCESS 2.9 mmol/L; ARTERIAL BLOOD O2 SATURATION 89.4 % (94-98)
--- NOTE | 2017-04-15 14:48 | RADIOLOGY REPORT (SQ) ---
EXAM DESCRIPTION: CHEST SINGLE VIEW COMPLETED DATE/TIME: 04/15/2017 2:30 pm REASON FOR STUDY: 2HR S/P THORACENTESIS COMPARISON: 04/15/2017. EXAM PARAMETERS: NUMBER OF VIEWS: One view. TECHNIQUE: Single frontal radiographic view of the chest acquired. RADIATION DOSE: NA LIMITATIONS: None. FINDINGS: LUNGS AND PLEURA: Diffuse opacity in the right lung with pleural effusion unchanged. Left lung relatively clear. No pneumothorax. MEDIASTINUM AND HILAR STRUCTURES: No masses. Contour normal. HEART AND VASCULAR STRUCTURES: Heart upper limits of normal in size. Normal vasculature. BONES: No acute findings. HARDWARE: None in the chest. OTHER: No other significant finding. IMPRESSION: NO CHANGE IN APPEARANCE OF THE CHEST. NO PNEUMOTHORAX FOLLOWING THORACENTESIS. TECHNICAL DOCUMENTATION: JOB ID: [id number]
--- NOTE | 2017-04-15 14:49 | RADIOLOGY REPORT (SQ) ---
EXAM DESCRIPTION: U/S THORACENTESIS WITH IMAGING COMPLETED DATE/TIME: 04/15/2017 12:26 pm REASON FOR STUDY: Left pleural effusion COMPARISON: None. LIMITATIONS: None. PROCEDURE: Procedure, risks, benefit, and alternative explained to patient who then gave written con sent. The posterior left chest wall was marked using ultrasound guidance. A time-out was called for correct marking verification. Chest prepped and draped using sterile technique. Local anesthesia ac hieved using 5 ml of 1% lidocaine injection. A 5fr needle/catheter set was introduced into the left pleural space. Fluid was aspirated. The catheter was removed and the entry site was covered with st erile bandage. No immediate complications noted. Images acquired during the procedure were stored on PACS. FINDINGS: ENTRY SITE: Posterior left chest. FLUID VOLUME: 900 mL. FLUID ANALYSIS: Clear straw-colored. OTHER: Fluid sent to the lab for testing. IMPRESSION: SUCCESSFUL THORACENTESIS USING ULTRASOUND GUIDANCE. COMMENT: Patient medication list reviewed: Yes- Quality ID# [id number]:Eligible professional attests to doc umenting in the medical record they obtained, updated, or reviewed the patient's current medications. Quality ID #[id number]: Final reports for procedures using fluoroscopy that document radiation exposure cathryn jacqueline, or exposure time and number of fluorographic images (if radiation exposure indices are not avail able) TECHNICAL DOCUMENTATION: JOB ID: [id number] [employer]- All Rights Reserved
--- NOTE | 2017-04-16 10:52 | PDOC PROGRESS REPORT ---
Subjective Progress Note for:: 04/16/17 Subjective:: Confused but cooperative significantly improved over the last 24 hours Physical Exam Vital Signs: Temp Pulse Resp BP Pulse Ox 97.7 F 96 16 103/48 L 96 04/16/17 07:09 04/16/17 07:09 04/16/17 07:09 04/16/17 07:09 04/16/17 07:09 Intake & Output 04/15/17 04/16/17 04/17/17 06:59 06:59 06:59 Intake Total 1500 64 Balance 1500 64 Weight 75.3 kg 77 kg General appearance: PRESENT: no acute distress, cooperative, disheveled, well- developed, well-nourished Head exam: PRESENT: atraumatic, normocephalic Eye exam: PRESENT: conjunctiva pale, EOMI Mouth exam: PRESENT: dry mucosa, neck supple Neck exam: ABSENT: carotid bruit, JVD, lymphadenopathy, thyromegaly Respiratory exam: PRESENT: decreased breath sounds, prolonged expiratory phas, rhonchi, symmetrical, unlabored. ABSENT: retraction, stridor, tachypnea, wheezes Cardiovascular exam: PRESENT: RRR, +S1, +S2 Pulses: PRESENT: normal radial pulses GI/Abdominal exam: PRESENT: normal bowel sounds, soft. ABSENT: distended, guarding, mass, organolmegaly, rebound, tenderness Rectal exam: PRESENT: deferred Gentrourinary exam: PRESENT: indwelling catheter Musculoskeletal exam: PRESENT: normal inspection Neurological exam: PRESENT: awake Skin exam: PRESENT: dry, warm Results Laboratory Results: 04/15/17 04:49 04/15/17 10:01 04/15/17 04/15/17 04/15/17 10:01 12:05 13:40 Carbonic Acid 1.91 H HCO3/H2CO3 Ratio 16:1 ABG pH 7.30 L ABG pCO2 63.4 H ABG pO2 63.3 L ABG HCO3 30.8 H ABG O2 Saturation 89.4 L ABG Base Excess 2.9 FiO2 80% Glucose 88 Total Protein 5.1 L Fluid Type PLEURAL Fluid Source THORACENTESIS Fluid Color YELLOW Fluid Appearance CLEAR Fluid Viscosity LIQUID Fluid WBC 135 Fluid RBC 265 04/14/17 04/14/17 04/15/17 13:10 19:10 01:10 Troponin I 0.459 0.539 0.608 NT-Pro-B Natriuret Pep 04/15/17 04:49 Troponin I NT-Pro-B Natriuret Pep 57623 H Impressions: Thoracentesis Ultrasound 04/15/17 12:40 IMPRESSION: SUCCESSFUL THORACENTESIS USING ULTRASOUND GUIDANCE. Chest X-Ray 04/15/17 14:20 IMPRESSION: NO CHANGE IN APPEARANCE OF THE CHEST. NO PNEUMOTHORAX FOLLOWING THORACENTESIS. Assessment & Plan - Diagnosis (1) Asystole Is this a current diagnosis for this admission?: No (2) Pleural effusion Is this a current diagnosis for this admission?: Yes Plan: Labs- All tests 24 hr 04/15/17 04/15/17 04/15/17 04:49 10:01 12:05 Glucose 89 Lactate Dehydrogenase 544 Total Protein 5.1 L Fluid Type PLEURAL Fluid Source THORACENTESIS Fluid Color YELLOW Fluid Appearance CLEAR Fluid Viscosity LIQUID Fluid WBC 135 Fluid RBC 265 Fluid Seg Neutrophils 7 Fluid Lymphocytes 84 Fluid Monocytes 9 Fluid Glucose Fluid Total Protein Fluid LDH 04/15/17 04/15/17 12:05 12:05 Glucose Lactate Dehydrogenase Total Protein Fluid Type Fluid Source Fluid Color Fluid Appearance Fluid Viscosity Fluid WBC Fluid RBC Fluid Seg Neutrophils Fluid Lymphocytes Fluid Monocytes Fluid Glucose Pending Fluid Total Protein Pending Fluid LDH Pending (3) Acute respiratory failure with hypoxia Is this a current diagnosis for this admission?: No (4) COPD (chronic obstructive pulmonary disease) Qualifiers: Is this a current diagnosis for this admission?: Yes Plan: Improved continue supplemental oxygen and bronchodilator therapy
[2017-04-16] MEDS: ENOXAPARIN SODIUM INJ 30 MG/0.3 ML DISP.SYRIN SUBCUT SCH (13:12)
[2017-04-16] MEDS: FAMOTIDINE INJ/PF 20 MG/2 ML SDV IV SCH ×2 (13:12→21:16)
[2017-04-16] MEDS: LEVOTHYROXINE SODIUM INJ/PF 0.1 MG SDV IV SCH (13:13)
[2017-04-16] MEDS: METOPROLOL TARTRATE PF/INJ 5 MG/5 ML SDV IV SCH ×2 (13:13→17:38)
[2017-04-16 13:59] LABS: GLUCOSE BODY FLUID 98 mg/dL (.)
--- NOTE | 2017-04-16 17:08 | PDOC PROGRESS REPORT ---
Subjective Progress Note for:: 04/16/17 Subjective:: Pt confused this morning. Family present who states that pt has been having more confusion since his fall. Son states that at home he would have episodes of confusion but very mild. Physical Exam Vital Signs: Temp Pulse Resp BP Pulse Ox 97.5 F 87 18 99/45 L 91 L 04/16/17 15:05 04/16/17 15:05 04/16/17 15:05 04/16/17 15:05 04/16/17 15:05 Intake & Output 04/15/17 04/16/17 04/17/17 06:59 06:59 06:59 Intake Total 1500 64 504 Balance 1500 64 504 Weight 75.3 kg 77 kg General appearance: PRESENT: mild distress, other - appears stated age. Head exam: PRESENT: atraumatic, normocephalic Eye exam: PRESENT: conjunctiva pink, EOMI. ABSENT: scleral icterus Ear exam: PRESENT: normal external ear exam Mouth exam: PRESENT: moist, tongue midline Neck exam: ABSENT: carotid bruit, JVD, lymphadenopathy, thyromegaly Respiratory exam: PRESENT: other - Good breath sounds upper lobes. Diminished at bases bilaterally. Cardiovascular exam: PRESENT: RRR. ABSENT: diastolic murmur, rubs, systolic murmur Pulses: PRESENT: normal dorsalis pedis pul Vascular exam: PRESENT: normal capillary refill GI/Abdominal exam: PRESENT: normal bowel sounds, soft. ABSENT: distended, guarding, mass, organolmegaly, rebound, tenderness Rectal exam: PRESENT: deferred Extremities exam: PRESENT: full ROM. ABSENT: calf tenderness, clubbing, pedal edema Neurological exam: PRESENT: awake, other - pt states that he can see the back of his head and talking to people that are not present. Psychiatric exam: PRESENT: appropriate affect, normal mood. ABSENT: homicidal ideation, suicidal ideation Skin exam: PRESENT: dry, intact, warm. ABSENT: cyanosis, rash Results Laboratory Results: 04/15/17 04:49 04/15/17 10:01 04/15/17 04/15/17 12:05 12:05 Fluid Glucose 98 Fluid Total Protein 1.2 Fluid LDH 71 04/15/17 17:30 Sputum Gram Stain - Final 04/14/17 04/14/17 04/15/17 13:10 19:10 01:10 Troponin I 0.459 0.539 0.608 NT-Pro-B Natriuret Pep 04/15/17 04:49 Troponin I NT-Pro-B Natriuret Pep 00202 H Impressions: Thoracentesis Ultrasound 04/15/17 12:40 IMPRESSION: SUCCESSFUL THORACENTESIS USING ULTRASOUND GUIDANCE. Chest X-Ray 04/15/17 14:20 IMPRESSION: NO CHANGE IN APPEARANCE OF THE CHEST. NO PNEUMOTHORAX FOLLOWING THORACENTESIS. Assessment & Plan - Diagnosis (1) Acute on chronic respiratory failure with hypoxia and hypercapnia Is this a current diagnosis for this admission?: Yes Plan: Resolving. Will continue NC. Will check VBG. (2) Recurrent left pleural effusion Is this a current diagnosis for this admission?: Yes Plan: S/P Thoracentesis: Will continue to monitor. . (3) Acute metabolic encephalopathy Is this a current diagnosis for this admission?: Yes Plan: Resolving. Will continue to monitor. (4) CO2 narcosis Is this a current diagnosis for this admission?: Yes Plan: Resolving. Will check VBG. (5) Hyponatremia Is this a current diagnosis for this admission?: Yes Plan: Resolved. (6) Acute on chronic diastolic (congestive) heart failure Is this a current diagnosis for this admission?: Yes Plan: Pt current with Acute renal injury. Will hold on dialysis. (7) Atrial fibrillation Qualifiers: Atrial fibrillation type: chronic Qualified Code(s): I48.2 - Chronic atrial fibrillation Is this a current diagnosis for this admission?: Yes Plan: Will give Metoprolol 6.25mg PO BID (8) COPD (chronic obstructive pulmonary disease) Qualifiers: Emphysema type: unspecified Is this a current diagnosis for this admission?: Yes Plan: Pt currently appears to have problems with CHF. (9) Hypertension Qualifiers: Hypertension type: unspecified Qualified Code(s): I10 - Essential (primary ) hypertension Is this a current diagnosis for this admission?: Yes Plan: Pt currently hypotensive. Will continue to monitor. (10) Hyperlipidemia Qualifiers: Hyperlipidemia type: unspecified Qualified Code(s): E78.5 - Hyperlipidemia , unspecified Is this a current diagnosis for this admission?: Yes Plan: Statin (11) Dementia Is this a current diagnosis for this admission?: Yes Plan: Supportive care. (12) Acute kidney injury superimposed on CKD Is this a current diagnosis for this admission?: Yes Plan: Will continue to monitor. (13) Fracture, intertrochanteric, right femur Qualifiers: Encounter type: initial encounter Fracture type: closed Fracture alignment: displaced Qualified Code(s): S72.141A - Displaced intertrochanteric fracture of right femur, initial encounter for closed fracture Is this a current diagnosis for this admission?: Yes Plan: S/P Pinning of Right Femur: Supportive care. (14) DNR (do not resuscitate) Is this a current diagnosis for this admission?: Yes Plan: Family request DNR . - Time Time Spent with patient: 15-24 minutes Anticipated discharge: Home
[2017-04-16] MEDS ORDERED: SIMVASTATIN 40 MG TABLET PO ONE (18:00)
[2017-04-16 18:12] LABS: VENOUS BLOOD BASE EXCESS 8.2 mmol/L; VENOUS BLOOD HCO3 36.2 mmol/L (20-32); VENOUS BLOOD PH 7.33 (7.30-7.42)
[2017-04-16 18:20] LABS: VENOUS BLOOD PCO2 70.8 mmHg (35-63)
[2017-04-16] MEDS ORDERED: METOPROLOL TARTRATE PF/INJ 5 MG/5 ML SDV IV PRN (19:42)
--- NOTE | 2017-04-16 19:47 | PDOC CONSULTATION ---
Consultation Consult Date: 04/16/17 Attending physician:: TONIO WHALEY Consult reason:: Congestive heart failure History of Present Illness Admission Date/PCP: 04/14/17 12:18 MARCIE URIAS, Patient complains of: Shortness of breath History of Present Illness: AMINATA ROSENBAUM is a 89 year old male resident of [facility] was found unresponsive and resuscitated despite the fact he had a history of being a DNR.His DNR was reinstituted at this institution he was placed on BiPAP after being found to have a profound respiratory acidosis and a large right pleural effusion. He is currently somnolent but not tachypneic on BiPAP and high flow oxygen.He is currently confused and extremely lethargic and no family members are at the bedside. Patient currently on bilevel therapy and seems somewhat agitated and confused. Patient was seen by me earlier just about a month ago. Past Medical History Cardiac Medical History: Reports: Atrial Fibrillation, Congestive Heart Failure , Coronary Artery Disease, DVT, Myocardial Infarction, Hyperlipidema, Hypertension, Pulmonary Embolism Pulmonary Medical History: Reports: Chronic Obstructive Pulmonary Disease (COPD) GI Medical History: Reports: Gastroesophageal Reflux Disease Musculoskeltal Medical History: Reports: Arthritis Psychiatric Medical History: Denies: Bipolar Disorder, Depression, Schizoaffective Disorder Hematology: Denies: Anemia Past Surgical History Past Surgical History: Reports: Appendectomy, Cardiac Catheterization, Cholecystectomy, Coronary Stent - X2 in 2001, Orthopedic Surgery - Bilateral knee replacements Social History Information Source: [facility] Records Lives with: Spouse/Significant other Smoking Status: Smoker,Current Status Unk Frequency of Alcohol Use: Rare Hx Recreational Drug Use: No Hx Prescription Drug Abuse: No - Advance Directive Resuscitation Status: Do Not Resuscitate Family History Family History: Reviewed & Not Pertinent, CAD, Other Parental Family History Reviewed: Yes Children Family History Reviewed: Yes Sibling(s) Family History Reviewed.: Yes Medication/Allergy Home Medications: Acetaminophen [Tylenol 325 mg Tablet] 650 mg PO Q4HP PRN 04/14/17 Albuterol Sulfate [Ventolin 0.083% Neb 2.5 mg/3 mL Ampul] 2.5 mg NEB RTQ6 Apixaban [Eliquis 2.5 mg Tablet] 2.5 mg PO Q12 04/14/17 Docusate Sodium [Colace 100 mg Capsule] 100 mg PO Q12 04/14/17 Dorzolamide HCl/Timolol Maleat [Cosopt Oph Soln 10 ml] 1 drop OS Q12 04/14/17 Ezetimibe [Zetia 10 mg Tablet] 10 mg PO DAILY 04/14/17 Finasteride [Proscar 5 mg Tablet] 5 mg PO DAILY 04/14/17 Lansoprazole [Prevacid 30 mg Odt Tablet] 30 mg PO DAILY 04/14/17 Levothyroxine Sodium [Synthroid 0.05 mg Tablet] 50 mcg PO DAILY 04/14/17 Magnesium Hydroxide [Milk of Magnesia 30 ml Udcup] 30 ml PO HSP PRN 04/14/17 Metoprolol Tartrate [Lopressor 25 mg Tablet] 6.25 mg PO Q12 04/14/17 Nitroglycerin [Nitrostat 0.4 mg (1/150 Gr) Tabs 25/Bottle] 1 tab SL Q5MP PRN Oxycodone HCl [Oxy-Ir 5 mg Tablet] 5 mg PO Q6HP PRN 04/14/17 Psyllium Husk [Metamucil] 0.52 gm PO DAILY 04/14/17 Risperidone [Risperdal 1 mg Tablet] 1 mg PO QHS 04/14/17 Simvastatin [Zocor 80 mg Tablet] 80 mg PO QHS 04/14/17 Tamsulosin HCl [Flomax 0.4 mg Cap.sr] 0.4 mg PO ACSUPPER 04/14/17 Tramadol HCl [Ultram 50 mg Tablet] 50 mg PO Q12HP PRN 04/14/17 Vit A/Vit C/Vit E/Zinc/Copper [Preservision Areds Softgel] 1 cap PO DAILY Allergies/Adverse Reactions: No Known Allergies Allergy (Verified 04/14/17 10:48) Review of Systems Review of Systems: Cannot be obtained because of patient's mental status. No family members around at this time Physical Exam Vital Signs: Temp Pulse Resp BP Pulse Ox 97.5 F 87 18 99/45 L 91 L 04/16/17 15:05 04/16/17 15:05 04/16/17 15:05 04/16/17 15:05 04/16/17 15:05 Intake & Output 09/18/17 09/19/17 09/20/17 06:59 06:59 06:59 Intake Total 1500 64 722 Balance 1500 64 722 Weight 75.3 kg 77 kg Exam: GENERAL: well-nourished and in no acute distress. Patient is alert but not oriented to place time or person. HEAD: Atraumatic, normocephalic. EYES: Pupils equal round and reactive to light, extraocular movements intact, sclera anicteric, conjunctiva are normal. ENT: TMs normal, nares patent, oropharynx clear without exudates. Moist mucous membranes. No oral ulcerations or bleeding gums noted NECK: supple without lymphadenopathy or JVD. Trachea is central. No cervical or axillary lymphadenopathy noted. Carotids are 2+ LUNGS: Breath sounds bibasilar fine crackles at bases. Right more than left. Right basal dullness noted no wheezing noted. CHEST: Palpation of chest wall shows no significant chest wall tenderness. HEART: [place] [employer], No PSH, 2/6 XOCHILT aortic area, 1/6 jane systolic murmur mitral area, rubs or gallops. ABDOMEN: Soft, no significant tenderness appreciated, normoactive bowel sounds. No guarding, no rebound. No rigidity noted . No masses appreciated. EXTREMITIES: Pedal pulses are 1-2+, no calf tenderness noted, 1 + pedal edema noted. No clubbing or cyanosis. NEUROLOGICAL: Patient is alert but is not able to participate in neurological exam because of patient's current mental status PSYCH: Patient cannot participate in a neurologic and psych exam because of the patient's current mental status SKIN: No significant ecchymosis, rash, ulcerations or signs of pruritus noted. MUSCULOSKELETAL EXAM: No significant joint swelling noted. Results Laboratory Results: 04/15/17 04:49 04/15/17 10:01 04/15/17 04/15/17 04/16/17 12:05 12:05 17:15 VBG pH Cancelled VBG pCO2 Cancelled VBG HCO3 Cancelled VBG Base Excess Cancelled Fluid Glucose 98 Fluid Total Protein 1.2 Fluid LDH 71 04/16/17 18:00 VBG pH 7.33 VBG pCO2 70.8 H* VBG HCO3 36.2 H VBG Base Excess 8.2 Fluid Glucose Fluid Total Protein Fluid LDH 04/15/17 17:30 Sputum Gram Stain - Final 09/17/17 09/17/17 09/18/17 13:10 19:10 01:10 Troponin I 0.459 0.539 0.608 NT-Pro-B Natriuret Pep 04/15/17 04:49 Troponin I NT-Pro-B Natriuret Pep 54617 H EKG Comments: Atrial fibrillation, QS complex anterior precordial lead consistent with prior anterior myocardial infarction but could well be LVH related. Impressions: Thoracentesis Ultrasound 04/15/17 12:40 IMPRESSION: SUCCESSFUL THORACENTESIS USING ULTRASOUND GUIDANCE. Chest X-Ray 04/15/17 14:20 IMPRESSION: NO CHANGE IN APPEARANCE OF THE CHEST. NO PNEUMOTHORAX FOLLOWING THORACENTESIS. Assessment & Plan - Diagnosis (1) Acute on chronic diastolic (congestive) heart failure Is this a current diagnosis for this admission?: Yes (2) Acute on chronic respiratory failure with hypoxia and hypercapnia Is this a current diagnosis for this admission?: Yes (3) Atrial fibrillation Qualifiers: Atrial fibrillation type: chronic Qualified Code(s): I48.2 - Chronic atrial fibrillation Is this a current diagnosis for this admission?: Yes (4) Acute kidney injury superimposed on CKD Is this a current diagnosis for this admission?: Yes (5) Coronary artery disease Qualifiers: Coronary Disease-Associated Artery/Lesion type: [place] artery Associated angina: angina presence unspecified Is this a current diagnosis for this admission?: Yes (6) Elevated troponin I level Is this a current diagnosis for this admission?: Yes - Notes Notes: Acute on chronic diastolic heart failure. Patient noted to have a little bit: Patient noted to have elevated blood pressure JVP. Patient has bilateral pleural effusion. Recommend IV Lasix 20 mg twice daily. Coronary artery disease with abnormal troponin I elevation: Treat with aspirin, statins and beta-javan. Patient not a candidate for ischemia evaluation. Acute on chronic respiratory failure: Continue with noninvasive positive pressure ventilation. Atrial fibrillation: Continue DVT prophylaxis dose for Lovenox. Patient probably not a candidate for chronic anticoagulation. Acute on chronic superimposed CKD currently is stable. Monitor renal functions. - Time Time Spent: 30 to 50 Minutes - CODE STATUS : was discussed, patient remains DO NOT RESUSCITATE. Surrogate decision-maker unchanged. Multiple medical problems were addressed. More than 50% of the time spent coordinating care, discussing management plans with involved caregivers. Management plans discussed with involved personnels. Medical decision making was of moderate to high complexity, patient's has multiple comorbidities. Medications reviewed and adjusted accordingly: Yes
[2017-04-16] MEDS ORDERED: FUROSEMIDE INJ/PF 20 MG/2 ML SDV IV ONE (20:30)
[2017-04-16] MEDS: RANOLAZINE 500 MG TAB.SR.12H PO SCH (21:16)
[2017-04-16] MEDS: METOPROLOL SUCCINATE 25 MG TAB.SR.24H PO SCH (21:16)
[2017-04-17] MEDS ORDERED: FUROSEMIDE INJ/PF 20 MG/2 ML SDV IV SCH (06:00)
[2017-04-17] MEDS: ENOXAPARIN SODIUM INJ 30 MG/0.3 ML DISP.SYRIN SUBCUT SCH (09:28)
[2017-04-17] MEDS: FAMOTIDINE INJ/PF 20 MG/2 ML SDV IV SCH ×2 (09:36→21:24)
[2017-04-17] MEDS: LEVOTHYROXINE SODIUM INJ/PF 0.1 MG SDV IV SCH (09:36)
[2017-04-17] MEDS: RANOLAZINE 500 MG TAB.SR.12H PO SCH ×2 (09:37→21:26)
[2017-04-17] MEDS: METOPROLOL SUCCINATE 25 MG TAB.SR.24H PO SCH ×2 (09:37→21:26)
[2017-04-17 10:57] LABS: ANION GAP 7 (5-19); BLOOD UREA NITROGEN 41 mg/dL (7-20); CALCIUM 8.8 mg/dL (8.4-10.2); CARBON DIOXIDE 39 mmol/L (22-30); CHLORIDE 101 mmol/L (98-107); CREATININE RESULT 0.97 mg/dL (0.52-1.25); GLUCOSE 113 mg/dL (75-110); POTASSIUM 3.6 mmol/L (3.6-5.0)
--- NOTE | 2017-04-17 11:21 | PDOC PROGRESS REPORT ---
Subjective Progress Note for:: 04/17/17 Subjective:: Confused but cooperative Physical Exam Vital Signs: Temp Pulse Resp BP Pulse Ox 97.5 F 90 12 111/64 100 04/17/17 07:27 04/17/17 07:27 04/17/17 07:27 04/17/17 07:27 04/17/17 07:27 Intake & Output 04/16/17 04/17/17 04/18/17 06:59 06:59 06:59 Intake Total 64 1108 Balance 64 1108 Weight 77 kg 74.7 kg General appearance: PRESENT: no acute distress, cooperative, disheveled, thin, well-developed Head exam: PRESENT: atraumatic, normocephalic Eye exam: PRESENT: conjunctiva pale, EOMI Mouth exam: PRESENT: dry mucosa, neck supple, tongue midline Neck exam: ABSENT: carotid bruit, JVD, lymphadenopathy, thyromegaly Respiratory exam: PRESENT: decreased breath sounds - Especially right hemithorax , prolonged expiratory phas, rales - Right base, rhonchi, unlabored. ABSENT: retraction, stridor, symmetrical, tachypnea Cardiovascular exam: PRESENT: RRR, +S1, +S2 Pulses: PRESENT: normal radial pulses GI/Abdominal exam: PRESENT: normal bowel sounds, soft. ABSENT: distended, guarding, mass, organolmegaly, rebound, tenderness Rectal exam: PRESENT: deferred Gentrourinary exam: PRESENT: indwelling catheter Extremities exam: PRESENT: +1 edema Neurological exam: PRESENT: awake. ABSENT: alert, oriented to place, oriented to time, oriented to situation Skin exam: PRESENT: dry, warm Results Laboratory Results: 04/15/17 04:49 04/17/17 10:12 04/15/17 04/15/17 04/16/17 12:05 12:05 17:15 VBG pH Cancelled VBG pCO2 Cancelled VBG HCO3 Cancelled VBG Base Excess Cancelled Sodium Potassium Chloride Carbon Dioxide Anion Gap BUN Creatinine Est GFR ( Amer) Est GFR (Non-Af Amer) Glucose Calcium Fluid Glucose 98 Fluid Total Protein 1.2 Fluid LDH 71 04/16/17 04/17/17 18:00 10:12 VBG pH 7.33 VBG pCO2 70.8 H* VBG HCO3 36.2 H VBG Base Excess 8.2 Sodium 147.0 H Potassium 3.6 Chloride 101 Carbon Dioxide 39 H Anion Gap 7 BUN 41 H Creatinine 0.97 Est GFR ( Amer) > 60 Est GFR (Non-Af Amer) > 60 Glucose 113 H Calcium 8.8 Fluid Glucose Fluid Total Protein Fluid LDH 04/15/17 17:30 Sputum Gram Stain - Final 04/14/17 04/14/17 04/15/17 13:10 19:10 01:10 Troponin I 0.459 0.539 0.608 NT-Pro-B Natriuret Pep 04/15/17 04:49 Troponin I NT-Pro-B Natriuret Pep 11327 H Impressions: Thoracentesis Ultrasound 04/15/17 12:40 IMPRESSION: SUCCESSFUL THORACENTESIS USING ULTRASOUND GUIDANCE. Chest X-Ray 04/15/17 14:20 IMPRESSION: NO CHANGE IN APPEARANCE OF THE CHEST. NO PNEUMOTHORAX FOLLOWING THORACENTESIS. Assessment & Plan - Diagnosis (1) Asystole Is this a current diagnosis for this admission?: No (2) Pleural effusion Is this a current diagnosis for this admission?: Yes (3) Acute respiratory failure with hypoxia Is this a current diagnosis for this admission?: No (4) COPD (chronic obstructive pulmonary disease) Qualifiers: Is this a current diagnosis for this admission?: Yes Plan: Hypercapnic respiratory failure persist utmost importance the patient with BiPAP and minimal when he sleeping
--- NOTE | 2017-04-17 12:40 | PDOC PROGRESS REPORT ---
Subjective Progress Note for:: 04/17/17 Physical Exam Vital Signs: Temp Pulse Resp BP Pulse Ox 97.4 F 86 20 100/45 L 96 04/17/17 11:16 04/17/17 11:16 04/17/17 11:16 04/17/17 11:16 04/17/17 11:45 Intake & Output 04/16/17 04/17/17 04/18/17 06:59 06:59 06:59 Intake Total 64 1108 Balance 64 1108 Weight 77 kg 74.7 kg Results Laboratory Results: 04/15/17 04:49 04/17/17 10:12 04/15/17 04/15/17 04/16/17 12:05 12:05 17:15 VBG pH Cancelled VBG pCO2 Cancelled VBG HCO3 Cancelled VBG Base Excess Cancelled Sodium Potassium Chloride Carbon Dioxide Anion Gap BUN Creatinine Est GFR ( Amer) Est GFR (Non-Af Amer) Glucose Calcium Fluid Glucose 98 Fluid Total Protein 1.2 Fluid LDH 71 04/16/17 04/17/17 18:00 10:12 VBG pH 7.33 VBG pCO2 70.8 H* VBG HCO3 36.2 H VBG Base Excess 8.2 Sodium 147.0 H Potassium 3.6 Chloride 101 Carbon Dioxide 39 H Anion Gap 7 BUN 41 H Creatinine 0.97 Est GFR ( Amer) > 60 Est GFR (Non-Af Amer) > 60 Glucose 113 H Calcium 8.8 Fluid Glucose Fluid Total Protein Fluid LDH 04/15/17 17:30 Sputum Gram Stain - Final 04/14/17 04/14/17 04/15/17 13:10 19:10 01:10 Troponin I 0.459 0.539 0.608 NT-Pro-B Natriuret Pep 04/15/17 04:49 Troponin I NT-Pro-B Natriuret Pep 36877 H Impressions: Thoracentesis Ultrasound 04/15/17 12:40 IMPRESSION: SUCCESSFUL THORACENTESIS USING ULTRASOUND GUIDANCE. Chest X-Ray 04/15/17 14:20 IMPRESSION: NO CHANGE IN APPEARANCE OF THE CHEST. NO PNEUMOTHORAX FOLLOWING THORACENTESIS. Assessment & Plan - Diagnosis (1) Acute on chronic respiratory failure with hypoxia and hypercapnia Is this a current diagnosis for this admission?: Yes Plan: Resolving. Will continue BIPAP and NC. (2) Recurrent left pleural effusion Is this a current diagnosis for this admission?: Yes Plan: S/P Thoracentesis: Will continue to monitor. . (3) Acute metabolic encephalopathy Is this a current diagnosis for this admission?: Yes Plan: Resolving. Will continue to monitor. (4) CO2 narcosis Is this a current diagnosis for this admission?: Yes Plan: Resolving. Will continue to use BIPAP. (5) Hypernatremia Is this a current diagnosis for this admission?: Yes Plan: Secondary to Intravascular Depletion: Will stop Na. (6) Hyponatremia Is this a current diagnosis for this admission?: Yes Plan: Resolved. (7) Acute on chronic diastolic (congestive) heart failure Is this a current diagnosis for this admission?: Yes Plan: Complex case due to pt third spacing fluid and intravascular depleted. (8) Atrial fibrillation Qualifiers: Atrial fibrillation type: chronic Qualified Code(s): I48.2 - Chronic atrial fibrillation Is this a current diagnosis for this admission?: Yes Plan: Will give Metoprolol 6.25mg PO BID (9) COPD (chronic obstructive pulmonary disease) Qualifiers: Emphysema type: unspecified Is this a current diagnosis for this admission?: Yes Plan: Pt currently appears to have problems with CHF. (10) Hypertension Qualifiers: Hypertension type: unspecified Qualified Code(s): I10 - Essential (primary ) hypertension Is this a current diagnosis for this admission?: Yes Plan: Pt currently hypotensive. Will continue to monitor. (11) Hyperlipidemia Qualifiers: Hyperlipidemia type: unspecified Qualified Code(s): E78.5 - Hyperlipidemia , unspecified Is this a current diagnosis for this admission?: Yes Plan: Statin (12) Dementia Is this a current diagnosis for this admission?: Yes Plan: Supportive care. (13) Acute kidney injury superimposed on CKD Is this a current diagnosis for this admission?: Yes Plan: Will continue to monitor. (14) Fracture, intertrochanteric, right femur Qualifiers: Encounter type: initial encounter Fracture type: closed Fracture alignment: displaced Qualified Code(s): S72.141A - Displaced intertrochanteric fracture of right femur, initial encounter for closed fracture Is this a current diagnosis for this admission?: Yes Plan: S/P Pinning of Right Femur: Supportive care. (15) DNR (do not resuscitate) Is this a current diagnosis for this admission?: Yes Plan: Family request DNR . Will speak to family about Hospice. Pt's overall prognosis poor. - Time Time Spent with patient: 15-24 minutes
[2017-04-17] MEDS: SIMVASTATIN 40 MG TABLET PO SCH (21:26)
[2017-04-18 00:20] LABS: BLOOD UREA NITROGEN 44 mg/dL (7-20); CALCIUM 8.8 mg/dL (8.4-10.2); CREATININE RESULT 0.86 mg/dL (0.52-1.25); GLUCOSE 111 mg/dL (75-110); MAGNESIUM 2.3 mg/dL (1.6-2.3)
[2017-04-18 01:02] LABS: ANION GAP 5 (5-19); CARBON DIOXIDE 37 mmol/L (22-30); CHLORIDE 106 mmol/L (98-107); POTASSIUM 3.8 mmol/L (3.6-5.0); SODIUM 148.4 mmol/L (137-145)
[2017-04-18 06:17] LABS: ANION GAP 6 (5-19); BLOOD UREA NITROGEN 43 mg/dL (7-20); CALCIUM 8.8 mg/dL (8.4-10.2); CARBON DIOXIDE 38 mmol/L (22-30); CHLORIDE 103 mmol/L (98-107); CREATININE RESULT 0.84 mg/dL (0.52-1.25); GLUCOSE 91 mg/dL (75-110); POTASSIUM 3.7 mmol/L (3.6-5.0); SODIUM 146.8 mmol/L (137-145)
[2017-04-18] MEDS: METOPROLOL SUCCINATE 25 MG TAB.SR.24H PO SCH ×2 (09:51→21:58)
[2017-04-18] MEDS: RANOLAZINE 500 MG TAB.SR.12H PO SCH ×2 (09:54→21:58)
[2017-04-18] MEDS: FAMOTIDINE INJ/PF 20 MG/2 ML SDV IV SCH (09:54)
[2017-04-18] MEDS: LEVOTHYROXINE SODIUM INJ/PF 0.1 MG SDV IV SCH (09:56)
--- NOTE | 2017-04-18 10:31 | PDOC PROGRESS REPORT ---
Subjective Progress Note for:: 04/17/17 Subjective:: Patient seems to be doing much better after diuresis with IV Lasix. His respiration is much improved and he looks much pinker. Patient maintaining atrial fibrillation. Physical Exam Vital Signs: Temp Pulse Resp BP Pulse Ox 97.7 F 53 L 12 112/82 100 04/17/17 15:47 04/17/17 15:47 04/17/17 15:47 04/17/17 15:47 04/17/17 15:47 Intake & Output 04/16/17 04/17/17 04/18/17 06:59 06:59 06:59 Intake Total 64 1108 546 Balance 64 1108 546 Weight 77 kg 74.7 kg Exam: GENERAL: well-nourished and in no acute distress. Patient is alert but not oriented to place time or person. HEAD: Atraumatic, normocephalic. EYES: Pupils equal round and reactive to light, extraocular movements intact, sclera anicteric, conjunctiva are normal. ENT: TMs normal, nares patent, oropharynx clear without exudates. Moist mucous membranes. No oral ulcerations or bleeding gums noted NECK: supple without lymphadenopathy or JVD. Trachea is central. No cervical or axillary lymphadenopathy noted. Carotids are 2+ LUNGS: Breath sounds bibasilar fine crackles at bases. Right-sided diminished breath sound and mild dullness noted CHEST: Palpation of chest wall shows no significant chest wall tenderness. 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 ABDOMEN: Soft, no significant tenderness appreciated, normoactive bowel sounds. No guarding, no rebound. No rigidity noted . No masses appreciated. EXTREMITIES: Pedal pulses are 1-2+, no calf tenderness noted, Trace + pedal edema noted. No clubbing or cyanosis. NEUROLOGICAL: Patient is alert but is not able to participate in neurological exam because of patient's current mental status PSYCH: Patient cannot participate in a neurologic and psych exam because of the patient's current mental status SKIN: No significant ecchymosis, rash, ulcerations or signs of pruritus noted. MUSCULOSKELETAL EXAM: No significant joint swelling noted. Results Laboratory Results: 04/15/17 04:49 04/17/17 10:12 04/17/17 10:12 Sodium 147.0 H Potassium 3.6 Chloride 101 Carbon Dioxide 39 H Anion Gap 7 BUN 41 H Creatinine 0.97 Est GFR ( Amer) > 60 Est GFR (Non-Af Amer) > 60 Glucose 113 H Calcium 8.8 04/14/17 04/14/17 04/15/17 13:10 19:10 01:10 Troponin I 0.459 0.539 0.608 NT-Pro-B Natriuret Pep 04/15/17 04:49 Troponin I NT-Pro-B Natriuret Pep [id number] H Impressions: Thoracentesis Ultrasound 04/15/17 12:40 IMPRESSION: SUCCESSFUL THORACENTESIS USING ULTRASOUND GUIDANCE. Chest X-Ray 04/15/17 14:20 IMPRESSION: NO CHANGE IN APPEARANCE OF THE CHEST. NO PNEUMOTHORAX FOLLOWING THORACENTESIS. Assessment & Plan - Diagnosis (1) Acute on chronic diastolic (congestive) heart failure Is this a current diagnosis for this admission?: Yes (2) Acute on chronic respiratory failure with hypoxia and hypercapnia Is this a current diagnosis for this admission?: Yes (3) Atrial fibrillation Qualifiers: Atrial fibrillation type: chronic Qualified Code(s): I48.2 - Chronic atrial fibrillation Is this a current diagnosis for this admission?: Yes (4) Acute kidney injury superimposed on CKD Is this a current diagnosis for this admission?: Yes (5) Coronary artery disease Qualifiers: Coronary Disease-Associated Artery/Lesion type: [place] artery Associated angina: angina presence unspecified Is this a current diagnosis for this admission?: Yes (6) Elevated troponin I level Is this a current diagnosis for this admission?: Yes - Notes Notes: Acute on chronic diastolic heart failure. Clinically much improved after IV Lasix dose. May need to continue some baseline diuretic therapy. Consider repeating chest x-ray. Coronary artery disease with abnormal troponin I elevation: Treat with aspirin, statins and beta-javan. Patient not a candidate for ischemia evaluation. Acute on chronic respiratory failure: Continue with noninvasive positive pressure ventilation. Atrial fibrillation: Continue DVT prophylaxis dose for Lovenox. Patient probably not a candidate for chronic anticoagulation. Acute on chronic superimposed CKD currently is stable. Monitor renal functions. - Time Time with patient: 15-25 minutes - CODE STATUS : was discussed, patient remains DO NOT RESUSCITATE. Surrogate decision-maker unchanged. Multiple medical problems were addressed. More than 50% of the time spent coordinating care, discussing management plans with involved caregivers. Management plans discussed with involved personnels. Medical decision making was of moderate to high complexity, patient's has multiple comorbidities. Medications reviewed and adjusted accordingly: Yes
--- NOTE | 2017-04-18 10:33 | PDOC PROGRESS REPORT ---
Subjective Progress Note for:: 04/18/17 Subjective:: Patient seems to be doing much better. Patient remains intermittently agitated and is being restrained. His respiration is much improved and he looks much pinker. Patient maintaining atrial fibrillation, heart rate in reasonable control. Physical Exam Vital Signs: Temp Pulse Resp BP Pulse Ox 98.0 F 92 14 119/64 98 04/18/17 07:27 04/18/17 07:27 04/18/17 07:27 04/18/17 07:27 04/18/17 08:05 Intake & Output 04/17/17 04/18/17 04/19/17 06:59 06:59 06:59 Intake Total 1108 757 Balance 1108 757 Weight 74.7 kg 74.5 kg Exam: GENERAL: well-nourished and in no acute distress. Patient is alert but not oriented to place time or person. HEAD: Atraumatic, normocephalic. EYES: Pupils equal round and reactive to light, extraocular movements intact, sclera anicteric, conjunctiva are normal. ENT: TMs normal, nares patent, oropharynx clear without exudates. Moist mucous membranes. No oral ulcerations or bleeding gums noted NECK: supple without lymphadenopathy or JVD. Trachea is central. No cervical or axillary lymphadenopathy noted. Carotids are 2+ LUNGS: Breath sounds bibasilar fine crackles at bases. Mild right-sided dullness noted. No wheezing noted CHEST: Palpation of chest wall shows no significant chest wall tenderness. 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 ABDOMEN: Soft, no significant tenderness appreciated, normoactive bowel sounds. No guarding, no rebound. No rigidity noted . No masses appreciated. EXTREMITIES: Pedal pulses are 1-2+, no calf tenderness noted, Trace + pedal edema noted. No clubbing or cyanosis. NEUROLOGICAL: Patient is alert but is not able to participate in neurological exam because of patient's current mental status PSYCH: Patient cannot participate in a neurologic and psych exam because of the patient's current mental status SKIN: No significant ecchymosis, rash, ulcerations or signs of pruritus noted. MUSCULOSKELETAL EXAM: No significant joint swelling noted. Results Laboratory Results: 04/18/17 09:04/18/17 05:00 04/17/17 04/18/17 04/18/17 10:12 00:00 00:00 WBC RBC Hgb Hct MCV MCH MCHC RDW Plt Count Sodium 147.0 H 148.4 H Potassium 3.6 3.8 Chloride 101 106 Carbon Dioxide 39 H 37 H Anion Gap 7 5 BUN 41 H 44 H Creatinine 0.97 0.86 Est GFR ( Amer) > 60 > 60 Est GFR (Non-Af Amer) > 60 > 60 Glucose 113 H 111 H Calcium 8.8 8.8 Magnesium 2.3 TSH 3.06 04/18/17 04/18/17 04/18/17 05:00 05:00 09:09 WBC Cancelled Cancelled RBC Cancelled Cancelled Hgb Cancelled Cancelled Hct Cancelled Cancelled MCV Cancelled Cancelled MCH Cancelled Cancelled MCHC Cancelled Cancelled RDW Cancelled Cancelled Plt Count Cancelled Cancelled Sodium 146.8 H Potassium 3.7 Chloride 103 Carbon Dioxide 38 H Anion Gap 6 BUN 43 H Creatinine 0.84 Est GFR ( Amer) > 60 Est GFR (Non-Af Amer) > 60 Glucose 91 Calcium 8.8 Magnesium TSH 04/14/17 04/14/17 04/15/17 13:10 19:10 01:10 Troponin I 0.459 0.539 0.608 NT-Pro-B Natriuret Pep 04/15/17 04:49 Troponin I NT-Pro-B Natriuret Pep [id number] H Impressions: Thoracentesis Ultrasound 04/15/17 12:40 IMPRESSION: SUCCESSFUL THORACENTESIS USING ULTRASOUND GUIDANCE. Chest X-Ray 04/15/17 14:20 IMPRESSION: NO CHANGE IN APPEARANCE OF THE CHEST. NO PNEUMOTHORAX FOLLOWING THORACENTESIS. Assessment & Plan - Diagnosis (1) Acute on chronic diastolic (congestive) heart failure Is this a current diagnosis for this admission?: Yes (2) Acute on chronic respiratory failure with hypoxia and hypercapnia Is this a current diagnosis for this admission?: Yes (3) Atrial fibrillation Qualifiers: Atrial fibrillation type: chronic Qualified Code(s): I48.2 - Chronic atrial fibrillation Is this a current diagnosis for this admission?: Yes (4) Acute kidney injury superimposed on CKD Is this a current diagnosis for this admission?: Yes (5) Coronary artery disease Qualifiers: Coronary Disease-Associated Artery/Lesion type: [place] artery Associated angina: angina presence unspecified Is this a current diagnosis for this admission?: Yes (6) Elevated troponin I level Is this a current diagnosis for this admission?: Yes - Notes Notes: Acute on chronic diastolic heart failure. Patient noted to have a little bit: Patient noted to have elevated blood pressure JVP. Patient has bilateral pleural effusion. Will start patient on Lasix 20 mg p.o. daily. Order for a portable chest x-ray. Coronary artery disease with abnormal troponin I elevation: Treat with aspirin, statins and beta-javan. Patient not a candidate for ischemia evaluation. Acute on chronic respiratory failure: Continue with noninvasive positive pressure ventilation. Atrial fibrillation: Continue DVT prophylaxis dose for Lovenox. Patient probably not a candidate for chronic anticoagulation. Continue with rate control strategy. Acute on chronic superimposed CKD currently is stable. Monitor renal functions. - Time Time with patient: 15-25 minutes - CODE STATUS : was discussed, patient remains DO NOT RESUSCITATE. Surrogate decision-maker unchanged. Multiple medical problems were addressed. More than 50% of the time spent coordinating care, discussing management plans with involved caregivers. Management plans discussed with involved personnels. Medical decision making was of moderate to high complexity, patient's has multiple comorbidities. Medications reviewed and adjusted accordingly: Yes
[2017-04-18] MEDS ORDERED: FUROSEMIDE 40 MG TABLET PO SCH (10:45)
[2017-04-18 11:05] LABS: HEMATOCRIT 34.3 % (37.9-51.0); HEMOGLOBIN 11.2 g/dL (13.5-17.0); HGB HCT DIFFERENCE -0.7; MEAN CORPUSCULAR HEMOGLOBIN 33.5 pg (27.0-33.4); MEAN CORPUSCULAR HGB CONC 32.6 g/dL (32.0-36.0); MEAN CORPUSCULAR VOLUME 103 fl (80-97); RED BLOOD COUNT 3.34 10^6/uL (4.35-5.55); RED CELL DISTRIBUTION WIDTH 20.7 % (11.5-14.0); WHITE BLOOD COUNT 5.7 10^3/uL (4.0-10.5)
--- NOTE | 2017-04-18 11:43 | RADIOLOGY REPORT (SQ) ---
EXAM DESCRIPTION: CHEST SINGLE VIEW COMPLETED DATE/TIME: 04/18/2017 11:13 am REASON FOR STUDY: follow-up CHF COMPARISON: 04/15/2017 EXAM PARAMETERS: NUMBER OF VIEWS: One view. TECHNIQUE: Single frontal radiographic view of the chest acquired. RADIATION DOSE: NA LIMITATIONS: None. FINDINGS: LUNGS AND PLEURA: There is increased retrocardiac opacification on the left. The left zhang phragm is obscured. There may be a small left pleural effusion. There is the appearance of mild pul monary edema. There is improved aeration in the right lung. MEDIASTINUM AND HILAR STRUCTURES: No masses. Contour normal. HEART AND VASCULAR STRUCTURES: Cardiomegaly. BONES: No acute findings. HARDWARE: None in the chest. OTHER: No other significant finding. IMPRESSION: 1. Cardiomegaly with mild edema. 2. There is increased opacification in the left base. Left lower lobe consolidation cannot be exclu ded. 3. There is improvement in the appearance of the right lung. TECHNICAL DOCUMENTATION: JOB ID: [id number]
[2017-04-18] MEDS: ENOXAPARIN SODIUM INJ 30 MG/0.3 ML DISP.SYRIN SUBCUT SCH (11:56)
[2017-04-18] MEDS ORDERED: FUROSEMIDE 20 MG TABLET PO ONE (12:00)
--- NOTE | 2017-04-18 12:29 | PDOC PROGRESS REPORT ---
Subjective Progress Note for:: 04/18/17 Subjective:: Nursing states that pt's family is planning to meet with Pallative care. Physical Exam Vital Signs: Temp Pulse Resp BP Pulse Ox 97.7 F 100 14 94/74 L 100 04/18/17 11:11 04/18/17 11:11 04/18/17 11:11 04/18/17 11:11 04/18/17 11:11 Intake & Output 04/17/17 04/18/17 04/19/17 06:59 06:59 06:59 Intake Total 1108 757 Balance 1108 757 Weight 74.7 kg 74.5 kg General appearance: PRESENT: other - laying in bed, hand mittens in place. Head exam: PRESENT: atraumatic, normocephalic Eye exam: PRESENT: conjunctiva pink, EOMI. ABSENT: scleral icterus Ear exam: PRESENT: normal external ear exam Mouth exam: PRESENT: moist, tongue midline Respiratory exam: PRESENT: other - +diminished at bases Cardiovascular exam: PRESENT: irregular rhythm Pulses: PRESENT: normal dorsalis pedis pul Vascular exam: PRESENT: normal capillary refill GI/Abdominal exam: PRESENT: normal bowel sounds, soft. ABSENT: distended, guarding, mass, organolmegaly, rebound, tenderness Rectal exam: PRESENT: deferred Extremities exam: PRESENT: full ROM. ABSENT: calf tenderness, clubbing, pedal edema Neurological exam: PRESENT: alert, awake, oriented to person Psychiatric exam: PRESENT: agitated Skin exam: PRESENT: dry, intact, warm. ABSENT: cyanosis, rash Results Laboratory Results: 04/18/17 10:42 04/18/17 05:00 04/18/17 04/18/17 04/18/17 00:00 00:00 05:00 WBC RBC Hgb Hct MCV MCH MCHC RDW Plt Count Sodium 148.4 H 146.8 H Potassium 3.8 3.7 Chloride 106 103 Carbon Dioxide 37 H 38 H Anion Gap 5 6 BUN 44 H 43 H Creatinine 0.86 0.84 Est GFR ( Amer) > 60 > 60 Est GFR (Non-Af Amer) > 60 > 60 Glucose 111 H 91 Calcium 8.8 8.8 Magnesium 2.3 TSH 3.06 04/18/17 04/18/17 04/18/17 05:00 09:09 10:42 WBC Cancelled Cancelled 5.7 RBC Cancelled Cancelled 3.34 L Hgb Cancelled Cancelled 11.2 L Hct Cancelled Cancelled 34.3 L MCV Cancelled Cancelled 103 H MCH Cancelled Cancelled 33.5 H MCHC Cancelled Cancelled 32.6 RDW Cancelled Cancelled 20.7 H Plt Count Cancelled Cancelled 92 L Sodium Potassium Chloride Carbon Dioxide Anion Gap BUN Creatinine Est GFR ( Amer) Est GFR (Non-Af Amer) Glucose Calcium Magnesium TSH 04/15/17 17:30 Sputum Gram Stain - Final 04/15/17 17:30 Sputum Sputum Culture - Final Pseudomonas Aeruginosa Mrsa (Meth Resis Staph Aureus) C.albicans/C.dubliniensis Normal Livia Absent 04/14/17 04/14/17 04/15/17 13:10 19:10 01:10 Troponin I 0.459 0.539 0.608 NT-Pro-B Natriuret Pep 04/15/17 04:49 Troponin I NT-Pro-B Natriuret Pep 60034 H Impressions: Thoracentesis Ultrasound 04/15/17 12:40 IMPRESSION: SUCCESSFUL THORACENTESIS USING ULTRASOUND GUIDANCE. Chest X-Ray 04/18/17 10:34 IMPRESSION: 1. Cardiomegaly with mild edema. 2. There is increased opacification in the left base. Left lower lobe consolidation cannot be excluded. 3. There is improvement in the appearance of the right lung. Assessment & Plan - Diagnosis (1) Acute on chronic respiratory failure with hypoxia and hypercapnia Is this a current diagnosis for this admission?: Yes Plan: Improved. Prognosis is poor. Pt intravascularly dry and sodium elevated. If lasix is continued pt will develope hypernatremia and require fluids. Recommend supportive care for now. Family meeting with Pallative care. In addition pt is not eating or drinking much. 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 (3) Recurrent left pleural effusion Is this a current diagnosis for this admission?: Yes Plan: S/P Thoracentesis: Will continue to monitor. Lasix held due to elevated sodium. (4) Acute metabolic encephalopathy Is this a current diagnosis for this admission?: Yes Plan: Slight improvement but pt remains very confused. Will continue to monitor. (5) Acute on chronic diastolic (congestive) heart failure Is this a current diagnosis for this admission?: Yes Plan: Complex case due to pt third spacing fluid and intravascular depleted. (6) Hypernatremia Is this a current diagnosis for this admission?: Yes Plan: Secondary to Intravascular Depletion: Will hold Lasix. Pt not drinking much and trying to not have to give pt IVF due to worsening hypernatremia. (7) CO2 narcosis Is this a current diagnosis for this admission?: Yes Plan: Resolving. Will continue to use BIPAP. (8) Hyponatremia Is this a current diagnosis for this admission?: Yes Plan: Resolved. (9) Atrial fibrillation Qualifiers: Atrial fibrillation type: chronic Qualified Code(s): I48.2 - Chronic atrial fibrillation Is this a current diagnosis for this admission?: Yes Plan: Will give Metoprolol 6.25mg PO BID (10) COPD (chronic obstructive pulmonary disease) Qualifiers: Emphysema type: unspecified Is this a current diagnosis for this admission?: Yes Plan: Pt currently appears to have problems with CHF. (11) Hypertension Qualifiers: Hypertension type: unspecified Qualified Code(s): I10 - Essential (primary ) hypertension Is this a current diagnosis for this admission?: Yes Plan: Pt currently hypotensive. Will continue to monitor. (12) Hyperlipidemia Qualifiers: Hyperlipidemia type: unspecified Qualified Code(s): E78.5 - Hyperlipidemia , unspecified Is this a current diagnosis for this admission?: Yes Plan: Statin (13) Dementia Is this a current diagnosis for this admission?: Yes Plan: Supportive care. 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 (15) Fracture, intertrochanteric, right femur Qualifiers: Encounter type: initial encounter Fracture type: closed Fracture alignment: displaced Qualified Code(s): S72.141A - Displaced intertrochanteric fracture of right femur, initial encounter for closed fracture Is this a current diagnosis for this admission?: Yes Plan: S/P Pinning of Right Femur: Supportive care. (16) DNR (do not resuscitate) Is this a current diagnosis for this admission?: Yes Plan: Family request DNR . Will speak to family about Hospice. Pt's overall prognosis poor.
--- NOTE | 2017-04-18 12:43 | PDOC PROGRESS REPORT ---
Subjective Progress Note for:: 04/18/17 Subjective:: Confused but not agitated Physical Exam Vital Signs: Temp Pulse Resp BP Pulse Ox 97.7 F 100 14 94/74 L 100 04/18/17 11:11 04/18/17 11:11 04/18/17 11:11 04/18/17 11:11 04/18/17 11:11 Intake & Output 04/17/17 04/18/17 04/19/17 06:59 06:59 06:59 Intake Total 1108 757 Balance 1108 757 Weight 74.7 kg 74.5 kg General appearance: PRESENT: no acute distress, disheveled, thin, well-developed , well-nourished Head exam: PRESENT: atraumatic, normocephalic Eye exam: PRESENT: conjunctiva pale, EOMI Mouth exam: PRESENT: dry mucosa, neck supple, tongue midline Respiratory exam: PRESENT: decreased breath sounds, prolonged expiratory phas, rales, rhonchi, unlabored, wheezes. ABSENT: retraction, stridor, tachypnea Cardiovascular exam: PRESENT: RRR, +S1, +S2 Pulses: PRESENT: normal radial pulses GI/Abdominal exam: PRESENT: normal bowel sounds, soft. ABSENT: distended, guarding, mass, organolmegaly, rebound, tenderness Rectal exam: PRESENT: deferred Gentrourinary exam: PRESENT: indwelling catheter Neurological exam: PRESENT: awake. ABSENT: alert, oriented to person, oriented to place, oriented to time, oriented to situation Skin exam: PRESENT: dry, warm Results Laboratory Results: 04/18/17 10:42 04/18/17 05:00 04/18/17 04/18/17 04/18/17 00:00 00:00 05:00 WBC RBC Hgb Hct MCV MCH MCHC RDW Plt Count Sodium 148.4 H 146.8 H Potassium 3.8 3.7 Chloride 106 103 Carbon Dioxide 37 H 38 H Anion Gap 5 6 BUN 44 H 43 H Creatinine 0.86 0.84 Est GFR ( Amer) > 60 > 60 Est GFR (Non-Af Amer) > 60 > 60 Glucose 111 H 91 Calcium 8.8 8.8 Magnesium 2.3 TSH 3.06 04/18/17 04/18/17 04/18/17 05:00 09:09 10:42 WBC Cancelled Cancelled 5.7 RBC Cancelled Cancelled 3.34 L Hgb Cancelled Cancelled 11.2 L Hct Cancelled Cancelled 34.3 L MCV Cancelled Cancelled 103 H MCH Cancelled Cancelled 33.5 H MCHC Cancelled Cancelled 32.6 RDW Cancelled Cancelled 20.7 H Plt Count Cancelled Cancelled 92 L Sodium Potassium Chloride Carbon Dioxide Anion Gap BUN Creatinine Est GFR ( Amer) Est GFR (Non-Af Amer) Glucose Calcium Magnesium TSH 04/15/17 17:30 Sputum Gram Stain - Final 04/15/17 17:30 Sputum Sputum Culture - Final Pseudomonas Aeruginosa Mrsa (Meth Resis Staph Aureus) C.albicans/C.dubliniensis Normal Livia Absent 04/14/17 04/14/17 04/15/17 13:10 19:10 01:10 Troponin I 0.459 0.539 0.608 NT-Pro-B Natriuret Pep 04/15/17 04:49 Troponin I NT-Pro-B Natriuret Pep [id number] H Impressions: Thoracentesis Ultrasound 04/15/17 12:40 IMPRESSION: SUCCESSFUL THORACENTESIS USING ULTRASOUND GUIDANCE. Chest X-Ray 04/18/17 10:34 IMPRESSION: 1. Cardiomegaly with mild edema. 2. There is increased opacification in the left base. Left lower lobe consolidation cannot be excluded. 3. There is improvement in the appearance of the right lung. Assessment & Plan - Diagnosis (1) Asystole Is this a current diagnosis for this admission?: No (2) Pleural effusion Is this a current diagnosis for this admission?: Yes (3) Acute respiratory failure with hypoxia Is this a current diagnosis for this admission?: No (4) COPD (chronic obstructive pulmonary disease) Qualifiers: Is this a current diagnosis for this admission?: Yes Plan: Serial improvement PCO2 initially however it is now starting to climb again was suggested patient where BiPAP 16-18 hours per day
[2017-04-18] MEDS ORDERED: ONDANSETRON HCL INJ/PF 4 MG/2 ML SDV IV PRN (14:00)
[2017-04-18 14:25] LABS: VENOUS BLOOD BASE EXCESS 11.4 mmol/L; VENOUS BLOOD HCO3 40.7 mmol/L (20-32); VENOUS BLOOD PH 7.32 (7.30-7.42)
[2017-04-18 14:34] LABS: VENOUS BLOOD PCO2 81.3 mmHg (35-63)
[2017-04-18] MEDS: SIMVASTATIN 40 MG TABLET PO SCH (21:59)
[2017-04-19] MEDS: LEVOTHYROXINE SODIUM 0.05 MG TABLET PO SCH (05:09)
[2017-04-19 05:12] LABS: HEMATOCRIT 35.4 % (37.9-51.0); HEMOGLOBIN 11.6 g/dL (13.5-17.0); HGB HCT DIFFERENCE -0.6; MEAN CORPUSCULAR HEMOGLOBIN 33.5 pg (27.0-33.4); MEAN CORPUSCULAR HGB CONC 32.9 g/dL (32.0-36.0); MEAN CORPUSCULAR VOLUME 102 fl (80-97); RED BLOOD COUNT 3.47 10^6/uL (4.35-5.55); RED CELL DISTRIBUTION WIDTH 20.2 % (11.5-14.0)
[2017-04-19 05:21] LABS: BLOOD UREA NITROGEN 41 mg/dL (7-20); CHLORIDE 103 mmol/L (98-107); GLUCOSE 79 mg/dL (75-110); POTASSIUM 3.9 mmol/L (3.6-5.0); SODIUM 150.3 mmol/L (137-145)
[2017-04-19 05:31] LABS: ANION GAP 6 (5-19)
[2017-04-19 05:32] LABS: CARBON DIOXIDE 41 mmol/L (22-30)
--- NOTE | 2017-04-19 09:57 | PDOC PROGRESS REPORT ---
Subjective Progress Note for:: 04/19/17 Subjective:: More lethargic today but not agitated or uncomfortable Physical Exam Vital Signs: Temp Pulse Resp BP Pulse Ox 97.5 F 76 20 122/64 100 04/19/17 08:16 04/19/17 08:16 04/19/17 08:16 04/19/17 08:16 04/19/17 08:16 Intake & Output 04/18/17 04/19/17 04/20/17 06:59 06:59 06:59 Intake Total 757 217 Balance 757 217 Weight 74.5 kg 74.2 kg General appearance: PRESENT: no acute distress, disheveled, well-developed Head exam: PRESENT: atraumatic, normocephalic Eye exam: PRESENT: conjunctiva pale, EOMI Mouth exam: PRESENT: dry mucosa, neck supple, tongue midline Neck exam: ABSENT: carotid bruit, JVD, lymphadenopathy, thyromegaly Respiratory exam: PRESENT: decreased breath sounds - Especially right hemithorax , prolonged expiratory phas, rales, rhonchi, symmetrical, unlabored. ABSENT: retraction, stridor, tachypnea, wheezes Cardiovascular exam: PRESENT: RRR, +S1, +S2 Pulses: PRESENT: normal radial pulses GI/Abdominal exam: PRESENT: normal bowel sounds, soft. ABSENT: distended, guarding, mass, organolmegaly, rebound, tenderness Rectal exam: PRESENT: deferred Neurological exam: PRESENT: awake. ABSENT: alert, oriented to person, oriented to place, oriented to time, oriented to situation Skin exam: PRESENT: dry, warm Results Laboratory Results: 04/19/17 04:09 04/19/17 04:09 04/18/17 04/18/17 04/19/17 10:42 14:10 04:09 WBC 5.7 6.0 RBC 3.34 L 3.47 L Hgb 11.2 L 11.6 L Hct 34.3 L 35.4 L MCV 103 H 102 H MCH 33.5 H 33.5 H MCHC 32.6 32.9 RDW 20.7 H 20.2 H Plt Count 92 L 90 L VBG pH 7.32 VBG pCO2 81.3 H* VBG HCO3 40.7 H VBG Base Excess 11.4 Sodium Potassium Chloride Carbon Dioxide Anion Gap BUN Creatinine Est GFR ( Amer) Est GFR (Non-Af Amer) Glucose Calcium 04/19/17 04:09 WBC RBC Hgb Hct MCV MCH MCHC RDW Plt Count VBG pH VBG pCO2 VBG HCO3 VBG Base Excess Sodium 150.3 H Potassium 3.9 Chloride 103 Carbon Dioxide 41 H* Anion Gap 6 BUN 41 H Creatinine 0.90 Est GFR ( Amer) > 60 Est GFR (Non-Af Amer) > 60 Glucose 79 Calcium 9.0 04/15/17 12:05 Pleural Fluid - Left Pleural Effusion Gram Stain - Final 04/15/17 12:05 Pleural Fluid - Left Pleural Effusion Body Fluid Culture - Final NO AEROBIC OR ANAEROBIC ORGANISMS RECOVERED 04/15/17 12:05 Pleural Fluid - Left Pleural Effusion AFB Smear Concentration - Final 04/15/17 12:05 Pleural Fluid - Left Pleural Effusion Acid Fast Bacilli Smear - Final 04/15/17 17:30 Sputum Gram Stain - Final 04/15/17 17:30 Sputum Sputum Culture - Final Pseudomonas Aeruginosa Mrsa (Meth Resis Staph Aureus) C.albicans/C.dubliniensis Normal Livia Absent 04/14/17 04/14/17 04/15/17 13:10 19:10 01:10 Troponin I 0.459 0.539 0.608 NT-Pro-B Natriuret Pep 04/15/17 04:49 Troponin I NT-Pro-B Natriuret Pep 21385 H Impressions: Thoracentesis Ultrasound 04/15/17 12:40 IMPRESSION: SUCCESSFUL THORACENTESIS USING ULTRASOUND GUIDANCE. Chest X-Ray 04/18/17 10:34 IMPRESSION: 1. Cardiomegaly with mild edema. 2. There is increased opacification in the left base. Left lower lobe consolidation cannot be excluded. 3. There is improvement in the appearance of the right lung. Assessment & Plan - Diagnosis (1) Asystole Is this a current diagnosis for this admission?: No (2) Pleural effusion Is this a current diagnosis for this admission?: Yes Plan: Clinically it appears to have returned no radiographic evidence to substantiate t: level of aggressiveness unclear he is DNR ??? for comfort care (3) Acute respiratory failure with hypoxia Is this a current diagnosis for this admission?: No (4) COPD (chronic obstructive pulmonary disease) Qualifiers: Is this a current diagnosis for this admission?: Yes Plan: Without the use of BiPAP PCO2 is trending upwards over the last several days
[2017-04-19] MEDS ORDERED: FUROSEMIDE 20 MG TABLET PO SCH (10:00)
[2017-04-19] MEDS: FAMOTIDINE 20 MG TABLET PO SCH (10:46)
[2017-04-19] MEDS: RANOLAZINE 500 MG TAB.SR.12H PO SCH ×2 (10:47→23:11)
[2017-04-19] MEDS: METOPROLOL SUCCINATE 25 MG TAB.SR.24H PO SCH ×2 (10:47→23:11)
[2017-04-19] MEDS: ENOXAPARIN SODIUM INJ 30 MG/0.3 ML DISP.SYRIN SUBCUT SCH (10:51)
[2017-04-19] MEDS ORDERED: WATER IV ONE (14:25)
[2017-04-19] MEDS ORDERED: DEXTROSE 5% IV ONE (14:25)
--- NOTE | 2017-04-19 14:25 | PDOC PROGRESS REPORT ---
Subjective Progress Note for:: 04/19/17 Subjective:: No new issues. Nursing states that pt will not keep BIPAP. Physical Exam Vital Signs: Temp Pulse Resp BP Pulse Ox 97.7 F 87 18 108/53 L 100 04/19/17 12:03 04/19/17 12:03 04/19/17 12:03 04/19/17 12:03 04/19/17 12:03 Intake & Output 04/18/17 04/19/17 04/20/17 06:59 06:59 06:59 Intake Total 757 217 427 Balance 757 217 427 Weight 74.5 kg 74.2 kg General appearance: PRESENT: severe distress, other - laying in bed Head exam: PRESENT: atraumatic, normocephalic Eye exam: PRESENT: conjunctiva pink, EOMI. ABSENT: scleral icterus Ear exam: PRESENT: normal external ear exam Mouth exam: PRESENT: moist, tongue midline Neck exam: ABSENT: carotid bruit, JVD, lymphadenopathy, thyromegaly Respiratory exam: PRESENT: other - coarse breath sounds Cardiovascular exam: PRESENT: RRR. ABSENT: diastolic murmur, rubs, systolic murmur Pulses: PRESENT: normal dorsalis pedis pul Vascular exam: PRESENT: normal capillary refill GI/Abdominal exam: PRESENT: normal bowel sounds, soft. ABSENT: distended, guarding, mass, organolmegaly, rebound, tenderness Rectal exam: PRESENT: deferred Extremities exam: PRESENT: full ROM. ABSENT: calf tenderness, clubbing, pedal edema Neurological exam: PRESENT: other - +agitated, + mitten in place. Skin exam: PRESENT: dry, warm Results Laboratory Results: 04/19/17 04:09 04/19/17 04:09 04/18/17 04/19/17 04/19/17 14:10 04:09 04:09 WBC 6.0 RBC 3.47 L Hgb 11.6 L Hct 35.4 L MCV 102 H MCH 33.5 H MCHC 32.9 RDW 20.2 H Plt Count 90 L VBG pH 7.32 VBG pCO2 81.3 H* VBG HCO3 40.7 H VBG Base Excess 11.4 Sodium 150.3 H Potassium 3.9 Chloride 103 Carbon Dioxide 41 H* Anion Gap 6 BUN 41 H Creatinine 0.90 Est GFR ( Amer) > 60 Est GFR (Non-Af Amer) > 60 Glucose 79 Calcium 9.0 04/14/17 13:10 Blood Blood Culture - Final NO GROWTH IN 5 DAYS 04/15/17 12:05 Pleural Fluid - Left Pleural Effusion Gram Stain - Final 04/15/17 12:05 Pleural Fluid - Left Pleural Effusion Body Fluid Culture - Final NO AEROBIC OR ANAEROBIC ORGANISMS RECOVERED 04/15/17 12:05 Pleural Fluid - Left Pleural Effusion AFB Smear Concentration - Final 04/15/17 12:05 Pleural Fluid - Left Pleural Effusion Acid Fast Bacilli Smear - Final 04/15/17 17:30 Sputum Gram Stain - Final 04/15/17 17:30 Sputum Sputum Culture - Final Pseudomonas Aeruginosa Mrsa (Meth Resis Staph Aureus) C.albicans/C.dubliniensis Normal Livia Absent 04/14/17 04/14/17 04/15/17 13:10 19:10 01:10 Troponin I 0.459 0.539 0.608 NT-Pro-B Natriuret Pep 04/15/17 04:49 Troponin I NT-Pro-B Natriuret Pep 73434 H Impressions: Thoracentesis Ultrasound 04/15/17 12:40 IMPRESSION: SUCCESSFUL THORACENTESIS USING ULTRASOUND GUIDANCE. Chest X-Ray 04/18/17 10:34 IMPRESSION: 1. Cardiomegaly with mild edema. 2. There is increased opacification in the left base. Left lower lobe consolidation cannot be excluded. 3. There is improvement in the appearance of the right lung. Assessment & Plan - Diagnosis (1) Acute on chronic respiratory failure with hypoxia and hypercapnia Is this a current diagnosis for this admission?: Yes Plan: Improved. Prognosis is poor. Pt need to be hospice. 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 (3) Hypernatremia Is this a current diagnosis for this admission?: Yes Plan: D5W 250cc. (4) Recurrent left pleural effusion Is this a current diagnosis for this admission?: Yes Plan: S/P Thoracentesis: Will continue to monitor. (5) Acute metabolic encephalopathy Is this a current diagnosis for this admission?: Yes Plan: Pt has worsened. Will continue BIPAP (6) Acute on chronic diastolic (congestive) heart failure Is this a current diagnosis for this admission?: Yes Plan: Complex case due to pt third spacing fluid and intravascular depleted. (7) CO2 narcosis Is this a current diagnosis for this admission?: Yes Plan: BIPAP. (8) Hyponatremia Is this a current diagnosis for this admission?: Yes Plan: Resolved. (9) Atrial fibrillation Qualifiers: Atrial fibrillation type: chronic Qualified Code(s): I48.2 - Chronic atrial fibrillation Is this a current diagnosis for this admission?: Yes Plan: Metoprolol 6.25mg PO BID (10) COPD (chronic obstructive pulmonary disease) Qualifiers: Emphysema type: unspecified Is this a current diagnosis for this admission?: Yes Plan: Pt currently appears to have problems with CHF. (11) Hypertension Qualifiers: Hypertension type: unspecified Qualified Code(s): I10 - Essential (primary ) hypertension Is this a current diagnosis for this admission?: Yes Plan: Pt currently hypotensive. Will continue to monitor. (12) Hyperlipidemia Qualifiers: Hyperlipidemia type: unspecified Qualified Code(s): E78.5 - Hyperlipidemia , unspecified Is this a current diagnosis for this admission?: Yes Plan: Statin (13) Dementia Is this a current diagnosis for this admission?: Yes Plan: Supportive care. 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 (15) Fracture, intertrochanteric, right femur Qualifiers: Encounter type: initial encounter Fracture type: closed Fracture alignment: displaced Qualified Code(s): S72.141A - Displaced intertrochanteric fracture of right femur, initial encounter for closed fracture Is this a current diagnosis for this admission?: Yes Plan: S/P Pinning of Right Femur: Supportive care. (16) DNR (do not resuscitate) Is this a current diagnosis for this admission?: Yes Plan: Family request DNR . Pt's overall prognosis poor. Pt needs to be Hospice. - Time Time Spent with patient: 15-24 minutes
--- NOTE | 2017-04-19 19:11 | PDOC PROGRESS REPORT ---
Subjective Progress Note for:: 04/19/17 Subjective:: Patient seems to be doing much better. Patient remains intermittently agitated and is being restrained. Patient maintaining atrial fibrillation with heart rate well controlled. Nurses report no significant symptoms. Patient maintaining atrial fibrillation, heart rate in reasonable control. Physical Exam Vital Signs: Temp Pulse Resp BP Pulse Ox 97.5 F 87 18 103/53 L 100 04/19/17 15:54 04/19/17 15:54 04/19/17 15:54 04/19/17 15:54 04/19/17 18:05 Intake & Output 04/18/17 04/19/17 04/20/17 06:59 06:59 06:59 Intake Total 675 028 4077 Balance 047 212 6807 Weight 74.5 kg 74.2 kg Exam: GENERAL: well-nourished and in no acute distress. Patient is alert but not oriented to place time or person. HEAD: Atraumatic, normocephalic. EYES: Pupils equal round and reactive to light, extraocular movements intact, sclera anicteric, conjunctiva are normal. ENT: TMs normal, nares patent, oropharynx clear without exudates. Moist mucous membranes. No oral ulcerations or bleeding gums noted NECK: supple without lymphadenopathy or JVD. Trachea is central. No cervical or axillary lymphadenopathy noted. Carotids are 2+ LUNGS: Breath sounds bibasilar fine crackles at bases. No significant dullness noted. CHEST: Palpation of chest wall shows no significant chest wall tenderness. HEART: [place] [employer], No PSH, 2/6 XOCHILT aortic area, 1/6 jane systolic murmur mitral area, rubs or gallops. ABDOMEN: Soft, no significant tenderness appreciated, normoactive bowel sounds. No guarding, no rebound. No rigidity noted . No masses appreciated. EXTREMITIES: Pedal pulses are 1-2+, no calf tenderness noted, Trace + pedal edema noted. No clubbing or cyanosis. NEUROLOGICAL: Patient is alert but is not able to participate in neurological exam because of patient's current mental status PSYCH: Patient cannot participate in a neurologic and psych exam because of the patient's current mental status SKIN: No significant ecchymosis, rash, ulcerations or signs of pruritus noted. MUSCULOSKELETAL EXAM: No significant joint swelling noted. Results Laboratory Results: 04/19/17 04:09 04/19/17 04:09 04/19/17 04/19/17 04:09 04:09 WBC 6.0 RBC 3.47 L Hgb 11.6 L Hct 35.4 L MCV 102 H MCH 33.5 H MCHC 32.9 RDW 20.2 H Plt Count 90 L Sodium 150.3 H Potassium 3.9 Chloride 103 Carbon Dioxide 41 H* Anion Gap 6 BUN 41 H Creatinine 0.90 Est GFR ( Amer) > 60 Est GFR (Non-Af Amer) > 60 Glucose 79 Calcium 9.0 04/14/17 13:10 Blood Blood Culture - Final NO GROWTH IN 5 DAYS 04/15/17 12:05 Pleural Fluid - Left Pleural Effusion Gram Stain - Final 04/15/17 12:05 Pleural Fluid - Left Pleural Effusion Body Fluid Culture - Final NO AEROBIC OR ANAEROBIC ORGANISMS RECOVERED 04/15/17 12:05 Pleural Fluid - Left Pleural Effusion AFB Smear Concentration - Final 04/15/17 12:05 Pleural Fluid - Left Pleural Effusion Acid Fast Bacilli Smear - Final 04/14/17 04/14/17 04/15/17 13:10 19:10 01:10 Troponin I 0.459 0.539 0.608 NT-Pro-B Natriuret Pep 04/15/17 04:49 Troponin I NT-Pro-B Natriuret Pep 03651 H EKG Comments: Telemetry strips shows atrial fibrillation with controlled ventricular response. Impressions: Thoracentesis Ultrasound 04/15/17 12:40 IMPRESSION: SUCCESSFUL THORACENTESIS USING ULTRASOUND GUIDANCE. Chest X-Ray 04/18/17 10:34 IMPRESSION: 1. Cardiomegaly with mild edema. 2. There is increased opacification in the left base. Left lower lobe consolidation cannot be excluded. 3. There is improvement in the appearance of the right lung. Assessment & Plan - Diagnosis (1) Acute on chronic diastolic (congestive) heart failure Is this a current diagnosis for this admission?: Yes (2) Acute on chronic respiratory failure with hypoxia and hypercapnia Is this a current diagnosis for this admission?: Yes (3) Atrial fibrillation Qualifiers: Atrial fibrillation type: chronic Qualified Code(s): I48.2 - Chronic atrial fibrillation Is this a current diagnosis for this admission?: Yes (4) Acute kidney injury superimposed on CKD Is this a current diagnosis for this admission?: Yes (5) Coronary artery disease Qualifiers: Coronary Disease-Associated Artery/Lesion type: [place] artery Associated angina: angina presence unspecified Is this a current diagnosis for this admission?: Yes (6) Elevated troponin I level Is this a current diagnosis for this admission?: Yes - Notes Notes: Acute on chronic diastolic heart failure. Patient noted to have a little bit: Patient noted to have elevated blood pressure JVP. Patient has bilateral pleural effusion. Continue patient on Lasix 20 mg p.o. daily. Chest x-ray reviewed continue to show CHF. Pleural effusion seems improved. Coronary artery disease with abnormal troponin I elevation: Treat with aspirin, statins and beta-javan. Patient not a candidate for ischemia evaluation. Acute on chronic respiratory failure: Continue with noninvasive positive pressure ventilation. Patient however noted to not keep it on for long. Atrial fibrillation: Continue DVT prophylaxis dose for Lovenox. Patient probably not a candidate for chronic anticoagulation. Continue with rate control strategy. Acute on chronic superimposed CKD currently is stable. Monitor renal functions. - Time Time with patient: 15-25 minutes - CODE STATUS : was discussed, patient remains DO NOT RESUSCITATE. Surrogate decision-maker unchanged. Multiple medical problems were addressed. More than 50% of the time spent coordinating care, discussing management plans with involved caregivers. Management plans discussed with involved personnels. Medical decision making was of moderate to high complexity, patient's has multiple comorbidities.
[2017-04-19] MEDS: SIMVASTATIN 40 MG TABLET PO SCH (23:11)
[2017-04-20 05:49] LABS: BLOOD UREA NITROGEN 42 mg/dL (7-20); CALCIUM 8.5 mg/dL (8.4-10.2); CHLORIDE 101 mmol/L (98-107); CREATININE RESULT 0.88 mg/dL (0.52-1.25); GLUCOSE 104 mg/dL (75-110); POTASSIUM 3.3 mmol/L (3.6-5.0); SODIUM 146.7 mmol/L (137-145)
[2017-04-20 05:55] LABS: ANION GAP 7 (5-19)
[2017-04-20 05:59] LABS: CARBON DIOXIDE 39 mmol/L (22-30)
[2017-04-20] MEDS: LEVOTHYROXINE SODIUM 0.05 MG TABLET PO SCH (07:00)
[2017-04-20] MEDS: FAMOTIDINE 20 MG TABLET PO SCH (10:55)
[2017-04-20] MEDS: METOPROLOL SUCCINATE 25 MG TAB.SR.24H PO SCH ×2 (11:01→21:35)
[2017-04-20] MEDS: RANOLAZINE 500 MG TAB.SR.12H PO SCH ×2 (11:01→21:34)
[2017-04-20] MEDS: ENOXAPARIN SODIUM INJ 30 MG/0.3 ML DISP.SYRIN SUBCUT SCH (11:02)
--- NOTE | 2017-04-20 12:27 | PDOC PROGRESS REPORT ---
Subjective Progress Note for:: 04/20/17 Subjective:: Nursing states that son arrived and stood at door when he started to cry then he left. Nursing states that there have been no changes. Physical Exam Vital Signs: Temp Pulse Resp BP Pulse Ox 98.1 F 69 20 103/52 L 100 04/20/17 07:14 04/20/17 07:14 04/20/17 07:14 04/20/17 07:14 04/20/17 07:14 Intake & Output 04/19/17 04/20/17 04/21/17 06:59 06:59 06:59 Intake Total 217 1457 Balance 217 1457 Weight 74.2 kg 75 kg General appearance: PRESENT: other - Patient appears stated age. Patient lying in bed with mitts on hands patient actively hallucinating Head exam: PRESENT: atraumatic, normocephalic Eye exam: PRESENT: conjunctiva pink, EOMI. ABSENT: scleral icterus Ear exam: PRESENT: normal external ear exam Mouth exam: PRESENT: moist, tongue midline Neck exam: ABSENT: carotid bruit, JVD, lymphadenopathy, thyromegaly Respiratory exam: PRESENT: other - Patient with diminished breath sounds in lower lobes patient's breath sounds fair and upper lobes but diminished. Cardiovascular exam: PRESENT: RRR. ABSENT: diastolic murmur, rubs, systolic murmur Pulses: PRESENT: normal dorsalis pedis pul Vascular exam: PRESENT: normal capillary refill GI/Abdominal exam: PRESENT: normal bowel sounds, soft. ABSENT: distended, guarding, mass, organolmegaly, rebound, tenderness Rectal exam: PRESENT: deferred Extremities exam: PRESENT: full ROM. ABSENT: calf tenderness, clubbing, pedal edema Neurological exam: PRESENT: other - When stimulated patient will open eyes and then start pointing at something in the air and moving his hands. Psychiatric exam: PRESENT: agitated Skin exam: PRESENT: dry, intact, warm. ABSENT: cyanosis, rash Results Laboratory Results: 04/19/17 04:09 04/20/17 04:39 04/20/17 04:39 Sodium 146.7 H Potassium 3.3 L Chloride 101 Carbon Dioxide 39 H Anion Gap 7 BUN 42 H Creatinine 0.88 Est GFR ( Amer) > 60 Est GFR (Non-Af Amer) > 60 Glucose 104 Calcium 8.5 04/14/17 13:10 Blood Blood Culture - Final NO GROWTH IN 5 DAYS 04/15/17 12:05 Pleural Fluid - Left Pleural Effusion Gram Stain - Final 04/15/17 12:05 Pleural Fluid - Left Pleural Effusion Body Fluid Culture - Final NO AEROBIC OR ANAEROBIC ORGANISMS RECOVERED 04/14/17 04/14/17 04/15/17 13:10 19:10 01:10 Troponin I 0.459 0.539 0.608 NT-Pro-B Natriuret Pep 04/15/17 04:49 Troponin I NT-Pro-B Natriuret Pep 33702 H Impressions: Thoracentesis Ultrasound 04/15/17 12:40 IMPRESSION: SUCCESSFUL THORACENTESIS USING ULTRASOUND GUIDANCE. Chest X-Ray 04/18/17 10:34 IMPRESSION: 1. Cardiomegaly with mild edema. 2. There is increased opacification in the left base. Left lower lobe consolidation cannot be excluded. 3. There is improvement in the appearance of the right lung. Assessment & Plan - Diagnosis (1) Acute on chronic respiratory failure with hypoxia and hypercapnia Is this a current diagnosis for this admission?: Yes Plan: Improved. Prognosis is poor. Pt need to be hospice. 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 (3) Hypokalemia Is this a current diagnosis for this admission?: Yes Plan: We will give potassium replacement (4) Hypernatremia Is this a current diagnosis for this admission?: Yes Plan: Improved. (5) Recurrent left pleural effusion Is this a current diagnosis for this admission?: Yes Plan: S/P Thoracentesis: Will continue to monitor. (6) Acute metabolic encephalopathy Is this a current diagnosis for this admission?: Yes Plan: Pt has worsened. Will continue BIPAP (7) Acute on chronic diastolic (congestive) heart failure Is this a current diagnosis for this admission?: Yes Plan: Complex case due to pt third spacing fluid and intravascular depleted. (8) CO2 narcosis Is this a current diagnosis for this admission?: Yes Plan: BIPAP. (9) Hyponatremia Is this a current diagnosis for this admission?: Yes Plan: Resolved. (10) Atrial fibrillation Qualifiers: Atrial fibrillation type: chronic Qualified Code(s): I48.2 - Chronic atrial fibrillation Is this a current diagnosis for this admission?: Yes Plan: Metoprolol 6.25mg PO BID (11) COPD (chronic obstructive pulmonary disease) Qualifiers: Emphysema type: unspecified Is this a current diagnosis for this admission?: Yes Plan: Pt currently appears to have problems with CHF. (12) Hypertension Qualifiers: Hypertension type: unspecified Qualified Code(s): I10 - Essential (primary ) hypertension Is this a current diagnosis for this admission?: Yes Plan: Pt currently hypotensive. Will continue to monitor. (13) Hyperlipidemia Qualifiers: Hyperlipidemia type: unspecified Qualified Code(s): E78.5 - Hyperlipidemia , unspecified Is this a current diagnosis for this admission?: Yes Plan: Statin (14) Dementia Is this a current diagnosis for this admission?: Yes Plan: Supportive care. (15) Acute kidney injury superimposed on CKD Is this a current diagnosis for this admission?: Yes Plan: Will continue to monitor. (16) Fracture, intertrochanteric, right femur Qualifiers: Encounter type: initial encounter Fracture type: closed Fracture alignment: displaced Qualified Code(s): S72.141A - Displaced intertrochanteric fracture of right femur, initial encounter for closed fracture Is this a current diagnosis for this admission?: Yes Plan: S/P Pinning of Right Femur: Supportive care. (17) DNR (do not resuscitate) Is this a current diagnosis for this admission?: Yes Plan: Family request DNR . Pt's overall prognosis poor. Pt needs to be Hospice. - Time Time Spent with patient: 15-24 minutes - Pt needs to be hospice
[2017-04-20 13:50] LABS: VENOUS BLOOD BASE EXCESS 11.9 mmol/L; VENOUS BLOOD HCO3 40.3 mmol/L (20-32); VENOUS BLOOD PH 7.36 (7.30-7.42)
[2017-04-20 13:52] LABS: VENOUS BLOOD PCO2 73.8 mmHg (35-63)
[2017-04-20] MEDS: POTASSI CL 20 MEQ/50 ML RIDER 20 MEQ/50 ML RTUPB IV SCH ×2 (14:07→17:34)
[2017-04-20] MEDS: SPIRONOLACTONE 25 MG TABLET PO SCH (18:00)
--- NOTE | 2017-04-20 18:50 | PDOC PROGRESS REPORT ---
Subjective Progress Note for:: 04/20/17 Subjective:: Patient seems to be doing much better. Patient remains intermittently agitated and has bilateral hand mittens on. Patient is granddaughter in the room. Previous cardiac evaluations and course in the hospital reviewed with her. Patient maintaining atrial fibrillation, heart rate in reasonable control. Physical Exam Vital Signs: Temp Pulse Resp BP Pulse Ox 98.0 F 103 H 20 91/50 L 100 04/20/17 11:23 04/20/17 11:23 04/20/17 11:23 04/20/17 11:23 04/20/17 11:23 Intake & Output 04/19/17 04/20/17 04/21/17 06:59 06:59 06:59 Intake Total 217 1457 222 Balance 217 1457 222 Weight 74.2 kg 75 kg Exam: GENERAL: well-nourished and in no acute distress. Patient is alert but not oriented to place time or person. HEAD: Atraumatic, normocephalic. EYES: Pupils equal round and reactive to light, extraocular movements intact, sclera anicteric, conjunctiva are normal. ENT: TMs normal, nares patent, oropharynx clear without exudates. Moist mucous membranes. No oral ulcerations or bleeding gums noted NECK: supple without lymphadenopathy or JVD. Trachea is central. No cervical or axillary lymphadenopathy noted. Carotids are 2+ LUNGS: Breath sounds bibasilar fine crackles at bases. No significant dullness noted. CHEST: Palpation of chest wall shows no significant chest wall tenderness. 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 ABDOMEN: Soft, no significant tenderness appreciated, normoactive bowel sounds. No guarding, no rebound. No rigidity noted . No masses appreciated. EXTREMITIES: Pedal pulses are 1-2+, no calf tenderness noted, Trace + pedal edema noted. No clubbing or cyanosis. NEUROLOGICAL: Patient is alert but is not able to participate in neurological exam because of patient's current mental status PSYCH: Patient cannot participate in a neurologic and psych exam because of the patient's current mental status SKIN: No significant ecchymosis, rash, ulcerations or signs of pruritus noted. MUSCULOSKELETAL EXAM: No significant joint swelling noted. Results Laboratory Results: 04/19/17 04:09 04/20/17 04:39 04/20/17 04/20/17 04:39 13:31 VBG pH 7.36 VBG pCO2 73.8 H* VBG HCO3 40.3 H VBG Base Excess 11.9 Sodium 146.7 H Potassium 3.3 L Chloride 101 Carbon Dioxide 39 H Anion Gap 7 BUN 42 H Creatinine 0.88 Est GFR ( Amer) > 60 Est GFR (Non-Af Amer) > 60 Glucose 104 Calcium 8.5 04/14/17 04/14/17 04/15/17 13:10 19:10 01:10 Troponin I 0.459 0.539 0.608 NT-Pro-B Natriuret Pep 04/15/17 04:49 Troponin I NT-Pro-B Natriuret Pep 82524 H Impressions: Thoracentesis Ultrasound 04/15/17 12:40 IMPRESSION: SUCCESSFUL THORACENTESIS USING ULTRASOUND GUIDANCE. Chest X-Ray 04/18/17 10:34 IMPRESSION: 1. Cardiomegaly with mild edema. 2. There is increased opacification in the left base. Left lower lobe consolidation cannot be excluded. 3. There is improvement in the appearance of the right lung. Assessment & Plan - Diagnosis (1) Acute on chronic diastolic (congestive) heart failure Is this a current diagnosis for this admission?: Yes (2) Acute on chronic respiratory failure with hypoxia and hypercapnia Is this a current diagnosis for this admission?: Yes (3) Atrial fibrillation Qualifiers: Atrial fibrillation type: chronic Qualified Code(s): I48.2 - Chronic atrial fibrillation Is this a current diagnosis for this admission?: Yes (4) Acute kidney injury superimposed on CKD Is this a current diagnosis for this admission?: Yes (5) Coronary artery disease Qualifiers: Coronary Disease-Associated Artery/Lesion type: [place] artery Associated angina: angina presence unspecified Is this a current diagnosis for this admission?: Yes (6) Elevated troponin I level Is this a current diagnosis for this admission?: Yes - Notes Notes: Acute on chronic diastolic heart failure. Patient noted to have a little bit: Patient noted to have elevated blood pressure JVP. Patient has bilateral pleural effusion. Added spironolactone 25 mg p.o. daily, continue Lasix 20 mg p.o. daily. Order for a portable chest x-ray for tomorrow a.m. Coronary artery disease with abnormal troponin I elevation: Treat with aspirin, statins and beta-javan. Patient not a candidate for ischemia evaluation. Acute on chronic respiratory failure: Continue with intermittent noninvasive positive pressure ventilation. Atrial fibrillation: Continue DVT prophylaxis dose for Lovenox. Patient probably not a candidate for chronic anticoagulation. Continue with rate control strategy. Acute on chronic superimposed CKD currently is stable. Monitor renal functions. - Time Time with patient: 15-25 minutes - CODE STATUS was discussed, patient remains DNR. Surrogate decision-maker unchanged. Multiple medical problems were addressed. More than 50% of the time spent coordinating care, discussing management plans with involved caregivers. Management plans discussed with involved personnels. Medical decision making was of moderate to high complexity , patient's has multiple comorbidities. Medications reviewed and adjusted accordingly: Yes
[2017-04-20] MEDS ORDERED: SPIRONOLACTONE 25 MG TABLET PO ONE (19:00)
[2017-04-20] MEDS: SIMVASTATIN 40 MG TABLET PO SCH (21:34)
[2017-04-21] MEDS: LEVOTHYROXINE SODIUM 0.05 MG TABLET PO SCH (05:12)
[2017-04-21 06:21] LABS: BLOOD UREA NITROGEN 39 mg/dL (7-20); CALCIUM 8.4 mg/dL (8.4-10.2); CHLORIDE 101 mmol/L (98-107); CREATININE RESULT 0.74 mg/dL (0.52-1.25); GLUCOSE 127 mg/dL (75-110); SODIUM 145.1 mmol/L (137-145)
[2017-04-21 06:27] LABS: ANION GAP 5 (5-19)
[2017-04-21 06:30] LABS: CARBON DIOXIDE 39 mmol/L (22-30)
[2017-04-21] MEDS: RANOLAZINE 500 MG TAB.SR.12H PO SCH ×2 (11:40→22:27)
[2017-04-21] MEDS: METOPROLOL SUCCINATE 25 MG TAB.SR.24H PO SCH ×2 (11:41→22:27)
[2017-04-21] MEDS: SPIRONOLACTONE 25 MG TABLET PO SCH (11:41)
[2017-04-21] MEDS: FAMOTIDINE 20 MG TABLET PO SCH (11:41)
--- NOTE | 2017-04-21 11:46 | RADIOLOGY REPORT (SQ) ---
EXAM DESCRIPTION: CHEST SINGLE VIEW COMPLETED DATE/TIME: 04/21/2017 10:45 am REASON FOR STUDY: follow-up CHF COMPARISON: 04/18/2017 EXAM PARAMETERS: NUMBER OF VIEWS: One view. TECHNIQUE: Single frontal radiographic view of the chest acquired. RADIATION DOSE: NA LIMITATIONS: None. FINDINGS: LUNGS AND PLEURA: Fairly diffuse bilateral airspace densities are identified showing inter shilo progression as compared to the previous study. The appearance is most consistent with pulmonary edema although I cannot exclude pneumonic infiltrates. Again there is blunting of the left costophre theresa angle loss of definition of the left hemidiaphragm consistent with a small left pleural effusion. There is some minimal blunting of the right costophrenic angle suggesting a small right pleural eff usion. MEDIASTINUM AND HILAR STRUCTURES: No masses. Contour normal. HEART AND VASCULAR STRUCTURES: Cardiac silhouette remains enlarged. There is pulmonary vascular sera estion. BONES: No acute findings. HARDWARE: None in the chest. OTHER: No other significant finding. IMPRESSION: Congestive failure pattern showing interval progression as compared to the previous stud y TECHNICAL DOCUMENTATION: JOB ID: [id number]
--- NOTE | 2017-04-21 12:10 | PDOC PROGRESS REPORT ---
Subjective Progress Note for:: 04/21/17 Subjective:: Patient seems to be doing about the same as yesterday. Chest x-ray shows slight worsening of CHF. Patient remains intermittently agitated and confused . Patient maintaining atrial fibrillation, heart rate in reasonable control. Physical Exam Vital Signs: Temp Pulse Resp BP Pulse Ox 98.0 F 67 16 112/69 100 04/21/17 07:41 04/21/17 07:41 04/21/17 08:00 04/21/17 07:41 04/21/17 08:00 Intake & Output 04/20/17 04/21/17 04/22/17 06:59 06:59 06:59 Intake Total 1457 499 Balance 1457 499 Weight 75 kg 74.2 kg Exam: GENERAL: well-nourished and in no acute distress. Patient is alert but not oriented to place time or person. HEAD: Atraumatic, normocephalic. EYES: Pupils equal round and reactive to light, extraocular movements intact, sclera anicteric, conjunctiva are normal. ENT: TMs normal, nares patent, oropharynx clear without exudates. Moist mucous membranes. No oral ulcerations or bleeding gums noted NECK: supple without lymphadenopathy or JVD. Trachea is central. No cervical or axillary lymphadenopathy noted. Carotids are 2+ LUNGS: Breath sounds bibasilar fine crackles at bases. No significant dullness noted. CHEST: Palpation of chest wall shows no significant chest wall tenderness. 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 ABDOMEN: Soft, no significant tenderness appreciated, normoactive bowel sounds. No guarding, no rebound. No rigidity noted . No masses appreciated. EXTREMITIES: Pedal pulses are 1-2+, no calf tenderness noted, Trace + pedal edema noted. No clubbing or cyanosis. NEUROLOGICAL: Patient is alert but is not able to participate in neurological exam because of patient's current mental status PSYCH: Patient cannot participate in a neurologic and psych exam because of the patient's current mental status SKIN: No significant ecchymosis, rash, ulcerations or signs of pruritus noted. MUSCULOSKELETAL EXAM: No significant joint swelling noted. Results Laboratory Results: 04/19/17 04:09 04/21/17 05:49 04/20/17 04/21/17 13:31 05:49 VBG pH 7.36 VBG pCO2 73.8 H* VBG HCO3 40.3 H VBG Base Excess 11.9 Sodium 145.1 H Potassium 4.0 Chloride 101 Carbon Dioxide 39 H Anion Gap 5 BUN 39 H Creatinine 0.74 Est GFR ( Amer) > 60 Est GFR (Non-Af Amer) > 60 Glucose 127 H Calcium 8.4 04/14/17 04/14/17 04/15/17 13:10 19:10 01:10 Troponin I 0.459 0.539 0.608 NT-Pro-B Natriuret Pep 04/15/17 04:49 Troponin I NT-Pro-B Natriuret Pep 20037 H EKG Comments: Atrial fibrillation with controlled ventricular response Impressions: Thoracentesis Ultrasound 04/15/17 12:40 IMPRESSION: SUCCESSFUL THORACENTESIS USING ULTRASOUND GUIDANCE. Chest X-Ray 04/21/17 09:54 IMPRESSION: Congestive failure pattern showing interval progression as compared to the previous study Assessment & Plan - Diagnosis (1) Acute on chronic diastolic (congestive) heart failure Is this a current diagnosis for this admission?: Yes (2) Acute on chronic respiratory failure with hypoxia and hypercapnia Is this a current diagnosis for this admission?: Yes (3) Atrial fibrillation Qualifiers: Atrial fibrillation type: chronic Qualified Code(s): I48.2 - Chronic atrial fibrillation Is this a current diagnosis for this admission?: Yes (4) Acute kidney injury superimposed on CKD Is this a current diagnosis for this admission?: Yes (5) Coronary artery disease Qualifiers: Coronary Disease-Associated Artery/Lesion type: [place] artery Associated angina: angina presence unspecified Is this a current diagnosis for this admission?: Yes (6) Elevated troponin I level Is this a current diagnosis for this admission?: Yes - Notes Notes: Chest x-ray reviewed. Wrote orders for IV Lasix 20 mg 1 and increased p.o. Lasix to 40 mg p.o. daily. Yesterday had added spironolactone 25 mg p.o. daily. Monitor electrolytes and renal functions. Patient otherwise stable apart from baseline confusion and agitation - Time Time with patient: 15-25 minutes - CODE STATUS : was discussed, patient remains DO NOT RESUSCITATE. Surrogate decision-maker unchanged. Multiple medical problems were addressed. More than 50% of the time spent coordinating care, discussing management plans with involved caregivers. Management plans discussed with involved personnels. Medical decision making was of moderate to high complexity, patient's has multiple comorbidities. Medications reviewed and adjusted accordingly: Yes
[2017-04-21] MEDS ORDERED: FUROSEMIDE INJ/PF 20 MG/2 ML SDV IV ONE (13:00)
--- NOTE | 2017-04-21 15:29 | PDOC PROGRESS REPORT ---
Subjective Progress Note for:: 04/21/17 Subjective:: No new changes. Physical Exam Vital Signs: Temp Pulse Resp BP Pulse Ox 98.2 F 78 20 95/46 L 100 04/21/17 12:02 04/21/17 12:02 04/21/17 12:02 04/21/17 12:02 04/21/17 12:02 Intake & Output 04/20/17 04/21/17 04/22/17 06:59 06:59 06:59 Intake Total 1457 499 222 Balance 1457 499 222 Weight 75 kg 74.2 kg General appearance: PRESENT: other - Laying in bed, positive for temporal wasting, swatting and pointing at objects in the air. Head exam: PRESENT: atraumatic, normocephalic Eye exam: PRESENT: conjunctiva pink, EOMI. ABSENT: scleral icterus Ear exam: PRESENT: normal external ear exam Mouth exam: PRESENT: moist, tongue midline Neck exam: ABSENT: carotid bruit, JVD, lymphadenopathy, thyromegaly Respiratory exam: PRESENT: other - Patient with fair breath sounds in upper lobes Cardiovascular exam: PRESENT: RRR. ABSENT: diastolic murmur, rubs, systolic murmur Pulses: PRESENT: normal dorsalis pedis pul Vascular exam: PRESENT: normal capillary refill GI/Abdominal exam: PRESENT: normal bowel sounds, soft. ABSENT: distended, guarding, mass, organolmegaly, rebound, tenderness Rectal exam: PRESENT: deferred Extremities exam: PRESENT: full ROM. ABSENT: calf tenderness, clubbing, pedal edema Neurological exam: PRESENT: alert, awake Psychiatric exam: PRESENT: appropriate affect, normal mood. ABSENT: homicidal ideation, suicidal ideation Skin exam: PRESENT: dry, intact, warm. ABSENT: cyanosis, rash Results Laboratory Results: 04/19/17 04:09 04/21/17 05:49 04/21/17 05:49 Sodium 145.1 H Potassium 4.0 Chloride 101 Carbon Dioxide 39 H Anion Gap 5 BUN 39 H Creatinine 0.74 Est GFR ( Amer) > 60 Est GFR (Non-Af Amer) > 60 Glucose 127 H Calcium 8.4 04/14/17 04/14/17 04/15/17 13:10 19:10 01:10 Troponin I 0.459 0.539 0.608 NT-Pro-B Natriuret Pep 04/15/17 04:49 Troponin I NT-Pro-B Natriuret Pep 63041 H Impressions: Thoracentesis Ultrasound 04/15/17 12:40 IMPRESSION: SUCCESSFUL THORACENTESIS USING ULTRASOUND GUIDANCE. Chest X-Ray 04/21/17 09:54 IMPRESSION: Congestive failure pattern showing interval progression as compared to the previous study Assessment & Plan - Diagnosis (1) Acute on chronic respiratory failure with hypoxia and hypercapnia Is this a current diagnosis for this admission?: Yes Plan: Prognosis is poor. Pt needs to be hospice. Family considering comfort care. 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 (3) Hypokalemia Is this a current diagnosis for this admission?: Yes Plan: Resolved. (4) Hypernatremia Is this a current diagnosis for this admission?: Yes Plan: Improved. (5) Recurrent left pleural effusion Is this a current diagnosis for this admission?: Yes Plan: S/P Thoracentesis: Will continue to monitor. (6) Acute metabolic encephalopathy Is this a current diagnosis for this admission?: Yes Plan: Pt has worsened. Will continue BIPAP (7) Acute on chronic diastolic (congestive) heart failure Is this a current diagnosis for this admission?: Yes Plan: Complex case due to pt third spacing fluid and intravascular depleted. Spironolactone. (8) CO2 narcosis Is this a current diagnosis for this admission?: Yes Plan: BIPAP. (9) Hyponatremia Is this a current diagnosis for this admission?: Yes Plan: Resolved. (10) Atrial fibrillation Qualifiers: Atrial fibrillation type: chronic Qualified Code(s): I48.2 - Chronic atrial fibrillation Is this a current diagnosis for this admission?: Yes Plan: Metoprolol 6.25mg PO BID (11) COPD (chronic obstructive pulmonary disease) Qualifiers: Emphysema type: unspecified Is this a current diagnosis for this admission?: Yes Plan: Pt currently appears to have problems with CHF. (12) Hypertension Qualifiers: Hypertension type: unspecified Qualified Code(s): I10 - Essential (primary ) hypertension Is this a current diagnosis for this admission?: Yes Plan: Pt currently hypotensive. Will continue to monitor. (13) Hyperlipidemia Qualifiers: Hyperlipidemia type: unspecified Qualified Code(s): E78.5 - Hyperlipidemia , unspecified Is this a current diagnosis for this admission?: Yes Plan: Statin (14) Dementia Is this a current diagnosis for this admission?: Yes Plan: Supportive care. (15) Acute kidney injury superimposed on CKD Is this a current diagnosis for this admission?: Yes Plan: Will continue to monitor. (16) Fracture, intertrochanteric, right femur Qualifiers: Encounter type: initial encounter Fracture type: closed Fracture alignment: displaced Qualified Code(s): S72.141A - Displaced intertrochanteric fracture of right femur, initial encounter for closed fracture Is this a current diagnosis for this admission?: Yes Plan: S/P Pinning of Right Femur: Supportive care. (17) DNR (do not resuscitate) Is this a current diagnosis for this admission?: Yes Plan: Family request DNR . Pt's overall prognosis poor. Pt needs to be Hospice. - Time Time Spent with patient: 15-24 minutes
[2017-04-21] MEDS: SIMVASTATIN 40 MG TABLET PO SCH (22:27)
[2017-04-22] MEDS: LEVOTHYROXINE SODIUM 0.05 MG TABLET PO SCH (06:13)
[2017-04-22 08:50] LABS: BLOOD UREA NITROGEN 34 mg/dL (7-20); CALCIUM 8.3 mg/dL (8.4-10.2); CARBON DIOXIDE 39 mmol/L (22-30); CHLORIDE 97 mmol/L (98-107); CREATININE RESULT 0.77 mg/dL (0.52-1.25); GLUCOSE 106 mg/dL (75-110); POTASSIUM 3.7 mmol/L (3.6-5.0)
[2017-04-22 08:58] LABS: SODIUM 141.3 mmol/L (137-145)
[2017-04-22 09:00] LABS: ANION GAP 5 (5-19)
[2017-04-22] MEDS: RANOLAZINE 500 MG TAB.SR.12H PO SCH ×2 (09:52→21:57)
[2017-04-22] MEDS: SPIRONOLACTONE 25 MG TABLET PO SCH (09:55)
[2017-04-22] MEDS: METOPROLOL SUCCINATE 25 MG TAB.SR.24H PO SCH ×2 (09:55→21:57)
[2017-04-22] MEDS ORDERED: FUROSEMIDE 40 MG TABLET PO SCH (10:00)
--- NOTE | 2017-04-22 10:36 | PDOC PROGRESS REPORT ---
Subjective Progress Note for:: 04/22/17 Subjective:: Lethargic but arousable confused Physical Exam Vital Signs: Temp Pulse Resp BP Pulse Ox 97.8 F 82 19 93/75 L 97 04/22/17 08:46 04/22/17 08:46 04/22/17 08:46 04/22/17 08:46 04/22/17 08:46 Intake & Output 04/21/17 04/22/17 04/23/17 06:59 06:59 06:59 Intake Total 499 1414 Balance 499 1414 Weight 74.2 kg 78.8 kg General appearance: PRESENT: no acute distress, cooperative, disheveled, well- developed, well-nourished Head exam: PRESENT: atraumatic, normocephalic Eye exam: PRESENT: conjunctiva pale, EOMI Mouth exam: PRESENT: dry mucosa, neck supple, tongue midline Neck exam: ABSENT: carotid bruit, JVD, lymphadenopathy, thyromegaly Respiratory exam: PRESENT: decreased breath sounds, prolonged expiratory phas, rhonchi, symmetrical, unlabored, wheezes. ABSENT: retraction, stridor, tachypnea Cardiovascular exam: PRESENT: RRR, +S1 Pulses: PRESENT: normal radial pulses GI/Abdominal exam: PRESENT: normal bowel sounds, soft. ABSENT: distended, guarding, mass, organolmegaly, rebound, tenderness Rectal exam: PRESENT: deferred Gentrourinary exam: PRESENT: indwelling catheter Neurological exam: PRESENT: awake. ABSENT: alert Skin exam: PRESENT: dry, warm Results Laboratory Results: 04/19/17 04:09 04/22/17 08:07 04/22/17 08:07 Sodium 141.3 Potassium 3.7 Chloride 97 L Carbon Dioxide 39 H Anion Gap 5 BUN 34 H Creatinine 0.77 Est GFR ( Amer) > 60 Est GFR (Non-Af Amer) > 60 Glucose 106 Calcium 8.3 L 04/14/17 04/14/17 04/15/17 13:10 19:10 01:10 Troponin I 0.459 0.539 0.608 NT-Pro-B Natriuret Pep 04/15/17 04:49 Troponin I NT-Pro-B Natriuret Pep 98041 H Impressions: Thoracentesis Ultrasound 04/15/17 12:40 IMPRESSION: SUCCESSFUL THORACENTESIS USING ULTRASOUND GUIDANCE. Chest X-Ray 04/21/17 09:54 IMPRESSION: Congestive failure pattern showing interval progression as compared to the previous study Assessment & Plan - Diagnosis (1) Asystole Is this a current diagnosis for this admission?: No (2) Pleural effusion Is this a current diagnosis for this admission?: Yes (3) Acute respiratory failure with hypoxia Is this a current diagnosis for this admission?: No (4) COPD (chronic obstructive pulmonary disease) Qualifiers: Is this a current diagnosis for this admission?: Yes
--- NOTE | 2017-04-22 14:46 | Progress Note ---
Provider Note Provider Note: Palliative Care Follow Up Note Visit made this AM with patient who is remarkably improved. He is talking clearly, breathing well without bipap at present. MCNAIR, fairly oriented to place and self. Patient told me his son was supposed to be there, but had not come in yet. Mr. Deleon denied any pain or distress. He was only upset because he did not get any meat on his breakfast traY! Note left for family to call me when they arrived. Return visit at 1:15 PM: Mr. Deleon's , son and DIL are at bedside. Patient laughing and joking with them. I spoke with son, who sayshe thought about options we discussed last week and he has decided to take patient home to his home in [place]. He is agreeable for hospice to help at home. We discussed having hospice liason meet with tomorrow, since son could not stay this afternoon. Discussed equipment needed at home including Bipap and other DME. Patient has repeatedly said he wants to go home. Family does not have another facility they would choose. SOn is retired and he feels he can provide care with all the support he will have from other family members. [facility] li[facility]oon will meet with with Mr. Deleon and family on 04/23 at 2:30 pm here at [facility] to finalize plans and DME can be delivered and in place when patient is discharged. No symptoms have been reported to address. Hospice will follow at home after discharge with probable diagnosis COPD with recurrent left pleural effusion and history respiratory arrest. Appreciate excellent care and support shown at [facility]. Total time 40 minutes.
--- NOTE | 2017-04-22 16:26 | PDOC PROGRESS REPORT ---
Subjective Progress Note for:: 04/22/17 Subjective:: Patient states that he would like a state. Spoke with patient's son today who states that they will meet with palliative care today to discuss hospice. Today patient was talking with family and more alert and oriented. Physical Exam Vital Signs: Temp Pulse Resp BP Pulse Ox 97.4 F 78 19 103/51 L 95 04/22/17 11:15 04/22/17 14:00 04/22/17 11:15 04/22/17 11:15 04/22/17 11:15 Intake & Output 04/21/17 04/22/17 04/23/17 06:59 06:59 06:59 Intake Total 499 1414 358 Output Total 0 Balance 499 1414 358 Weight 74.2 kg 78.8 kg General appearance: PRESENT: mild distress, other - alert, laying in bed Head exam: PRESENT: atraumatic, normocephalic Eye exam: PRESENT: conjunctiva pink, EOMI. ABSENT: scleral icterus Ear exam: PRESENT: normal external ear exam Mouth exam: PRESENT: moist, tongue midline Neck exam: ABSENT: carotid bruit, JVD, lymphadenopathy, thyromegaly Respiratory exam: PRESENT: clear to auscultation mary. ABSENT: rales, rhonchi, wheezes Cardiovascular exam: PRESENT: RRR. ABSENT: diastolic murmur, rubs, systolic murmur Pulses: PRESENT: normal dorsalis pedis pul Vascular exam: PRESENT: normal capillary refill GI/Abdominal exam: PRESENT: normal bowel sounds, soft. ABSENT: distended, guarding, mass, organolmegaly, rebound, tenderness Rectal exam: PRESENT: deferred Extremities exam: PRESENT: full ROM. ABSENT: calf tenderness, clubbing, pedal edema Neurological exam: PRESENT: alert Psychiatric exam: ABSENT: homicidal ideation, suicidal ideation Skin exam: PRESENT: dry, warm. ABSENT: cyanosis, rash Results Laboratory Results: 04/19/17 04:09 04/22/17 08:07 04/22/17 08:07 Sodium 141.3 Potassium 3.7 Chloride 97 L Carbon Dioxide 39 H Anion Gap 5 BUN 34 H Creatinine 0.77 Est GFR ( Amer) > 60 Est GFR (Non-Af Amer) > 60 Glucose 106 Calcium 8.3 L 09/17/17 09/17/17 09/18/17 13:10 19:10 01:10 Troponin I 0.459 0.539 0.608 NT-Pro-B Natriuret Pep 04/15/17 04:49 Troponin I NT-Pro-B Natriuret Pep [id number] H Impressions: Thoracentesis Ultrasound 04/15/17 12:40 IMPRESSION: SUCCESSFUL THORACENTESIS USING ULTRASOUND GUIDANCE. Chest X-Ray 04/21/17 09:54 IMPRESSION: Congestive failure pattern showing interval progression as compared to the previous study Assessment & Plan - Diagnosis (1) Acute on chronic respiratory failure with hypoxia and hypercapnia Is this a current diagnosis for this admission?: Yes Plan: Prognosis is poor. Pt needs to be hospice. Family considering comfort care. 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 (3) Hypokalemia Is this a current diagnosis for this admission?: Yes Plan: Resolved. (4) Hypernatremia Is this a current diagnosis for this admission?: Yes Plan: Resolved. Cardiology has patient on Lasix and Spironolactone which were held today due to patient's hypotension (5) Recurrent left pleural effusion Is this a current diagnosis for this admission?: Yes Plan: S/P Thoracentesis: Will continue to monitor. (6) Acute metabolic encephalopathy Is this a current diagnosis for this admission?: Yes Plan: Pt has worsened. Will continue BIPAP (7) Acute on chronic diastolic (congestive) heart failure Is this a current diagnosis for this admission?: Yes Plan: Complex case due to pt third spacing fluid and intravascular depleted. Spironolactone. (8) CO2 narcosis Is this a current diagnosis for this admission?: Yes Plan: BIPAP. (9) Hyponatremia Is this a current diagnosis for this admission?: Yes Plan: Resolved. (10) Atrial fibrillation Qualifiers: Atrial fibrillation type: chronic Qualified Code(s): I48.2 - Chronic atrial fibrillation Is this a current diagnosis for this admission?: Yes Plan: Metoprolol 6.25mg PO BID (11) COPD (chronic obstructive pulmonary disease) Qualifiers: Emphysema type: unspecified Is this a current diagnosis for this admission?: Yes Plan: Pt currently appears to have problems with CHF. (12) Hypertension Qualifiers: Hypertension type: unspecified Qualified Code(s): I10 - Essential (primary ) hypertension Is this a current diagnosis for this admission?: Yes Plan: Pt currently hypotensive. Will continue to monitor. (13) Hyperlipidemia Qualifiers: Hyperlipidemia type: unspecified Qualified Code(s): E78.5 - Hyperlipidemia , unspecified Is this a current diagnosis for this admission?: Yes Plan: Statin (14) Dementia Is this a current diagnosis for this admission?: Yes Plan: Supportive care. (15) Acute kidney injury superimposed on CKD Is this a current diagnosis for this admission?: Yes Plan: Will continue to monitor. (16) Fracture, intertrochanteric, right femur Qualifiers: Encounter type: initial encounter Fracture type: closed Fracture alignment: displaced Qualified Code(s): S72.141A - Displaced intertrochanteric fracture of right femur, initial encounter for closed fracture Is this a current diagnosis for this admission?: Yes Plan: S/P Pinning of Right Femur: Supportive care. (17) DNR (do not resuscitate) Is this a current diagnosis for this admission?: Yes Plan: Family request DNR . Family planning to make patient hospice most likely tomorrow. - Time Time Spent with patient: 15-24 minutes
[2017-04-22] MEDS: SIMVASTATIN 40 MG TABLET PO SCH (21:57)
[2017-04-23] MEDS: LEVOTHYROXINE SODIUM 0.05 MG TABLET PO SCH (05:46)
--- NOTE | 2017-04-23 10:02 | PDOC PROGRESS REPORT ---
Subjective Progress Note for:: 04/22/17 Subjective:: Patient seems to be doing much better today. More talkative and responsive. Chest x-ray shows slight worsening of CHF. Patient remains intermittently agitated and confused . Patient maintaining atrial fibrillation, heart rate in reasonable control. Physical Exam Vital Signs: Temp Pulse Resp BP Pulse Ox 97.6 F 80 18 91/52 L 96 04/22/17 15:49 04/22/17 15:49 04/22/17 17:54 04/22/17 15:49 04/22/17 17:22 Intake & Output 04/21/17 04/22/17 04/23/17 06:59 06:59 06:59 Intake Total 499 1414 715 Output Total 175 Balance 499 1414 540 Weight 74.2 kg 78.8 kg Exam: GENERAL: well-nourished and in no acute distress. Patient is alert but not oriented to place time or person. HEAD: Atraumatic, normocephalic. EYES: Pupils equal round and reactive to light, extraocular movements intact, sclera anicteric, conjunctiva are normal. ENT: TMs normal, nares patent, oropharynx clear without exudates. Moist mucous membranes. No oral ulcerations or bleeding gums noted NECK: supple without lymphadenopathy or JVD. Trachea is central. No cervical or axillary lymphadenopathy noted. Carotids are 2+ LUNGS: Breath sounds bibasilar fine crackles at bases. No significant dullness noted. CHEST: Palpation of chest wall shows no significant chest wall tenderness. HEART: [place] [employer], No PSH, 2/6 XOCHILT aortic area, 1/6 jane systolic murmur mitral area, rubs or gallops. ABDOMEN: Soft, no significant tenderness appreciated, normoactive bowel sounds. No guarding, no rebound. No rigidity noted . No masses appreciated. EXTREMITIES: Pedal pulses are 1-2+, no calf tenderness noted, Trace + pedal edema noted. No clubbing or cyanosis. NEUROLOGICAL: Patient is alert but is not able to participate in neurological exam because of patient's current mental status PSYCH: Patient cannot participate in a neurologic and psych exam because of the patient's current mental status SKIN: No significant ecchymosis, rash, ulcerations or signs of pruritus noted. MUSCULOSKELETAL EXAM: No significant joint swelling noted. Results Laboratory Results: 04/19/17 04:09 04/22/17 08:07 04/22/17 08:07 Sodium 141.3 Potassium 3.7 Chloride 97 L Carbon Dioxide 39 H Anion Gap 5 BUN 34 H Creatinine 0.77 Est GFR ( Amer) > 60 Est GFR (Non-Af Amer) > 60 Glucose 106 Calcium 8.3 L 04/14/17 04/14/17 04/15/17 13:10 19:10 01:10 Troponin I 0.459 0.539 0.608 NT-Pro-B Natriuret Pep 04/15/17 04:49 Troponin I NT-Pro-B Natriuret Pep [id number] H Impressions: Thoracentesis Ultrasound 04/15/17 12:40 IMPRESSION: SUCCESSFUL THORACENTESIS USING ULTRASOUND GUIDANCE. Chest X-Ray 04/21/17 09:54 IMPRESSION: Congestive failure pattern showing interval progression as compared to the previous study Assessment & Plan - Diagnosis (1) Acute on chronic diastolic (congestive) heart failure Is this a current diagnosis for this admission?: Yes (2) Acute on chronic respiratory failure with hypoxia and hypercapnia Is this a current diagnosis for this admission?: Yes (3) Atrial fibrillation Qualifiers: Atrial fibrillation type: chronic Qualified Code(s): I48.2 - Chronic atrial fibrillation Is this a current diagnosis for this admission?: Yes (4) Acute kidney injury superimposed on CKD Is this a current diagnosis for this admission?: Yes (5) Coronary artery disease Qualifiers: Coronary Disease-Associated Artery/Lesion type: [place] artery Associated angina: angina presence unspecified Is this a current diagnosis for this admission?: Yes (6) Elevated troponin I level Is this a current diagnosis for this admission?: Yes - Notes Notes: Patient generally is stable from cardiac standpoint. Medical management was optimized yesterday. Had a discussion with hospitalist today. Patient seems stable. Patient Care status is being discussed with family members today. Currently he has been on a stable regimen. Will sign off. Please reconsult if needed. Medications were reviewed. Impression and plan as noted in yesterday' s note. - Time Time with patient: 15-25 minutes - CODE STATUS : was discussed, patient remains DO NOT RESUSCITATE. Surrogate decision-maker unchanged. Multiple medical problems were addressed. More than 50% of the time spent coordinating care, discussing management plans with involved caregivers. Management plans discussed with involved personnels. Medical decision making was of moderate to high complexity, patient's has multiple comorbidities. Medications reviewed and adjusted accordingly: Yes
[2017-04-23] MEDS: SPIRONOLACTONE 25 MG TABLET PO SCH (10:37)
[2017-04-23] MEDS: DORZOLAMIDE HCL 2%/TIMOLOL MALEAT 0.5% OPH SOLN 10 ML OS SCH ×2 (10:37→23:16)
[2017-04-23] MEDS: FINASTERIDE 5 MG TABLET PO SCH (10:37)
[2017-04-23] MEDS: METOPROLOL SUCCINATE 25 MG TAB.SR.24H PO SCH ×2 (10:37→23:16)
[2017-04-23] MEDS: RANOLAZINE 500 MG TAB.SR.12H PO SCH ×2 (10:37→23:16)
--- NOTE | 2017-04-23 13:43 | PDOC PROGRESS REPORT ---
Subjective Progress Note for:: 04/23/17 Subjective:: Patient reports he is feeling much better. He reports his breathing is much better. He reports he does not want the BiPAP anymore. From reading notes, it appears as though patient's family is amenable to the idea of home with hospice. Patient denies chest pain, shortness of breath, abdominal pain, nausea, vomiting , fevers, chills, diarrhea, constipation. There has been no documented bowel movement since 04/20/2017. Physical Exam Vital Signs: Temp Pulse Resp BP Pulse Ox 97.5 F 77 20 104/62 98 04/23/17 07:36 04/23/17 07:36 04/23/17 07:36 04/23/17 07:36 04/23/17 07:36 Intake & Output 04/22/17 04/23/17 04/24/17 06:59 06:59 06:59 Intake Total 1414 1565 Output Total 175 Balance 1414 1390 Weight 78.8 kg 79.9 kg Exam: General: Awake alert and oriented x1, no acute respiratory distress HEENT: AT/NC, PERRL, EOMI, oropharynx is moist, pink, no scleral icterus, no conjunctival injection Neck: No JVD, trachea midline Chest: rales bilaterally, diminished bases CV: Regular rate and rhythm, normal S1 and S2, no rub or gallop; +2/6 SM Abdomen: Soft, nontender to palpation, nondistended, active bowel sounds; no rebound, rigidity, or guarding Extremities: No cyanosis, clubbing; +edema Neuro: Cranial nerves II through XII are grossly intact without focal deficits; awake alert and oriented x1 Psych: Normal mood and affect Results Laboratory Results: 04/19/17 04:09 04/22/17 08:07 04/14/17 04/14/17 04/15/17 13:10 19:10 01:10 Troponin I 0.459 0.539 0.608 NT-Pro-B Natriuret Pep 04/15/17 04:49 Troponin I NT-Pro-B Natriuret Pep 41646 H Impressions: Thoracentesis Ultrasound 04/15/17 12:40 IMPRESSION: SUCCESSFUL THORACENTESIS USING ULTRASOUND GUIDANCE. Chest X-Ray 04/21/17 09:54 IMPRESSION: Congestive failure pattern showing interval progression as compared to the previous study Assessment & Plan - Diagnosis (1) Acute on chronic diastolic (congestive) heart failure Is this a current diagnosis for this admission?: Yes Plan: Patient mildly hypervolemic Echo done on 03/11/17 reveals as EF of 55%, moderate pulm htn Current heart failure is likely secondary to diastolic dysfunction, but there has been no repeat echo since patient's arrest episode. Generic Name Dose Route Start Last Admin Trade Name Freq PRN Reason Stop Dose Admin Bumetanide 1 mg 04/23/17 18:00 Bumex 1 Mg Tablet PO 05/23/17 17:59 BID SHYAM Metoprolol Succinate 12.5 mg 04/18/17 22:00 04/23/17 10:37 Toprol Xl 25 Mg Tab.Sr PO 05/16/17 21:59 12.5 mg Q12 SHYAM (2) Acute metabolic encephalopathy Is this a current diagnosis for this admission?: Yes Plan: Likely secondary to his arrest and subsequent anoxic brain injury. (3) Acute kidney injury superimposed on CKD Is this a current diagnosis for this admission?: Yes Plan: Has improved to baseline 04/22/17 08:07 Creatinine 0.77 04/14/17 10:35 Creatinine 1.56 H (4) Acute on chronic respiratory failure with hypoxia and hypercapnia Is this a current diagnosis for this admission?: Yes Plan: Continue oxygen and BiPAP if tolerated. 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 Is this a current diagnosis for this admission?: Yes Plan: Supportive care (6) COPD (chronic obstructive pulmonary disease) Qualifiers: Emphysema type: unspecified Is this a current diagnosis for this admission?: Yes Plan: Nebulized treatments (7) Coronary artery disease Qualifiers: Coronary Disease-Associated Artery/Lesion type: [place] artery Associated angina: angina presence unspecified Is this a current diagnosis for this admission?: Yes Plan: Appreciate cardiology input (8) Elevated troponin I level Is this a current diagnosis for this admission?: Yes Plan: 2/2 s/p CPR Appreciate cardiology input 04/14/17 04/14/17 04/14/17 10:35 13:10 19:10 Troponin I 0.460 0.459 0.539 04/15/17 01:10 Troponin I 0.608 (9) Hyperlipidemia Qualifiers: Hyperlipidemia type: unspecified Qualified Code(s): E78.5 - Hyperlipidemia , unspecified Is this a current diagnosis for this admission?: Yes Plan: Stop Zocor (10) Pleural effusion Is this a current diagnosis for this admission?: Yes Plan: Secondary to congestive heart failure (11) Hypothyroidism Is this a current diagnosis for this admission?: Yes Plan: Continue current Synthroid 04/18/17 00:00 TSH 3.06 - Time Time Spent with patient: 25-34 minutes Medications reviewed and adjusted accordingly: Yes Anticipated discharge: Hospice Within: within 24 hours
--- NOTE | 2017-04-23 14:24 | PDOC PROGRESS REPORT ---
Subjective Progress Note for:: 04/23/17 Subjective:: confused Physical Exam Vital Signs: Temp Pulse Resp BP Pulse Ox 97.5 F 92 18 113/58 L 94 04/23/17 13:52 04/23/17 13:52 04/23/17 13:52 04/23/17 13:52 04/23/17 13:52 Intake & Output 04/22/17 04/23/17 04/24/17 06:59 06:59 06:59 Intake Total 1414 1565 458 Output Total 175 Balance 1414 1390 458 Weight 78.8 kg 79.9 kg General appearance: PRESENT: no acute distress, disheveled, thin, well-developed Head exam: PRESENT: atraumatic, normocephalic Eye exam: PRESENT: conjunctiva pale, EOMI Mouth exam: PRESENT: dry mucosa, neck supple, tongue midline Neck exam: ABSENT: carotid bruit, JVD, lymphadenopathy, thyromegaly Respiratory exam: PRESENT: decreased breath sounds, prolonged expiratory phas, rhonchi, symmetrical, unlabored, wheezes. ABSENT: rales, retraction, stridor, tachypnea Cardiovascular exam: PRESENT: RRR, +S1, +S2 Pulses: PRESENT: normal radial pulses GI/Abdominal exam: PRESENT: normal bowel sounds, soft. ABSENT: distended, guarding, mass, organolmegaly, rebound, tenderness Rectal exam: PRESENT: deferred Gentrourinary exam: PRESENT: indwelling catheter Musculoskeletal exam: PRESENT: normal inspection Neurological exam: PRESENT: altered, awake. ABSENT: alert Skin exam: PRESENT: dry, warm Results Laboratory Results: 04/19/17 04:09 04/22/17 08:07 04/14/17 04/14/17 04/15/17 13:10 19:10 01:10 Troponin I 0.459 0.539 0.608 NT-Pro-B Natriuret Pep 04/15/17 04:49 Troponin I NT-Pro-B Natriuret Pep 42471 H Impressions: Thoracentesis Ultrasound 04/15/17 12:40 IMPRESSION: SUCCESSFUL THORACENTESIS USING ULTRASOUND GUIDANCE. Chest X-Ray 04/21/17 09:54 IMPRESSION: Congestive failure pattern showing interval progression as compared to the previous study Assessment & Plan - Diagnosis (1) Asystole Is this a current diagnosis for this admission?: No (2) Pleural effusion Is this a current diagnosis for this admission?: Yes Plan: Unchanged (3) Acute respiratory failure with hypoxia Is this a current diagnosis for this admission?: No (4) COPD (chronic obstructive pulmonary disease) Qualifiers: Is this a current diagnosis for this admission?: Yes Plan: Without the use of BiPAP PCO2 is trending upwards over the last several days
[2017-04-23] MEDS: BUMETANIDE 1 MG TABLET PO SCH (17:23)
[2017-04-24] MEDS: LEVOTHYROXINE SODIUM 0.05 MG TABLET PO SCH (06:38)
[2017-04-24] MEDS: BUMETANIDE 1 MG TABLET PO SCH (10:04)
[2017-04-24] MEDS: RANOLAZINE 500 MG TAB.SR.12H PO SCH ×2 (10:04→21:11)
[2017-04-24] MEDS: DORZOLAMIDE HCL 2%/TIMOLOL MALEAT 0.5% OPH SOLN 10 ML OS SCH ×2 (10:04→21:11)
[2017-04-24] MEDS: METOPROLOL SUCCINATE 25 MG TAB.SR.24H PO SCH ×2 (10:04→21:11)
[2017-04-24] MEDS: FINASTERIDE 5 MG TABLET PO SCH (10:04)
[2017-04-24] MEDS: SPIRONOLACTONE 25 MG TABLET PO SCH (10:04)
--- NOTE | 2017-04-24 10:50 | PDOC PROGRESS REPORT ---
Subjective Progress Note for:: 04/24/17 Subjective:: confused Physical Exam Vital Signs: Temp Pulse Resp BP Pulse Ox 97.7 F 64 20 104/54 L 91 L 04/24/17 07:33 04/24/17 07:33 04/24/17 07:33 04/24/17 07:33 04/24/17 07:33 Intake & Output 04/23/17 04/24/17 04/25/17 06:59 06:59 06:59 Intake Total 1565 940 Output Total 175 450 Balance 1390 490 Weight 79.9 kg 75.8 kg General appearance: PRESENT: no acute distress, cooperative, disheveled, well- developed Head exam: PRESENT: atraumatic, normocephalic Eye exam: PRESENT: conjunctiva pale, EOMI Mouth exam: PRESENT: moist, neck supple, tongue midline Neck exam: ABSENT: carotid bruit, JVD, lymphadenopathy, thyromegaly Respiratory exam: PRESENT: decreased breath sounds, prolonged expiratory phas, rhonchi, symmetrical, unlabored. ABSENT: rales, retraction, stridor, tachypnea Cardiovascular exam: PRESENT: RRR, +S1, +S2 Pulses: PRESENT: normal radial pulses GI/Abdominal exam: PRESENT: normal bowel sounds, soft. ABSENT: distended, guarding, mass, organolmegaly, rebound, tenderness Rectal exam: PRESENT: deferred Gentrourinary exam: PRESENT: indwelling catheter Musculoskeletal exam: PRESENT: tenderness Neurological exam: PRESENT: altered, awake, oriented to person. ABSENT: alert, oriented to place, oriented to time, oriented to situation Psychiatric exam: PRESENT: normal mood Skin exam: PRESENT: dry, warm Results Laboratory Results: 04/19/17 04:09 04/22/17 08:07 04/14/17 04/14/17 04/15/17 13:10 19:10 01:10 Troponin I 0.459 0.539 0.608 NT-Pro-B Natriuret Pep 04/15/17 04:49 Troponin I NT-Pro-B Natriuret Pep [id number] H Impressions: Thoracentesis Ultrasound 04/15/17 12:40 IMPRESSION: SUCCESSFUL THORACENTESIS USING ULTRASOUND GUIDANCE. Chest X-Ray 04/21/17 09:54 IMPRESSION: Congestive failure pattern showing interval progression as compared to the previous study Assessment & Plan - Diagnosis (1) Asystole Is this a current diagnosis for this admission?: No (2) Pleural effusion Is this a current diagnosis for this admission?: No (3) Acute respiratory failure with hypoxia Is this a current diagnosis for this admission?: No (4) COPD (chronic obstructive pulmonary disease) Qualifiers: Is this a current diagnosis for this admission?: Yes Plan: home with hospice
--- NOTE | 2017-04-24 16:59 | PDOC PROGRESS REPORT ---
Subjective Progress Note for:: 04/24/17 Subjective:: Patient reports he is feeling much better. He reports that he is ready to go home. Family is present at bedside. Plan is for patient home tomorrow with hospice after equipment is delivered Physical Exam Vital Signs: Temp Pulse Resp BP Pulse Ox 97.3 F 70 20 102/49 L 93 04/24/17 03:49 04/24/17 03:49 04/24/17 03:49 04/24/17 03:49 04/24/17 03:49 Intake & Output 04/23/17 04/24/17 04/25/17 06:59 06:59 06:59 Intake Total 1565 940 Output Total 175 450 Balance 1390 490 Weight 79.9 kg 75.8 kg Exam: General: Awake alert and oriented x1, no acute respiratory distress HEENT: AT/NC, PERRL, EOMI, oropharynx is moist, pink, no scleral icterus, no conjunctival injection Neck: No JVD, trachea midline Chest: diminished bases, otherwise clear CV: Regular rate and rhythm, normal S1 and S2, no rub or gallop; +2/6 SM Abdomen: Soft, nontender to palpation, nondistended, active bowel sounds; no rebound, rigidity, or guarding Extremities: No cyanosis, clubbing; +edema Neuro: Cranial nerves II through XII are grossly intact without focal deficits; awake alert and oriented x1 Psych: Normal mood and affect Results Laboratory Results: 04/19/17 04:09 04/22/17 08:07 04/14/17 04/14/17 04/15/17 13:10 19:10 01:10 Troponin I 0.459 0.539 0.608 NT-Pro-B Natriuret Pep 04/15/17 04:49 Troponin I NT-Pro-B Natriuret Pep [id number] H Impressions: Thoracentesis Ultrasound 04/15/17 12:40 IMPRESSION: SUCCESSFUL THORACENTESIS USING ULTRASOUND GUIDANCE. 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 Is this a current diagnosis for this admission?: Yes (6) COPD (chronic obstructive pulmonary disease) Qualifiers: Emphysema type: unspecified Is this a current diagnosis for this admission?: Yes (7) Coronary artery disease Qualifiers: Coronary Disease-Associated Artery/Lesion type: [place] artery Associated angina: angina presence unspecified Is this a current diagnosis for this admission?: Yes (8) Elevated troponin I level Is this a current diagnosis for this admission?: Yes (9) Hyperlipidemia Qualifiers: Hyperlipidemia type: unspecified Qualified Code(s): E78.5 - Hyperlipidemia , unspecified Is this a current diagnosis for this admission?: Yes (10) Pleural effusion Is this a current diagnosis for this admission?: Yes (11) Hypothyroidism Is this a current diagnosis for this admission?: Yes - Plan Summary Plan Summary: Current plan is for patient to go home with hospice tomorrow after the delivery of equipment. He has tolerated a transition in his diuretic to Bumex.
--- NOTE | 2017-04-24 23:27 | Progress Note ---
Provider Note Provider Note: Palliative Care Follow up visit 04/24/17 1:40- 2:00 PM S: Patient awake, in bed alone. He was able to tell me he is going home tomorrow. he reported feeling pretty good, but being tired. He denies pain and says he ate well for lunch. No respiratory distress noted and no anxiety. O: Alert, oriented, cheerful BS slight rhonchi, no distress, breathing without issue, no cough noted. Pulse regular, Heart sounds normal Abd soft, non distended. Patient said he needed to use urinal, he was able to unfasten his undergarment and use urinal effectively. A/P: Status post arrest at nursing facility while there for rehab following femur fracture He has improved remarkably well. No new problems, not using Bipap and doing well without it. Spoke with patients son who is planning to take patient home tomorrow with hospice support. He is waiting for DME to be delivered. he has some reservation about not using Bipap at home but I reassured him that the bipap had helped but was not needed now since patient is so much better, Son is happy to be taking patient home instead of to a different rehab. He feels patient will get better faster at home. No needs at present, so glad to see patients recovery. Discussed patient.with Dr. Wilkins who states patient shold be discharged in the AM. Hospice lined up to follow at home.
[2017-04-25] MEDS: LEVOTHYROXINE SODIUM 0.05 MG TABLET PO SCH (05:26)
[2017-04-25] MEDS: FINASTERIDE 5 MG TABLET PO SCH (09:59)
[2017-04-25] MEDS: DORZOLAMIDE HCL 2%/TIMOLOL MALEAT 0.5% OPH SOLN 10 ML OS SCH (09:59)
[2017-04-25] MEDS: METOPROLOL SUCCINATE 25 MG TAB.SR.24H PO SCH (10:00)
[2017-04-25] MEDS ORDERED: BUMETANIDE 1 MG TABLET PO SCH (10:00)
[2017-04-25] MEDS: SPIRONOLACTONE 25 MG TABLET PO SCH (10:00)
[2017-04-25] MEDS: RANOLAZINE 500 MG TAB.SR.12H PO SCH (10:01)
--- NOTE | 2017-04-25 10:01 | PDOC PROGRESS REPORT ---
Subjective Progress Note for:: 04/25/17 Subjective:: confused Physical Exam Vital Signs: Temp Pulse Resp BP Pulse Ox 97.6 F 84 18 116/65 99 04/25/17 07:22 04/25/17 07:22 04/25/17 07:22 04/25/17 07:22 04/25/17 07:22 Intake & Output 04/24/17 04/25/17 04/26/17 06:59 06:59 06:59 Intake Total 940 1047 Output Total 450 400 Balance 490 647 Weight 75.8 kg 76 kg General appearance: PRESENT: no acute distress, disheveled, hard of hearing, well-developed, well-nourished Head exam: PRESENT: atraumatic, normocephalic Eye exam: PRESENT: conjunctiva pale, EOMI Mouth exam: PRESENT: dry mucosa, neck supple, tongue midline Neck exam: ABSENT: carotid bruit, JVD, lymphadenopathy, thyromegaly Respiratory exam: PRESENT: decreased breath sounds, prolonged expiratory phas, rales, rhonchi, symmetrical, unlabored. ABSENT: retraction, stridor, tachypnea , wheezes Cardiovascular exam: PRESENT: RRR, +S1, +S2 Pulses: PRESENT: normal radial pulses GI/Abdominal exam: PRESENT: normal bowel sounds, soft. ABSENT: distended, guarding, mass, organolmegaly, rebound, tenderness Rectal exam: PRESENT: deferred Gentrourinary exam: PRESENT: indwelling catheter Musculoskeletal exam: PRESENT: normal inspection Neurological exam: PRESENT: awake. ABSENT: alert, oriented to place, oriented to time, oriented to situation Skin exam: PRESENT: dry, warm Results Laboratory Results: 04/19/17 04:09 04/22/17 08:07 04/14/17 04/14/17 04/15/17 13:10 19:10 01:10 Troponin I 0.459 0.539 0.608 NT-Pro-B Natriuret Pep 04/15/17 04:49 Troponin I NT-Pro-B Natriuret Pep 49521 H Impressions: Thoracentesis Ultrasound 04/15/17 12:40 IMPRESSION: SUCCESSFUL THORACENTESIS USING ULTRASOUND GUIDANCE. Chest X-Ray 04/21/17 09:54 IMPRESSION: Congestive failure pattern showing interval progression as compared to the previous study Assessment & Plan - Diagnosis (1) Asystole Is this a current diagnosis for this admission?: No (2) Pleural effusion Is this a current diagnosis for this admission?: Yes Plan: Unchanged (3) Acute respiratory failure with hypoxia Is this a current diagnosis for this admission?: No (4) COPD (chronic obstructive pulmonary disease) Qualifiers: Is this a current diagnosis for this admission?: Yes Plan: home with hospice
[2017-04-25 14:39] VITALS: BP 100/50
--- NOTE | 2017-04-25 15:16 | PDOC DISCHARGE SUMMARY ---
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 Is this a current diagnosis for this admission?: Yes (6) COPD (chronic obstructive pulmonary disease) Is this a current diagnosis for this admission?: Yes (7) Coronary artery disease Is this a current diagnosis for this admission?: Yes (8) Elevated troponin I level Is this a current diagnosis for this admission?: Yes (9) Hyperlipidemia Is this a current diagnosis for this admission?: Yes (10) Pleural effusion Is this a current diagnosis for this admission?: Yes (11) Hypothyroidism Is this a current diagnosis for this admission?: Yes - Additional Information Resuscitation Status: Do Not Resuscitate Discharge Diet: As Tolerated, Regular Discharge Activity: Activity As Tolerated, Balance Activity w/Rest, Weigh Daily Home Medications: Acetaminophen [Tylenol 325 mg Tablet] 650 mg PO Q4HP PRN 04/14/17 Albuterol Sulfate [Ventolin 0.083% Neb 2.5 mg/3 mL Ampul] 2.5 mg NEB RTQ6 Docusate Sodium [Colace 100 mg Capsule] 100 mg PO Q12 04/14/17 Dorzolamide HCl/Timolol Maleat [Cosopt Oph Soln 10 ml] 1 drop OS Q12 04/14/17 Finasteride [Proscar 5 mg Tablet] 5 mg PO DAILY 04/14/17 Lansoprazole [Prevacid 30 mg Odt Tablet] 30 mg PO DAILY 04/14/17 Levothyroxine Sodium [Synthroid 0.05 mg Tablet] 50 mcg PO DAILY 04/14/17 Magnesium Hydroxide [Milk of Magnesia 30 ml Udcup] 30 ml PO HSP PRN 04/14/17 Nitroglycerin [Nitrostat 0.4 mg (1/150 Gr) Tabs 25/Bottle] 1 tab SL Q5MP PRN Tamsulosin HCl [Flomax 0.4 mg Cap.sr] 0.4 mg PO ACSUPPER 04/14/17 Bumetanide [Bumex 1 mg Tablet] 1 mg PO DAILY #30 tablet 04/25/17 Metoprolol Succinate [Toprol Xl 25 mg Tab.sr] 12.5 mg PO Q12 #30 tab.sr.24h Ranolazine [Ranexa 500 mg Tab.sr] 500 mg PO Q12 #60 tab.sr.12h 04/25/17 Spironolactone [Aldactone 25 mg Tablet] 25 mg PO DAILY #30 tablet 04/25/17 History of Present Illness History of Present Illness: Please see H&P for full HPI Hospital Course Hospital Course: Patient is an 89-year-old male who presented to this facility unresponsive with cardiopulmonary arrest despite patient's desire for DNR status, congestive heart failure, atrial fibrillation, coronary artery disease, history of DVT SC, hyperlipidemia, hypertension, pulmonary embolus, COPD, femur fracture patient apparently was not intubated, but responded after being given Narcan. Patient was found to be in asystole and received 5 minutes of compressions, but was found by EMS to have a pulse, so I question if this patient really arrested. Patient was admitted to the ICU and underwent thoracocentesis on 04/15/2017. This was consistent with congestive heart failure. Patient was diuresed and treated for congestive heart failure and CO2 narcosis. Patient had acute metabolic encephalopathy which was felt to be secondary to his "arrest" episode and also possibly secondary to a minor amount of hypoxic brain injury. Patient' s sputum did grow out Pseudomonas and MRSA but these were both felt to be contaminants. Patient's antibiotics were stopped and his white count did not worsen and he developed no fever. Patient continued to improve. He was doing well without BiPAP. His family did eventually elect to take him home on hospice. This was set up for that and he was discharged today to go home on hospice. Family is instructed to direct their concerns to hospice. Physical Exam Vital Signs: Temp Pulse Resp BP Pulse Ox 97.9 F 139 H 18 100/50 L 98 04/25/17 14:37 04/25/17 14:37 04/25/17 14:37 04/25/17 14:37 04/25/17 14:37 Intake & Output 04/24/17 04/25/17 04/26/17 06:59 06:59 06:59 Intake Total 940 1047 342 Output Total 450 400 200 Balance 490 647 142 Weight 75.8 kg 76 kg Exam: General: Awake alert and oriented x1, no acute respiratory distress HEENT: AT/NC, PERRL, EOMI, oropharynx is moist, pink, no scleral icterus, no conjunctival injection Neck: No JVD, trachea midline Chest: diminished bases, otherwise clear CV: Regular rate and rhythm, normal S1 and S2, no rub or gallop; +2/6 SM Abdomen: Soft, nontender to palpation, nondistended, active bowel sounds; no rebound, rigidity, or guarding Extremities: No cyanosis, clubbing, no edema Neuro: Cranial nerves II through XII are grossly intact without focal deficits; awake alert and oriented x1 Psych: Normal mood and affect Results Laboratory Results: 04/19/17 04:09 04/22/17 08:07 04/14/17 04/14/17 04/15/17 13:10 19:10 01:10 Troponin I 0.459 0.539 0.608 NT-Pro-B Natriuret Pep 04/15/17 04:49 Troponin I NT-Pro-B Natriuret Pep 07650 H Impressions: Thoracentesis Ultrasound 04/15/17 12:40 IMPRESSION: SUCCESSFUL THORACENTESIS USING ULTRASOUND GUIDANCE. Chest X-Ray 04/21/17 09:54 IMPRESSION: Congestive failure pattern showing interval progression as compared to the previous study Qualifiers PATEINT BEING DISCHARGED WITH ANY OF THE FOLLOWING DIAGNOSIS?: Heart Failure HF Pt being discharged on ACEI for LVEF less than 40%?: No Reason(s) for not prescribing ACEI:: Hospice Care HF Pt being discharged on ARBS for LVEF less than 40%?: No Reason(s) for not prescribing ARBS:: Hospice Care HF Pt with Afib discharged with Warfarin?: No Reason(s) for not prescribing Warfarin:: Hospice Care Reason(s) for not prescribing evidence-based Beta Carmita:: Hospice Care
== END 2017-04-25 14:42 | disposition hospice, home (50) | DRG 291 ==
LOC: ER 10:29 → EH 12:18 → UNDOADMIN 13:19 → EH 13:19 → 3W 16:00
PROVIDERS: ADMIT Internal Medicine; ATTEND Internal Medicine
PROC: 0W9B3ZX Drainage of Left Pleural Cavity, Percutaneous Approach, Diagnostic (ICD-10-PCS; principal; 2017-04-15)
DX: I13.0 Hypertensive heart and chronic kidney disease with heart failure and stage 1 through stage 4 chronic kidney disease, or unspecified chronic kidney disease (principal); I50.33 Acute on chronic diastolic (congestive) heart failure; J18.1 Lobar pneumonia, unspecified organism; J96.22 Acute and chronic respiratory failure with hypercapnia; J96.21 Acute and chronic respiratory failure with hypoxia; Z66 Do not resuscitate; G93.41 Metabolic encephalopathy; E87.2 Acidosis; J90 Pleural effusion, not elsewhere classified; N17.9 Acute kidney failure, unspecified; E87.0 Hyperosmolality and hypernatremia; G93.1 Anoxic brain damage, not elsewhere classified; E87.6 Hypokalemia; N18.9 Chronic kidney disease, unspecified; I48.2 Chronic atrial fibrillation; S72.141D Displaced intertrochanteric fracture of right femur, subsequent encounter for closed fracture with routine healing; Z86.74 Personal history of sudden cardiac arrest; B95.62 Methicillin resistant Staphylococcus aureus infection as the cause of diseases classified elsewhere; B96.5 Pseudomonas (aeruginosa) (mallei) (pseudomallei) as the cause of diseases classified elsewhere; I25.10 Atherosclerotic heart disease of native coronary artery without angina pectoris; J44.9 Chronic obstructive pulmonary disease, unspecified; E03.9 Hypothyroidism, unspecified; K21.9 Gastro-esophageal reflux disease without esophagitis; F03.90 Unspecified dementia, unspecified severity, without behavioral disturbance, psychotic disturbance, mood disturbance, and anxiety; R79.89 Other specified abnormal findings of blood chemistry; M19.90 Unspecified osteoarthritis, unspecified site; I25.2 Old myocardial infarction; Z96.653 Presence of artificial knee joint, bilateral; Z86.718 Personal history of other venous thrombosis and embolism; Z87.891 Personal history of nicotine dependence; Z79.01 Long term (current) use of anticoagulants; Z79.891 Long term (current) use of opiate analgesic; Z79.51 Long term (current) use of inhaled steroids; Z79.899 Other long term (current) drug therapy
CPT/HCPCS: 32555; 36415; 36600; 71010; 80048; 80053; 82550; 82553; 82803; 82945; 82947; 83605; 83615; 83735; 83880; 84100; 84155; 84157; 84443; 84484; 85025; 85027; 85610; 85730; 87015; 87040; 87070; 87075; 87077; 87116; 87186; 87205; 87206; 89050; 93005; 93010; 94640; 94660; 96365; 99291; J0696; J1650; J1940; J3480; J3490; J7030; J7040; J7060; J7620; S0028